=== PATIENT | female | born 1955 | race Caucasian/White ===

== ENCOUNTER 2019-03-30 10:28 | Outpatient (REF) | payer MEDICARE, BC, SELFPAY ==
[2019-03-30 22:44] LABS: ALT 33 U/L (14-59); AST 15 U/L (15-37); Albumin 3.8 g/dL (3.4-5.0); Alkaline Phosphatase 83 U/L (46-116); Bilirubin, Total 0.3 mg/dL (0.2-1.0); TSH 1.79 uIU/mL (0.36-3.74); Total Protein 6.9 g/dL (6.4-8.2)
== END 2019-03-30 10:48 ==
LOC: NCHCN 10:28
PROVIDERS: PCP Internal Medicine; Visit Provider Internal Medicine
DX: R53.83 Other fatigue (principal); F32.9 Major depressive disorder, single episode, unspecified; F10.20 Alcohol dependence, uncomplicated
CPT/HCPCS: 80076; 84443

== ENCOUNTER 2020-06-04 17:29 | Outpatient (REF) | payer MEDICARE, BC, SELFPAY ==
[2020-06-04 20:49] LABS: Abs Immature Grans 0.01 10^3/uL (0.0-0.06); Absolute Basophil Count 0.07 10^3/uL (0.0-0.2); Absolute Eosinophil Count 0.21 10^3/uL (0.0-0.7); Absolute Lymphocyte Count 2.57 10^3/uL (1.2-3.4); Absolute Monocyte Count 0.53 10^3/uL (0.1-0.8); Absolute Neutrophil Count 3.51 10^3/uL (1.2-6.7); HCT 43.7 % (36.0-46.0); HGB 14.3 g/dL (11.2-15.7); Immature Grans % 0.1; Lymphocytes % 37.2; MCH 31.2 pg (27.0-33.0); MCHC 32.7 % (32.0-36.0); MCV 95.4 fL (80-95); MPV 10.7 fL (8.0-11.0); Monocytes % 7.7; Nucleated RBC 0 %; Platelet Count 330 10^3/uL (130-400); RBC 4.58 10^6/uL (3.93-5.22); RDW 12.9 % (11.7-14.6); RDW-SD 45.1 fL
[2020-06-04 20:59] LABS: ALT 28 U/L (14-59); AST 16 U/L (15-37); Albumin 4.1 g/dL (3.4-5.0); Alkaline Phosphatase 93 U/L (46-116); Anion Gap 9.1 mmol/L (3-11); BUN 8 mg/dL (7-18); Bilirubin, Total 0.3 mg/dL (0.2-1.0); C-Reactive Protein 0.18 mg/dL (0.0-0.3); CO2 26.9 mmol/L (21.0-32.0); CREATININE 0.66 mg/dL (0.55-1.02); Calcium 9.3 mg/dL (8.5-10.1); Chloride 104 mmol/L (98-107); Glucose 83 mg/dL (74-106); Potassium 4.4 mmol/L (3.5-5.1); Sodium 140 mmol/L (136-145); Total Protein 7.3 g/dL (6.4-8.2)
[2020-06-04 21:26] LABS: ESR 15 mm/hr (0-30)
== END 2020-06-04 17:49 ==
LOC: NCHCN 17:29
PROVIDERS: PCP Internal Medicine; Visit Provider Internal Medicine
DX: G44.89 Other headache syndrome (principal)
CPT/HCPCS: 80053; 85652; 85025; 86140

== ENCOUNTER 2020-12-13 09:37 | Outpatient (REF) | payer MEDICARE, BC, SELFPAY ==
[2020-12-13 14:14] LABS: BUN 9 mg/dL (7-18); CREATININE 0.8 mg/dL (0.55-1.02); Calculated LDL 145 mg/dL (<100); Chloride 107 mmol/L (98-107); Cholesterol 211 mg/dL (<200); Glucose 92 mg/dL (74-106); HDL Cholesterol 52 mg/dL (40-60); Potassium 4.6 mmol/L (3.5-5.1); Sodium 144 mmol/L (136-145); Triglyceride 74 mg/dL (<150)
== END 2020-12-13 09:38 | disposition home or self-care (01) ==
LOC: NCHCN 09:37
PROVIDERS: PCP Internal Medicine; Visit Provider Internal Medicine
DX: Z00.00 Encounter for general adult medical examination without abnormal findings (principal); Z13.220 Encounter for screening for lipoid disorders; R53.83 Other fatigue
CPT/HCPCS: 80048; 80061

== ENCOUNTER 2023-01-12 09:08 | Outpatient (REF) | payer MEDICARE, SELFPAY ==
[2023-01-12 15:39] LABS: ALT 33 U/L (14-59); AST 27 U/L (15-37); Albumin 3.8 g/dL (3.4-5.0); Alkaline Phosphatase 79 U/L (46-116); Anion Gap 7.4 mmol/L (3-11); BUN 6 mg/dL (7-18); Bilirubin, Total 0.5 mg/dL (0.2-1.0); CO2 28.6 mmol/L (21.0-32.0); CREATININE 0.8 mg/dL (0.55-1.02); Calcium 9.4 mg/dL (8.5-10.1); Calculated LDL 133 mg/dL (<100); Chloride 107 mmol/L (98-107); Cholesterol 206 mg/dL (<200); Estimated GFR 79.71 (mL/min/1.73m2); Glucose 108 mg/dL (74-106); HDL Cholesterol 51 mg/dL (40-60); Potassium 4.3 mmol/L (3.5-5.1); Sodium 143 mmol/L (136-145); Total Protein 7.2 g/dL (6.4-8.2); Triglyceride 110 mg/dL (<150)
== END 2023-01-12 09:09 | disposition home or self-care (01) ==
LOC: NCHCN 09:08
PROVIDERS: PCP Internal Medicine; Visit Provider Internal Medicine
DX: E78.5 Hyperlipidemia, unspecified (principal)
CPT/HCPCS: 80053; 80061

== ENCOUNTER 2023-08-07 19:06 | Outpatient (REF) | payer MEDICARE, SELFPAY ==
[2023-08-07 14:35] LABS: Abs Immature Grans 0.01 10^3/uL (0.0-0.06); Absolute Basophil Count 0.07 10^3/uL (0.0-0.2); Absolute Eosinophil Count 0.18 10^3/uL (0.0-0.7); Absolute Lymphocyte Count 2.05 10^3/uL (1.2-3.4); Absolute Monocyte Count 0.56 10^3/uL (0.1-0.8); Absolute Neutrophil Count 3.41 10^3/uL (1.2-6.7); Basophils % 1.1; Eosinophils % 2.9; HGB 14.8 g/dL (11.2-15.7); Immature Grans % 0.2; Lymphocytes % 32.6; MCH 30.6 pg (27.0-33.0); MCHC 32.9 % (32.0-36.0); MCV 93 fL (80-95); MPV 10.6 fL (8.0-11.0); Monocytes % 8.9; Neutrophils % 54.3; Platelet Count 325 10^3/uL (130-400); RBC 4.83 10^6/uL (3.93-5.22); RDW 12.7 % (11.7-14.6); RDW-SD 43.8 fL; WBC 6.28 10^3/uL (4.4-10.8)
[2023-08-07 15:02] LABS: Hemoglobin A1C 5.7 % (<5.7)
[2023-08-07 15:21] LABS: Calculated LDL 158 mg/dL (<100); Cholesterol 228 mg/dL (<200); HDL Cholesterol 54 mg/dL (40-60); TSH 1.84 uIU/Ml (0.36-3.74); Triglyceride 84 mg/dL (<150); Vitamin B12 286 pg/mL (193-986)
== END 2023-08-07 19:07 | disposition home or self-care (01) ==
LOC: NCHCN 19:06
PROVIDERS: PCP Internal Medicine; Referring Provider Internal Medicine; Visit Provider Internal Medicine
DX: R73.03 Prediabetes (principal); E78.5 Hyperlipidemia, unspecified; R53.83 Other fatigue; E66.3 Overweight
CPT/HCPCS: 80061; 82607; 83036; 84443; 85025

== ENCOUNTER 2024-03-07 08:52 | Outpatient (REF) | payer MEDICARE, SELFPAY ==
--- OUTSIDE RECORDS SUMMARY | 2024-03-07 08:53 | XMS_ITS | Encounter Summary ---
Author Organization [facility] Address [address] [place] [address] Care Team Providers Care Model Making Supervisor Name Role Phone Hortencia Gotti MD Primary Care Provider Unavailabl e Reason for Visit * Reason Comments Neuropathy Encounter Details Date Type Department Care Team (Late st Contact Info) Description 08/21/2023 9:00 EDT Nurse Only [facility] Neu[facility] [address] [place], [place] [address] Nurse, [facility] Peripheral polyneuropathy [G62.9] (Primary Dx) Social History Tobacco Use Types Packs/Day Years Used Date Smoking Tobacco: Never Assessed Interpersonal Safety Answer Date Record ed Physically Hurt Never 01/08/2020 Verbally Threaten Not on file 01/08/2020 Sex and Gender Information Value Date Recorded Sex Assigned at Not on file Gender Identity Female 02/05/2022 12:59 EDT Sexual Orientation Not on file documented as of this encounter Functional Status Functional Status Response Date of Assess ment Because of a physical, menta l, or emotional condition, does this person have difficulty doing errands alone such as visiting a doctor's office or shopping? No 04/09/2023 Cognitive Status Response Date of Assessm ent Because of a physical, menta l, or emotional condition, does this person have serious difficulty concentrating, remembering, or making decisions? No 04/09/2023 documented as of this encounter Progress Notes * Ludy Shultz, RN - 08/21/2023 0900 EDT Nikky came into the office to receive her first IM injection of B12. Nikky was accompanied by her , Brendon who will be learning the administration in order to provide the next 3 weekly injections ordered. Nikky brought the B12 for IM injection in with her from her local pharmacy. Nikky also wanted to learn how to administer her injections. Nikky is to receive 1000 mg cyanocobalamin IM weeklyfor 4 weeks due to a symptomatic low serum level. Brendon received hands on instruction for drawing up medication into the syringe and administering an IM injection. He then administered the B12 1000mg via IM injection into Nikky's right deltoid successfully under RN supervision. Brendon expressed confidence with independence administering the IM injections in the next 3 weeks. 1000 mg administered IM to patient's right deltoid. Tolerated well. Patient remained under RN supervision for 20 minutes following the injection. I was supervised by Edward Diaz MD who was present and immediately available in the office suite. Lot # : Exp date: NDC: documented in this encounter Plan of Treatment Not on file documented as of this encounter Visit Diagnoses Diagnosis Peripheral polyneuropathy [G62.9]- Primary Unspecified hereditary and idiopathic peripheral neuropathy documented in this encounter Administered Medications Inactive Administered Medications - up to 3 most recent administrations Medication Order MAR Action Action Date Dose Rate Site cyanocobalamin (VITAMIN B12) injection 1,000 mcg 1,000 mcg, intramuscular, WEEKLY, 1 dose, First dose (after last reorder) on Thu08/21/23 at 0930, Routine Given 08/21/2023 9:00 EDT 1,000 mcg Right De ltoid documented in this encounter Care Teams Model Making Supervisor Relationship Specialty Start Date End Date Hortencia Gotti MD PCP - General 11/01/21 documented as of this encounter
--- OUTSIDE RECORDS SUMMARY | 2024-03-07 08:53 | XMS_ITS | Encounter Summary ---
Author Organization [facility] Address [address] [place] [address] Care Team Providers Care Meal Temperer Name Role Phone Hortencia Gotti MD Primary Care Provider Unavailabl e Reason for Referral * Radiology Services (Routine/Next Available) - Authorization Not Required Specialty Diagnoses / Procedures Referred By Thomas t Referred To Contact Diagnoses Encounter for screening mammogram for malignant neoplasm of breast Procedures MA BREAST SCREENING ENRIQUE BILATERAL Nayana Kaur [address] [place] [address] [facility] Referral ID Status Reason Start Date Expiration Date Visits Requested Visits Authorized [id number] Authorization Not Required 12/24/2023 1 1 Reason for Visit * Radiology Services (Routine/Next Available) - Authorization Not Required Specialty Diagnoses / Procedures Referred By Thomas hernandes Referred To Contact Diagnoses Encounter for screening mammogram for malignant neoplasm of breast Procedures MA BREAST SCREENING ENRIQUE BILATERAL Nayana Kaur [address] [place] [address] [facility] Referral ID Status Reason Start Date Expiration Date Visits Requested Visits Authorized [id number] Authorization Not Required 12/24/2023 1 1 Encounter Details Date Type Department Care Team (Latest Contact Info) Description 01/22/2024 11:33 EDT - 01/22/2024 23:59 EDT Hospital Encounter [facility] Mammography [address] [place], [place] [address] Encounter for screening mammogram for malignant neoplasm of breast Discharge Disposition: Home or Self Care Social History Tobacco Use Types Packs/Day Years Used Date Smoking Tobacco: Former Cigarettes Smokeless Tobacco: Never Interpersonal Safety Answer Date Record ed Physically [...] serious difficulty concentrating, remembering, or making decisions? Yes 12/16/2023 documented as of this encounter Medications at Time of Discharge Medication Sig Dispensed Refills Start Date End Date amitriptyline (ELAVIL) 50 mg tablet take 1 tablet by mouth every night 06/20/2022 cyanocobalamin (VITAMIN B-12) 1,000 mcg tablet Take 1 Tablet by mouth daily. Start after intramuscular injections are finished 90 Tablet 4 08/13/2023 cyclobenzaprine (FLEXERIL) 10 mg tablet TAKE 1 TABLET BY MOUTH AT BEDTIME NEEDED FOR NECK PAIN 06/20/2022 estradioL (ESTRACE) 0.01 % (0.1 mg/gram) vaginal cream 02/18/2023 FLUoxetine (PROZAC) 20 mg capsule Take 1 Capsule by mouth daily. 03/19/2023 triamcinolone (KENALOG) 0.1 % cream APPLY SMALL AMOUNT TOPICALLY TO THE AFFECTED AREA TWICE DAILY 03/16/2023 documented as of this encounter Discharge Disposition Disposition Code Departure Means Destination Home or Self Care documented in this encounter Plan of Treatment Not on file documented as of this encounter Procedures Procedure Name Priority Date/Time Associated Diagnosis Comments MA BREAST SCREENING ENRIQUE BILATERAL Routine 01/22/2024 11:45 EDT Encounter for screening mammogram for malignant neoplasm of breast documented in this encounter Results * MA BREAST SCREENING ENRIQUE BILATERAL (01/22/2024 11:45 EDT) Anatomical Region Laterality Modality Breast Bilateral Mammography 01/22/2024 12:3 8 EDT Impressions 01/22/2024 12:38 EDT Negative, no evidence of malignancy. RECOMMENDATION: Routine screening mammography is recommended. OVERALL ASSESSMENT: BI-RADS 1: Negative These results will be communicated to your patient via a lay letter from Radiology. If any additional imaging is needed we will contact your patient directly. [address] [phone] [id number] Narrative 01/22/2024 12:38 EDT MA BREAST SCREENING ENRIQUE BILATERAL ??01/22/2024 11:38 AM History: bilateral screening Comparison: ??Comparison has been made to previous images . ? Technique: Routine 3D tomosynthesis with synthesized 2D views with CAD Breast Composition: There are scattered areas of fibroglandular density. Bilateral Breast Findings: ??No significant masses, calcifications or other abnormalities are seen. Resulting Agency Comment [id number] Procedure Note Jitendra Diallo MD - 01/22/2024 MA BREAST SCREENING ENRIQUE BILATERAL 01/22/2024 11:38 AM History: bilateral screening Comparison: Comparison has been made to previous images . Technique: Routine 3D tomosynthesis with synthesized 2D views with CAD Breast Composition: There are scattered areas of fibroglandular density. Bilateral Breast Findings: No significant masses, calcifications or otherabnormalities are seen. IMPRESSION Negative, no evidence of malignancy. RECOMMENDATION: Routine screening mammography is recommended. OVERALL ASSESSMENT: BI-RADS 1: Negative These results will be communicated to your patient via a lay letter fromRadiology. If any additional imaging is needed we will contact yourpatient directly. [address] [phone] [id number] Nayana Kaur IMG MAMMOGRAPHY [place] documented in this encounter Visit Diagnoses Diagnosis Encounter for screening mammogram for malignant neoplasm of breast Other screening mammogram documented in this encounter Care Teams Meal Temperer Relationship Specialty Start Date End Date Hortencia Gotti MD PCP - General 11/01/21 documented as of this encounter
--- OUTSIDE RECORDS SUMMARY | 2024-03-07 08:53 | XMS_ITS | Clinical Summary ---
Author Organization [facility] Address [address] [place] [address] Care Team Providers Care Architectural Draftsman Name Role Phone Hortencia Gotti MD Primary Care Provider Unavailabl e Allergies No known active allergies Medications Medication Sig Dispensed Refills Start Date End Date Status triamcinolone (KENALOG) 0.1 % cream APPLY SMALL AMOUNT TOPICALLY TO THE AFFECTED AREA TWICE DAILY 03/16/2023 Active estradioL (ESTRACE) 0.01 % (0.1 mg/gram) vaginal cream 02/18/2023 Active FLUoxetine (PROZAC) 20 mg capsule Take 1 Capsule by mouth daily. 03/19/2023 Active cyclobenzaprine (FLEXERIL) 10 mg tablet TAKE 1 TABLET BY MOUTH AT BEDTIME NEEDED FOR NECK PAIN 06/20/2022 Active amitriptyline (ELAVIL) 50 mg tablet take 1 tablet by mouth every night 06/20/2022 Active cyanocobalamin (VITAMIN B-12) 1,000 mcg tablet Take 1 Tablet by mouth daily. Start after intramuscular injections are finished 90 Tablet 4 08/13/2023 Active Encounters Date Type Department Care Team Description 01/22/2024 11:33 EDT - 01/22/2024 23:59 EDT Hospital Encounter [facility] Mammography [address] [place] [address] Encounter for screening mammogram for malignant neoplasm of breast Discharge Disposition: Home or Self Care 12/16/2023 8:30 EDT Office Visit [facility] Neurology Clinic [address] [place] [address] Malaika Rod MD Sensory polyneuropathy (Primary Dx) from Last 3 Months Family History Medical History Relation Comments No Known Brother No Known Child No Known Cousin No Known Daughter No Known Father No Known Grandchild No Known Maternal Aunt No Known Maternal Grandfather No Known Maternal Grandmother No Known Maternal Uncle No Known Mother No Known Other No Known Paternal Aunt No Known Paternal Grandfather No Known Paternal Grandmother No Known Paternal Uncle No Known Sister No Known Son BRCA1 Negative Neg Hx BRCA1 Positive Neg Hx BRCA2 Negative Neg Hx BRCA2 Positive Neg Hx Breast Cancer Neg Hx Breast Cancer (second onset) Neg Hx Genetic Disease Carrier Neg Hx Ovarian Cancer Neg Hx Relation Status Comments Brother Child Cousin Daughter Father Grandchild Maternal Aunt Maternal Grandfather Maternal Grandmother Maternal Uncle Mother Other Paternal Aunt Paternal Grandfather Paternal Grandmother Paternal Uncle Sister Son Social History Tobacco Use Types Packs/Day Years Used Date Smoking Tobacco: Former Cigarettes Smokeless Tobacco: Never Tobacco Cessation:Counseling Given: Not Answered Interpersonal Safety Answer Date Record ed Physically Hurt Never 01/08/2020 Verbally Threaten Not on file 01/08/2020 Sex and Gender Information Value Date Recorded Sex Assigned at Not on file Gender Identity Female 02/05/2022 12:59 EDT Sexual Orientation Not on file Obstetrics History Para Term AB IAB SAB Ectopic Multiple Livin g Live Births 3 3 Date Outcome GA Total Labor Labor/2nd/3rd Weight Sex Type Anes PTL Marilee A1 A5 Name Clin Para Para Para Last Filed Vital Signs Vital Sign Reading Time Taken Comments Blood Pressure 120/70 04/09/2023 0938 EDT Pulse 72 04/09/2023 0938 EDT Temperature - - Respiratory Rate - - Oxygen Saturation 96% 04/09/2023 0938 EDT Inhaled Oxygen Concentration - - Weight - - Height 172.7 cm (5' 8) 11/04/2022 0822 EDT Body Mass Index - - Plan of Treatment Health Maintenance Due Date Last Done Comments RSV Immunization ( o r 60+ Years) (1 - 1-dose 60+ series) 2013 COVID-19 Vaccine (2022-24 season) 2023 Fall Risk Screening 12/15/2024 12/16/2023 Hepatitis C Screen Completed 04/09/2023 Procedures Procedure Name Priority Date/Time Associated Diagnosis Comments MA BREAST SCREENING ENRIQUE BILATERAL Routine 01/22/2024 11:45 EDT Encounter for screening mammogram for malignant neoplasm of breast HEPATITIS C AB W REFLEX TO HCV RNA BY PCR Routine 04/09/2023 10:42 EDT Peripheral polyneuropathy from Last 3 Months or Most Recently Relevant to Health Maintenance Results * MA BREAST SCREENING ENRIQUE BILATERAL [...] needed we will contact your patient directly. [address] [place] [address] [id number] Narrative 01/22/2024 12:38 EDT MA BREAST SCREENING ENRIQUE BILATERAL ??01/22/2024 11:38 AM History: bilateral screening Comparison: ??Comparison has been made to previous images . ? Technique: Routine 3D tomosynthesis with synthesized 2D views with CAD Breast Composition: There are scattered areas of fibroglandular density. Bilateral Breast Findings: ??No significant masses, calcifications or other abnormalities are seen. Resulting Agency Comment [id number] Procedure Note Jitendra Diallo MD - 01/22/2024 [...] is needed we will contact yourpatient directly. [address] [place] [address] [id number] Nayana Kaur IMG MAMMOGRAPHY [place] PALMA * HEPATITIS C AB W REFLEX TO HCV RNA BY PCR (04/09/2023 10:42 EDT) Hep C Antibody Negative Negative 04/09/2023 13:17 EDT [facility] Blood VENOUS BLOOD / Unknown Venipuncture / Unknown 04/09/2023 10:42 EDT 04/09/2023 11:48 EDT Malaika Rod MD CHEMISTRY & BLOOD GA S ORDERABLES [facility] [address] [place] [id number] from Last 3 Months or Most Recently Relevant to Health Maintenance Nikky Jarrett P Personal/Family Self 1955 [address] [place] [address] Nikky Jarrett Personal/Family Self 1955 [address] [place] [address] Nikky Jarrett Personal/Family Self 1955 [address] [place] [address] Care Teams Architectural Draftsman Relationship Specialty Start Date End Date Hortencia Gotti MD PCP - General 11/01/21
--- OUTSIDE RECORDS SUMMARY | 2024-03-07 08:53 | XMS_ITS | Encounter Summary ---
Author Organization [facility] Address [address] [place] [address] Care Team Providers Care Woven Wood Shade Assembler Name Role Phone oHrtencia Gotti MD Primary Care Provider Unavailabl e Reason for Referral * Radiology Services (Routine/Next Available) - Authorization Not Required Specialty Diagnoses / Procedures Referred By Contac t Referred To Contact Diagnoses Encounter for screening mammogram for malignant neoplasm of breast Procedures MA BREAST SCREENING ENRIQUE BILATERAL Nayana [address] [place] [address] [facility] Referral ID Status Reason Start Date Expiration Date Visits Requested Visits Authorized [id number] Authorization Not Required 09/11/2022 1 1 Reason for Visit * Radiology Services (Routine/Next Available) - Authorization Not Required Specialty Diagnoses / Procedures [facility] Referred To Contact Diagnoses Encounter for screening mammogram for malignant neoplasm of breast Procedures MA BREAST SCREENING [place] [address] [facility] Referral ID Status Reason Start Date Expiration Date Visits Requested Visits Authorized [id number] Authorization Not Required 09/11/2022 1 1 Encounter Details Date Type Department Care Team (Latest Contact Info) Description 11/04/2022 7:46 EDT - 11/04/2022 23:59 EDT Hospital Encounter [facility] Mammography [address] [place], [place] [address] Encounter for screening mammogram for malignant neoplasm [...] on file documented as of this encounter Last Filed Vital Signs Vital Sign Reading Time Taken Comments Blood Pressure - - Pulse - - Temperature - - Respiratory Rate - - Oxygen Saturation - - Inhaled Oxygen Concentration - - Weight - - Height 172.7 cm (5' 8) 11/04/2022 0822 EDT Body Mass Index - - documented in this encounter Medications at Time of Discharge Medication Sig Dispensed Refills Start Date End Date amitriptyline (ELAVIL) 50 mg tablet take 1 tablet by mouth every night 06/20/2022 cyclobenzaprine (FLEXERIL) 10 mg tablet TAKE 1 TABLET BY MOUTH AT BEDTIME NEEDED FOR NECK PAIN 06/20/2022 PREVIDENT 5000 ENAMEL PROTECT 1.1-5 % paste 10/29/20222023 documented as of this encounter Discharge Disposition Disposition Code Departure Means Destination Home or Self Care documented in this encounter Plan of Treatment Not on file documented as of this encounter Procedures Procedure Name Priority Date/Time Associated Diagnosis Comments MA BREAST SCREENING ENRIQUE BILATERAL Routine 11/04/2022 8:23 EDT Encounter for screening mammogram for malignant neoplasm of breast documented in this encounter Results * MA BREAST SCREENING ENRIQUE BILATERAL (11/04/2022 8:23 EDT) Anatomical Region Laterality Modality Breast Bilateral Mammography 11/05/2022 12:5 9 EDT Impressions 11/05/2022 12:59 EDT Negative, no evidence of malignancy. RECOMMENDATION: Routine screening mammography is recommended. OVERALL ASSESSMENT: BI-RADS 1: Negative These results will be communicated to your patient via a lay letter from Radiology. If any additional imaging is needed we will contact your patient directly. Narrative 11/05/2022 12:59 EDT MA BREAST SCREENING ENRIQUE BILATERAL ??11/04/2022 8:10 AM History: routine screening Comparison: ??Comparison has been made to previous images. Technique: Routine 3D tomosynthesis with synthesized 2D views with CAD Bilateral Breast Composition: There are scattered areas of fibroglandular density. Bilateral Breast Findings: ??No significant masses, calcifications or other abnormalities are seen. Procedure Note Hector Demarco MD - 11/05/2022 MA BREAST SCREENING ENRIQUE BILATERAL 11/04/2022 8:10 AM History: routine screening Comparison: Comparison has been made to previous images. Technique: Routine 3D tomosynthesis with synthesized 2D views with CAD Bilateral Breast Composition: There are scattered areas of fibroglandulardensity. Bilateral Breast Findings: No significant masses, calcifications or otherabnormalities are seen. IMPRESSION Negative, no evidence of malignancy. RECOMMENDATION: Routine screening mammography is recommended. OVERALL ASSESSMENT: BI-RADS 1: Negative These results will be communicated to your patient via a lay letter fromRadiology. If any additional imaging is needed we will contact yourpatient directly. Nayana Kaur [facility] MAMMOGRAPHY [place]HA [place] documented in this encounter Visit Diagnoses Diagnosis Encounter for screening mammogram for malignant neoplasm of breast Other screening mammogram documented in this encounter Care Teams Woven Wood Shade Assembler Relationship Specialty Start Date End Date Hortencia Gotti MD PCP - General 11/01/21 documented as of this encounter
--- OUTSIDE RECORDS SUMMARY | 2024-03-07 08:53 | XMS_ITS | Encounter Summary ---
Author Organization [facility] Address [address] [place] [address] Care Team Providers Care Community Services Officer Name Role Phone Hortencia Gotti MD Primary Care Provider Unavailabl e Encounter Details Date Type Department Care Team (Late st Contact Info) Description 04/09/2023 11:00 EDT Phlebotomy Only [facility] - Outpatient Phlebotomy Drawing [address] [place] [address] Lab, [facility] Op Phlebotomy Peripheral polyneuropathy; Abnormal reflex; Other abnormal glucose Social History Tobacco Use Types Packs/Day Years [...] No 04/09/2023 documented as of this encounter Plan of Treatment Not on file documented as of this encounter Procedures Procedure Name Priority Date/Time Associated Diagnosis Comments SPEP, INCLUDES QUANTITATION OF MONOCLONAL SPIKE PERFORMABLE Routine 04/09/2023 10:42 EDT Peripheral polyneuropathy SSA/SSB PANEL Routine 04/09/2023 10:42 EDT Peripheral polyneuropathy HEPATITIS C AB W REFLEX TO HCV RNA BY PCR Routine 04/09/2023 10:42 EDT Peripheral polyneuropathy METHYLMALONIC ACID Routine 04/09/2023 10 :42 EDT Peripheral polyneuropathy COMPLETE BLOOD COUNT Routine 04/09/2023 10:42 EDT Peripheral polyneuropathy ANTI NUCLEAR AB (GRETEL), IFA Routine 04/09/2023 10:42 EDT Peripheral polyneuropathy TSH Routine 04/09/2023 10:42 EDT Peripheral polyneuropathy Abnormal reflex SPEP, INCLUDES QUANTITATION OF MONOCLONAL SPIKE Routine 04/09/2023 10:42 EDT Peripheral polyneuropathy PROTEIN, TOTAL Routine 04/09/2023 10:42 EDT Peripheral polyneuropathy HEMOGLOBIN A1C Routine 04/09/2023 10:42 EDT Peripheral polyneuropathy Other abnormal glucose VITAMIN B12 Routine 04/09/2023 10:42 EDT Peripheral polyneuropathy COMPREHENSIVE METABOLIC PANEL (CMP) Routine 04/09/2023 10:42 EDT Peripheral polyneuropathy documented in this encounter Results * (ABNORMAL) SPEP, INCLUDES QUANTITATION OF MONOCLONAL SPIKE PERFORMABLE (04/09/2023 10:42 EDT) Albumin % 62.5 55.8 - 66.1 % 04/10/2023 14:01 [facility] Albumin g/dL 4.4 3.6 - 5.2 g/dL 04/10/2023 14:01 [facility] Alpha-1 % 3.7 2.9 - 4.9 % 04/10/2023 14:01 [facility] Alpha-1 g/dL 0.30 0.15 - 0.40 g/dL 04/10/2023 14:01 [facility] Alpha-2 % 8.7 7.1 - 11.8 % 04/10/2023 14:01 [facility] Alpha-2 g/dL 0.60 0.50 - 1.00 g/dL 04/10/2023 14:01 [facility] Beta % 13.4(H) 8.4 - 13.1 % 04/10/2023 14:01 [facility] Beta g/dL 1.00 0.60 - 1.20 g/dL 04/10/2023 14:01 [facility] Gamma % 11.7 11.1 - 18.8 % 04/10/2023 14:01 [facility] Gamma g/dL 0.80 0.60 - 1.60 g/dL 04/10/2023 14:01 [facility] SPEP Comment No apparent monoclonal protein seen on serum electrophoresis 04/10/2023 14:01 [facility] Comment:See scanned/suppleme ntary report. Total Protein 7.1 6.3 - 8.2 g/dL 04/10/2023 14:01 [facility] Blood VENOUS BLOOD / Unknown Venipuncture / Unknown 04/09/2023 10:42 EDT 04/09/2023 11:50 EDT Malaika Rod MD CHEMISTRY & BLOOD GA S ORDERABLES [facility] [address] [place] [address] * PROTEIN, TOTAL (04/09/2023 10:42 EDT) Blood VENOUS BLOOD / Unknown Venipuncture / Unknown 04/09/2023 10:42 EDT 04/09/2023 11:51 EDT Malaika Rod MD CHEMISTRY & BLOOD GA S ORDERABLES [facility] [address] [place] [address] * HEPATITIS C AB W REFLEX TO HCV RNA BY PCR (04/09/2023 10:42 EDT) Pathologist [facility] Hep C Antibody Negative Negative 04/09/2023 13:[address] [facility] Blood VENOUS BLOOD / Unknown Venipuncture / Unknown 04/09/2023 10:42 EDT 04/09/2023 11:48 EDT Malaika Rod MD CHEMISTRY & BLOOD GA S ORDERABLES Performing Organization Address City/[facility]/ZIP Co de Phone Number [facility] [address] [place] [address] * (ABNORMAL) HEMOGLOBIN A1C (04/09/2023 10:42 EDT) [facility] Hemoglobin A1c 5.9(H) <5.7 % 04/09/2023 21:[address] [facility] Comment: Glycemic Status References: Normal: ??<5.7% Pre-Diabetes: ??5.7% - 6.4% Diagnostic of Diabetes: ??> or = 6.5% (if confirmed) Est Avg Glucose 123 mg/dL 21:[address] [facility] Comment:The eAG represents t he A1c result expressed as average glucose in mg/dL. Blood VENOUS BLOOD / Unknown Venipuncture / Unknown 04/09/2023 10:42 EDT 04/09/2023 11:47 EDT Malaika Rod MD CHEMISTRY & BLOOD GA S ORDERABLES Performing Organization Address City/[facility]/ZIP Co de Phone Number [facility] [address] [place] [address] * METHYLMALONIC ACID (04/09/2023 10:42 EDT) Pathologist [facility] Methylmalonic Acid, QN, S 0.40 <=0.40 nmol/mL 04/14/2023 15:12 EST [facility] Comment: ADDITIONAL INFORMATION This test was developed and its performance characteristics determined by [facility] in a manner consistent with CLIA requirements. This test has not been cleared or approved by the U.S. Food and Drug Administration. Test Performed by: [address] [address] Home Hospice Aide: Albert Gee M.D. Ph.D.; CLIA# [id number] Blood VENOUS BLOOD / Unknown Venipuncture / Unknown 04/09/2023 10:42 EDT 04/09/2023 11:50 EDT Malaika Rod MD CHEMISTRY & BLOOD GA S ORDERABLES Performing Organization Address [facility] Co de Phone Number [address] [address] * ANTI NUCLEAR AB (GRETEL), IFA (04/09/2023 10:42 EDT) Pathologist [facility] GRETEL Interpretation Negative Negative 2022 12:36 EDT [facility] Comment:No titer performed, GRETEL Screen is negative. Blood VENOUS BLOOD / Unknown Venipuncture / Unknown 04/09/2023 10:42 EDT 04/09/2023 11:50 EDT Narrative [facility] - 04/10/2023 12:36 EDT Results were obtained with the INOVA NOVA Lite HEp-2 GRETEL Kit by indirect immunofluorescence. Malaika Rod MD IMMUNOLOGY AND SEROL OGY ORDERABLES Performing Organization Address City/[facility]/ZIP Co de Phone Number [facility] [address] [place] [address] * SSA/SSB PANEL (04/09/2023 10:42 EDT) SSA Antibody 1.7 <20.0 Units 04/10/2023 14:11 EDT [facility] Comment: ? Negative: <20.0 Units ? Weak Positive: 20.0 - 39.9 Units ? Moderate Positive: 40.0 - 80.0 Units ? Strong Positive: >80.0 Units Results were obtained with the INOVA QUANTA Lite SS-A MARIANNA. ??SS-A values obtained with different manufacturers' assay methods may not be used interchangeably. ??The magnitude of the reported IgG levels cannot be correlated to an endpoint titer. SSB Antibody 2.1 <20.0 Units 04/10/2023 14:11 EDT [facility] Comment: ? Negative: <20.0 Units ? Weak Positive: 20.0 - 39.9 Units ? Moderate Positive: 40.0 - 80.0 Units ? Strong Positive: >80.0 Units Results were obtained with the INOVA QUANTA Lite SS-B MARIANNA. ??SS-B values obtained with different manufacturers' assay methods may not be used interchangeably. ??The magnitude of the reported IgG levels cannot be correlated to an endpoint titer. Blood VENOUS BLOOD / Unknown Venipuncture / Unknown 04/09/2023 10:42 EDT 04/09/2023 11:48 EDT Malaika Rod MD IMMUNOLOGY AND GARY NAJERA ORDERABLES Performing Organization Address City/State/[facility] Co de Phone Number [facility] [address] [place] [address] * (ABNORMAL) COMPREHENSIVE METABOLIC PANEL (CMP) (04/09/2023 10:42 EDT) Sodium 142 136 - 145 mmol/L 04/09/2023 12:[address] [facility] Potassium 4.4 3.5 - 5.0 mmol/L 04/09/2023 12:[address] [facility] Chloride 109 96 - 110 mmol/L 04/09/2023 12:[address] [facility] CO2 Total 28 22 - 32 mmol/L 04/09/2023 12:[address] [facility] Glucose 78 70 - 99 mg/dl 04/09/2023 12:31 [facility] BUN 6(L) 10 - 26 mg/dL 04/09/2023 12:31 [facility] Creatinine 0.56 0.52 - 1.04 mg/dL 04/09/2023 12:31 [facility] eGFR 98 >60 mL/min/1.7 3m2 04/09/2023 12:31 [facility] Total Protein 7.2 6.3 - 8.2 g/dL 04/09/2023 12:31 [facility] Albumin 4.4 3.4 - 4.9 g/dL 04/09/2023 12:31 [facility] Alkaline Phosphatase 76 38 - 126 U/L 04/09/2023 12:31 [facility] AST 29 15 - 46 U/L 04/09/2023 12:31 [facility] ALT 30 <35 U/L 04/09/2023 12:31 [facility] Bilirubin, Total 0.6 <1.4 mg/dL 04/09/20 12:31 [facility] Calcium 10.0 8.5 - 10.5 mg/dL 04/09/2023 12:31 [facility] Albumin/Globulin Ratio 1.6 1.0 - 2.5 g/dL 04/09/2023 12:31 [facility] Anion Gap 5 5 - 14 mmol/L 04/09/2023 12:31 [facility] Blood VENOUS BLOOD / Unknown Venipuncture / Unknown 04/09/2023 10:42 EDT 04/09/2023 11:51 EDT Malaika Rod MD CHEMISTRY & BLOOD GA S ORDERABLES [facility] [address] [place] [address] * COMPLETE BLOOD COUNT (04/09/2023 10:42 EDT) WBC 7.10 4.00 - 12.40 K/cmm 04/09/2023 11:50 [facility] RBC 4.67 3.86 - 5.04 M/cmm 04/09/2023 11:50 [facility] Hemoglobin 14.5 11.6 - 15.2 g/dL 04/09/2023 11:50 [facility] HCT 42.9 34.9 - 44.4 % 04/09/2023 11:50 [facility] MCV 92 81 - 98 fL 04/09/2023 11:50 [facility] MCH 31.0 26.7 - 33.3 pg 04/09/2023 11:50 [facility] MCHC 33.8 32.1 - 35.9 g/dL 04/09/2023 11:50 [facility] RDW-CV 12.8 <14.7 % 04/09/2023 11:50 [facility] RDW-SD 43.1 <50.4 fl 04/09/2023 11:50 [facility] PLT 342 141 - 377 K/cmm 04/09/2023 11:50 [facility] MPV 10.7 9.5 - 12.7 fL 04/09/2023 11:50 [facility] Blood VENOUS BLOOD / Unknown Venipuncture / Unknown 04/09/2023 10:42 EDT 04/09/2023 11:47 EDT Malaika Rod MD HEMATOLOGY & PF4 ORD ERABLES [facility] [address] [place] [address] * TSH (04/09/2023 10:42 EDT) TSH 1.98 0.47 - 4.68 mIU/L 04/09/2023 13:[address] [facility] Blood VENOUS BLOOD / Unknown Venipuncture / Unknown 04/09/2023 10:42 EDT 04/09/2023 11:[address] [facility] - 04/09/2023 13:02 EDT The results of this assay can be falsely lowered due to the consumption of Biotin. Malaika Rod MD CHEMISTRY & BLOOD GA S ORDERABLES Performing Organization Address [facility] Co de Phone Number [facility] [address] [place] [address] * VITAMIN B12 (04/09/2023 10:42 EDT) Vitamin B12 281 211 - 911 pg/mL 04/09/2023 13:[address] [facility] Blood VENOUS BLOOD / Unknown Venipuncture / Unknown 04/09/2023 10:42 EDT 04/09/2023 11:[address] [facility] - 04/09/2023 13:21 EDT The results of this assay can be falsely elevated due to the consumption of Biotin. Malaika Rdo MD CHEMISTRY & BLOOD GA S ORDERABLES Performing Organization Address City/[facility] Co de Phone Number [facility] [address] [place] [address] documented in this encounter Visit Diagnoses Diagnosis Peripheral polyneuropathy Unspecified hereditary and idiopathic peripheral neuropathy Abnormal reflex Other abnormal glucose documented in this encounter Care Teams Community Services Officer Relationship Specialty Start Date End Date Hortencia Gotti MD PCP - General 11/01/21 documented as of this encounter
--- OUTSIDE RECORDS SUMMARY | 2024-03-07 08:53 | XMS_ITS | Encounter Summary ---
Author Organization [facility] Address [address] [place] [address] Care Team Providers Care Inspector Outside Production Name Role Phone Hortencia Gotti MD Primary Care Provider Unavailabl e Reason for Visit * Reason Comments Follow-up Encounter Details Date Type Department Care Team (Late st Contact Info) Description 08/13/2023 9:00 EST Office Visit [facility] [address] [place] [address] Malaika Rod MD [address] [facility] [place] [address] Peripheral polyneuropathy (Primary Dx) Social History Tobacco Use Types [...] No 04/09/2023 documented as of this encounter Ordered Prescriptions Prescription Sig Dispensed Refills Start Date End Da te cyanocobalamin (VITAMIN B-12) 1,000 mcg tablet Take 1 Tablet by mouth daily. Start after intramuscular injections are finished 90 Tablet 4 08/13/2023 documented in this encounter Progress Notes * Malaika Rod MD - 08/13/2023 0900 EST [facility] History Ms. Jarrett is a 68 year old female who was referred for evaluation of peripheral neuropathy. She has a past medical history of depression (on fluoxetine and Elavil) and eczema (on triamcinolone). She estimates that her symptoms started 1 to 2 years ago. Specifically, she feels like her feet are cold all the time. In addition, she describes a perception as if there is a layer between the soles of her feet and the floor. She also has intermittent [id number] that are isolated to the feet. She can perceive alteration of temperature under her bare feet while ambulating. However, she feelslike this perception is not as good as it used to be. If she stepped on something irregular or jagged she would have some difficulty being able to perceive it. Often, her family comments that they are surprised that she does not feel pain while barefoot walking on the gravel/rocks. She is fairly cheryl mare while ambulating but perhaps feels slightly unsteady with her eyes closed in the shower. She thinks that she is slightly weaker in her feet bilaterally and is occasionally tripping. However, she can get up from a seated position without difficulty. She also is able to ascend and descend stairs without a problem. Fine dexterity in her hands along with combing her hair or brushing her teeth are unaffected. She denies any prominent autonomic symptoms including dizziness when standing up quickly, constipation, early satiety or changes in sweating. She denies any bulbar symptoms including dysphagia, dysarthria or diplopia. Her sister perhaps has neuropathy. However, she does not feel like her mom and dad were affected. She denies consumption of alcohol. She does not smoke cigarettes or use any illicit drugs. 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 On further discussion, she describes a discomfort in her scalp as if she was wearing a rubber band in her hair and removed it. Overall, it feels sore. In addition, she describes intermittent burning in her left pinky finger and the posterior aspect of her forearms which come and go. Interval history: She is currently taking care of her 2-year-old granddaughter while her daughter is at work. She tells me about [facility] program for 2 to 3 years old. Nikky has been stable overall. She has not noticed any progression of her symptoms. She still has difficulty perceiving any form of sensory perception under her feet. In addition, she mentions that her feet will intermittently get cold without warning. Neuromuscular exam: General: AOx3 Speech: Normal CN II: Visual barrera are full to confrontation. CN III, IV, : Extraocular movements intact. CN V: Facial sensation is intact to light touch bilaterally CN VII: Face is symmetric with normal eye closure and smile. CN VII: Hearing is intact to voice. CN IX, X: Palate elevates symmetrically. CN XI: Head turning and shoulder shrug are intact CN XII: Tongue is midline with normal movements and no atrophy. Tone: Normal in the UE and LE Motor: Neck Flexion:5 Neck Extension:5 R L Deltoid (axillary C5,6) :5 :5 Biceps (MC C5,6) :5 :5 Triceps (radial C6,7,8) :5 :5 Wrist Extension/ECR (radial C6-8) :5 :5 Wrist Flexion/FCR (median/ulnar) :5 :5 Finger Extension (radial C7-8) :5 :5 Finger Flexion (ulnar/median) :5 :5 Thumb ABD/APB (median C8-T1) :5 :5 Interosseous (ulnar C8-T1) :5 :5 Hip Flexion (obt, femoral L2,3,4) :5 :5 Knee Extension (femoral L2,3,4) :5 :5 Knee Flexion (sciatic L4-S1) :5 :5 Dorsiflexion/ Tib Ant (D peroneal L4,5) :5 :5 Plantar flexion (Tibial, S. peroneal L5- S2) :5 :5 The patient is able to get up from a seated position without using his arms DTR: R L Biceps C5/6 :2+ :2+ Triceps C6/7 :2+ :2+ Brachioradialis C5/6 :2+ :2+ Knee L3,4 :2+ :2+ Ankle S1,2 :1+ :1+ Babinski's :negative :negative Sensation: - Mildly decreased vibratory perception at the toes - Reduced proprioception at the toes bilaterally - Decreased sensory perception to pinprick at the toes bilaterally. - Reduced temperature perception to the midfoot Gait: Normal Gait Coordination: No evidence of dysmetria with eyes open or closed. Sway slightly with Romberg but does not fall. Pulses palpable in her feet bilaterally. Prior Workup: Labs: A1c: 5.9% TSH: 1.98 Vitamin B12: 281 Methylmalonic acid: 0.4 SPEP with immunofixation: No M spike. Lyme antibodies: Negative Hepatitis C: Negative GRETEL: Negative SSA/SSB: Negative Imaging: Assessment: Ms. Jarrett is a pleasant 68-year-old female who presents for evaluation of peripheral neuropathy. Briefly, her symptoms have been ongoing for the past 2 years. She describes a constant perception of cold in her feet bilaterally along with a sense as if there is a layer between the soles of her feet and the floor. She also has positive symptomatology including [id number] isolated to the feet. She has decreased perception of temperature on her feet and decreased pain perception to sharp/jagged objects historically. On initial clinical examination, she had reduced vibratory and proprioceptive perception at the toes. In addition, she had reduced pinprick at the toes and decreased temperature perception to the midfoot. However, reflexes were still intact including the ankles. She swayed with Romberg but did not fall. She had no objective weakness. 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 Peripheral neuropathy labs were sent out. Pertinent findings include a vitamin B12 level of 281 and a methylmalonic acid of 0.4. In addition, she was found shannon prediabetic with an A1c of 5.9%. Given her vitamin B12 deficiency in the context of her neurologic symptoms, will prescribe 1000 mcgof IM B12 to be taken once weekly for 4 weeks. Subsequently, will transition to oral therapy (1000 mcg daily). Will check a CBC along with a vitamin B12 and methylmalonic acid level at her next clinic visit. We will see her back in 4 months. She knows to contact us in the interim if she has any concerns Plan: #Sensory predominant polyneuropathy - Likely related to B12 deficiency and less so prediabetes - Prescribed IM B12 injections once weekly for 4 weeks. Subsequently, will transition to oral B12 1000 mcg daily - Will check a CBC, vitamin B12 and methylmalonic acid level at her next clinic visit. Malaika Rod MD I spent a total of 40 minutes on the date of this encounter meeting with the patient and reviewing documentation/coordinating care as described in the above note. No procedures were performed at the time of the visit. documented in this encounter Plan of Treatment Not on file documented as of this encounter Visit Diagnoses Diagnosis Peripheral polyneuropathy- Primary Unspecified hereditary and idiopathic peripheral neuropathy documented in this encounter Orders Medications Ordered That Rodrigo ht Not Have Been Administered Count Last Ordered Date First Ordered Date cyanocobalamin (VITAMIN B12) injection 1,000 mcg 1 08/13/2023 documented in this encounter Care Teams Inspector Outside Production Relationship Specialty Start Date End Date Hortencia Gotti MD PCP - General 11/01/21 documented as of this encounter
--- OUTSIDE RECORDS SUMMARY | 2024-03-07 08:53 | XMS_ITS | Referral Summary ---
Author Organization [facility] Address [address] [place] [address] Care Team Providers Care Conditioning Machine Operator Name Role Phone Hortencia Gotti MD Primary Care Provider Unavailabl e Encounters Date Type Department Care Team Description 01/22/2024 11:33 EDT - 01/22/2024 23:59 EDT Hospital Encounter [facility] [address] [place] [address] Encounter for screening mammogram for malignant neoplasm of breast Discharge Disposition: Home or Self Care 12/16/2023 8:30 EDT Office Visit [facility] [address] [place] [address] Malaika Rod MD Sensory polyneuropathy (Primary Dx) from Last 3 Months Allergies No known active allergies Medications Medication [...] are finished 90 Tablet 4 08/13/2023 Active Social History Tobacco Use Types Packs/Day Years Used Date Smoking Tobacco: Former Cigarettes Smokeless Tobacco: Never Tobacco Cessation:Counseling Given: Not Answered Interpersonal Safety Answer Date Record ed Physically Hurt Never 01/08/2020 Verbally Threaten Not on file 01/08/2020 Sex and Gender Information Value Date Recorded Sex Assigned at Not on file Gender Identity Female 02/05/2022 12:59 EDT Sexual Orientation Not on file Last Filed Vital Signs Vital Sign Reading Time Taken Comments Blood Pressure 120/70 04/09/2023 0938 EDT Pulse 72 04/09/2023 0938 EDT Temperature - - Respiratory Rate - - Oxygen Saturation 96% 04/09/2023 0938 EDT Inhaled Oxygen Concentration - - Weight - - Height 172.7 cm (5' 8) 11/04/2022 0822 EDT Body Mass Index - - Functional Status Functional Status Response Date of [...] concentrating, remembering, or making decisions? Yes 12/16/2023 Plan of Treatment Not on file Procedures Procedure Name Priority Date/Time Associated Diagnosis [...] we will contact your patient directly. [address] [phone] [id number] Narrative 01/22/2024 12:38 EDT MA BREAST SCREENING ENRIQUE BILATERAL ??01/22/2024 11:38 AM History: bilateral screening Comparison: ??Comparison has been made to previous images . ? Technique: Routine 3D tomosynthesis with synthesized 2D views with CAD Breast Composition: There are scattered areas of fibroglandular density. Bilateral Breast Findings: ??No significant masses, calcifications or other abnormalities are seen. Resulting Agency Comment [id number] Procedure Note Jitendra Diallo MD - 01/22/2024 [...] is needed we will contact yourpatient directly. [address] [place] [phone] [id number] [facility] IM MAMMOGRAPHY [facility] * HEPATITIS C AB W REFLEX TO HCV RNA BY PCR (04/09/2023 10:42 EDT) Hep C Antibody Negative Negative 04/09/2023 13:17 EDT [facility] Blood VENOUS BLOOD / Unknown Venipuncture / Unknown 04/09/2023 10:42 EDT 04/09/2023 11:48 EDT Malaika Rod MD CHEMISTRY & BLOOD GA S ORDERABLES [facility] [address] [place] [address] from Last 3 Months or Most Recently Relevant to Health Maintenance Care Teams Conditioning Machine Operator Relationship Specialty Start Date End Date Hortencia Gotti MD PCP - General 11/01/21
--- OUTSIDE RECORDS SUMMARY | 2024-03-07 08:53 | XMS_ITS | Encounter Summary ---
Author Organization [facility] Address [address] [place] [id number] Care Team Providers Care Lining Sewer Name Role Phone Hortencia Gotti MD Primary Care Provider Unavailabl e Reason for Visit * Reason Comments New Patient Visit * Consult, Test and Treat (Routine) - Authorization Not Required Specialty Diagnoses / Procedures Referred By Thomas hernandes Referred To Contact Neurology Diagnoses Polyneuropathy, unspecified Jayme, Karol [address] [place] [address] [facility] [address] [place] [id number] Referral ID Status Reason Start Date Expiration Date Visits Requested Visits Authorized [id number] Authorization Not Required 1 1 Encounter Details Date Type Department Care Team (Late st Contact Info) Description 04/09/2023 10:00 EDT Office Visit [facility] [address] [place], [place] [id number] Malaika Rod MD [address] [place] [address], [facility] [address] [place] [address] Peripheral polyneuropathy (Primary Dx); Abnormal reflex; Other abnormal glucose Social History [...] Concentration - - Weight - - Height - - Body Mass Index - - documented in this encounter Functional Status Functional Status Response [...] as of this encounter Progress Notes * Malaika Rod MD - 04/09/2023 1000 EDT [facility] History Ms. Jarrett is a [...] and the floor. She also has intermittent qzjc-zzg-egznqem that are isolated to the feet. She [...] of her forearms which come and go. Neuromuscular exam: General: AOx3 Speech: Normal CN [...] in her feet bilaterally. Prior Workup: Labs: Imaging: Assessment: Ms. Jarrett is a pleasant 68-year-old female who presents for evaluation of peripheral neuropathy. Briefly, her symptoms have been ongoing for the past 2 years. She describes a constant perception of cold in her feet bilaterally along with a sense as if there is a layer between the soles of her feet and the floor. She also has positive symptomatology including yvxc-iww-jdbtvus isolated to the feet. She has decreased perception of temperature on her feet and decreased pain perception to sharp/jagged objects historically. On clinical examination, she has reduced vibratory and proprioceptive perception at the toes. In addition, she has reduced pinprick at the toes and decreased temperature perception to the midfoot. However, reflexes are still intact including the ankles. She sways with Romberg but does not fall. Shehas no objective weakness. 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 In the context of this, we will send off a laboratory investigation including: CBC, CMP, GRETEL, A1c, hepatitis C, Lyme antibody screen, methylmalonic acid, SPEP with immunofixation, SSA/SSB, TSH and vitamin B12. Given the history and clinical examination, do not feel like an electrodiagnostic study is warranted at this point in time. Uncertain what to make of the sensory perception she is having in her head and arms. Perhaps this may be small fiber related. If there are any abnormalities on the tested labs, will call her and let her know. No need for neuropathic pain medications at this point as her symptoms do not cause pain but rather are just annoying. We will see her back in 4 months. She knows to contact us in the interim if she has any concerns Plan: #Sensory predominant polyneuropathy - We will send out labs including: CBC, CMP, GRETEL, A1c, hepatitis C, Lyme antibody screen, vitamin B12 level, methylmalonic acid, SPEP with immunofixation, SSA/SSB and TSH Malaika Rod MD I spent a total of 60 minutes on the date of this encounter meeting with the patient and reviewing documentation/coordinating care as described in the above note. No procedures were performed at the time of the visit. documented in this encounter Plan of Treatment Not on file documented as of this encounter Procedures Procedure Name Priority Date/Time Associated Diagnosis Comments LYME AB SCREEN, IGG AND IGM Routine 04/09/2023 10:42 EDT Peripheral polyneuropathy documented in this encounter Results * HEPATITIS C AB W REFLEX TO HCV RNA BY PCR (04/09/2023 10:42 EDT) Hep C Antibody Negative Negative 04/09/2023 13:17 EDT [facility] Blood VENOUS BLOOD / Unknown Venipuncture / Unknown 04/09/2023 10:42 EDT 04/09/2023 11:48 EDT Malaika Rod MD CHEMISTRY & BLOOD GA S ORDERABLES Performing Organization Address City/State/[facility] Co de Phone Number [facility] [address] [place] [address] * LYME AB SCREEN, IGG AND IGM (04/09/2023 10:42 EDT) Lyme Antibody, IgG Negative Negative 04/09/2023 14:23 EDT [facility] Lyme Antibody, IgM Negative Negative 04/09/2023 14:23 EDT [facility] Blood VENOUS BLOOD / Unknown Venipuncture / Unknown 04/09/2023 10:42 EDT 04/09/2023 11:51 EDT Malaika Rod MD IMMUNOLOGY AND SEROL OGY ORDERABLES Performing Organization Address City/[facility] Co de Phone Number [facility] [address] [place] [address] * (ABNORMAL) HEMOGLOBIN A1C (04/09/2023 10:42 EDT) Hemoglobin A1c 5.9(H) <5.7 % 04/09/2023 21:29 EDT [facility] Comment: Glycemic Status References: Normal: ??<5.7% Pre-Diabetes: ??5.7% - 6.4% Diagnostic of Diabetes: ??> or = 6.5% (if confirmed) Est Avg Glucose 123 mg/dL 21:29 EDT [facility] Comment:The eAG represents t he A1c result expressed as average glucose in mg/dL. Blood VENOUS BLOOD / Unknown Venipuncture / Unknown 04/09/2023 10:42 EDT 04/09/2023 11:47 EDT Malaika Rod MD CHEMISTRY & BLOOD GA S ORDERABLES Performing Organization Address [facility] Co de Phone Number [facility] [address] [place] [address] * METHYLMALONIC ACID (04/09/2023 10:42 EDT) Methylmalonic Acid, QN, S 0.40 <=0.40 nmol/mL 04/14/2023 15:12 EST [facility] Comment: ADDITIONAL INFORMATION This test was developed and its performance characteristics determined by [facility] in a manner consistent with CLIA requirements. This test has not been cleared or approved by the U.S. Food and Drug Administration. Test Performed by: [facility] - [address] [address] [employer] Laborer: Albert Gee M.D. Ph.D.; CLIA# [id number] Blood VENOUS BLOOD / Unknown Venipuncture / Unknown 04/09/2023 10:42 EDT 04/09/2023 11:50 EDT Malaika Rod MD CHEMISTRY & BLOOD GA S ORDERABLES [facility] [address] [place] [address] * ANTI NUCLEAR AB (GRETEL), IFA (04/09/2023 10:42 EDT) GRETEL Interpretation Negative Negative 2022 12:36 EDT [facility] Comment:No titer performed, GRETEL Screen is negative. Blood VENOUS BLOOD / Unknown Venipuncture / Unknown 04/09/2023 10:42 EDT 04/09/2023 11:50 EDT Narrative [facility] - 04/10/2023 12:36 EDT Results were obtained with the [employer] NOVA Lite HEp-2 GRETEL Kit by indirect immunofluorescence. Malaika Rod MD IMMUNOLOGY AND SEROL OGY ORDERABLES [facility] [address] [place] [address] * SSA/SSB PANEL (04/09/2023 10:42 EDT) SSA Antibody 1.7 <20.0 Units 04/10/2023 14:11 EDT [facility] Comment: ? Negative: <20.0 Units ? Weak Positive: 20.0 - 39.9 Units ? Moderate Positive: 40.0 - 80.0 Units ? Strong Positive: >80.0 Units Results were obtained with the [employer] QUANTA Lite SS-A MARIANNA. ??SS-A values obtained with different manufacturers' assay methods may not be used interchangeably. ??The magnitude of the reported IgG levels cannot be correlated to an endpoint titer. SSB Antibody 2.1 <20.0 Units 04/10/2023 14:11 EDT [facility] Comment: ? Negative: <20.0 Units ? Weak Positive: 20.0 - 39.9 Units ? Moderate Positive: 40.0 - 80.0 Units ? Strong Positive: >80.0 Units Results were obtained with the [employer] QUANTA Lite SS-B MARIANNA. ??SS-B values obtained with different manufacturers' assay methods may not be used interchangeably. ??The magnitude of the reported IgG levels cannot be correlated to an endpoint titer. Blood VENOUS BLOOD / Unknown Venipuncture / Unknown 04/09/2023 10:42 EDT 04/09/2023 11:48 EDT Malaika Rod MD IMMUNOLOGY AND GARY NAJERA ORDERABLES [facility] [address] [place] [address] * (ABNORMAL) COMPREHENSIVE METABOLIC PANEL (CMP) (04/09/2023 10:42 EDT) Sodium 142 136 - 145 mmol/L 04/09/2023 12:31 [facility] Potassium 4.4 3.5 - 5.0 mmol/L 04/09/2023 12:31 [facility] Chloride 109 96 - 110 mmol/L 04/09/2023 12:31 [facility] CO2 Total 28 22 - 32 mmol/L 04/09/2023 12:31 [facility] Glucose 78 70 - 99 mg/dl 04/09/2023 12:31 [facility] BUN 6(L) 10 - 26 mg/dL 04/09/2023 12:31 [facility] Creatinine 0.56 0.52 - 1.04 mg/dL 04/09/2023 12:31 [facility] eGFR 98 >60 mL/min/1.7 3m2 04/09/2023 12:31 [facility] Total Protein 7.2 6.3 - 8.2 g/dL 04/09/2023 12:31 [facility] Albumin 4.4 3.4 - 4.9 g/dL 04/09/2023 12:31 [facility] Alkaline Phosphatase 76 38 - 126 U/L 04/09/2023 12:31 [facility] AST 29 15 - 46 U/L 04/09/2023 12:31 [facility] ALT 30 <35 U/L 04/09/2023 12:31 [facility] Bilirubin, Total 0.6 <1.4 mg/dL 04/09/20 12:31 [facility] Calcium 10.0 8.5 - 10.5 mg/dL 04/09/2023 12:31 [facility] Albumin/Globulin Ratio 1.6 1.0 - 2.5 g/dL 04/09/2023 12:31 [facility] Anion Gap 5 5 - 14 mmol/L 04/09/2023 12:31 [facility] Blood VENOUS BLOOD / Unknown Venipuncture / Unknown 04/09/2023 10:42 EDT 04/09/2023 11:51 EDT Malaika Rod MD CHEMISTRY & BLOOD GA S ORDERABLES Performing Organization Address City/State/[facility] Co de Phone Number [facility] [address] [place] [address] * COMPLETE BLOOD COUNT (04/09/2023 10:42 EDT) WBC 7.10 4.00 - 12.40 K/cmm 04/09/2023 11:50 [facility] RBC 4.67 3.86 - 5.04 M/cmm 04/09/2023 11:50 [facility] Hemoglobin 14.5 11.6 - 15.2 g/dL 04/09/2023 11:50 [facility] HCT 42.9 34.9 - 44.4 % 04/09/2023 11:50 [facility] MCV 92 81 - 98 fL 04/09/2023 11:50 EDT [facility] MCH 31.0 26.7 - 33.3 pg 04/09/2023 11:50 EDT [facility] MCHC 33.8 32.1 - 35.9 g/dL 04/09/2023 11:50 EDT [facility] RDW-CV 12.8 <14.7 % 04/09/2023 11:50 EDT [facility] RDW-SD 43.1 <50.4 fl 04/09/2023 11:50 EDT [facility] PLT 342 141 - 377 K/cmm 04/09/2023 11:50 EDT [facility] MPV 10.7 9.5 - 12.7 fL 04/09/2023 11:50 EDT [facility] Blood VENOUS BLOOD / Unknown Venipuncture / Unknown 04/09/2023 10:42 EDT 04/09/2023 11:47 EDT Malaika Rod MD HEMATOLOGY & PF4 ORD ERABLES [facility] [address] [place] [address] * TSH (04/09/2023 10:42 EDT) [facility] TSH 1.98 0.47 - 4.68 mIU/L 04/09/2023 13:02 EDT [facility] Blood VENOUS BLOOD / Unknown Venipuncture / Unknown 04/09/2023 10:42 EDT 04/09/2023 11:51 EDT Narrative [facility] - 04/09/2023 13:02 EDT The results of this assay can be falsely lowered due to the consumption of Biotin. Malaika Rod MD CHEMISTRY & BLOOD GA S ORDERABLES Performing Organization Address City/[facility]/ZIP Co de Phone Number [facility] [address] [place] [address] * VITAMIN B12 (04/09/2023 10:42 EDT) Vitamin B12 281 211 - 911 pg/mL 04/09/2023 13:21 EDT [facility] Blood VENOUS BLOOD / Unknown Venipuncture / Unknown 04/09/2023 10:42 EDT 04/09/2023 11:51 EDT Narrative [facility] - 04/09/2023 13:21 EDT The results of this assay can be falsely elevated due to the consumption of Biotin. Malaika Rod MD CHEMISTRY & BLOOD GA S ORDERABLES [facility] [address] [place] [address] documented in this encounter Visit Diagnoses Diagnosis Peripheral polyneuropathy- Primary Unspecified hereditary and idiopathic peripheral neuropathy Abnormal reflex Other abnormal glucose documented in this encounter Historical Medications * This list may reflect changes made after this encounter. Medication Sig Dispensed Refills Start Date End Date amitriptyline (ELAVIL) 50 mg tablet take 1 tablet by mouth every night 06/20/2022 cyclobenzaprine (FLEXERIL) 10 mg tablet TAKE 1 TABLET BY MOUTH AT BEDTIME NEEDED FOR NECK PAIN 06/20/2022 FLUoxetine (PROZAC) 20 mg capsule Take 1 Capsule by mouth daily. 03/19/2023 estradioL (ESTRACE) 0.01 % (0.1 mg/gram) vaginal cream 02/18/2023 triamcinolone (KENALOG) 0.1 % cream APPLY SMALL AMOUNT TOPICALLY TO THE AFFECTED AREA TWICE DAILY 03/16/2023 PREVIDENT 5000 ENAMEL PROTECT 1.1-5 % paste 10/29/20222023 penicillin v potassium (VEETID) 500 mg tablet 03/27/202312/15 added in this encounter Care Teams Lining Sewer Relationship Specialty Start Date End Date Hortencia Gotti MD PCP - General 11/01/21 documented as of this encounter
--- OUTSIDE RECORDS SUMMARY | 2024-03-07 08:53 | XMS_ITS | Encounter Summary ---
Author Organization [facility] Address [address] [place] [address] Care Team Providers Care Box Machine Operator Name Role Phone Hortencia Gotti MD Primary Care Provider Unavailabl e Reason for Visit * Reason Comments Neuropathy Follow-up Encounter Details Date Type Department Care Team (Late st Contact Info) Description 12/16/2023 8:30 EDT Office Visit [facility] [address] [place] [address] Malaika Rod MD [address] [place] [address], [facility] [address] [place] [address] Sensory polyneuropathy (Primary Dx) Social History Tobacco Use [...] Yes 12/16/2023 documented as of this encounter Progress Notes * Malaika Rod MD - 12/16/2023 0830 EDT [facility] History Ms. Jarrett is [...] and the floor. She also has intermittent vkih-ktg-iynnulf that are isolated to the feet. She [...] forearms which come and go. Interval history: Nikky was last seen in August 2023. At that time, she felt like her symptoms were stable overall. Given her B12 deficiency, we prescribed 4 weeks of intramuscular B12 with the intention of transitioning to oral B12 therapy subsequently. Overall, Nikky feels stable from a neuropathy perspective, she has not noticed any extension of hersymptoms up her legs. She also has not noticed any major changes in her overall stability. Neuromuscular exam: General: AOx3 Speech: Normal CN [...] perception to pinprick at the toes bilaterally. Gait: Normal Gait Coordination: No evidence of dysmetria with eyes open or closed. Sway slightly with Romberg but does not fall. Prior Workup: Labs: A1c: 5.9% TSH: 1.98 [...] floor. She also has positive symptomatology including jnhl-wmm-obzjrnb isolated to the feet. She has decreased [...] was felt to be consistent with a mild sensory predominant polyneuropathy affecting both the large and small fibers. Peripheral neuropathy labs were sent out. Pertinent findings include a vitamin B12 level of 281 and a methylmalonic acid of 0.4. In addition, she was found to be prediabetic with an A1c of 5.9%. Given her vitamin B12 deficiency in the context of her neurologic symptoms, we prescribed 1000 mcg of IM B12 to be taken once weekly for 4 weeks followed by a transition to oral therapy (1000 mcg daily). On encounter today, Nikky feels like she has been stable from a neuropathy perspective. Her clinical examination today is also stable when compared to her last encounter. Will check a CBC, vitamin B12 and methylmalonic acid level today. At this point, she will follow-up with me on a yearly basis toensure stability. She knows to contact me in the interim if she has any concerns. Plan: #Sensory predominant polyneuropathy - Likely related to B12 deficiency and less so prediabetes - Continue B12 1000 mcg daily - Will check a CBC, vitamin B12 and methylmalonic acid level today Malaika Rod MD I spent a total of 33 minutes on the date of this encounter meeting with the patient and reviewing documentation/coordinating care as described in the above note. No procedures were performed at the time of the visit. 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 08/19/2023 12/16/2023 penicillin v potassium (VEETID) 500 mg tablet 03/27/2023 4 PREVIDENT 5000 ENAMEL PROTECT 1.1-5 % paste 10/29/2022 12/16/2023 documented as of this encounter Care Teams Box Machine Operator Relationship Specialty Start Date End Date Hortencia Gotti MD PCP - General 11/01/21 documented as of this encounter
--- OUTSIDE RECORDS SUMMARY | 2024-03-07 08:53 | XMS_ITS | Encounter Summary ---
Author Organization [facility] Address [address] [place] [address] Care Team Providers Care Vat Packer Name Role Phone Hortencia Gotti MD Primary Care Provider Unavailjaylyn e Encounter Details Date Type Department Care Team (Late st Contact Info) Description 08/19/2023 Orders Only [facility] [address] [place] [address] Ludy Shultz, RN Social History Tobacco Use Types Packs/Day Years [...] mL into the muscle once a week. 4 mL 08/19/2023 12/16/2023 documented in this encounter Progress Notes * Ludy Shultz, RN - 08/19/2023 1347 EDT Sent B12 prescription to the pharmacy for patient to bring to her visit on Thursday. Patient is awareand will p/u from pharmacy for Thursday's visit. documented in this encounter Plan of Treatment Not on file documented as of this encounter Visit Diagnoses Not on filedocumented in this encounter Orders Medications Ordered That Rodrigo ht Not Have Been Administered Count Last Ordered Date First Ordered Date cyanocobalamin (VITAMIN B12) injection 1,000 mcg 1 08/19/2023 documented in this encounter Care Teams Vat Packer Relationship Specialty Start Date End Date Hortencia Gotti MD PCP - General 11/01/21 documented as of this encounter
--- OUTSIDE RECORDS SUMMARY | 2024-03-07 08:54 | XMS_ITS | Encounter Summary ---
[place] [address] Care Team Providers Care Virtualization Engineer Name Role Phone Nayana Kaur MD Primary Care Provider [phone] Reason for Referral * Diagnostic Test (Routine) - Closed Specialty Diagnoses / Procedures Referred By Contac t Referred To Contact Radiology Diagnoses Dysmetria Headache, chronic daily Procedures MRI Brain wwo Contrast (Generic) Miriam Burt APRN [facility] [place] [address] [place] [address] Referral ID Status Reason Start Date Expiration Date V isits Requested Visits Authorized [id number] Closed Specialty Service Requested 09/10/2020 03/08/2021 1 1 Reason for Visit * Diagnostic Test (Routine) - Closed Specialty Diagnoses / Procedures Referred By Contac t Referred To Contact Radiology Diagnoses Neck pain Headache syndrome Procedures MRI Cervical Spine wo Contrast (Generic) Nayana Kaur MD [address] [address] [place] [address] Referral ID Status Reason Start Date Expiration Date V isits Requested Visits Authorized [id number] Closed Specialty Service Requested 08/06/2020 2021 1 1 Encounter Details Date Type Department Care Team (Latest Contact Info) Description 09/11/2020 3:47 PM EDT - 09/11/2020 11:59 PM EDT Hospital Encounter MRI at [facility] ([facility] [place] [id number] Nayana Kaur MD [address] [place] [phone] Dysmetria; Headache, chronic daily Discharge Disposition: Home Social History Tobacco Use Types Packs/Day Years Used Date Smoking Tobacco: Former Cigarettes Q uit: 07/12/1979 Smokeless Tobacco: Never Alcohol Use Standard Drinks/Week Comments No 0 (1 standard drink = 0.6 oz pur e alcohol) Sex and Gender Information Value Date Recorded Sex Assigned at Not on file Gender Identity Not on file Sexual Orientation Not on file documented as of this encounter Medications at Time of Discharge Medication Sig Dispensed Refills Start Date End Date triamcinolone (KENALOG) 0.1 % Cream 2 times daily. 0 08/08/2016 amoxicillin (AMOXIL) 500 mg Capsule as needed. Prior to dental procedures 0 07/05/2016 FLUoxetine (PROZAC) 20 mg Capsule Take 20 mg by mouth daily. 0 04/02/2015 indomethacin (INDOCIN) 50 mg Capsule TAKE 1 CAPSULE BY MOUTH THREE TIMES DAILY WITH FOOD 06/04/2020 09/12/2020 cyclobenzaprine (Flexeril) 10 mg Tablet TAKE 1 TABLET BY MOUTH DAILY 07/02/2020 09/12/2020 amitriptyline (Elavil) 25 mg Tablet Take 2 tablets by mouth nightly. 60 tablet 1 08/16/2020 11/02/2020 naltrexone (DEPADE) 50 mg Tablet Take 50 mg by mouth daily. 0 06/11/2015 09/12/2020 documented as of this encounter Plan of Treatment Upcoming Encounters Date Type Department Care Team (Late st Contact Info) Description 03/23/2024 9:15 AM EDT Appointment XRay at [address] [place] [address] 03/23/2024 10:00 AM EDT [place] [address] Kathie Polk MD [facility] DR [place] [address] documented as of this encounter Procedures Procedure Name Priority Date/Time Associated Diagnosis Comments MRI CERVICAL SPINE WO CONTRAST Routine 09/11/2020 6:28 PM EDT Neck pain Headache syndrome MRI BRAIN WWO CONTRAST (GENERIC) Routine 09/11/2020 6:00 PM EDT Dysmetria Headache, chronic daily documented in this encounter Results * MRI Brain wwo Contrast (Generic) (09/11/2020 6:00 PM EDT) Anatomical Region Laterality Modality Head Magnetic Resonan ce Impressions 09/11/2020 7:53 PM EDT No acute intracranial findings. Minimal changes of chronic white matter microvascular disease. At the level of C5-C6 there is moderate to severe spinal canal stenosis. Advanced neural foraminal narrowing at multiple levels as described above. Question myelomalacia at C5-C6. I have personally reviewed the image(s) and the resident's interpretation and agree with the findings, Oral Wagner at 09/11/2020 7:53 PM Thank you for letting us participate in the care of this patient. ??If you are a health care provider and have any questions regarding this report, please contact the number below. ??For patients who have questions please contact the health medicare insurance specialist that requested your imaging first. ? Narrative 09/11/2020 7:53 PM EDT EXAMINATION: MRI BRAIN WWO CONTRAST (GENERIC), MRI CERVICAL SPINE WO CONTRAST (GENERIC) CLINICAL HISTORY: Headache, neuro deficit Headache Clinic: New headache with dysmetria, r/o neoplasm (accession [id number]), WORSENING NECK PAIN DESPITE CONSERVATIVE TREATMENT; ORDER IN SCANNED DOCS (accession [id number]) TECHNIQUE: MRI of the brain was performed before and after the intravenous administration of 19cc Dotarem. COMPARISON: CT cervical spine performed on July 30, 2020 FINDINGS: MRI brain: No diffusion-weighted abnormality, abnormal meningeal or intraparenchymal enhancement, or extra-axial collection. Single focus of signal dropout within the posterior right temporal lobe likely represents a chronic microhemorrhage. The ventricular system, cisterns, and sulci are of normal size, shape, and contour. Minimal T2 hyperintense signal abnormalities demonstrated within the centrum semiovale and villasenor radiata are non-specific but can be seen in setting of chronic microangiopathy. No evidence of midline shift or downward transtentorial herniation. The orbital structures are normal in this nondedicated study. The paranasal sinuses, middle ear cavities, and mastoid air cells are free of significant mucosal disease. The proximal anterior and posterior intracranial circulation flow voids are normal. MRA C-spine: The craniocervical and cervicothoracic junctions are within normal limits. The infratentorial intracranial structures appear normal. Normal alignment with straightening of the normal cervical lordosis. Preservation of vertebral body heights. No evidence of suspicious bone marrow replacing process. Multilevel degenerative disc disease. Pannus formation and odontoid erosive changes. Segmentation analysis is as follows: C2-C3: No significant disc abnormality, spinal canal stenosis, or neural foraminal narrowing C3-C4: Small posterior disc osteophyte complex minimally narrows the spinal canal. Uncovertebral and facet arthropathy severely narrow the bilateral neural foramen. C4-C5: Posterior disc osteophyte complex eccentric to the left in combination with uncovertebral hypertrophy and bilateral facet arthropathy results in moderate right and moderate to severe neural foraminal narrowing. There is mild spinal canal stenosis. C5-C6: Posterior disc osteophyte complex in combination with bilateral facet arthropathy uncovertebral hypertrophy and ligamentum flavum thickening results in moderate to severe spinal canal stenosis. Neural foraminal narrowing is severe on the right and left. Question mildly elevated cord signal at this level. C6-C7: Posterior disc osteophyte complex in combination with uncovertebral hypertrophy and bilateral facet arthropathy results in mild spinal canal stenosis and bilateral moderate neural foraminal narrowing. C7-T1: No significant disc abnormality, spinal canal stenosis, or neural foraminal narrowing. Procedure Note Oral Wagner MD - 09/11/2020 EXAMINATION: MRI BRAIN WWO CONTRAST (GENERIC), MRI CERVICAL SPINE WOCONTRAST (GENERIC) CLINICAL HISTORY: Headache, neuro deficit Headache Clinic: New headache with dysmetria, r/o neoplasm ([id number]), WORSENING NECK PAIN DESPITE CONSERVATIVE TREATMENT; ORDER IN [facility] (accession [id number]) TECHNIQUE: MRI of the brain was performed before and after the intravenousadministration of 19cc Dotarem. COMPARISON: CT cervical spine performed on July 30, 2020 FINDINGS: MRI brain: No diffusion-weighted abnormality, abnormal meningeal or intraparenchymal enhancement, or extra-axial collection. Single focus ofsignal dropout within the posterior right temporal lobe likely represents achronic microhemorrhage. The ventricular system, cisterns, and sulci are of normalsize, shape, and contour. Minimal T2 hyperintense signal abnormalitiesdemonstrated within the centrum semiovale and villasenor radiata are non-specific but canbe seen in setting of chronic microangiopathy. No evidence of midline shift ordownward transtentorial herniation. The orbital structures are normal in this nondedicated study. The paranasal sinuses, middle ear cavities, and mastoid air cells are freeof significant mucosal disease. The proximal anterior and posterior intracranial circulation flow voidsare normal. MRA C-spine: The craniocervical and cervicothoracic junctions are withinnormal limits. The infratentorial intracranial structures appear normal. Normal alignment with straightening of the normal cervical lordosis. Preservation of vertebral body heights. No evidence of suspicious bonemarrow replacing process. Multilevel degenerative disc disease. Pannus formationand odontoid erosive changes. Segmentation analysis is as follows: C2-C3: No significant disc abnormality, spinal canal stenosis, or neural foraminal narrowing C3-C4: Small posterior disc osteophyte complex minimally narrows thespinal canal. Uncovertebral and facet arthropathy severely narrow the bilateralneural foramen. C4-C5: Posterior disc osteophyte complex eccentric to the left incombination with uncovertebral hypertrophy and bilateral facet arthropathy resultsin moderate right and moderate to severe neural foraminal narrowing. There ismild spinal canal stenosis. C5-C6: Posterior disc osteophyte complex in combination with bilateralfacet arthropathy uncovertebral hypertrophy and ligamentum flavum thickeningresults in moderate to severe spinal canal stenosis. Neural foraminal narrowingis severe on the right and left. Question mildly elevated cord signal atthis level. C6-C7: Posterior disc osteophyte complex in combination withuncovertebral hypertrophy and bilateral facet arthropathy results in mild spinal canal stenosis and bilateral moderate neural foraminal narrowing. C7-T1: No significant disc abnormality, spinal canal stenosis, or neural foraminal narrowing. IMPRESSION No acute intracranial findings. Minimal changes of chronic white matter microvascular disease. At the level of C5-C6 there is moderate to severe spinal canal stenosis. Advanced neural foraminal narrowing at multiple levels as describedabove. Question myelomalacia at C5-C6. I have personally reviewed the image(s) and the resident's interpretationand agree with the findings, Oral Wagner at 09/11/2020 7:53 PM Thank you for letting us participate in the care of this patient. If youare a health care provider and have any questions regarding this report,please contact the number below. For patients who have questions please contactthe health medicare insurance specialist that requested your imaging first. Miriam Burt APRN [facility] MRI ORDERABLES documented in this encounter Visit Diagnoses Diagnosis Dysmetria Lack of coordination Headache, chronic daily Headache documented in this encounter Administered Medications Inactive Administered Medications - up to 3 most recent administrations Medication Order MAR Action Action Date Dose Rate Site gadoterate meglumine (Dotarem) (0.5 mMol/mL) injection solution 0-100 mL 0-100 mL, Intravenous, ONCE PRN, 1 dose, Starting on Thu09/11/20 at 1810, Until Thu09/11/20 at 1740, Per Protocol, Radiology Contrast, Routine Given 09/11/2020 5:40 PM EDT 19 mLs documented in this encounter Care Teams Virtualization Engineer Relationship Specialty Start Date End Date Nayana Kaur MD [address] [place] [address] PCP - General General Internal Medicine 07/30/20 documented as of this encounter
--- OUTSIDE RECORDS SUMMARY | 2024-03-07 08:54 | XMS_ITS | Encounter Summary ---
Author Organization [facility] Address [address] [place] [address] Care Team Providers Care Wire Winding Machine Operator Name Role Phone Unknown, Provider Primary Care Provider [phone] Encounter Details Date Type Department Care Team (Late st Contact Info) Description 04/06/2015 Historical Results Only [facility] Radiology Results [address] [place] [address] Shira Espino, NESTOR [address] [place] [address] [place] [id number] Social History Tobacco Use Types Packs/Day Years Used Date Smoking Tobacco: Never Assessed Sex and Gender Information Value Date Recorded Sex Assigned at Not on file Gender Identity Female 02/05/2022 12:59 EDT Sexual Orientation Not on file documented as of this encounter Plan of Treatment Not on file documented as of this encounter Procedures Procedure Name Priority Date/Time Associated Diagnosis Comments NM BONE WHOLE BODY SINGLE ZONE WITH SPECT/CT 04/06/2015 13:35 EDT MR LUMBAR SPINE WO CONTRAST 04/06/2015 9:43 EDT documented in this encounter Results * NM BONE WHOLE BODY WITH SPECT (04/06/2015 13:35 EDT) Anatomical Region Laterality Modality Body Other 04/06/2015 13:3 5 EDT Narrative 04/06/2015 13:49 EDT ? EXAM: NUCLEAR MEDICINE/BONE SPECT WITH WH EX. D/ (1233) ? CLINICAL INFORMATION: ? M54.5 LOW BACK PAIN ? M79.609 RIGHT LEG PAIN ? M25.559 RIGHT HIP PAIN ? INDICATION: Low back pain. Right hip pain. Bilateral leg pain. ? COMPARISON: Lumbar spine MRI and x-ray 04/06/2015. ? TECHNIQUE: Radionuclide bone SPECT of the lumbar spine with ? whole-body bone scan was performed with 27.3 mCi of technetium 99m ? MDP. Low-dose CT scan was utilized for localization purposes. ? FINDINGS: Degenerative disc disease is present at L4-L5 with ? increased radiotracer uptake within the anterolateral right side of ? the endplates. There is very minimal increased radiotracer uptake ? within the endplates at the lateral side of the L5-S1 disc. ? Radiotracer uptake throughout the remainder of the lumbar spine is ? normal. ? There is increased radiotracer uptake within the right and left hip ? joints consistent with degenerative arthrosis. ? Total body bone scan demonstrates increased radiotracer uptake within ? the posterior aspect of the mid cervical spine on the right, likely ? secondary to degenerative disease. There is faint focal increased ? uptake of radiopharmaceutical within the posterolateral aspect of the ? left 6th rib and posterior aspect of the left 10th rib. These ? findings are nonspecific but likely secondary to trauma. Correlate ? clinically. These locations of the ribs are not visualized on ? localizing CT scans. Mild increased uptake within the left ? acromioclavicular joint is consistent with degenerative arthrosis. ? IMPRESSION: ? 1. Lumbar spondylosis with increased radiotracer uptake in the ? anterolateral right side of the L4-L5 endplates. ? 2. Areas of increased uptake within the hip joints and left ? acromioclavicular joint likely degenerative. ? 3. Mild increased uptake within the posterior aspect of the left 6th ? and 10th ribs, likely posttraumatic. Correlate clinically. ? REPORT SIGNED IN OTHER VENDOR SYSTEM 04/06/2015 ?Reported By: Jitendra Diallo MD ? CC: ? Transcribed Date/Time: 04/06/2015 (1349) ? Gas Main Fitter: JAMES ? Printed Date/Time: 11/16/2018 (1048) ? PAGE 1 ? Signed Report ? Procedure Note Jitendra Diallo MD - 04/12/2019 EXAM: NUCLEAR MEDICINE/BONE SPECT WITH WH EX. D/ (1233) CLINICAL INFORMATION: M54.5 LOW BACK PAIN M79.609 RIGHT LEG PAIN M25.559 RIGHT HIP PAIN INDICATION: Low back pain. Right hip pain. Bilateral leg pain. COMPARISON: Lumbar spine MRI and x-ray 04/06/2015. TECHNIQUE: Radionuclide bone SPECT of the lumbar spine with whole-body bone scan was performed with 27.3 mCi of technetium 99m MDP. Low-dose CT scan was utilized for localization purposes. FINDINGS: Degenerative disc disease is present at L4-L5 with increased radiotracer uptake within the anterolateral right side of the endplates. There is very minimal increased radiotracer uptake within the endplates at the lateral side of the L5-S1 disc. Radiotracer uptake throughout the remainder of the lumbar spine is normal. There is increased radiotracer uptake within the right and left hip joints consistent with degenerative arthrosis. Total body bone scan demonstrates increased radiotracer uptakewithin the posterior aspect of the mid cervical spine on the right, likely secondary to degenerative disease. There is faint focal increased uptake of radiopharmaceutical within the posterolateral aspect ofthe left 6th rib and posterior aspect of the left 10th rib. These findings are nonspecific but likely secondary to trauma. Correlate clinically. These locations of the ribs are not visualized on localizing CT scans. Mild increased uptake within the left acromioclavicular joint is consistent with degenerative arthrosis. IMPRESSION: 1. Lumbar spondylosis with increased radiotracer uptake in the anterolateral right side of the L4-L5 endplates. 2. Areas of increased uptake within the hip joints and left acromioclavicular joint likely degenerative. 3. Mild increased uptake within the posterior aspect of the [id number] and 10th ribs, likely posttraumatic. Correlate clinically. REPORT SIGNED IN OTHER VENDOR SYSTEM 04/06/2015 Reported By: Jitendra Diallo MD CC: Transcribed Date/Time: 04/06/2015 (5575) Gas Main Fitter: JAMES Printed Date/Time: 11/16/2018 (0245) PAGE 1 Signed Report Shira Espino NP IMG NM ORDERABLES * MR LUMBAR SPINE WO CONTRAST (04/06/2015 9:43 EDT) Anatomical Region Laterality Modality Other 04/06/2015 9:43 EDT Narrative 04/06/2015 9:50 EDT ? EXAM: MAGNETIC RESONANCE IMAGING/LUMBAR S EX. D/ (0800) ? CLINICAL INFORMATION: ? M54.5 LOW BACK PAIN ? M79.604 ??RIGHT LEG PAIN ? LBP AND RIGHT LEG PAIN LIKELY RT HIP OA AND ? POSSIBLE L1-2 STENOSIS ? INDICATION: Back and buttock pain. ? TECHNIQUE: ??Multiplanar multisequence MR imaging of the lumbar spine ? was obtained without contrast. ? COMPARISON: None. ? FINDINGS: The lumbar spine is well aligned. The lumbar vertebral ? bodies maintain normal height. The paraspinal soft tissues are normal ? in appearance. The tip of the conus medullaris terminates at the L1 ? vertebral body level. Modic type I endplate changes seen at L5/S1 and ? Modic type II endplate changes seen on the right at L4/5. ? At the L5/S1 level, there is a disc bulge and degenerative set ? disease with mild/moderate bilateral neural foraminal narrowing and ? mild/moderate spinal canal narrowing. There appears to be a small ? superimposed left paracentral disc protrusion (series 6 image 5). ? At the L4/5 level, there is a disc bulge and degenerative set disease ? with moderate spinal canal narrowing and moderate/severe right neural ? foraminal narrowing the disc material appears to abut both the right ? L4 nerve root within the neural foramen and also the L5 nerve root as ? enters the right lateral recess there is mild left neural foraminal ? narrowing. ? At the L3/4 level, there is a disc bulge and degenerative set disease ? with mild/moderate spinal canal and mild bilateral neural foraminal ? narrowing ? At the L2/3 level, is a minimal disc bulge. The spinal canal and ? neural foramen are patent. ? At the L1/2 level, spinal canal and neural foramen are patent. ? IMPRESSION: ? 1. Multilevel lumbar spine degenerative disc and facet disease. This ? includes L4/5 disc bulge abutting the right L4 nerve root within the ? moderate/severely narrowed right neural foramen and the right L5 ? nerve root as enters the right lateral recess within the moderately ? narrowed spinal canal. ? PAGE 1 ? Signed Report ? (CONTINUED) ? Additional findings as discussed above. ? REPORT SIGNED IN OTHER VENDOR SYSTEM 04/06/2015 ?Reported By: Hector Demarco MD ? CC: ? Transcribed Date/Time: 04/06/2015 (0950) ? Gas Main Fitter: SCCarloz ? Printed Date/Time: 11/16/2018 (1048) ? PAGE 2 ? Signed Report ? Procedure Note Hector Demarco MD - 04/12/2019 EXAM: MAGNETIC RESONANCE IMAGING/LUMBAR S EX. D/ (0800) CLINICAL INFORMATION: M54.5 LOW BACK PAIN M79.604 RIGHT LEG PAIN LBP AND RIGHT LEG PAIN LIKELY RT HIP OA AND POSSIBLE L1-2 STENOSIS INDICATION: Back and buttock pain. TECHNIQUE: Multiplanar multisequence MR imaging of the lumbarspine was obtained without contrast. COMPARISON: None. FINDINGS: The lumbar spine is well aligned. The lumbar vertebral bodies maintain normal height. The paraspinal soft tissues arenormal in appearance. The tip of the conus medullaris terminates at the L1 vertebral body level. Modic type I endplate changes seen at L5/S1and Modic type II endplate changes seen on the right at L4/5. At the L5/S1 level, there is a disc bulge and degenerative set disease with mild/moderate bilateral neural foraminal narrowing and mild/moderate spinal canal narrowing. There appears to be a small superimposed left paracentral disc protrusion (series 6 image 5). At the L4/5 level, there is a disc bulge and degenerative setdisease with moderate spinal canal narrowing and moderate/severe rightneural foraminal narrowing the disc material appears to abut both theright L4 nerve root within the neural foramen and also the L5 nerve rootas enters the right lateral recess there is mild left neural foraminal narrowing. At the L3/4 level, there is a disc bulge and degenerative setdisease with mild/moderate spinal canal and mild bilateral neural foraminal narrowing At the L2/3 level, is a minimal disc bulge. The spinal canal and neural foramen are patent. At the L1/2 level, spinal canal and neural foramen are patent. IMPRESSION: 1. Multilevel lumbar spine degenerative disc and facet disease.This includes L4/5 disc bulge abutting the right L4 nerve root withinthe moderate/severely narrowed right neural foramen and the right L5 nerve root as enters the right lateral recess within the moderately narrowed spinal canal. PAGE 1 Signed Report (CONTINUED) Additional findings as discussed above. REPORT SIGNED IN OTHER VENDOR SYSTEM 04/06/2015 Reported By: Hector Demarco MD CC: Transcribed Date/Time: 04/06/2015 (0950) Gas Main Fitter: Printed Date/Time: 11/16/2018 (1048) PAGE 2 Signed Report Shira Espino CLAIM TECHNICIAN IMG MRI ORDERABLES documented in this encounter Visit Diagnoses Not on filedocumented in this encounter Care Teams Wire Winding Machine Operator Relationship Specialty Start Date End Date Unknown, Provider, PCP - General 09/04/13 10/21/20 documented as of this encounter
--- OUTSIDE RECORDS SUMMARY | 2024-03-07 08:54 | XMS_ITS | Encounter Summary ---
Author Organization [facility] Address [address] [place] [address] Care Team Providers Care Machine Set Up Operator Name Role Phone Unknown, Provider Primary Care Provider Encounter Details Date Type Department Care Team (Late st Contact Info) Description 01/14/2017 Results Only [facility] [phone] Blair Sharpe MD Social History Tobacco Use Types Packs/Day Years Used Date Smoking Tobacco: Never Assessed Sex and Gender Information Value Date Recorded Sex Assigned at Not on file Gender Identity Female 02/05/2022 12:59 EDT Sexual Orientation Not on file documented as of this encounter Plan of Treatment Not on file documented as of this encounter Procedures Procedure Name Priority Date/Time Associated Diagnosis Comments PAP TEST- RESULT ONLY Routine 01/14/2017 0:00 EDT documented in this encounter Results * PAP TEST- RESULT ONLY (01/14/2017 0:00 EDT) Pathology Report: CYTOPATHOLOGY REPORT Reports generated via electronic interface contain original data; however they are lacking the format of the original report. Caution should be taken when reading/interpreti ng unformatted reports. Name: ? Tammy VAZQUEZ ? Accession #: ? [id number] ? : ? 1955 (Age: 61) ??F ?Collect Date: ? 01/14/2017 ? Location: ? [facility] ? Receive Date: ? 01/19/2017 ? Provider: BLAIR SHARPE MD Copy to: ? Final Report SPECIMEN ADEQUACY ? Satisfactory for Evaluation - assessment of transformation zone component not applicable ( e.g. atrophy, vaginal sample, hysterectomy) GENERAL CATEGORIZATION ? Negative for Intraepithelial Lesion or Malignancy ?? Specimen/Source: ??Pap Test, Cervix, ThinPrep Imaging System with manual evaluation Document reviewed and electronically signed by: ? Mel Farrell [facility](ASCP) ? Report ??Date: 01/26/2017 13:58 HPV with Pap Test ? Date Ordered: ? 01/26/2017 ? Status: ?? Signed Out ?Date Complete: ? 01/27/2017 ? By: ??System Interface ? Date Reported: ? 01/27/2017 ? Interpretation RESULT: Negative for HPV. No E6 or E7 mRNA is detected from HPV types 16,18,31,33,35, 39,45,51,52,56,58, 59,66, and 68 by electrician wiring mediated amplification. Comments Document reviewed and electronically signed by: ? System Interface ? Report date: 01/27/2017 By the signature above, the attending physician certifies that he/she has personally conducted a gross and/or microscopic examination of the described specimens and rendered or confirmed the above diagnosis. End of Report [facility] 01/14/2017 01/19/2017 Blair Sharpe MD PATHOLOGY ORDERABLE S [facility] [address] [place] [address] documented in this encounter Visit Diagnoses Not on filedocumented in this encounter Care Teams Machine Set Up Operator Relationship Specialty Start Date End Date Unknown, Provider, PCP - General 09/04/13 10/21/20 documented as of this encounter
--- OUTSIDE RECORDS SUMMARY | 2024-03-07 08:54 | XMS_ITS | Encounter Summary ---
Author Organization [facility] Address [address] [facility] [place] [address] Care Team Providers Care Supervisor Chemical Name Role Phone Austin Rodriguez MD Primary Care Provider [phone] Encounter Details Date Type Department Care Team (Latest Contact Info) Description 08/25/2017 11:59 AM EDT - 08/25/2017 11:59 PM EDT Hospital Encounter XRay at [address] [place] [address] Panchito Michael MD Arthropathy of left hip Discharge Disposition: Home Social History Tobacco Use [...] 20 mg by mouth daily. 0 04/02/2015 naltrexone (DEPADE) 50 mg Tablet Take 50 mg by mouth daily. 0 06/11/2015 09/12/2020 documented as of this encounter Plan of Treatment Upcoming Encounters Date Type Department Care Team (Late st Contact Info) Description 03/23/2024 9:15 AM EDT Appointment XRay at [address] [place] [address] 03/23/2024 10:00 AM EDT Office Visit Orthopaedics at [facility] [place] [address] Kathie Polk MD [facility] [place] [address] documented as of this encounter Procedures Procedure Name Priority Date/Time Associated Diagnosis Comments XR PELVIS AND HIP 2 VIEWS LEFT Routine 08/25/2017 12:16 PM EDT Arthropathy of left hip documented in this encounter Results * XR Pelvis w AP & Lat Hip Left (08/25/2017 12:16 PM EDT) Anatomical Region Laterality Modality Pelvis, Hip Left Digital Radiogra phy Impressions 08/25/2017 2:50 PM EDT Bilateral total hip arthroplasty. No complications. Narrative 08/25/2017 2:50 PM EDT EXAMINATION: XR PELVIS W AP AND LAT HIP LEFT CLINICAL HISTORY: left mateus TECHNIQUE: AP pelvis with AP and lateral views of the left hip COMPARISON: 03/12/2017 12/25/1716 and 08/21/2016 FINDINGS: Total hip arthroplasty is present bilaterally. No acute change or complication is seen at either hip. Procedure Note Franklin Dietz MD - 08/25/2017 EXAMINATION: XR PELVIS W AP AND LAT HIP LEFT CLINICAL HISTORY: left mateus TECHNIQUE: AP pelvis with AP and lateral views of the left hip COMPARISON: 03/12/2017 12/25/1716 and 08/21/2016 FINDINGS: Total hip arthroplasty is present bilaterally. No acute change orcomplication is seen at either hip. IMPRESSION Bilateral total hip arthroplasty. No complications. Panchito Michael MD IMG DX ORDERABLES documented in this encounter Visit Diagnoses Diagnosis Arthropathy of left hip documented in this encounter Care Teams Supervisor Chemical Relationship Specialty Start Date End Date Austin Rodriguez MD [address] [place] [address] PCP - General Family Medicine 06/12/15 05/18/18 documented as of this encounter
--- OUTSIDE RECORDS SUMMARY | 2024-03-07 08:54 | XMS_ITS | Encounter Summary ---
Author Organization [facility] Address [address] [place] [address] Care Team Providers Care Test Lab Technician Name Role Phone Unknown, Provider Primary Care Provider Encounter Details Date Type Department Care Team (Late st Contact Info) Description 08/19/2013 Historical Results Only [facility] [place] Lab - Main [address] [address] Vineet Chandra MD [address] [place] [phone] Social History Tobacco Use Types Packs/Day Years Used Date Smoking Tobacco: Never Assessed Sex and Gender Information Value Date Recorded Sex Assigned at Not on file Gender Identity Female 02/05/2022 12:59 EDT Sexual Orientation Not on file documented as of this encounter Plan of Treatment Not on file documented as of this encounter Procedures Procedure Name Priority Date/Time Associated Diagnosis Comments PAP TEST Routine 08/19/2013 10:30 EDT documented in this encounter Results * PAP TEST (08/19/2013 10:30 EDT) 08/19/2013 10:3 0 EDT 08/20/2013 10:29 EDT Narrative [facility] - 08/25/2013 12:38 EDT ----- ------- Name: STEVE VAZQUEZ ? : [birth year] ?Age/Sex: 64/F ?Unit#: [id number] ? Loc: LAB.OPX ? Status: REG REF ?? Reg Date: 08/19/13 ? Pt.Phone Number: ? ----- ------- Specimen: [id number] ?STATUS: SOUT ?Spec Date:08/19/13 ? Physician Copies: ?Vineet Chandra J Tissues: ? Cervical/Endo Pap ? CPT: 77317 ?? Units: ??1 ----- ------- ? CYTOLOGY DIAGNOSIS SPECIMEN ADEQUACY: ?Satisfactory for evaluation. Transformation zone component present. GENERAL CATEGORIZATION: ?Negative for Intraepithelial Lesion or Malignancy DESCRIPTIVE DIAGNOSIS: ? Negative for Intraepithelial Lesion or Malignancy. ----- ------- ORDER QUERIES: LMP: ? - POSTMENO ? Post ?PREVIOUS ATYPICAL: ?? BCP/HRT? ?? Rad Rx? ?? IUD?PAP PLUS HPV?REFLEX TO HR-HPV IF ASCUS ?? REFLEX TO HPV 16/18 IF HPV POS/PAP NEG ?? HPV REGARDLESS?RFLX HPV IF LSIL ?? Signed Harshal Parrish CT(ASCP) 08/25/13 By the signature above, the attending physician certifies that he/she has personally conducted a gross and/or microscopic examination of the described specimens and rendered or confirmed the above diagnosis. Test Performed by [facility], [address] [place] [address] Hide Dyer: Aura Holliday MD PHD ----- ------- Vineet Chandra MD PATHOLOGY ORDERABL ES [facility] documented in this encounter Visit Diagnoses Not on filedocumented in this encounter Care Teams Test Lab Technician Relationship Specialty Start Date End Date Unknown, Provider, PCP - General 09/04/13 10/21/20 documented as of this encounter
--- OUTSIDE RECORDS SUMMARY | 2024-03-07 08:54 | XMS_ITS | Encounter Summary ---
Author Organization [facility] Address [address] [place] [address] Care Team Providers Care Yard Assistant Name Role Phone Hortencia Gotti MD Primary Care Provider Unavailabl e Reason for Referral * Radiology Services (Routine/Next Available) - New Request Specialty Diagnoses / Procedures Referred By Nitaac t Referred To Contact Diagnoses Asymptomatic menopausal state Procedures XR DEXA BONE DENSITY Jerrica Vale FNP [address] [place] [address] [facility] Referral ID Status Reason Start Date Expiration Date V isits Requested Visits Authorized [id number] New Request 01/16/2022 1 1 Reason for Visit * Radiology Services (Routine/Next Available) - New Request Specialty Diagnoses / Procedures Referred By Thomas hernandes Referred To Contact Diagnoses Asymptomatic menopausal state Procedures XR DEXA BONE DENSITY Jerrica Vale FNP [address] [place] [address] [facility] Referral ID Status Reason Start Date Expiration Date V isits Requested Visits Authorized [id number] New Request 01/16/2022 1 1 Encounter Details Date Type Department Care Team (Latest Contact Info) Description 04/03/2022 13:27 EDT - 04/03/2022 23:59 EDT Hospital Encounter [facility] Xray [address] [place], [place] [id number] Asymptomatic menopausal state Discharge Disposition: Home or Self Care Social [...] on file documented as of this encounter Discharge Disposition Disposition Code Departure Means Destination Home or Self Care documented in this encounter Plan of Treatment Not on file documented as of this encounter Procedures Procedure Name Priority Date/Time Associated Diagnosis Comments DXA BONE DENSITY Routine 04/03/2022 14:1 1 EDT Asymptomatic menopausal state documented in this encounter Results * XR DEXA BONE DENSITY (04/03/2022 14:11 EDT) Anatomical Region Laterality Modality DEXA Narrative 04/04/2022 12:49 EDT Indication: postmenopausal; screening for osteoporosis; prior fracture; Accession number: [id number] Clinical Information Provided by Patient: Have had a previous hip or vertebral fracture ?? Has had a low trauma fracture ?? Patient maximum height was 68 Menopause Age 50 No regular weight bearing exercise ?? Drinks caffeinated beverages ?? Onset of menses at age 11 Number of children 3 Bone Density: Exam date 04/03/2022 Region BMD (g/cm2) T-score Z-score Classification AP Spine(L1-L4) 1.051 ??0.0 ??2.1 Normal Total Forearm(Left) 0.544 -0.7 ??1.3 ?? 1/3 Forearm(Left) 0.663 -0.5 ??1.5 Normal UD Forearm(Left) 0.408 -0.6 ??0.8 Normal World Health Organization criteria for BMD impression classify patients as Normal (T-score at or above ? 1.0), Osteopenia (T-score between ? 1.0 and ? 2.5), or Osteoporosis (T-score at or below ? 2.5). ?? Previous Exams: ?? Region Exam Date Age BMD (g/cm2) T-score BMD Change vs. Baseline BMD Change vs. Previous AP Spine (L1-L4) 04/03/2022 67 1.051 ??0.0 0.063 (6.4%)* 0.042 (4.2%)* 09/03/2011 56 1.009 -0.3 0.021 (2.1%) 0.021 (2.1%) 03/17/2008 53 0.988 -0.5 ?? *Denotes significance at 95% confidence level, LSC for AP Spine = 0.022 g/cm2 ? Impression: ??Normal. The patient has normal bone mass. The patient has risk factors, including: previous fracture. No significant bone loss was observed. Discussion: INCREASED RISK OF FRACTURE DUE TO HISTORY OF FRACTURE. The patient's previous fracture puts the patient at high risk of a future fracture. In untreated patients, the risk of osteoporotic fracture increases approximately two-fold for each 1.0 SD decrease in T-score. ??Low bone density is not the only risk factor for fracture; also consider factors such as patient's age, frailty or poor health, risk of falling, risk of injury, previous osteoporotic fracture, family history of osteoporosis, cigarette smoking, low body weight, etc. ?? Not everyone with a low trauma fracture has osteoporosis; osteomalacia and other metabolic bone disorders should also be considered. Patients who have osteoporosis should be evaluated for specific diseases and conditions (secondary causes) that may cause or contribute to bone loss and fracture risk. National Osteoporosis Foundation (NOF) recommends pharmacologic intervention for patients with a prior hip or vertebral fracture regardless of BMD T-score. The patient should follow a healthful lifestyle (good nutrition with adequate calcium and vitamin D, and appropriate weight-bearing exercise). Follow-Up: Consider a repeat BMD and Vertebral Fracture Assessment (VFA) exam in 2 years or sooner if medically necessary, to reassess this patient's status. Reported by: ??Eric Bates MD, on 04/03/2022 2:18:[address] ROLLER ENGINEER IMG DEXA ORDERABLES documented in this encounter Visit Diagnoses Diagnosis Asymptomatic menopausal state Asymptomatic postmenopausal status (age-related) (natural) documented in this encounter Care Teams Yard Assistant Relationship Specialty Start Date End Date Hortencia Gotti MD PCP - General 11/01/21 documented as of this encounter
--- OUTSIDE RECORDS SUMMARY | 2024-03-07 08:54 | XMS_ITS | Encounter Summary ---
[place] [address] Care Team Providers Care Pre Fabricator Name Role Phone Nayana Kaur MD Primary Care Provider Reason for Referral * Diagnostic Test (Routine) - Closed Specialty Diagnoses / Procedures Referred By Contac t Referred To Contact Radiology Diagnoses Neck pain Headache syndrome Procedures MRI Cervical Spine wo Contrast (Generic) Nayana Kaur MD [address] [place] [address] [place] [address] Referral ID Status Reason Start Date Expiration Date V isits Requested Visits Authorized [id number] Closed Specialty Service Requested 08/06/2020 2021 1 1 Reason for Visit * Diagnostic Test (Routine) - Closed Specialty Diagnoses / Procedures Referred By Contac t Referred To Contact Radiology Diagnoses Neck pain Headache syndrome Procedures MRI Cervical Spine wo Contrast (Generic) Nayana Kaur MD [address] [place] [address] [place] [address] Referral ID Status Reason Start Date Expiration Date V isits Requested Visits Authorized [id number] Closed Specialty Service Requested 08/06/2020 2021 1 1 Encounter Details Date Type Department Care Team (Latest Contact Info) Description 09/11/2020 3:44 PM EDT - 09/11/2020 3:46 PM EDT [place] [address] Nayana Kaur MD [address] [place] [address] Neck pain; Headache syndrome Discharge Disposition: Home Social History Tobacco Use [...] 06/11/2015 09/12/2020 documented as of this encounter Progress Notes * Kristal Gibson RN - 09/11/2020 3:46 PM EDT MRI PRE-SEDATION ASSESSMENT NOTE NAME: Nikky Jarrett AGE: 65 y.o. : 1955 [address] [facility] [address] Female [phone] (home) Telephone Information: Nayana Kaur MD No primary care provider on file. No Known Allergies Date/Time of call: September 05, 2020/4:42 PM/ PREVIOUS MRI SCAN? Yes SCHEDULED SCAN: MRI CERVICAL SPINE WO CONTRAST [[id number]], MRI Brain,120 minutes, scanner 6 SUBJECTIVE: Claustrophobia CAN YOU LAY FLAT? Yes, with knee wedge AIRWAY/BREATHING ISSUES? No DO YOU HAVE ANY INVOLUNTARY MOVEMENTS? No DO YOU HAVE ANY PAIN? Yes DO YOU TAKE PAIN MED ON A DAILY BASIS? Yes; will bring with her ASSESSMENT: Appropriate for po sedation PLAN: Has own valium 5 mg po; will order 1 more ( AA ) You must have a laundry route driver present when you check in. This patient has been informed that they require a laundry route driver to drive them home after this procedure. In the absence of a laundry route driver, IR will not be able to sedate for your scan. Pt verbalized understanding of these instructions during the pre-procedure education via phone. Yes Name of laundry route driver: Damian Phone number: PRIOR SCAN DATE/S SEDATION TYPE SUCCESSFUL 07/03/15 MRI left hip,L-spine?? Valium 5mg PO x2 No, due to hip pain 07/06/15 MRI Left Hip Ativan 1 mg po x2 Yes; took her own pain medicine 09/11/20 MRI Cervical Spine wo Valium 5 mg PO x 2 Pt brought own 5 mg valium x 1 Yes Revised 11/03/17 documented in this encounter Plan of Treatment Upcoming Encounters Date Type Department Care Team (Late st Contact Info) Description 03/23/2024 9:15 AM EDT Appointment XRay at [address] [place] [address] 03/23/2024 10:00 AM EDT Office Visit Orthopaedics at [facility] [place] [address] Kathie Polk MD [facility] [place] [address] documented as of this encounter Procedures Procedure Name Priority Date/Time Associated Diagnosis Comments MRI CERVICAL SPINE WO CONTRAST Routine 09/11/2020 6:28 PM EDT Neck pain Headache syndrome documented in this encounter Results * MRI Cervical Spine wo Contrast (Generic) (09/11/2020 6:28 PM EDT) Anatomical Region Laterality Modality C-spine Magnetic Resonan ce Impressions 09/11/2020 7:53 PM [...] who have questions please contact the health customer care voice consultant that requested your imaging first. ? Narrative 09/11/2020 7:53 PM EDT EXAMINATION: MRI BRAIN WWO CONTRAST (GENERIC), MRI CERVICAL SPINE WO CONTRAST (GENERIC) CLINICAL HISTORY: Headache, neuro deficit Headache Clinic: New headache with dysmetria, r/o neoplasm (accession [id number]), WORSENING NECK PAIN DESPITE CONSERVATIVE TREATMENT; ORDER IN SCANNED DOCS (accession [id number]) TECHNIQUE: MRI of the brain was performed [...] Clinic: New headache with dysmetria, r/o neoplasm ([id number]), WORSENING NECK PAIN DESPITE CONSERVATIVE TREATMENT; ORDER IN [facility] (accession [id number]) TECHNIQUE: MRI of the brain was performed [...] patients who have questions please contactthe health customer care voice consultant that requested your imaging first. Nayana Kaur MD IMG MRI ORDERABLES documented in this encounter Visit Diagnoses Diagnosis Neck pain Cervicalgia Headache syndrome Dysmetria Lack of coordination Headache, chronic daily Headache documented in this encounter Administered Medications Inactive Administered Medications - up to 3 most recent administrations Medication Order MAR Action Action Date Dose Rate Site diazePAM (Valium) tablet 5 mg 5 mg, Oral, ONCE PRN, 1 dose, Starting on Thu09/11/20 at 0707, Until Thu09/11/20 at 1633, Anxiety, Angio/IR (Day of Procedure), Routine Given 09/11/2020 4:33 PM EDT 5 mg documented in this encounter Care Teams Pre Fabricator Relationship Specialty Start Date End Date Nayana Kaur MD [address] [place] [address] PCP - General General Internal Medicine 07/30/20 documented as of this encounter
--- OUTSIDE RECORDS SUMMARY | 2024-03-07 08:54 | XMS_ITS | Encounter Summary ---
Author Organization [facility] Address [address] [place] [address] Care Team Providers Care Director Nurses' Registry Name Role Phone Hortencia Gotti MD Primary Care Provider Unavailabl e Reason for Visit * Reason Comments Hearing Loss * Consult (Routine) - Authorization Not Required Specialty Diagnoses / Procedures [facility] Referred To Contact Otolaryngology Diagnoses Unspecified hearing loss, unspecified ear Jerrica Vale FNP [address] [place] [address] Zane Isidro, PHD MS/CCC-A Referral ID Status Reason Start Date Expiration Date Visits Requested Visits Authorized [id number] Authorization Not Required 1 1 Encounter Details Date Type Department Care Team (Late st Contact Info) Description 02/05/2022 13:40 EDT Audiology [facility] [address] [place] [id number] Zane Isidro, PHD MS/CCC-A Sensorineural hearing loss (SNHL) of both ears (Primary Dx) Social History Tobacco Use Types Packs/Day Years Used Date Smoking Tobacco: Never Assessed Interpersonal Safety Answer Date Record ed Physically Hurt Never 01/08/2020 Verbally Threaten Not on file 01/08/2020 Sex and Gender Information Value Date Recorded Sex Assigned at Not on file Gender Identity Female 02/05/2022 12:59 EDT Sexual Orientation Not on file COVID-19 Exposure Response Date Recorded In the last 10 days, have yo u been in contact with someone who was confirmed or suspected to have Coronavirus/COVID-19? No / Unsure 02/05/2022 12:58 EDT documented as of this encounter Progress Notes * Zane Isidro, AuD - 02/05/2022 1340 EDT Subjective: Nikky Jarrett ( 1955 -- 67 y.o. old) was seen on 02/05/2022 for hearing evaluation at the request of WAQAR Melara. Ms. Jarrett reported about 6 months of difficulty hearing and mishearing parts of conversation. Thisis worse in background noise or if she's not focused on the person when they start to talk. TV volume is loud, but amplifying headphones (purchased by her ) make it louder but not more clear. Right ear hears better than the left; left ear sometimes feels plugged. Ms. 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 Objective: Signals were presented via DD45 audiometric headphones or bone oscillator placed on the right mastoid. All thresholds in table in dB HL. AC= Air Conduction, BC= Bone Conduction Frequency 250 963 408 8919 1500 2000 3000 4000 6000 8000 UnmaskedBC 20 30 45 30 Right AC 20 25 30 40 35 40 70 Right BC Left AC 20 20 35 45 45 65 80 Left BC 45 Speech cashier receptionist threshold (SRT) was 25 dB HL in the right ear, 25 dB HL in the left ear. This is consistent with her thresholds for tones, noted in the table above. Word recognition ability was 92% in the right ear and 78% in the left ear when tested at a loud level (80 dB HL with 50 dB HL masking noise presented to the opposite ear) using the NU-6 (ordered by difficulty). Assessment: has bilateral sensorineural hearing loss slightly worse on the left with worse word recognition. Plan: was advised that she could likely benefit from using 2 hearing aids. A copy of the audiogram, good communications tips sheet and list of hearing aid fitting audiologists was provided. Return for repeat evaluation if symptoms change or in 6 months for monitoring asymmetry. She was advised to call if she notices changes in her hearing or increase in other symptoms. verbally indicated understanding of the information provided at today???s visit. Jared Isidro ([place]), PhD, MS/[facility]-A Valet Manager documented in this encounter Plan of Treatment Not on file documented as of this encounter Visit Diagnoses Diagnosis Sensorineural hearing loss (SNHL) of both ears- Primary documented in this encounter Care Teams Director Nurses' Registry Relationship Specialty Start Date End Date Hortencia Gotti MD PCP - General 11/01/21 documented as of this encounter
--- OUTSIDE RECORDS SUMMARY | 2024-03-07 08:54 | XMS_ITS | Encounter Summary ---
Author Organization [facility] Address [facility] [place] [address] Care Team Providers Care Thread Separator Name Role Phone Austin Rodriguez MD Primary Care Provider [phone] Reason for Visit * Reason Comments Follow Up Surgery L ANT SHANTI Encounter Details Date Type Department Care Team (Late st Contact Info) Description 08/25/2017 1:30 PM EDT Office Visit Orthopaedics at [facility] [place] [address] Meg Khan, PA [facility] [place] [address] Status post total replacement of left hip; s/p R SHANTI Dr. Michael 02/13/17 Social History Tobacco Use Types Packs/Day Years [...] Sign Reading Time Taken Comments Blood Pressure 132/71 08/25/2017 12:34 PM EDT Pulse 62 08/25/2017 12:34 PM EDT Temperature - - Respiratory Rate - - Oxygen Saturation - - Inhaled Oxygen Concentration - - Weight 81.6 kg (180 lb) 08/25/2017 12:34 PM EDT verbal Height 174 cm (5' 8.5) 08/25/2017 12:34 PM EDT verbal Body Mass Index 26.97 08/25/2017 12:34 PM EDT documented in this encounter Progress Notes * Meg Khan PA - 08/25/2017 1:30 PM EDT Arthroplasty/Orthopaedic History: 1. Left SHANTI - 08/17/15 - Dr. Michael 2. Right SHANTI - 02/13/17 - Dr. Michael HPI: Nikky Jarrett is a very pleasant 62 y.o. year-old female and is now 2 years s/p left SHANTI. Sheis doing very well. She has no pain in the hips and has no limitations from either of the hips. Sheis very happy with the results of both hip replacements. She does not take any medication for pain and does not ambulate with any assistive devices. She has been swimming this winter for exercise which is going very well. ROS: Denies: fever, chills, night sweats, nausea, or vomiting BP 132/71 (BP Location (NBP): Right arm, Patient Position: Sitting, BP Cuff Sizes: Adult (25-34 cm)) Pulse 62 Ht 174 cm (5' 8.5) Comment: verbal Wt 81.6 kg (180 lb) Comment: verbal BMI 26.97kg/m2 Physical Exam: Well-appearing female in no acute distress. Alert and Oriented x 3 and answers all questions appropriately. The incision is well healed, with no signs of infection. I have made the following determinations: Post Op Right Hip Exam: Leg length: Longer leg: equal Limb Length discrepancy: 0cm Motion: Flexion contracture: 0 Total degrees of Flexion:95 Total degrees of Abduction:40 Total degrees of Ext Rotation: 25 Total degrees of Internal Rotation: 5 Gait Abnormality: Normal Pulses Palpable: Right PT: Yes Right DP:Yes Motor/Sensory: Right Distal Motor: Normal Distal Sensory: Normal Hip Abductors 5 Trendelenburg test: negative Post Op Left Hip Exam: Leg Length: Longer leg: equal Limb Length discrepancy: 0cm Motion: Flexion contracture: 0 Total degrees of Flexion: 95 Total degrees of Abduction: 30 Total degrees of Ext Rotation: 25 Total degrees of Internal Rotation: 5 Gait Abnormality: Normal Pulses Palpable: Left PT: Yes Left DP: Yes Motor/Sensory: Left Distal Motor: Normal Distal Sensory: Normal Hip Abductors: 5 Trendelenburg test: negative X-RAYS: Multiple radiographic views were obtained at my request and reviewed with the patient. X-rays show a well-placed prosthesis with no evidence of fracture, subsidence, loosening, or periprosthetic complication. Questionnaire Responses: [facility] Surgical Postop Visit 08/25/2017 PROMIS-10 General Health Very Good PROMIS-10 Quality of Life Very Good PROMIS-10 Physical Health Good PROMIS-10 Mental Health Very Good PROMIS-10 Social Activity Very Good PROMIS-10 Everyday Activities Completely PROMIS-10 Pain 1 PROMIS-10 Fatigue Moderate PROMIS-10 Social Roles Very Good PROMIS-10 Anxious or Depressed Sometimes PROMIS PHYSICAL HEALTH SCORE 47.7 PROMIS MENTAL HEALTH SCORE 50.8 HOOS JR Scores 80.56 Problems with surgical incision/wound after surgery No Gone to ER since knee surgery No Admitted to hospital since recent ortho surgery No Additional surgery on same body part No SHANTI Grade 8 Pain in other HIP Mild Back pain at this moment Very mild Satisfaction with Treatment Satisfied Choose Same Treatment Again Definitely yes Orthopeadics [facility] Response 08/25/2017 HOOS JR Scores 80.56 [facility]WESTRY DISABILITY INDEX [facility] 08/25/2017 Oswestry (ADENIKE) Score - HOOS JR Scores 80.56 ASSESSMENT/PLAN: Ms. Jarrett is a 62 y.o. year old female status post bilateral total hip replacements. She is doing very well. She should continue with swimming for exercise, and can continue to participate in activities as tolerated. At this point I would like to see her back in February of 2019,as I examined both hips today, and she is doing quite well. In the future we will combine visits for both of her hip replacements. She will follow up in 18 months with bilateral hip X-rays. We discussed the appropriate precautions surrounding dental prophylaxis; according to the AAOS Appropriate Use Criteria we do not recommend antibiotic use prior to dental procedures for Nikky. We also discussed maintaining good foot care and giving prompt attention to any source of infectionthroughout the body including foot ulcers and urinary tract infections. documented in this encounter Plan of Treatment Upcoming Encounters Date Type Department Care Team (Late st Contact Info) Description 03/23/2024 9:15 AM EDT Appointment XRay at [address] [place] [address] 03/23/2024 10:00 AM EDT Office Visit Orthopaedics at [facility] [place] [address] Kathie Polk MD [facility] [place] [address] documented as of this encounter Visit Diagnoses Diagnosis Status post total replacement of left hip s/p R SHANTI Dr. Michael 02/13/17 documented in this encounter Care Teams Thread Separator Relationship Specialty Start Date End Date Austin Rodriguez MD [address] [address] PCP - General Family Medicine 06/12/15 05/18/18 documented as of this encounter
--- OUTSIDE RECORDS SUMMARY | 2024-03-07 08:54 | XMS_ITS | Encounter Summary ---
Author Organization [facility] Address [address] [place] [address] Care Team Providers Care Qa Auditor Name Role Phone Austin Rodriguez MD Primary Care Provider Unav Hortencia Riddle MD Primary Care Provider Unavailabl e Encounter Details Date Type Department Care Team (Late st Contact Info) Description 10/23/2020 Results Only Imaging [facility] Radiology Results [address] [place], [place] [id number] Nayana Kaur [address] [place], [place] [id number] Social History Tobacco Use Types Packs/Day Years [...] Diagnosis Comments MA BREAST SCREENING ENRIQUE BILATERAL 10/23/2020 10:10 EDT documented in this encounter Results * MA BREAST SCREENING ENRIQUE BILATERAL (10/23/2020 10:10 EDT) Anatomical Region Laterality Modality Breast Bilateral Mammography 10/23/2020 10:1 0 EDT Narrative 10/23/2020 10:10 EDT ? EXAM: MAMMOGRAM/MAMMO BILATERAL SCREEN W ??EX. D/ (1106) ? CLINICAL INFORMATION: ? Z12.31 SCREENING ? INDICATION: Z12.31 SCREENING SCREENING ??October 08 ? COMPARISON: ??Comparison has been made to previous images. ? TECHNIQUE: ??Full field digital whole breast 2D (C-view) and 3D CC and ? MLO views of both breasts were obtained. CAD technology was utilized. ? FINDINGS: ??The fibroglandular patterns of the breasts are normal. ? There has been no change when compared to previous mammograms and ? there is no mammographic evidence of cancer. ??The breast tissue is ? almost entirely fatty. ? FINAL ASSESSMENT: ??BILATERAL BREAST - Category 1 - Negative. Routine ? mammographic follow-up is recommended. ? These results will be communicated to your patient via a lay letter ? from Radiology. ??If any additional imaging is needed we will contact ? your patient directly. ? REPORT SIGNED IN OTHER VENDOR SYSTEM 10/23/2020 ?Reported By: Zhen Andrade MD ? CC: ? Transcribed Date/Time: 10/23/2020 (1010) ? Vending Machine Filler: ? Printed Date/Time: 10/23/2020 (1616) ? PAGE 1 ? Signed Report ? Procedure Note Zhen Andrade MD - 10/23/2020 EXAM: MAMMOGRAM/MAMMO BILATERAL SCREEN W EX. D/ (1106) CLINICAL INFORMATION: Z12.31 SCREENING INDICATION: Z12.31 SCREENING SCREENING October 08 COMPARISON: Comparison has been made to previous images. TECHNIQUE: Full field digital whole breast 2D (C-view) and 3D CCand MLO views of both breasts were obtained. CAD technology wasutilized. FINDINGS: The fibroglandular patterns of the breasts are normal. There has been no change when compared to previous mammograms and there is no mammographic evidence of cancer. The breast tissue is almost entirely fatty. FINAL ASSESSMENT: BILATERAL BREAST - Category 1 - Negative.Routine mammographic follow-up is recommended. These results will be communicated to your patient via a lay letter from Radiology. If any additional imaging is needed we willcontact your patient directly. REPORT SIGNED IN OTHER VENDOR SYSTEM 10/23/2020 Reported By: Zhen Andrade MD CC: Transcribed Date/Time: 10/23/2020 (1010) Vending Machine Filler: Printed Date/Time: 10/23/2020 (6037) PAGE 1 Signed Report Nayana Kaur [facility] MAMMOGRAPHY [facility] documented in this encounter Visit Diagnoses Not on filedocumented in this encounter Care Teams Qa Auditor Relationship Specialty Start Date End Date Austin Rodriguez MD PCP - General 10/22/20 10/31/21 Hortencia Gotti MD PCP - General 11/01/21 documented as of this encounter
--- OUTSIDE RECORDS SUMMARY | 2024-03-07 08:54 | XMS_ITS | Encounter Summary ---
Author Organization [facility] [place] [address] Care Team Providers Care Head Of Conservation Name Role Phone Nayana Kaur MD Primary Care Provider Encounter Details Date Type Department Care Team (Late st Contact Info) Description 10/15/2020 10:30 AM EDT Office Visit Neurology at [address] [phone] Miriam Burt APRN [facility] [place] [address] Cervicogenic headache Social History Tobacco Use Types Packs/Day Years [...] Sign Reading Time Taken Comments Blood Pressure 131/74 10/15/2020 9:52 AM EDT Pulse 80 10/15/2020 9:52 AM EDT Temperature 36.6 ??C (97.9 ??F) 10/15/2020 9:52 AM ED T Respiratory Rate - - Oxygen Saturation - - Inhaled Oxygen Concentration - - Weight 95.3 kg (210 lb) 10/15/2020 9:52 AM EDT Height 175.3 cm (5' 9) 10/15/2020 9:52 AM EDT r eported Body Mass Index 31.01 10/15/2020 9:52 AM EDT documented in this encounter Progress Notes * Miriam Burt, TRANSPORTATION PROGRAM DIRECTOR - 10/15/2020 10:30 AM EDT Neurology Headache Clinic Follow up Patient name: Nikky Jarrett Date of : 1955 PCP: Nayana Kaur MD CC: Headache Patient ID: Nikky Jarrett is a 65 y.o. right handed female with a no history of headaches until the age of 63.She has a PMH of Depression and Anxiety, past ETOH abuse (sober for 3 years), arthritis, spinal stenosis. Interval History: Went to the pain center and had bilateral nerve blocks. Does not have pins and needles sensation any more but neck pain persists. Doing HEP from PT. Amitriptyline has helped her to sleep through the night. In the am still has pain in the neck. Taking 50mg of Amitirptyline at night. MIDAS Responses 10/15/2020 Days missed school/work 0 Days productivity at work/school reduced 0 Days did not do household work 10 Days productivity related to housework reduced 10 Days missed family, social or leisure activities 1 Days had headache 25 Pain scale 4 MIDAS Score 21 (MIDAS grade IV, severe disability) MIDAS Adjusted Score - Medications tried: Reduction/Prevention: Monoclonal Antibodies: None GEPANTS: None Toxins: None TCA: Amitriptyline (Elavil) Anti-seizure: None SSRI: None SNRI: None MAOI: None Beta Blockers: None Atypical Antidepressants: None Calcium Channel Blockers: None Angiotensin II Receptor Blockers: None ROXANN Inhibitors: None Alpha-1 Blockers: None Diuretics: None Other Medications: None Procedures: ONB by pain management Supplements/Neutraceuticals: None Neuromodulation: None Non-pharmacologic Tx: None Acute Treatments: Triptans: None NSAIDS: Indomethacin Gepants: None Ditans: None Ergotamines: None Anti-emetics/neuroleptics: None Combination/Other Analgesics: None Anti-Histamines: None Muscle relaxers: None Steroids: None Opioids/Narcotics/Controlled Substances: None Benzodiazepines: None Medications: Current Outpatient Medications Medication Sig Dispense Refill ??? amitriptyline (Elavil) 25 mg Tablet Take 2 tablets by mouth nightly. 60 tablet 1 ??? triamcinolone (KENALOG) 0.1 % Cream 2 times daily. 0 ??? amoxicillin (AMOXIL) 500 mg Capsule as needed. Prior to dental procedures 0 ??? FLUoxetine (PROZAC) 20 mg Capsule Take 20 mg by mouth daily. 0 ??? baclofen (Lioresal) 10 mg Tablet 1/2 tablet 3 times per day as needed for neck muscle spasm. 45tablet 2 No current facility-administered medications for this visit. Allergy: No Known Allergies Physical Exam: Patient Vitals for the past 24 hrs: Temp Pulse 10/15/20 0952 36.6 ??C (97.9 ??F) 80 95.3 kg (210 lb) General exam: The patient looked well and was in no acute distress. Dressed appropriately. The patient is alert, interactive, and has appropriate mood and congruent affect. The patient is able to recall the details of their medical history without difficulty. HEENT: Normocephalic, atraumatic. No rashes or other skin lesions noted on the head or face. Good active range of motion of the neck. Neurologic Examination: Mental status, Speech and Language: Normal in ordinary conversation. Cranial nerves: Pupils are equal and round. Extraocular movements are intact. No facial asymmetry or weakness. Tongue midline and moves normal. Motor Examination: No focal weakness. Coordination: No evidence of any ataxia. Gait: Normal straightaway gait. Diagnostic Tests and Imagin07/30/20 EXAMINATION: XR CERVICAL SPINE 2 OR 3 VIEWS ?? CLINICAL HISTORY: RECURRING TENSION TYPE H.A. WITH NECK TENSION AFTER 13 SESSIONS OF PT. NECK TENDERNESS AND PAIN WITH CERVICAL ROM ? TECHNIQUE: 2 views of the cervical spine ?? COMPARISON: None ?? FINDINGS: C1 through C7 vertebral bodies visible on lateral radiograph. ?? Vertebral bodies: Vertebral bodies are intact with preserved height. ?? Alignment: Straightening of the cervical spine , no spondylolisthesis. ?? Disk spaces: Marginal osteophytes, endplate sclerosis and bilateral uncovertebral and facet hypertrophy most prominent at C2-C6, Disc space height loss at C4-C5, C5-C6 and C6-C7. ?? Survey: Survey of the imaged portion of the maxillofacial structures, skull base, thoracic inlet and prevertebral soft tissues demonstrate no acute abnormality. ?? IMPRESSION Multilevel cervical spondylosis as described above with moderate disc space narrowing most prominent at C4-C5, C5-C6. ?? I have personally reviewed the image(s) and the resident's interpretation and agree with the findings, Nia Leon MD at 07/30/2020 12:06 PM ?? Thank you for letting us participate in the care of this patient. For questions regarding this report, please contact the number below. Electronically signed by: Nia Leon MD, [facility] ([phone]), at 07/30/2020 12:06 PM MRI of Brain wwo Contrast: 09/11/20 Minimal changes of chronic white matter microvascular disease. MRI of Cervical Spine: 09/11/20: Moderate to severe spinal canal stenosis at level of C5-6. MRV of Brain MRA of Brain CT of Brain LABS: TSH Free T4 B12 Vit D ESR 08/03/20 15 Assessment and plan: Nikky Jarrett is a 65 y.o. right handed female with a no history of headaches until the age of 63.She has a PMH of Depression and Anxiety, past ETOH abuse (sober for 3 years), arthritis, spinal stenosis. Cervicogenic Headache: She has had partial benefit from the occipital nerve block given by the pain center. She continues to have significant neck muscle spasm and I have recommended that she try baclofen 5 mg up to 3 times per day as needed for neck muscle spasm. We discussed the sedating side effects of this medication. I have also advised her to contact the pain and spine center as according to their notes if the occipital nerve block did not work that there would be other injections that may be useful for her. I will see the patient in 8 weeks time in clinic. They can contact me through - with any problems or concerns. I have spent 22 minutes in face to face time with this patient, documentation and coordination of care. KALI Jernigan APRN [facility] Neurology, Headache Clinic documented in this encounter Plan of Treatment Upcoming Encounters Date Type Department Care Team (Late st Contact Info) Description 03/23/2024 9:15 AM EDT Appointment XRay at [address] [place] [address] 03/23/2024 10:00 AM EDT Office [place] [address] Kathie Polk MD [facility] [place] [address] documented as of this encounter Visit Diagnoses Diagnosis Cervicogenic headache Headache documented in this encounter Care Teams Head Of Conservation Relationship Specialty Start Date End Date Nayana Kaur MD [address] [place] [address] PCP - General General Internal Medicine 07/30/20 documented as of this encounter
--- OUTSIDE RECORDS SUMMARY | 2024-03-07 08:54 | XMS_ITS | Encounter Summary ---
Author Organization [facility] Address [address] [place] [address] Care Team Providers Care Military Pay Clerk Name Role Phone Unknown, Provider Primary Care Provider [phone] Encounter Details Date Type Department Care Team (Latest Contact Info) Description 08/28/2014 14:27 EDT - 08/28/2014 23:59 EDT Hospital Encounter [facility] [address] [place] [address] Unknown, ProviderMD Discharge Disposition: Home or Self Care Social History Tobacco Use Types Packs/Day Years Used Date Smoking Tobacco: Never Assessed Sex and Gender Information Value Date Recorded Sex Assigned at Not on file Gender Identity Female 02/05/2022 12:59 EDT Sexual Orientation Not on file documented as of this encounter Discharge Disposition Disposition Code Departure Means Destination Home or Self [place] documented in this encounter Plan of Treatment Not on file documented as of this encounter Visit Diagnoses Not on filedocumented in this encounter Care Teams Military Pay Clerk Relationship Specialty Start Date End Date Unknown, Provider, PCP - General 09/04/13 10/21/20 documented as of this encounter
--- OUTSIDE RECORDS SUMMARY | 2024-03-07 08:54 | XMS_ITS | Encounter Summary ---
[place] [address] Care Team Providers Care Special Services Director Name Role Phone Nayana Kaur MD Primary Care Provider Encounter Details Date Type Department Care Team (Late st Contact Info) Description 11/19/2020 Telephone [facility] [place] [phone] Charlene Delacruz RN Social History Tobacco Use Types Packs/Day [...] on file documented as of this encounter Miscellaneous Notes * Telephone Encounter - Charlene Delacruz RN - 11/19/2020 11:51 AM EDT This RN attempted to contact patient in order to complete a Risk Stratification to get her scheduled for a Cervical Medial Branch Block. This RN called mobile # [phone] and left a M for patient to call the nurse triage line back at [phone]. Attempted to call home phone - [phone] - phone line disconnected. JEFFERSON Dill documented in this encounter Plan of Treatment Upcoming Encounters Date Type Department Care Team (Late st Contact Info) Description 03/23/2024 9:15 AM EDT Appointment XRay at [address] [place] [address] 03/23/2024 10:00 AM EDT Office Visit Orthopaedics at [facility] [place] [address] Kathie Polk MD [facility] [place] [address] documented as of this encounter Visit Diagnoses Not on filedocumented in this encounter Care Teams Special Services Director Relationship Specialty Start Date End Date Nayana Kaur MD [address] [place] [address] PCP - General General Internal Medicine 07/30/20 documented as of this encounter
--- OUTSIDE RECORDS SUMMARY | 2024-03-07 08:54 | XMS_ITS | Encounter Summary ---
Author Organization [facility] Address [address] [place] [address] Care Team Providers Care Activities Specialist Name Role Phone Unknown, Provider Primary Care Provider [phone] Encounter Details Date Type Department Care Team (Latest Contact Info) Description 10/08/2018 10:45 EDT - 10/08/2018 23:59 EDT Hospital Encounter [facility] [address] [place] [address] Unknown, Provider, Discharge Disposition: Auto Discharge Social History Tobacco Use Types Packs/Day Years Used Date Smoking Tobacco: Never Assessed Sex and Gender Information Value Date Recorded Sex Assigned at Not on file Gender Identity Female 02/05/2022 12:59 EDT Sexual Orientation Not on file documented as of this encounter Discharge Disposition Disposition Code Departure Means Destination Auto Discharge Home documented in this encounter Plan of Treatment Not on file documented as of this encounter Visit Diagnoses Not on filedocumented in this encounter Care Teams Activities Specialist Relationship Specialty Start Date End Date Unknown, Provider, PCP - General 09/04/13 10/21/20 documented as of this encounter
--- OUTSIDE RECORDS SUMMARY | 2024-03-07 08:54 | XMS_ITS | Encounter Summary ---
Author Organization [facility] Address [address] [place] [address] Care Team Providers Care Contract Graphic Designer Name Role Phone Unavailable Primary Care Provider Unavailabl e Encounter Details Date Type Department Care Team (Latest Contact Info) Description 08/27/2013 12:34 EDT - 08/27/2013 23:59 EDT Hospital Encounter [facility] [address] [place] [address] Unknown, Provider, Discharge Disposition: Home or Self Care Social History Tobacco Use Types Packs/Day Years Used Date Smoking Tobacco: Never Assessed Sex and Gender Information Value Date Recorded Sex Assigned at Not on file Gender Identity Female 02/05/2022 12:59 EDT Sexual Orientation Not on file documented as of this encounter Discharge Disposition Disposition Code Departure Means Destination Home or Self [facility] documented in this encounter Plan of Treatment Not on file documented as of this encounter Visit Diagnoses Not on filedocumented in this encounter
--- OUTSIDE RECORDS SUMMARY | 2024-03-07 08:54 | XMS_ITS | Encounter Summary ---
Author Organization [facility] Address [address] [place] [address] Care Team Providers Care Production Grader Name Role Phone Unknown, Provider Primary Care Provider Encounter Details Date Type Department Care Team (Late st Contact Info) Description 04/07/2015 Historical Results Only [facility] Radiology Results [address] [place] [address] Shira Espino, NESTOR [address] [place] [address] [place] [id number] Social History Tobacco Use Types Packs/Day Years Used Date Smoking Tobacco: Never Assessed Sex and Gender Information Value Date Recorded Sex Assigned at Not on file Gender Identity Female 02/05/2022 12:59 EDT Sexual Orientation Not on file documented as of this encounter Plan of Treatment Not on file documented as of this encounter Procedures Procedure Name Priority Date/Time Associated Diagnosis Comments XR LUMBAR SPINE COMPLETE WITH FLEX/EXT AND OBLIQUES MIN 6 VIEWS 04/07/2015 6:02 EDT XR HIPS BILATERAL 3-4 VIEWS, OPTIONAL PELVIS 04/07/2015 6:00 EDT documented in this encounter Results * XR LUMBAR SPINE COMPLETE WITH FLEX/EXT AND OBLIQUES MIN 6 VIEWS (04/07/2015 6:02 EDT) Anatomical Region Laterality Modality Other 04/07/2015 6:02 EDT Narrative 04/07/2015 11:14 EDT ? EXAM: RADIOLOGY/LUMBAR SPINE WITH FLEX/EX EX. D/ (0838) ? CLINICAL INFORMATION: ? M54.5 LOW BACK PAIN ? M79.609 RIGHT LEG PAIN ? INDICATION: Low back pain. ? COMPARISON: None. ? TECHNIQUE: Upright AP, lateral neutral and lateral flexion and ? extension views. ? FINDINGS: Degenerative disc disease and facet arthritis is present ? throughout the lumbar spine. There is a mild S-shaped scoliosis of ? the thoracolumbar spine. There are degenerative changes within the ? sacroiliac joints. No fracture or subluxation is identified. Bone ? density is normal. ? IMPRESSION: ? Lumbar spondylosis. ? REPORT SIGNED IN OTHER VENDOR SYSTEM 04/08/2015 ?Reported By: Jitendra Diallo MD ? CC: ? Transcribed Date/Time: 04/07/2015 (1114) ? Social Science Teacher: JAMES ? Printed Date/Time: 11/16/2018 (1048) ? PAGE 1 ? Signed Report ? Procedure Note Jitendra Diallo MD - 04/12/2019 EXAM: RADIOLOGY/LUMBAR SPINE WITH FLEX/EX EX. D/ (0838) CLINICAL INFORMATION: M54.5 LOW BACK PAIN M79.609 RIGHT LEG PAIN INDICATION: Low back pain. COMPARISON: None. TECHNIQUE: Upright AP, lateral neutral and lateral flexion and extension views. FINDINGS: Degenerative disc disease and facet arthritis is present throughout the lumbar spine. There is a mild S-shaped scoliosis of the thoracolumbar spine. There are degenerative changes within the sacroiliac joints. No fracture or subluxation is identified. Bone density is normal. IMPRESSION: Lumbar spondylosis. REPORT SIGNED IN OTHER VENDOR SYSTEM 04/08/2015 Reported By: Jitendra Diallo MD CC: Transcribed Date/Time: 04/07/2015 (3798) Social Science Teacher: JAMES Printed Date/Time: 11/16/2018 (4127) PAGE 1 Signed Report Shira White Espino INFECTION CONTROL PRACTITIONER IMG DIAGNOSTIC IMAGI NG ORDERABLES * XR HIPS BILATERAL 3-4 VIEWS, OPTIONAL PELVIS (04/07/2015 6:00 EDT) Anatomical Region Laterality Modality Bilateral Other 04/07/2015 6:00 EDT Narrative 04/07/2015 11:19 EDT ? EXAM: RADIOLOGY/PELVIS AND BILATERAL HIPS EX. D/ (0838) ? CLINICAL INFORMATION: ? M54.5 LOW BACK PAIN ? INDICATION: Low back pain. Right hip pain. Bilateral leg pain. ? COMPARISON: None. ? TECHNIQUE: AP view of the pelvis and AP and lateral views of the ? right hip and AP and lateral views of the left hip were obtained. ? FINDINGS: Moderate degenerative arthritis is present within the right ? and left hip joints. There are mild degenerative arthritic changes ? within the sacroiliac joints. Degenerative changes are present within ? the lower lumbar spine and pubic symphysis. Bone density is normal. ? No fracture is seen. ? IMPRESSION: ? 1. Bilateral hip osteoarthritis. ? 2. Degenerative changes throughout the pelvis and lower lumbar spine. ? REPORT SIGNED IN OTHER VENDOR SYSTEM 04/08/2015 ?Reported By: Jitendra Diallo MD ? CC: Shira Espino ? Transcribed Date/Time: 04/07/2015 (1119) ? Social Science Teacher: JAMES ? Printed Date/Time: 11/16/2018 (7742) ? PAGE 1 ? Signed Report ? Procedure Note Jitendra Diallo MD - 04/12/2019 EXAM: RADIOLOGY/PELVIS AND BILATERAL HIPS EX. D/ (0838) CLINICAL INFORMATION: M54.5 LOW BACK PAIN INDICATION: Low back pain. Right hip pain. Bilateral leg pain. COMPARISON: None. TECHNIQUE: AP view of the pelvis and AP and lateral views of the right hip and AP and lateral views of the left hip were obtained. FINDINGS: Moderate degenerative arthritis is present within theright and left hip joints. There are mild degenerative arthritic changes within the sacroiliac joints. Degenerative changes are presentwithin the lower lumbar spine and pubic symphysis. Bone density is normal. No fracture is seen. IMPRESSION: 1. Bilateral hip osteoarthritis. 2. Degenerative changes throughout the pelvis and lower lumbarspine. REPORT SIGNED IN OTHER VENDOR SYSTEM 04/08/2015 Reported By: Jitendra Diallo MD CC: Shira Espino Transcribed Date/Time: 04/07/2015 (1119) Social Science Teacher: JAMES Printed Date/Time: 11/16/2018 (6490) PAGE 1 Signed Report Austin Rodriguez MD IMG DIAGNOSTIC IMAG ING ORDERABLES documented in this encounter Visit Diagnoses Not on filedocumented in this encounter Care Teams Production Grader Relationship Specialty Start Date End Date Unknown, Provider, PCP - General 09/04/13 10/21/20 documented as of this encounter
--- OUTSIDE RECORDS SUMMARY | 2024-03-07 08:54 | XMS_ITS | Encounter Summary ---
Author Organization [facility] Address [address] [place] [address] Care Team Providers Care Potline Monitor Name Role Phone Unknown, Provider Primary Care Provider [phone] Encounter Details Date Type Department Care Team (Latest Contact Info) Description 10/07/2017 14:37 EDT - 10/07/2017 23:59 EDT Hospital Encounter [facility] [address] [place] [address] Unknown, ProviderMD Discharge Disposition: Home or Self Care Social History Tobacco Use Types Packs/Day Years Used Date Smoking Tobacco: Never Assessed Sex and Gender Information Value Date Recorded Sex Assigned at Not on file Gender Identity Female 02/05/2022 12:59 EDT Sexual Orientation Not on file documented as of this encounter Discharge Disposition Disposition Code Departure Means Destination Home or Self Skilled Nursing documented in this encounter Plan of Treatment Not on file documented as of this encounter Visit Diagnoses Not on filedocumented in this encounter Care Teams Potline Monitor Relationship Specialty Start Date End Date Unknown, Provider, PCP - General 09/04/13 10/21/20 documented as of this encounter
--- OUTSIDE RECORDS SUMMARY | 2024-03-07 08:54 | XMS_ITS | Encounter Summary ---
Author Organization [facility] Address [facility] [address] Care Team Providers Care Bread Supervisor Name Role Phone Austin Rodriguez MD Primary Care Provider Encounter Details Date Type Department Care Team (Latest Contact Info) Description 03/01/2019 8:26 AM EDT - 03/01/2019 11:59 PM EDT Hospital Encounter XRay at [address] [place] [phone] Panchito Michael MD History of total replacement of both hip joints Discharge Disposition: Home Social History Tobacco Use [...] 03/23/2024 9:15 AM EDT Appointment XRay at [address] [place] [address] 03/23/2024 10:00 AM EDT Office Visit Orthopaedics at [facility] [place] [phone] Kathie Polk MD [facility] [place] [address] documented as of this encounter Procedures Procedure Name Priority Date/Time Associated Diagnosis Comments XR PELVIS AND HIP 2 VIEWS BILATERAL Routine 03/01/2019 8:39 AM EDT History of total replacement of both hip joints documented in this encounter Results * XR Pelvis and Hip 2 Views Bilateral (03/01/2019 8:39 AM EDT) Anatomical Region Laterality Modality Pelvis, Hip Bilateral Digital Radiogra phy Impressions 03/01/2019 11:32 AM EDT Bilateral total hip arthroplasty. No hardware complications. I have personally reviewed the image(s) and the residents interpretation and agree with the findings, Sayra Araiza at 03/01/2019 11:32 AM Thank you for letting us participate in the care of this patient. For questions regarding this report, please contact the number below. ? Narrative 03/01/2019 11:32 AM EDT EXAMINATION: XR PELVIS AND HIP 2 VIEWS BILATERAL CLINICAL HISTORY: bilateral total hip artroplasty TECHNIQUE: AP pelvis, AP right hip, lateral right hip, AP left hip, lateral left hip radiographs COMPARISON: Hip and pelvic radiographs dated 08/25/2017 through 04/06/2015. FINDINGS: Status post bilateral total hip arthroplasties. The femoral heads are located centrally within the acetabular cups bilaterally. No new periprosthetic lucencies or fractures. Three round calcifications superior to the right femoral component could represent injection site granulomas or heterotopic ossification around the right hip. Procedure Note Sayra Araiza MD - 03/01/2019 EXAMINATION: XR PELVIS AND HIP 2 VIEWS BILATERAL CLINICAL HISTORY: bilateral total hip artroplasty TECHNIQUE: AP pelvis, AP right hip, lateral right hip, AP left hip, lateral lefthip radiographs COMPARISON: Hip and pelvic radiographs dated 08/25/2017 through 04/06/2015. FINDINGS: Status post bilateral total hip arthroplasties. The femoral heads arelocated centrally within the acetabular cups bilaterally. No new periprosthetic lucencies or fractures. Three round calcifications superior to the right femoral component could represent injection site granulomas or heterotopic ossification around theright hip. IMPRESSION Bilateral total hip arthroplasty. No hardware complications. I have personally reviewed the image(s) and the residents interpretationand agree with the findings, Sayra Araiza at 03/01/2019 11:32 AM Thank you for letting us participate in the care of this patient. Forquestions regarding this report, please contact the number below. Electronically signed by: Sayra Araiza [facility]([phone]), at 03/01/2019 11:32 AM Panchito Michael MD IMG DX ORDERABLES documented in this encounter Visit Diagnoses Diagnosis History of total replacement of both hip joints documented in this encounter Care Teams Bread Supervisor Relationship Specialty Start Date End Date Austin Rodriguez MD [address] [place] [address] PCP - General Family Medicine 03/01/19 07/29/20 documented as of this encounter
--- OUTSIDE RECORDS SUMMARY | 2024-03-07 08:54 | XMS_ITS | Encounter Summary ---
Author Organization [facility] Address [address] [place] [address] Care Team Providers Care Agile Scrum Coach Name Role Phone Unknown, Provider Primary Care Provider [phone] Encounter Details Date Type Department Care Team (Late st Contact Info) Description 08/17/2012 Historical Results Only [facility] Lab - Main [address] [address] Vineet Chandra MD [address] [place] [phone] Social History Tobacco Use Types Packs/Day Years [...] Date/Time Associated Diagnosis Comments PAP TEST Routine 08/17/2012 documented in this encounter Results * PAP TEST (08/17/2012) 08/17/2012 08/17/2012 19: 51 EDT Narrative [facility] - 08/20/2012 9:08 EDT ----- ------- Name: STEVE VAZQUEZ ? : [birth year] ?Age/Sex: 64/F ?Unit#: [id number] ? Loc: LAB.OPX ? Status: REG REF ?? Reg Date: 08/17/12 ? Pt.Phone Number: ? ----- ------- Specimen: [id number] ?STATUS: SOUT ?Spec Date:08/17/12 ? Physician Copies: ?Vineet Chandra J Tissues: ? Cervical/Endo Pap ? CPT: 58254 ?? Units: ??1 ----- ------- ? CYTOLOGY DIAGNOSIS SPECIMEN ADEQUACY: ??Satisfactory for evaluation. Assessment of transformation zone not applicable (e.g. ??atrophy, vaginal sample, hysterectomy). GENERAL CATEGORIZATION: ?Negative for Intraepithelial Lesion or Malignancy DESCRIPTIVE DIAGNOSIS: ? Negative for Intraepithelial Lesion or Malignancy. RECOMMENDATIONS/COMMENTS: ?None. ----- ------- ORDER QUERIES: LMP: ? - PST LUDIN ? Post ?PREVIOUS ATYPICAL: N BCP/HRT? ?? Rad Rx? ?? IUD?PAP PLUS HPV? N ??REFLEX TO HR-HPV IF ASCUS ?? REFLEX TO HPV 16/18 IF HPV POS/PAP NEG ?? HPV REGARDLESS?RFLX HPV IF LSIL ?? IF ASCUS DO HPV? N Signed Courtney Klein CT(ASCP) 08/20/12 By the signature above, the attending physician certifies that he/she has personally conducted a gross and/or microscopic examination of the described specimens and rendered or confirmed the above diagnosis. Test Performed by [facility], [address] [facility] [address] Seconds Grader: Aura Holliday MD PHD ----- ------- Vineet Chandra MD PATHOLOGY ORDERABL ES [facility] documented in this encounter Visit Diagnoses Not on filedocumented in this encounter Care Teams Agile Scrum Coach Relationship Specialty Start Date End Date Unknown, Provider, PCP - General 09/04/13 10/21/20 documented as of this encounter
--- OUTSIDE RECORDS SUMMARY | 2024-03-07 08:54 | XMS_ITS | Encounter Summary ---
Author Organization [facility] Address [address] [place] [address] Care Team Providers Care Firearms Assembly Supervisor Name Role Phone Unknown, Provider Primary Care Provider [phone] Encounter Details Date Type Department Care Team (Late st Contact Info) Description 10/06/2016 Historical Results Only [facility] Radiology Results [address] [place] [address] Austin Rodriguez MD Social History Tobacco Use Types Packs/Day [...] on filedocumented in this encounter Care Teams Firearms Assembly Supervisor Relationship Specialty Start Date End Date Unknown, Provider, PCP - General 09/04/13 10/21/20 documented as of this encounter
--- OUTSIDE RECORDS SUMMARY | 2024-03-07 08:54 | XMS_ITS | Encounter Summary ---
Author Organization [facility] Address [address] [place] [address] Care Team Providers Care Flag Signaler Name Role Phone Unknown, Provider Primary Care Provider [phone] Encounter Details Date Type Department Care Team (Late st Contact Info) Description 07/24/2010 Historical Results Only [facility] Lab - Main [address] [address] Vineet Chandra MD [address] [place] [phone] Social History Tobacco Use Types Packs/Day Years [...] Date/Time Associated Diagnosis Comments PAP TEST Routine 07/24/2010 documented in this encounter Results * PAP TEST (07/24/2010) 07/24/2010 07/24/2010 16: 24 EST Narrative [facility] - 07/30/2010 8:46 EST ----- ------- Name: STEVE VAZQUEZ ? : [birth year] ?Age/Sex: 64/F ?Unit#: [id number] ? Loc: AGO ? Status: REG POV ?? Reg Date: 07/24/10 ? Pt.Phone Number: ? ----- ------- Specimen: [id number] ?STATUS: SOUT ?Spec Date:07/24/10 ? Physician Copies: ?Vineet Chandra J Tissues: ? Cervical/Endo Pap ?Austin Rodriguez ?? CPT: 25498 ?? Units: ??1 ----- ------- ? CYTOLOGY DIAGNOSIS SPECIMEN ADEQUACY: ?Satisfactory for evaluation. Transformation zone component present. GENERAL CATEGORIZATION: ?Negative for Intraepithelial Lesion or Malignancy DESCRIPTIVE DIAGNOSIS: ? Negative for Intraepithelial Lesion or Malignancy. RECOMMENDATIONS/COMMENTS: ?None. ----- ------- ORDER QUERIES: LMP: POST MEN- ? N Post ? N ??PREVIOUS ATYPICAL: N BCP/HRT? N Rad Rx? N IUD? N ??PAP PLUS HPV? N ??REFLEX TO HR-HPV IF ASCUS ?? REFLEX TO HPV 16/18 IF HPV POS/PAP NEG ?? HPV REGARDLESS?RFLX HPV IF LSIL ?? IF ASCUS DO HPV? N Signed Harshal Parrish CT(ASCP) 07/30/10 By the signature above, the attending physician certifies that he/she has personally conducted a gross and/or microscopic examination of the described specimens and rendered or confirmed the above diagnosis. Test Performed by [facility], [address] [place], [place] [id number] Project Consultant: Aura Holliday MD PHD ----- ------- Vineet Chandra MD PATHOLOGY ORDERABL ES [facility] documented in this encounter Visit Diagnoses Not on filedocumented in this encounter Care Teams Flag Signaler Relationship Specialty Start Date End Date Unknown, Provider, PCP - General 09/04/13 10/21/20 documented as of this encounter
--- OUTSIDE RECORDS SUMMARY | 2024-03-07 08:54 | XMS_ITS | Encounter Summary ---
Author Organization [facility] Address [address] [place] [address] Care Team Providers Care Desilverizer Name Role Phone Hortencia Gotti MD Primary Care Provider Unavailabl e Reason for Referral * Radiology Services (Routine/Next Available) - Authorization Not Required Specialty Diagnoses / Procedures Referred By Contac t Referred To Contact Diagnoses Encounter for other screening for malignant neoplasm of breast Procedures MA BREAST SCREENING ENRIQUE BILATERAL Nayana Kaur [address] [place] [address] [facility] Referral ID Status Reason Start Date Expiration Date Visits Requested Visits Authorized [id number] Authorization Not Required 09/16/2021 1 1 Reason for Visit * Radiology Services (Routine/Next Available) - Authorization Not Required Specialty Diagnoses / Procedures [facility] Referred To Contact Diagnoses Encounter for other screening for malignant neoplasm of breast Procedures MA BREAST SCREENING ENRIQUE [place] [address] [facility] Referral ID Status Reason Start Date Expiration Date Visits Requested Visits Authorized [id number] Authorization Not Required 09/16/2021 1 1 Encounter Details Date Type Department Care Team (Latest Contact Info) Description 11/01/2021 13:03 EDT - 11/01/2021 23:59 EDT Hospital Encounter [facility] Mamm[facility] [address] [place], [place] [address] Encounter for other screening for malignant neoplasm of breast Discharge Disposition: [...] Code Departure Means Destination Home or Self Jail documented in this encounter Plan of Treatment Not on file documented as of this encounter Procedures Procedure Name Priority Date/Time Associated Diagnosis Comments MA BREAST SCREENING ENRIQUE BILATERAL Routine 11/01/2021 13:40 EDT Encounter for other screening for malignant neoplasm of breast documented in this encounter Results * MA BREAST SCREENING ENRIQUE BILATERAL (11/01/2021 13:40 EDT) Anatomical Region Laterality Modality Breast Bilateral Mammography 11/05/2021 13:1 7 EDT Impressions 11/05/2021 13:17 EDT Negative, no evidence of malignancy. RECOMMENDATION: Routine screening mammography is recommended. OVERALL ASSESSMENT: BI-RADS 1: Negative These results will be communicated to your patient via a lay letter from Radiology. If any additional imaging is needed we will contact your patient directly. Narrative 11/05/2021 13:17 EDT MA BREAST SCREENING ENRIQUE BILATERAL ??11/01/2021 1:50 PM History: SCREENING Comparison: ??Comparison has been made to previous images. Technique: Routine 3D tomosynthesis with synthesized 2D views with CAD Bilateral Breast Composition: The breast tissue is almost entirely fatty. Bilateral Breast Findings: ??No significant masses, calcifications or other abnormalities are seen. Procedure Note Eric Bates MD - 11/05/2021 MA BREAST SCREENING ENRIQUE BILATERAL 11/01/2021 1:50 PM History: SCREENING Comparison: Comparison has been made to previous images. Technique: Routine 3D tomosynthesis with synthesized 2D views with CAD Bilateral Breast Composition: The breast tissue is almost entirely fatty. Bilateral Breast Findings: No significant masses, calcifications or otherabnormalities are seen. IMPRESSION Negative, no evidence of malignancy. RECOMMENDATION: Routine screening mammography is recommended. OVERALL ASSESSMENT: BI-RADS 1: Negative These results will be communicated to your patient via a lay letter fromRadiology. If any additional imaging is needed we will contact yourpatient directly. Nayana Kaur [facility] MAMMOGRAPHY LEATHA [place]MA documented in this encounter Visit Diagnoses Diagnosis Encounter for other screening for malignant neoplasm of breast documented in this encounter Care Teams Desilverizer Relationship Specialty Start Date End Date Hortencia Gotti MD PCP - General 11/01/21 documented as of this encounter
--- OUTSIDE RECORDS SUMMARY | 2024-03-07 08:54 | XMS_ITS | Encounter Summary ---
Author Organization [facility] Address [address] [place] [address] Care Team Providers Care Optical Brightener Maker Helper Name Role Phone Unknown, Provider Primary Care Provider Encounter Details Date Type Department Care Team (Late st Contact Info) Description 10/08/2018 Historical Results Only [facility] Radiology Results [address] [place] [address] Austin Rodriguez MD Social History Tobacco Use [...] Diagnosis Comments MA BREAST SCREENING ENRIQUE BILATERAL 10/08/2018 12:50 EDT documented in this encounter Results * MA BREAST SCREENING ENRIQUE BILATERAL (10/08/2018 12:50 EDT) Anatomical Region Laterality Modality Breast Bilateral Other 10/08/2018 12:5 0 EDT Narrative 10/08/2018 12:51 EDT ? EXAM: MAMMOGRAM/MAMMO BILATERAL SCREEN W ??EX. D/ (1027) ? CLINICAL INFORMATION: ? Z12.31 SCREENING ? INDICATION: Z12.31 SCREENING SCREENING, 10/07/17 ? TECHNIQUE: ??Full field digital whole breast 2D (C-view) and 3D CC and ? MLO views of both breasts were obtained. CAD technology was utilized. ? FINDINGS: ??The fibroglandular patterns of the breasts are normal. ? There has been no change when compared to previous mammograms and ? there is no mammographic evidence of cancer. The breast tissue is ? almost entirely fatty. ? FINAL ASSESSMENT BILATERAL BREAST: ??BI-RADS Category 1 - Negative. ? Routine mammographic follow-up is recommended. ? These results will be communicated to your patient via a lay letter ? from Radiology. ??If any additional imaging is needed we will contact ? your patient directly. ? REPORT SIGNED IN OTHER VENDOR SYSTEM 10/08/2018 ?Reported By: Eric Bates MD ? CC: ? Transcribed Date/Time: 10/08/2018 (1251) ? Patient Experience Coordinator: ? Printed Date/Time: 02/23/2019 (1622) ? PAGE 1 ? Signed Report ? Procedure Note Eric Bates MD, - 04/12/2019 EXAM: MAMMOGRAM/MAMMO BILATERAL SCREEN W EX. D/ (1027) CLINICAL INFORMATION: Z12.31 SCREENING INDICATION: Z12.31 SCREENING SCREENING, 10/07/17 TECHNIQUE: Full field digital whole breast 2D (C-view) and 3D CCand MLO views of both breasts were obtained. CAD technology wasutilized. FINDINGS: The fibroglandular patterns of the breasts are normal. There has been no change when compared to previous mammograms and there is no mammographic evidence of cancer. The breast tissue is almost entirely fatty. FINAL ASSESSMENT BILATERAL BREAST: BI-RADS Category 1 - Negative. Routine mammographic follow-up is recommended. These results will be communicated to your patient via a lay letter from Radiology. If any additional imaging is needed we willcontact your patient directly. REPORT SIGNED IN OTHER VENDOR SYSTEM 10/08/2018 Reported By: Eric Bates MD CC: Transcribed Date/Time: 10/08/2018 (7176) Patient Experience Coordinator: Printed Date/Time: 02/23/2019 (3713) PAGE 1 Signed Report Austin Rodriguez MD IMG MAMMOGRAPHY ORD ERABLES documented in this encounter Visit Diagnoses Not on filedocumented in this encounter Care Teams Optical Brightener Maker Helper Relationship Specialty Start Date End Date Unknown, Provider, PCP - General 09/04/13 10/21/20 documented as of this encounter
--- OUTSIDE RECORDS SUMMARY | 2024-03-07 08:54 | XMS_ITS | Encounter Summary ---
Author Organization [facility] Address [facility] [place] [address] Care Team Providers Care Rattling Machine Tender Name Role Phone Nayana Kaur MD Primary Care Provider [phone] Reason for Visit * Reason Comments Headache f/u with neurology h eadache clinic Neck Pain Encounter Details Date Type Department Care Team (Late st Contact Info) Description 11/02/2020 11:00 AM EDT Office Visit [facility] [place] [id number] Hung Boogie MD [facility] [place] [address] Cervicogenic headache; Cervical spondylosis Social History Tobacco Use Types Packs/Day Years [...] Sign Reading Time Taken Comments Blood Pressure 112/67 11/02/2020 10:48 AM EDT Pulse 73 11/02/2020 10:48 AM EDT Temperature 36.7 ??C (98.1 ??F) 11/02/2020 10:48 AM E DT Respiratory Rate - - Oxygen Saturation 97% 11/02/2020 10:48 AM EDT Inhaled Oxygen Concentration - - Weight 86.2 kg (190 lb) 11/02/2020 10:48 AM EDT Height - - Body Mass Index 28.06 10/15/2020 9:52 AM EDT documented in this encounter Patient Instructions * Patient Instructions* Hung Boogie MD - 11/02/2020 11:00 AM EDT 1. Increase amitriptyline 75mg at bedtime, take this medication for 2 weeks. Remember to take this medication 2 hours before intended bedtime 2. If additional pain relief is needed, you can add baclofen, take 1 tablet (5mg) on as needed basis. You may increase to 1 tablet up to three times daily. Remember this medication can be sedating. 3. You will be scheduled for left sided cervical medial branch nerve block today documented in this encounter Progress Notes * Hung Boogie MD - 11/02/2020 11:00 AM EDT [facility] Initial Consultation Note DOS: 11/02/20 : 1955 Nikky Jarrett is a 65 y.o. year old female with a PMH including depression/anxiety, prior history of EtOH dependence (sober x 3 years), arthritis returns to pain clinic to discuss treatment options.Patient is accompanied by her today. Interval history: Patient reports approximately 24-hour relief of the posterior component of her neck pain after the bilateral occipital nerve that was done in the office last time. She continues to have moderate to severe neck pain, left more than the right side, with extension to the base of her skull, also radiating to the trapezius. The amount of pain has resulted in impairment in her functional ability to carry out house chores, enjoy her hobbies. She denies any significant radiating pain down either upper extremities. HPI: Nikky Jarrett reports insidious onset of head and neck pain that started about 3 to 4 months ago. She describes her head pain as a distinctive soreness, that starts on the top of her scalp, feels jana all of her hair of been pulled back tightly and wrapped around a rubber band, this type of pain can radiate bilaterally to both temples and sometimes to involve the occipital region. She also reports to a lesser extent some involvement of the frontal region, she denies associated nasal congestion, rhinorrhea, retro-orbital pain, teary eyes. She does report associated light and sound sensitivity during this type of head pain. She does not use alert headache, it feels more of a soreness around my scalp more than actual headache. She has been experiencing continuous head pain for the past 4months, without any pain-free days. She denies turning her neck or looking up triggers any of her headache. She was evaluated by her primary care physician with x-rays and then referred to see Burt in the headache clinic. She was started on 3 medications since the onset of her head pain. She was first started on a course of Flexeril 10 mg nightly. She denies any significant relief with this medication. She was then started on indomethacin 50 mg 3 times daily which she feels has taken away the tingling sensation along the top of her scalp. She was also started on amitriptyline 25 mg nightly. She feels this allows her to sleep better at night although she wakes up groggy. She also feels amitriptyline has resulted in improvement in her head pain. Pain Description: Duration - constant Location - axial neck Quality - sore on top of her head, neck pain is tight and painful to move Weakness - right hand feels weaker to open a container of creamer, harder to unscrew the cap Numbness/Tingling - left arm can be numb once in a while Pain score: 6/10 today, 8/10 at worst, 3/10 at best, 4-5/10 on average (all in past week) Alleviating factors: rest Aggravating factors: sitting with her head leaning forward Prior Treatments/Medications (Per prior notes and patient): Medications : Topicals - icy/hot NSAIDs - aleve causes GI upsets Acetaminophen - minimal pain relief Antidepressants - Antieptileptics - gabapentin Muscle Relaxants - flexeril Opioids - Steroids - PT: 12 sessions of PT in [facility] in [place] Modalities: stretches, HEP Surgery: none Injections: none Chiropractic: none Acupuncture: none Mental Health: none ROS: Constitutional: No unintentional weight loss or gain, fevers, chills, or night sweats. HENT: No recent hearing changes. No difficulty swallowing. Eyes: No recent vision changes. Respiratory: No cough or shortness of breath. Cardiovascular: No chest pain or syncope. GI: No diarrhea, nausea, vomiting, or constipation. : No dysuria, hesitancy, or urgency. No incontinence. Musculoskeletal: No muscle weakness. Skin: No rashes or lesions. Neurologic: No numbness/tingling. No difficulty with balance. Psychiatric: Mood there are days that I am fine and other days feels blue that she cannot do much. No SI/HI. Sleep is so-so, she wakes up 2 times during the night to use the bathroom. She does not feel rested when she wakes up. She feels groggy. Heme/Lymph/Imm: No easy bleeding or brusing. PMH/PSH: Patient Active Problem List Diagnosis Code ??? Spinal stenosis M48.00 ??? Dysuria R30.0 ??? Alcoholism F10.20 ??? Depression F32.9 ??? History of tobacco abuse Z87.891 ??? S/P left SHANTI 08/17/15 Fernanda Z96.649 ??? Osteoarthritis of hip, Right M16.9 ??? s/p R SHANTI Dr. Michael 02/13/17 Z96.641 ??? Neck pain, chronic M54.2, G89.29 Past Medical History: Diagnosis Date ??? Neck pain, chronic 09/12/2020 With occipital cervical headaches ??? s/p R SHANTI Dr. Michael 02/13/17 02/13/2017 ??? Spinal stenosis 06/21/2015 L4-5 Past Surgical History: Procedure Laterality Date ??? PRG RADEX HIP UNILATERAL WITH PELVIS MINIMUM 4 VIEWS Left 08/17/2015 HIP INTRAOP RADIOLOGIC EXAMINATION, UNILATERAL, W PELVIS; 4+ VIEWS performed by Panchito Michael MD at [facility] MAIN OR ??? PRG RADEX HIP UNILATERAL WITH PELVIS MINIMUM 4 VIEWS Right 02/13/2017 HIP INTRAOP RADIOLOGIC EXAMINATION, UNILATERAL, W PELVIS; 4+ VIEWS (WRVU 0.27) performed by Panchito Michael MD at [facility] MAIN OR ??? PRO TOTAL HIP ARTHROPLASTY Left 08/17/2015 @TOTAL HIP ARTHROPLASTY, ANTERIOR APPROACH performed by Panchito Michael MD at [facility] MAIN OR ??? PRO TOTAL HIP ARTHROPLASTY Right 02/13/2017 @TOTAL HIP ARTHROPLASTY, ANTERIOR APPROACH (WRVU 20.72) performed by Panchito Michael MD at [facility] MAIN OR FAMILY HISTORY: Family History Problem Relation Age of Onset ??? Cancer Neg Hx ??? 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 MEDICATIONS: Current Outpatient Medications: ??? amitriptyline (Elavil) 25 mg Tablet, Take 2 tablets by mouth nightly., Disp: 60 tablet, Rfl: 1 ??? triamcinolone (KENALOG) 0.1 % Cream, 2 times daily., Disp: , Rfl: 0 ??? FLUoxetine (PROZAC) 20 mg Capsule, Take 20 mg by mouth daily., Disp: , Rfl: 0 ??? amoxicillin (AMOXIL) 500 mg Capsule, as needed. Prior to dental procedures, Disp: , Rfl: 0 PDMP report checked and no inconsistencies are noted. ALLERGIES: No Known Allergies PHYSICAL EXAM: General: Patient is seated comfortably in NAD, well-groomed. HEENT: Head atraumatic, EOMI. Respiratory: Breathing comfortably on RA. Cardiovascular: 2+ peripheral pulses, no swelling Abdominal: non-distended, non-tender to palpation Skin: No appreciable rashes or skin breakdown Psych: Appropriate affect, A&Ox3 , answers questions appropriately Musculoskeletal: Inspection - No gross appendicular or axial deformities Palpation -tenderness to palpation to bilateral occipital notch ROM -full cervical extension flexion and lateral rotation Special tests - Spurling's maneuver-negative Facet joint loading with cervical extension -reproduce pain left more than right Neurologic: electric truck operator - grossly intact Reflexes - 2+ and symmetric in bilateral biceps, triceps, brachioradiali, patellae, and Achilles. No ankle clonus. Babinkski downgoing bilaterally. Motor - 5/5 in all planes of motion in all four extremities. Sensation - Intact to light touch throughout all four extremities Gait/Station: Normal gait. No loss of balance noted. Transitions from exam room chair to table without difficulty. TESTS/IMAGING: MRI C spine 09/11/2020: C2-C3: No significant disc abnormality, spinal canal stenosis, or neural foraminal narrowing ?? C3-C4: Small posterior disc osteophyte complex minimally narrows the spinal canal. Uncovertebral and facet arthropathy severely narrow the bilateral neural foramen. ?? C4-C5: Posterior disc osteophyte complex eccentric to the left in combination with uncovertebral hypertrophy and bilateral facet arthropathy results in moderate right and moderate to severe neural foraminal narrowing. There is mild spinal canal stenosis. ?? C5-C6: Posterior disc osteophyte complex in combination with bilateral facet arthropathy uncovertebral hypertrophy and ligamentum flavum thickening results in moderate to severe spinal canal stenosis. Neural foraminal narrowing is severe on the right and left. Question mildly elevated cord signal at this level. ?? C6-C7: Posterior disc osteophyte complex in combination with uncovertebral hypertrophy and bilateral facet arthropathy results in mild spinal canal stenosis and bilateral moderate neural foraminal narrowing. ?? C7-T1: No significant disc abnormality, spinal canal stenosis, or neural foraminal narrowing. MRI Brain 09/11/2020: reviewed ASSESSMENT: 1. Cervical spondylosis 2. Bilateral occipital neuralgia Patient is a 65-year-old female with 5-month history of insidious onset of head pain as well as neck pain. Most of her pain symptoms are axial neck with occipital temporal headache. She does have evidence of cervical spondylosis shown on MRI of the C-spine. On physical examination cervical extension did reproduce her usual symptoms. Patient unfortunately only received 24 hours of pain relief frombilateral occipital nerve block. Persistent axial neck pain with radiation to bilateral trapezius is consistent with facet mediated given positive Kemps test as well as MRI findings. Patient does have more symptoms on the left compared to the right. I discussed with patient and her the nextstep would be a diagnostic cervical medial branch nerve block on the left, if she does well with this the eventual goal is to proceed with cervical radiofrequency ablation therapy. Brochure on medialbranch nerve block as well as radiofrequency ablation were given to patient and her to review. Patient is tolerating 50 mg of amitriptyline at nighttime without morning grogginess, excessive sedation, dry mouth, she does not report any significant side effects. She met with Miriam Burt from headache clinic recently and was instructed on adding baclofen to her regimen however this medication was not prescribed by the headache clinic. I would increase her amitriptyline to 75 mg nightly. I also will place a Rx for baclofen for added pain relief if needed. PLAN: Medication: -Increase amitriptyline to 75 nightly -Baclofen 5 mg 3 times daily as needed, discussed with patient the sedating effect of this medication, patient is aware that she should start with 5 mg as needed and may slowly increase not [id number] mg/day Diagnostic images: - none Interventional procedures: -Schedule left C3, C4, C5, C6 MBB (attending only) Referral: -Patient has not started Jerri therapy, she would like to wait until after the [facility] to initiate Follow up: -As needed Thank you for allowing us the opportunity to participate in Ms Jarrett's care Hung Boogie MD Dry Mop Maker [facility] [place] [address] CC: Albert Peter MD [facility] [place] [address] CC: Albert Peter MD [facility] [place] [address] documented in this encounter Plan of Treatment Upcoming Encounters Date Type Department Care Team (Late st Contact Info) Description 03/23/2024 9:15 AM EDT Appointment XRay at [address] [place] [address] 03/23/2024 10:00 AM EDT Office [place] [address] Kathie Polk MD [facility] [place] [address] documented as of this encounter Visit Diagnoses Diagnosis Cervicogenic headache Headache Cervical spondylosis Cervical spondylosis without myelopathy documented in this encounter Care Teams Rattling Machine Tender Relationship Specialty Start Date End Date Nayana Kaur MD [address] [place] [address] PCP - General General Internal Medicine 07/30/20 documented as of this encounter
--- OUTSIDE RECORDS SUMMARY | 2024-03-07 08:54 | XMS_ITS | Encounter Summary ---
Author Organization [facility] Address [address] [place] [address] Care Team Providers Care Whipper Name Role Phone Unknown, Provider Primary Care Provider [phone] Encounter Details Date Type Department Care Team (Latest Contact Info) Description 10/06/2016 15:05 EDT - 10/06/2016 23:59 EDT Hospital Encounter [facility] [address] [place] [address] Unknown, ProviderMD Discharge Disposition: Home or Self Care Social History Tobacco Use Types Packs/Day Years Used Date Smoking Tobacco: Never Assessed Sex and Gender Information Value Date Recorded Sex Assigned at Not on file Gender Identity Female 02/05/2022 12:59 EDT Sexual Orientation Not on file documented as of this encounter Discharge Disposition Disposition Code Departure Means Destination Home or Self [facility] documented in this encounter Plan of Treatment Not on file documented as of this encounter Visit Diagnoses Not on filedocumented in this encounter Care Teams Whipper Relationship Specialty Start Date End Date Unknown, Provider, PCP - General 09/04/13 10/21/20 documented as of this encounter
--- OUTSIDE RECORDS SUMMARY | 2024-03-07 08:54 | XMS_ITS | Encounter Summary ---
Author Organization [facility] Address [address] [place] [address] Care Team Providers Care Bread Oven Operator Name Role Phone Unknown, Provider Primary Care Provider [phone] Encounter Details Date Type Department Care Team (Late st Contact Info) Description 10/07/2017 Historical Results Only [facility] Radiology Results [address] [place] [address] Austin Rodriguez MD Social History Tobacco Use [...] on filedocumented in this encounter Care Teams Bread Oven Operator Relationship Specialty Start Date End Date Unknown, Provider, PCP - General 09/04/13 10/21/20 documented as of this encounter
--- OUTSIDE RECORDS SUMMARY | 2024-03-07 08:54 | XMS_ITS | Encounter Summary ---
Author Organization [facility] Address [address] [place] [address] Care Team Providers Care Cooperage Shop Supervisor Name Role Phone Unknown, Provider Primary Care Provider [phone] Encounter Details Date Type Department Care Team (Late st Contact Info) Description 06/07/2015 Historical Results Only [facility] Radiology Results [address] [place] [address] Sarbjit Ramos MD [address] [place] [address], [address] [place] [address] Social History Tobacco Use Types Packs/Day Years Used Date Smoking Tobacco: Never Assessed Sex and Gender Information Value Date Recorded Sex Assigned at Not on file Gender Identity Female 02/05/2022 12:59 EDT Sexual Orientation Not on file documented as of this encounter Plan of Treatment Not on file documented as of this encounter Procedures Procedure Name Priority Date/Time Associated Diagnosis Comments FL C-ARM BLOCK/INJECTION 06/07/2015 16:42 EST documented in this encounter Results * FL C-ARM BLOCK/INJECTION (06/07/2015 16:42 EST) Anatomical Region Laterality Modality Left Other 06/07/2015 16:4 2 EST Narrative 06/07/2015 16:45 EST ? AN ADDENDUM IS INCLUDED ON THIS REPORT ? ADDENDUM ? C-arm fluoroscopy was utilized by Dr. Ramos not Dr. Moyer. ? ADDENDUM SIGNED IN OTHER VENDOR SYSTEM 06/07/2015 ?Reported By: Jitendra Diallo MD ?Transcribed: 06/07/2015 (7511) ?REPORT ? EXAM: RADIOLOGY/C-ARM LSSPINE ? EX. D/ (2796) ? CLINICAL INFORMATION: ? PAIN ? C-arm fluoroscopy was utilized by Dr. Moyer. ? 6 seconds of fluoroscopy time was utilized. ? No charge. ? REPORT SIGNED IN OTHER VENDOR SYSTEM 06/07/2015 ?Reported By: Jitendra Diallo MD ? CC: ? Transcribed Date/Time: 06/07/2015 (0279) ? Information Technology Specialist: ? Printed Date/Time: 11/17/2018 (3645) ? PAGE 1 ? Signed Report ? Procedure Note Jitendra Diallo MD - 04/13/2019 AN ADDENDUM IS INCLUDED ON THIS REPORT ADDENDUM C-arm fluoroscopy was utilized by Dr. Ramos not Dr. Moyer. ADDENDUM SIGNED IN OTHER VENDOR SYSTEM 06/07/2015 Reported By: Jitendra Diallo MD Transcribed: 06/07/2015 (8071) REPORT EXAM: RADIOLOGY/C-ARM LSSPINE EX. D/ (1519) CLINICAL INFORMATION: PAIN C-arm fluoroscopy was utilized by Dr. Moyer. 6 seconds of fluoroscopy time was utilized. No charge. REPORT SIGNED IN OTHER VENDOR SYSTEM 06/07/2015 Reported By: Jitendra Diallo MD CC: Transcribed Date/Time: 06/07/2015 (0013) Information Technology Specialist: Printed Date/Time: 11/17/2018 (2747) PAGE 1 Signed Report Sarbjit Ramos MD IMG FLUOROSCOPY LEATHA PALMA documented in this encounter Visit Diagnoses Not on filedocumented in this encounter Care Teams Cooperage Shop Supervisor Relationship Specialty Start Date End Date Unknown, Provider, PCP - General 09/04/13 10/21/20 documented as of this encounter
--- OUTSIDE RECORDS SUMMARY | 2024-03-07 08:54 | XMS_ITS | Encounter Summary ---
Author Organization [facility] Address [address] [place] [address] Care Team Providers Care Sink Cutter Name Role Phone Unknown, Provider Primary Care Provider Encounter Details Date Type Department Care Team (Late st Contact Info) Description 08/28/2014 Historical Results Only [facility] Radiology Results [address] [place] [address] Austin Rodriguez MD Social History Tobacco Use [...] Diagnosis Comments MA BREAST SCREENING ENRIQUE BILATERAL 08/28/2014 11:10 EDT documented in this encounter Results * MA BREAST SCREENING ENRIQUE BILATERAL (08/28/2014 11:10 EDT) Anatomical Region Laterality Modality Breast Bilateral Other 08/28/2014 11:1 0 EDT Narrative 08/28/2014 14:36 EDT ? EXAM: MAMMOGRAM/MAMMO BILATERAL SCREEN W ??EX. D/ (1110) ? CLINICAL INFORMATION: ? SCREENING ? TECHNIQUE: ??Full field digital whole breast 2D and 3D CC and MLO views ? of both breasts were obtained. CAD technology was utilized. ? INDICATION: ??Screening ? FINDINGS: ??The fibroglandular patterns of the breasts are normal. ? There has been no change when compared to previous mammograms and ? there is no mammographic evidence of cancer. The breasts are of ? scattered density. ? FINAL ASSESSMENT: ??BILATERAL BREAST - Category 1 - Negative. Routine ?mammographic follow-up is recommended. ? These results will be communicated to your patient via a lay letter ? from Radiology. ??If any additional imaging is needed we will contact ? your patient directly. ? JSP:kad ?Reported By: Hector Demarco MD ? CC: ? Transcribed Date/Time: 08/28/2014 (1436) ? Operations Research Group Manager: JESSICA ? Printed Date/Time: 11/09/2018 (1014) ? PAGE 1 ? Signed Report ? Procedure Note Hector Demarco MD - 04/12/2019 EXAM: MAMMOGRAM/MAMMO BILATERAL SCREEN W EX. D/ (1110) CLINICAL INFORMATION: SCREENING TECHNIQUE: Full field digital whole breast 2D and 3D CC and MLOviews of both breasts were obtained. CAD technology was utilized. INDICATION: Screening FINDINGS: The fibroglandular patterns of the breasts are normal. There has been no change when compared to previous mammograms and there is no mammographic evidence of cancer. The breasts are of scattered density. FINAL ASSESSMENT: BILATERAL BREAST - Category 1 - Negative.Routine mammographic follow-up is recommended. These results will be communicated to your patient via a lay letter from Radiology. If any additional imaging is needed we willcontact your patient directly. JSP:kad Reported By: Hector Demarco MD CC: Transcribed Date/Time: 08/28/2014 (1436) Operations Research Group Manager: JESSICA Printed Date/Time: 11/09/2018 (5803) PAGE 1 Signed Report Austin Rodriguez MD IMG MAMMOGRAPHY ORD ERABLES documented in this encounter Visit Diagnoses Not on filedocumented in this encounter Care Teams Sink Cutter Relationship Specialty Start Date End Date Unknown, Provider, PCP - General 09/04/13 10/21/20 documented as of this encounter
--- OUTSIDE RECORDS SUMMARY | 2024-03-07 08:54 | XMS_ITS | Encounter Summary ---
[place] [address] Care Team Providers Care Finish Saw Operator Name Role Phone Austin Rodriguez MD Primary Care Provider [phone] Reason for Visit * Reason Onset Date Comments Questions 03/02/2017 Encounter Details Date Type Department Care Team (Late st Contact Info) Description 03/02/2017 [place] [id number] Panchito Michael MD Questions Social History Tobacco Use Types Packs/Day Years [...] encounter Miscellaneous Notes * Telephone Encounter - Florencio Sissy L - 03/02/2017 4:19 PM EDT Patient called regarding recent SHANTI performed by Dr. Michael on 02/13/17. She reported that her hip remains swollen, red, and warm. She does not have a fever and is currently taking all medications she was given except for the oxycodone. She has maintained icing in the evenings but has lessened the amount she was icing during the day. She asked her physical therapist today and she suggested drawing acircle around the red area and keep her eye on it. I agreed with the recommendation and instructed Nikky to just keep taking care of it as she is. If it worsens significantly then she should call us but, for now this sounds like the normal healing process. She agrees with the plan and has no further questions or concerns. documented in this encounter Plan of Treatment Upcoming Encounters Date Type Department Care Team (Late st Contact Info) Description 03/23/2024 9:15 AM EDT Appointment XRay at [address] [place] [address] 03/23/2024 10:00 AM EDT Office [place] [address] Kathie Polk MD [facility] [place] [address] documented as of this encounter Visit Diagnoses Not on filedocumented in this encounter Care Teams Finish Saw Operator Relationship Specialty Start Date End Date Austin Rodriguez MD [address] [place] [address] PCP - General Family Medicine 06/12/15 05/18/18 documented as of this encounter
--- OUTSIDE RECORDS SUMMARY | 2024-03-07 08:54 | XMS_ITS | Encounter Summary ---
Author Organization [facility] Address [address] [place] [address] Care Team Providers Care Dual Rate Supervisor Name Role Phone Unknown, Provider Primary Care Provider [phone] Encounter Details Date Type Department Care Team (Late st Contact Info) Description 10/07/2016 Historical Results Only [facility] system Radiology Results [address] [place] [address] Austin Rodriguez MD Social History Tobacco Use [...] Diagnosis Comments MA BREAST SCREENING ENRIQUE BILATERAL 10/07/2016 9:12 EDT documented in this encounter Results * MA BREAST SCREENING ENRIQUE BILATERAL (10/07/2016 9:12 EDT) Anatomical Region Laterality Modality Breast Bilateral Other 10/07/2016 9:12 EDT Narrative 10/07/2016 9:12 EDT ? EXAM: MAMMOGRAM/MAMMO BILATERAL SCREEN W ??EX. D/ (1512) ? CLINICAL INFORMATION: ? Z12.31 SCREENING MAMMO ? TECHNIQUE: ??Full field digital whole breast 2D (C-view) and 3D CC and ? MLO views of both breasts were obtained. CAD technology was utilized. ? FINDINGS: ??The fibroglandular patterns of the breasts are normal. ? There has been no change when compared to previous mammograms and ? there is no mammographic evidence of cancer. The breast tissue is of ? scattered density. ? FINAL ASSESSMENT: ??BILATERAL BREAST - Category 1 - Negative. Routine ? mammographic follow-up is recommended. ? These results will be communicated to your patient via a lay letter ? from Radiology. ??If any additional imaging is needed we will contact ? your patient directly. ? REPORT SIGNED IN OTHER VENDOR SYSTEM 10/07/2016 ?Reported By: Hector Demarco MD ? CC: ? Transcribed Date/Time: 10/07/2016 (0912) ? Supervisor Graphite: ? Printed Date/Time: 11/22/2018 (1108) ? PAGE 1 ? Signed Report ? Procedure Note Hector Demarco MD - 04/13/2019 EXAM: MAMMOGRAM/MAMMO BILATERAL SCREEN W EX. D/ (1512) CLINICAL INFORMATION: Z12.31 SCREENING MAMMO TECHNIQUE: Full field digital whole breast 2D (C-view) and 3D CCand MLO views of both breasts were obtained. CAD technology wasutilized. FINDINGS: The fibroglandular patterns of the breasts are normal. There has been no change when compared to previous mammograms and there is no mammographic evidence of cancer. The breast tissue isof scattered density. FINAL ASSESSMENT: BILATERAL BREAST - Category 1 - Negative.Routine mammographic follow-up is recommended. These results will be communicated to your patient via a lay letter from Radiology. If any additional imaging is needed we willcontact your patient directly. REPORT SIGNED IN OTHER VENDOR SYSTEM 10/07/2016 Reported By: Hector Demarco MD CC: Transcribed Date/Time: 10/07/2016 (0912) Supervisor Graphite: Printed Date/Time: 11/22/2018 (9625) PAGE 1 Signed Report Austin Rodriguez MD IMG MAMMOGRAPHY ORD ERABLES documented in this encounter Visit Diagnoses Not on filedocumented in this encounter Care Teams Dual Rate Supervisor Relationship Specialty Start Date End Date Unknown, Provider, PCP - General 09/04/13 10/21/20 documented as of this encounter
--- OUTSIDE RECORDS SUMMARY | 2024-03-07 08:54 | XMS_ITS | Clinical Summary ---
Author Organization [facility] Address [facility] [address] Care Team Providers Care Machine Iii Coremaker Name Role Phone Nayana Kaur MD Primary Care Provider Allergies No known active allergies Medications Medication Sig Dispensed Refills Start Date End Date Status FLUoxetine (PROZAC) 20 mg Capsule Take 20 mg by mouth daily. 0 04/02/2015 Active triamcinolone (KENALOG) 0.1 % Cream 2 times daily. 0 08/08/2016 Active amoxicillin (AMOXIL) 500 mg Capsule as needed. Prior to dental procedures 0 07/05/2016 Active baclofen (LIORESAL) 5 mg TabletIndications:C ervicogenic headache Take 2 tablets by mouth 3 times daily as needed. 45 tablet 11/02/2020 Active amitriptyline (ELAVIL) 75 mg TabletIndications:C ervicogenic headache Take 1 tablet by mouth nightly. 30 tablet 11/02/2020 Active Active Problems Problem Noted Date Diagnosed Date Neck pain, chronic 09/12/2020 Overview (09/12/2020): With occipital cervical headaches s/p R SHANTI Dr. Michael 02/13/17 02/13/2017 Osteoarthritis of hip, Right 01/01/2017 S/P left SHANTI 08/17/15 Fernanda 08/17/2015 Dysuria 08/08/2015 Alcoholism 08/08/2015 Overview (02/11/2017): On naltrexone. Depression 08/08/2015 History of tobacco abuse 08/08/2015 Spinal stenosis 06/21/2015 Overview (06/21/2015): L4-5 Resolved Problems Problem Noted Date Diagnosed Date Resolved Date s/p left anterior SHANTI 08/17/2015 Dr. Michael 08/17/2015 08/21/2016 Immunizations Name Administration Dates Next Due Influenza PF, Split 01/29/2017(Deferred: Patient Refused),08/09/2015(Deferred: Patient Refused) Family History Medical History Relation Comments Cancer Neg Hx Diabetes Neg Hx Relation Status Comments Father Mother Social History Tobacco Use Types Packs/Day Years Used Date Smoking Tobacco: Former Cigarettes Q uit: 07/12/1979 Smokeless Tobacco: Never Alcohol Use Standard Drinks/Week Comments No 0 (1 standard drink = 0.6 oz pur e alcohol) Sex and Gender Information Value Date Recorded Sex Assigned at Not on file Gender Identity Not on file Sexual Orientation Not on file Last Filed Vital Signs Vital Sign Reading Time Taken Comments Blood Pressure 112/67 11/02/2020 10:48 AM EDT Pulse 73 11/02/2020 10:48 AM EDT Temperature 36.7 ??C (98.1 ??F) 11/02/2020 10:48 AM E DT Respiratory Rate 16 02/14/2017 11:57 AM EDT Oxygen Saturation 97% 11/02/2020 10:48 AM EDT Inhaled Oxygen Concentration - - Weight 86.2 kg (190 lb) 11/02/2020 10:48 AM EDT Height 175.3 cm (5' 9) 10/15/2020 9:52 AM EDT r eported Body Mass Index 28.06 10/15/2020 9:52 AM EDT Plan of Treatment Upcoming Encounters Date Type Department Care Team (Late st Contact Info) Description 03/23/2024 9:15 AM EDT Appointment XRay at [address] [place] [address] 03/23/2024 10:00 AM EDT Office [place] [phone] Kathie Polk MD [facility] [place] [address] Health Maintenance Due Date Last Done Comments CT Colonography 1953 Colonoscopy 1953 Colorectal Cancer Screening 1953 FIT DNA 1953 FIT 1953 Sigmoidoscopy (10 year) with FIT yearly 1953 Sigmoidoscopy 1953 Pneumoccocal Vaccine: 65+ (1 of 2 - PCV) 1959 Hepatitis C Screening 1971 Tetanus/Diphtheria/Pertussis Vaccines (1 - Tdap) 02/02/1972 Breast Cancer Share Decision Needed 1993 Breast Cancer screening 1993 Zoster vaccine (1 of 2) 2003 Advance Directive 02/02/2008 Bone Density Scan 2018 Covid-19 Vaccine (1 - 2022-2 4 season) 2024 Influenza (Flu) vaccine (1 o f 1 - Influenza standard series) 02/07/2024 Diabetes Screening (HgbA1C o r Glucose) Discontinued 02/14/2017, 01/29/2017, 08/18/2015, Additional history exists Medical Devices Implanted Type Area General Lot Attendant Device Identifier Shelf Expiration Date Model / Serial / Lot Cup,Hip,Acetb, Grptn,Sctr,52m m ([id number]) (Autoreq) - [id number] Implanted:Qty: 1 on 08/17/2015 by Panchito Michael MD at [facility] IMPLANTS Left: Hip DO NOT USE Depuy Community Outreach Specialist - 3527 06/07/2025 2 / / [id number] Inser,Altrx,Nt ,+[id number] ([id number]) (Autoreq) - [id number] Implanted:Qty: 1 on 08/17/2015 by Panchito Michael MD at [facility] IMPLANTS Left: Hip DO NOT USE [employer]uy Community Outreach Specialist - 3527 06/07/2020 2 / / [id number] Stem,Crl2.Lat, Coxa,Sz11 ([id number]) (Autoreq) - [id number] Implanted:Qty: 1 on 08/17/2015 by Panchito Michael MD at [facility] IMPLANTS Left: Hip DO NOT USE [employer]uy Community Outreach Specialist - 3527 04/07/2020 [id number] / / [id number] Head,Dlta,Crmc ,+1.5,12/14,36 mm ([id number]) (Autoreq) - [id number] Implanted:Qty: 1 on 08/17/2015 by Panchito Michael MD at [facility] IMPLANTS Left: Hip DO NOT USE Depuy Community Outreach Specialist - 3527 04/07/2020 0 / / [id number] Head,Dlta,Crmc ,+1.5,12/14,36 mm ([id number]) (Autoreq) - [id number] Implanted:Qty: 1 on 02/13/2017 by Panchito Michael MD at [facility] IMPLANTS Right: Hip DO NOT USE Depuy Community Outreach Specialist - 3527 11/05/2021 0 / / [id number] Inser,Altrx,Nt ,+4,[id number] ([id number]) (Autoreq) - [id number] Implanted:Qty: 1 on 02/13/2017 by Panchito Michael MD at [facility] IMPLANTS Right: Hip DO NOT USE Depuy Community Outreach Specialist - 3527 08/05/2021 2 / / [id number] Cup,Hip,Acetb, Grptn,Sctr,52m m ([id number]) (Autoreq) - [id number] Implanted:Qty: 1 on 02/13/2017 by Panchito Michael MD at [facility] IMPLANTS Right: Hip DO NOT USE Depuy Community Outreach Specialist - 3527 11/05/2026 2 / / [id number] Screw,Cacls,Pn ncl,6.5x25mm ([id number]) (Autoreq) - [id number] Implanted:Qty: 1 on 02/13/2017 by Panchito Michael MD at [facility] IMPLANTS Right: Hip DO NOT USE Depuy Community Outreach Specialist - 3527 03/07/2017 0 / / [id number] Screw,Cacls,Pn ncl,6.5x20mm ([id number]) (Autoreq) - [id number] Implanted:Qty: 1 on 02/13/2017 by Panchito Michael MD at [facility] IMPLANTS Right: Hip DO NOT USE Depuy Community Outreach Specialist - 3527 09/05/2026 0 / / [id number] Stem,Crl2.Nemo Nogueira,Torito12 ([id number]) (Autoreq) - [id number] Implanted:Qty: 1 on 02/13/2017 by Panchito Michael MD at [facility] IMPLANTS Right: Hip DO NOT USE Depuy Community Outreach Specialist - 3527 09/05/2021 [id number] / / [id number] Procedures Procedure Name Priority Date/Time Associated Diagnosis Comments BASIC METABOLIC PANEL Routine 02/14/2017 3:55 AM EDT from Last 3 Months or Most Recently Relevant to Health Maintenance Results * (ABNORMAL) Basic Metabolic Panel (non-fasting) (02/14/2017 3:55 AM EDT) Glucose 135 65 - 199 mg/dL [facility] Comment:Diabetes: >=200 mg/d L plus symptoms Blood Urea Nitrogen 11 8 - 18 mg/dL [facility] Creatinine 0.49(L) 0.70 - 1.20 mg/dL [facility] Comment: Please note that the pediatric reference intervals supplied above were not validated [place] [facility] [place] Results from pediatric patients should be interpreted in conjunction to the patient's age, height and muscle mass. Sodium 141 135 - 145 mmol/L [facility] Potassium 4.4 3.5 - 5.0 mmol/L [facility] Comment: Please note: ??Patients with WBC >100,000 may have falsely elevated Potassium levels. ??For accurate Potassium quantification in these patients send serum separator tube (gold top) for subsequent determinations. ??Contact the Clinical Chemistry Laboratory if there are any questions. Chloride 106 98 - 107 mmol/L [facility] Carbon Dioxide 21(L) 22 - 31 mmol/L [facility] Anion Gap 14 5 - 15 mmol/L [facility] Calcium 8.8 8.5 - 10.5 mg/dL [facility] Est Glomerular Filtration Rate >60 >=60 [facility] Comment: This estimated GFR (eGFR) value was calculated using the MDRD equation which has been validated on patients between the ages of 18 and 70. The MDRD should not be used to assess kidney function in patients < 18 years of age or in patients with extremes of body mass, or in patients with acute kidney failure. This value should be multiplied by 1.2 for patients. For further information please copy and paste the following links into your internet browser. http://[email or web address] [email or web address] Blood specimen (specimen) 02/14/2017 3:55 AM EDT 02/14/2017 4:31 AM EDT Narrative Resulting Agency Comment Spec In Lab Panchito Michael MD CHEMISTRY ORDERABLES [facility] [place] [address] from Last 3 Months or Most Recently Relevant to Health Maintenance Advance Directives * Full Code (Latest Code Status on File) Date Activated Date Inactivated Comments 02/13/2017 11:18 AM 02/14/2017 4:43 PM Question Answer Comments Does patient have capacity to make decision: Yes * Full Code Date Activated Date Inactivated Comments 02/13/2017 5:48 AM 02/13/2017 11:18 AM Question Answer Comments Does patient have capacity to make decision: Yes * Full Code Date Activated Date Inactivated Comments 08/17/2015 7:52 AM 08/18/2015 2:52 PM Question Answer Comments Does patient have capacity to make decision: Yes * Full Code Date Activated Date Inactivated Comments 08/16/2015 2:45 PM 08/17/2015 7:52 AM Question Answer Comments Does patient have capacity to make decision: Yes Care Teams Machine Iii Coremaker Relationship Specialty Start Date End Date Nayana Kaur MD [address] [place] [address] PCP - General General Internal Medicine 07/30/20
--- OUTSIDE RECORDS SUMMARY | 2024-03-07 08:54 | XMS_ITS | Encounter Summary ---
Author Organization [facility] Address [address] [place] [address] Care Team Providers Care Fisher Troll Line Name Role Phone Unknown, Provider Primary Care Provider Encounter Details Date Type Department Care Team (Late st Contact Info) Description 10/08/2017 Historical Results Only [facility] Radiology Results [address] [place] [address] Austin Rodriguez MD Social History Tobacco Use [...] Diagnosis Comments MA BREAST SCREENING ENRIQUE BILATERAL 10/08/2017 10:27 EDT documented in this encounter Results * MA BREAST SCREENING ENRIQUE BILATERAL (10/08/2017 10:27 EDT) Anatomical Region Laterality Modality Breast Bilateral Other 10/08/2017 10:2 7 EDT Narrative 10/08/2017 10:28 EDT ? EXAM: MAMMOGRAM/MAMMO BILATERAL SCREEN W ??EX. D/ (1059) ? CLINICAL INFORMATION: ? Z12.31 SCREENING ? TECHNIQUE: ??Full field digital whole [...] is of ? scattered density. ? FINAL ASSESSMENT BILATERAL BREAST: ??Category 1 - Negative. Routine ? mammographic follow-up is recommended. ? These results will be communicated to your patient via a lay letter ? from Radiology. ??If any additional imaging is needed we will contact ? your patient directly. ? REPORT SIGNED IN OTHER VENDOR SYSTEM 10/08/2017 ?Reported By: Hector Demarco MD ? CC: ? Transcribed Date/Time: 10/08/2017 (1028) ? Reliner: ? Printed Date/Time: 11/26/2018 (1132) ? PAGE 1 ? Signed Report ? Procedure Note Hectro Demarco MD - 04/14/2019 EXAM: MAMMOGRAM/MAMMO BILATERAL SCREEN W EX. D/ (1059) CLINICAL INFORMATION: Z12.31 SCREENING TECHNIQUE: Full field digital whole breast 2D (C-view) and 3D CCand MLO views of both breasts were obtained. CAD technology wasutilized. FINDINGS: The fibroglandular patterns of the breasts are normal. There has been no change when compared to previous mammograms and there is no mammographic evidence of cancer. The breast tissue isof scattered density. FINAL ASSESSMENT BILATERAL BREAST: Category 1 - Negative. Routine mammographic follow-up is recommended. These results will be communicated to your patient via a lay letter from Radiology. If any additional imaging is needed we willcontact your patient directly. REPORT SIGNED IN OTHER VENDOR SYSTEM 10/08/2017 Reported By: Hector Demarco MD CC: Transcribed Date/Time: 10/08/2017 (1028) Reliner: Printed Date/Time: 11/26/2018 (1045) PAGE 1 Signed Report Austin Rodriguez MD IMG MAMMOGRAPHY ORD ERABLES documented in this encounter Visit Diagnoses Not on filedocumented in this encounter Care Teams Fisher Troll Line Relationship Specialty Start Date End Date Unknown, Provider, PCP - General 09/04/13 10/21/20 documented as of this encounter
--- OUTSIDE RECORDS SUMMARY | 2024-03-07 08:54 | XMS_ITS | Encounter Summary ---
[place] [address] Care Team Providers Care New Home Sales Consultant Name Role Phone Austin Rodriguez MD Primary Care Provider [phone] Reason for Referral * Physical Therapy (Routine) - Specialty Diagnoses / Procedures Referred By Thomas hernandes Referred To Contact Physical Therapy Diagnoses Status post total replacement of both hips Panchito Michael MD [facility] [place] [address] Referral ID Status Reason Start Date Expiration Date V isits Requested Visits Authorized [id number] Evaluate and Treat 03/01/2019 08/28/2019 12 12 Reason for Visit * Reason Comments Follow-up L SHANTI DOSL 08/17/15 R SHANTI DOS: 02/13/17 Encounter Details Date Type Department Care Team (Late st Contact Info) Description 03/01/2019 9:30 AM EDT [place] [address] Panchito Michael MD Status post total replacement of both hips Social History Tobacco Use Types Packs/Day Years [...] Sign Reading Time Taken Comments Blood Pressure 120/76 03/01/2019 8:53 AM EDT Pulse 66 03/01/2019 8:53 AM EDT Temperature - - Respiratory Rate - - Oxygen Saturation - - Inhaled Oxygen Concentration - - Weight 86.2 kg (190 lb) 03/01/2019 8:53 AM EDT Height 175.3 cm (5' 9) 03/01/2019 8:53 AM EDT Body Mass Index 28.06 03/01/2019 8:53 AM EDT documented in this encounter Progress Notes * Panchito Michael MD - 03/01/2019 9:30 AM EDT Arthroplasty/Orthopaedic History: 1. Left SHANTI - 08/17/15 - Dr. Michael 2. Right SHANTI - 02/13/17 - Dr. Michael HPI: Nikky Jarrett is a very pleasant 64 y.o. year-old female and is now 2 years post bilateral total hip replacement The patient has been doing well. Mild right lateral hip pain otherwise well. No fevers, chills, nausea, vomiting, or symptoms of infection. Nikky has been ambulating with no assistive device and working with PT for lateral hip pain. She is not taking narcotic pain medicine. ROS: Denies: fever, chills, night sweats, nausea, or vomiting BP 120/76 (BP Location (NBP): Right arm, Patient Position: Sitting, BP Cuff Sizes: Adult (25-34 cm)) Pulse 66 Ht 175.3 cm (5' 9) Wt 86.2 kg (190 lb) BMI 28.06 kg/m?? Physical Exam: Well-appearing female in no acute distress. Alert and Oriented x 3 and answers all questions appropriately. The incision is well healed, with no signs of infection. Hip Exam: Left Leg Length: Longer leg: equal Limb Length discrepancy: 0cm Motion: Flexion contracture: 0 Total degrees of Flexion: 105 Total degrees of Abduction: not tested Total degrees of Ext Rotation: 20 Total degrees of Internal Rotation: 15 Gait Abnormality: Normal Pulses Palpable: Left PT: not tested Left DP: not tested Motor/Sensory: Left Distal Motor: Normal Distal Sensory: Normal Hip Abductors: 5 Trendelenburg test: not tested and Hip Exam: Right Leg length: Longer leg: equal Limb Length discrepancy: 0cm Motion: Flexion contracture: 0 Total degrees of Flexion:105 Total degrees of Abduction:not tested Total degrees of Ext Rotation: 20 Total degrees of Internal Rotation: 15 Gait Abnormality: Normal Pulses Palpable: Right PT: not tested Right DP:not tested Motor/Sensory: Right Distal Motor: Normal Distal Sensory: Normal Hip Abductors 5 Trendelenburg test: not tested X-RAYS: Multiple radiographic views were obtained at my request and reviewed with the patient. X-rays show a well-placed prosthesis with no evidence of fracture, subsidence, loosening, or periprosthetic complication. Questionnaire Responses: [facility] Surgical Postop Visit 03/01/2019 PROMIS-10 General Health Very Good PROMIS-10 Quality of Life Good PROMIS-10 Physical Health Good PROMIS-10 Mental Health Good PROMIS-10 Social Activity Good PROMIS-10 Everyday Activities Completely PROMIS-10 Pain 3 PROMIS-10 Fatigue Moderate PROMIS-10 Social Roles Very Good PROMIS-10 Anxious or Depressed Sometimes PROMIS PHYSICAL HEALTH SCORE 47.7 PROMIS MENTAL HEALTH SCORE 43.5 HOOS JR Scores 85.26 Problems with surgical incision/wound after surgery No Gone to ER since knee surgery No Admitted to hospital since recent ortho surgery No Additional surgery on same body part No SHANTI Grade 8 Pain in other HIP Mild Back pain at this moment Very mild Satisfaction with Treatment Satisfied Choose Same Treatment Again Definitely yes Orthopeadics [facility] Response 03/01/2019 HOOS JR Scores 85.26 OSWESTRY DISABILITY INDEX - Spine [facility] Response 03/01/2019 Oswestry (ADENIKE) Score - HOOS JR Scores 85.26 ASSESSMENT/PLAN: Ms. Jarrett is a 64 y.o. year old female status post bilateral total hip replacement. Doing well postoperatively. Continue weightbearing as tolerated and working on range of motion. We will see her back in 5 years for repeat examination. X-rays will be needed at that time. Patient may return to normal activities as her pain and function allow. We discussed the appropriate precautions surrounding dental prophylaxis; according to the AAOS Appropriate Use Criteria we do not recommend antibiotic use prior to dental procedures for Nikky. But dentist requires. If Nikky has any changes in health status we recommend she contact our office prior to dental procedures for updated recommendations We also discussed maintaining good foot care and giving prompt attention to any source of infectionthroughout the body including foot ulcers and urinary tract infections. All questions were answered. Signed: Panchito Michael MD 03/01/2019 documented in this encounter Plan of Treatment Upcoming Encounters Date Type Department Care Team (Late st Contact Info) Description 03/23/2024 9:15 AM EDT Appointment XRay at [address] [place] [address] 03/23/2024 10:00 AM EDT Office [place] [address] [facility] [place] [address] Scheduled Referrals Name Type Priority Associated Diagnoses Orde r Schedule Referral to Physical Therapy Outpatient Referral Routine Status post total replacement of both hips Ordered: 03/01/2019 documented as of this encounter Visit Diagnoses Diagnosis Status post total replacement of both hips documented in this encounter Care Teams New Home Sales Consultant Relationship Specialty Start Date End Date Austin Rodriguez MD [address] [place] [address] PCP - General Family Medicine 03/01/19 07/29/20 documented as of this encounter
--- OUTSIDE RECORDS SUMMARY | 2024-03-07 08:54 | XMS_ITS | Encounter Summary ---
Author Organization [facility] Address [address] [place] [address] Care Team Providers Care Fire Lieutenant Marine Name Role Phone Hortencia Gotti MD Primary Care Provider [facility] Encounter Details Date Type Department Care Team (Latest Contact Info) Description 02/05/2022 Travel Social History Tobacco Use Types Packs/Day Years [...] 12:58 EDT documented as of this encounter Plan of Treatment Not on file documented as of this encounter Visit Diagnoses Not on filedocumented in this encounter Care Teams Fire Lieutenant Marine Relationship Specialty Start Date End Date Hortencia Gotti MD PCP - General 11/01/21 documented as of this encounter
--- OUTSIDE RECORDS SUMMARY | 2024-03-07 08:54 | XMS_ITS | Encounter Summary ---
Author Organization [facility] Address [address] [place] [address] Care Team Providers Care Senior Landscape Architect Name Role Phone Unknown, Provider Primary Care Provider Encounter Details Date Type Department Care Team (Late st Contact Info) Description 05/01/2015 Historical Results Only [facility] Radiology Results [address] [place] [address] Shira Espino, NESTOR [address] [place] [address] [place] [id number] Social History Tobacco Use Types Packs/Day Years Used Date Smoking Tobacco: Never Assessed Sex and Gender Information Value Date Recorded Sex Assigned at Not on file Gender Identity Female 02/05/2022 12:59 EDT Sexual Orientation Not on file documented as of this encounter Plan of Treatment Not on file documented as of this encounter Procedures Procedure Name Priority Date/Time Associated Diagnosis Comments FL GUIDED INJECT/ASPIR LEFT HIP 05/01/2015 10:33 EST documented in this encounter Results * FL GUIDED INJECT/ASPIR LEFT HIP (05/01/2015 10:33 EST) Anatomical Region Laterality Modality Other 05/01/2015 10:3 3 EST Narrative 05/01/2015 10:40 EST ? EXAM: RADIOLOGY/FLUORO GUIDED INJEC/ASP L EX. D/ (0953) ? CLINICAL INFORMATION: ? M25.552 LEFT HIP PAIN. M54.5 LUMBAGO ? FLUORO GUIDED INJEC/ASP LT HIP ??04/27/2015 2:31 PM ? Signs and Symptoms: ??Left hip pain. Lumbago. ? Comparison: Radiographs 04/06/2015 ? Procedure: ? Following a discussion of the risks and benefits associated with this ? procedure (including, but not limited to; infection, bleeding, pain, ? damage to joint), informed verbal and written consent was obtained. ? The injection site was marked. ? Timeout was performed including side, site, patient name, and date of ? . ? The skin over the left hip was cleaned and draped in the usual ? sterile fashion. 5 cc of 1% lidocaine was placed for local ? anesthesia. A 3-1/2 inch 22-gauge spinal needle was then directed ? into the left hip joint utilizing an oblique anterior approach under ? fluoroscopic guidance. ? Position within the joint was confirmed approximately 1 cc of ? Omnipaque 300. Following this, a total of 5 cc of a combination of 40 ? mg of Kenalog with 0.25% bupivacaine was administered. ? The needle was withdrawn and a sterile dressing applied. The patient ? tolerated the procedure well and without immediate complication. ? Fluoroscopy time was 16 seconds. ? Impression: ? 1. Successful, uncomplicated left hip fluoroscopic guided pain ? injection. ? REPORT SIGNED IN OTHER VENDOR SYSTEM 05/01/2015 ?Reported By: Juan David Salvador MD ? CC: ? Transcribed Date/Time: 05/01/2015 (1040) ? Goggles Assembler: ? Printed Date/Time: 11/17/2018 (1485) ? PAGE 1 ? Signed Report ? Procedure Note Juan David Salvador MD - 04/13/2019 EXAM: RADIOLOGY/FLUORO GUIDED INJEC/ASP L EX. D/ (0953) CLINICAL INFORMATION: M25.552 LEFT HIP PAIN. M54.5 LUMBAGO FLUORO GUIDED INJEC/ASP LT HIP 04/27/2015 2:31 PM Signs and Symptoms: Left hip pain. Lumbago. Comparison: Radiographs 04/06/2015 Procedure: Following a discussion of the risks and benefits associated withthis procedure (including, but not limited to; infection, bleeding,pain, damage to joint), informed verbal and written consent was obtained. The injection site was marked. Timeout was performed including side, site, patient name, and dateof . The skin over the left hip was cleaned and draped in the usual sterile fashion. 5 cc of 1% lidocaine was placed for local anesthesia. A 3-1/2 inch 22-gauge spinal needle was then directed into the left hip joint utilizing an oblique anterior approachunder fluoroscopic guidance. Position within the joint was confirmed approximately 1 cc of Omnipaque 300. Following this, a total of 5 cc of a combination of40 mg of Kenalog with 0.25% bupivacaine was administered. The needle was withdrawn and a sterile dressing applied. Thepatient tolerated the procedure well and without immediate complication. Fluoroscopy time was 16 seconds. Impression: 1. Successful, uncomplicated left hip fluoroscopic guided pain injection. REPORT SIGNED IN OTHER VENDOR SYSTEM 05/01/2015 Reported By: Juan David Salvador MD CC: Transcribed Date/Time: 05/01/2015 (1040) Goggles Assembler: Printed Date/Time: 11/17/2018 (8823) PAGE 1 Signed Report Shira Espino CLINICAL ORTHOPTIST IMG FLUOROSCOPY LEATHA PALMA documented in this encounter Visit Diagnoses Not on filedocumented in this encounter Care Teams Senior Landscape Architect Relationship Specialty Start Date End Date Unknown, Provider, PCP - General 09/04/13 10/21/20 documented as of this encounter
--- OUTSIDE RECORDS SUMMARY | 2024-03-07 08:54 | XMS_ITS | Encounter Summary ---
[place] [address] Care Team Providers Care Geotechnical Intern Name Role Phone Nayana Kaur MD Primary Care Provider [phone] Reason for Visit * Reason Comments Neck Pain * Consultation (Routine) - Closed Specialty Diagnoses / Procedures Referred By Thomas t Referred To Contact [facility] Sp[facility] Diagnoses Neck pain, chronic Albert Peter MD [facility] [place] [address] [facility] [place] [address] Referral ID Status Reason Start Date Expiration Date Visits Requested Visits Authorized [id number] Closed Pain Interventional Procedure 09/12/2020 09/12/2021 3 3 Encounter Details Date Type Department Care Team (Late st Contact Info) Description 09/19/2020 3:00 PM EDT Office Visit [place] [address] [facility] [place] [address] Cervical spondylosis; Bilateral occipital neuralgia Social History Tobacco Use Types Packs/Day Years [...] Sign Reading Time Taken Comments Blood Pressure 119/47 09/19/2020 2:51 PM EDT Pulse 132 09/19/2020 2:51 PM EDT Temperature 36.8 ??C (98.2 ??F) 09/19/2020 2:51 PM ED T Respiratory Rate - - Oxygen Saturation 97% 09/19/2020 2:51 PM EDT Inhaled Oxygen Concentration - - Weight 88.5 kg (195 lb) 09/19/2020 2:51 PM EDT Height 175.3 cm (5' 9) 09/19/2020 2:51 PM EDT Body Mass Index 28.8 09/19/2020 2:51 PM EDT documented in this encounter Progress Notes * Hung Boogie MD - 09/19/2020 3:00 PM EDT [facility] Initial Consultation Note DOS: 09/17/20 : 1955 Nikky Jarrett is a 65 y.o. year old female with a PMH including depression/anxiety, prior history of EtOH dependence (sober x 3 years), arthritis who presents to the pain clinic today at the referral of Albert Peter MD [facility] [place] [address] for consultation regarding neck and headache management. CC: I am a headache free person until about 3-4 months ago HPI: Nikky Jarrett reports insidious onset of [...] with x-rays and then referred to see Ms. Burt in the headache clinic. She was [...] resulted in improvement in her head pain. In addition to her hip pain she does report a dull achy sensation along the side of her neck from the base of her skull to a clavicle area. She denies any radiation to trapezius, no radiation betweenher shoulder blades. She does have occasional radiating pain down the left upper extremity down herfingertips although this is not a frequent occurrence. She has noted some difficulty with fine motor dexterity with her right hand, namely she has find it difficult to unscrew the cap off a creamer bottle. She denies any gait instabilities, no balance issues, no bowel bladder incontinence. Pain Description: Duration - constant Location - [...] PT: 12 sessions of PT in [facility] in [place] Modalities: stretches, HEP Surgery: none Injections: none [...] VIEWS performed by Panchito Michael MD at [facility] MAIN OR ??? PRG RADEX HIP UNILATERAL WITH PELVIS MINIMUM 4 VIEWS Right 02/13/2017 HIP INTRAOP RADIOLOGIC EXAMINATION, UNILATERAL, W PELVIS; 4+ VIEWS (WRVU 0.27) performed by Panchito Michael MD at [facility] MAIN OR ??? PRO TOTAL HIP ARTHROPLASTY Left 08/17/2015 @TOTAL HIP ARTHROPLASTY, ANTERIOR APPROACH performed by Panchito Michael MD at [facility] MAIN OR ??? PRO TOTAL HIP ARTHROPLASTY Right 02/13/2017 @TOTAL HIP ARTHROPLASTY, ANTERIOR APPROACH (WRVU 20.72) performed by Panchito Michael MD at [facility] MAIN OR FAMILY HISTORY: Family History Problem Relation Age of Onset ??? Cancer Neg Hx ??? 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 MEDICATIONS: Current Outpatient Medications: ??? amitriptyline (Elavil) 25 mg Tablet, Take 2 tablets by mouth nightly. (Patient not taking: Reported on 09/12/2020), Disp: 60 tablet, Rfl: 1 ??? triamcinolone (KENALOG) 0.1 % Cream, 2 times daily., Disp: , Rfl: 0 ??? amoxicillin (AMOXIL) 500 mg Capsule, as needed. Prior to dental procedures, Disp: , Rfl: 0 ??? FLUoxetine (PROZAC) 20 mg Capsule, Take 20 mg by mouth daily., Disp: , Rfl: 0 PDMP report checked [...] -reproduce pain left more than right Neurologic: lathe hand - grossly intact Reflexes - 2+ and [...] neuralgia Patient is a 65-year-old female with 4-month history of insidious onset of head pain as well as neck pain. Most of her pain symptoms are axial neck with occipital temporal headache. She does have evidence of cervical spondylosis shown on MRI of the C-spine. On physical examination cervical extension did reproduce her usual symptoms. Direct palpation over the occipital notch also reproduced her pain along the occipital temporal region as well as radiating down to the anterior scalene muscles. 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 Cervical spondylosis was explainedto patient and her in detail using a nonanatomical model, as well as the medial branch nerve distribution diagram as shown below. PLAN: Medication: - defer to neurology/headache for oral medication management Diagnostic images: - none Interventional procedures: - proceed with bilateral occipital nerve block in office today - if this fails to provide adequate pain relief, would target TON, C3, C4 MBB Referral: -[facility] based PT - How to Treat Your Neck given to patient - patient already completed 12 sessions of PT Follow up: - after her appointment with Ms Burt in neurology Thank you for allowing us the opportunity to participate in Ms Jarrett's care Hung Boogie MD Ground Crew Lines Person [facility] [place] [address] CC: Albert Peter MD [facility] [place] [address] OCCIPITAL NERVE BLOCK PROCEDURE NOTE The patient complains of bilateral occipital head pain. Dx: Occipital Neuralgia Ms. Jarrett was greeted by the nurse who verified patients name and . Ms. Jarrett was interviewed and the medical record reviewed. There were no medical, pharmacologic, radiographic, or other structural contraindications to attempting Bilateral greater and lesser occipital nerve blocks. Risks and potential side effects were discussed. The potential benefits of the procedure were reviewed with Ms. Jarrett and her voiced concerns were addressed. After obtaining informed consent, the patient consent form was signed. Standard time- out procedure was performed. Ms. Jarrett was placed in the prone position on the examination table. The occipital protuberance was palpated. The skin just to left each side of the occipital protuberance and out 2 inches lateral to the protuberance was thoroughly prepared with an alcohol preparation. Next, I entered the skin to e ach side of the protuberance with a 1.5 25G spinal needle. Aspiration revealed no blood or other fluid. Next, I injected 50:50 mix of preservative-free 1% Lidocaine and 0.5% Bupivocaine and 5mg/ml of dexamethasone, total of 4cc solution was injected and I removed the needle. I then placed the needle 2 inches lateral right to each side to the occipital protuberance and entered the skin and advanced the needle to the skull. Next, I injected 4cc of solution containing 50:50 mix of preservative free 1% lidocaine and 0.5% Bupivocaine and 5mg/ml of dexamethasone was injected, before removing the needle. Follow up plans and appointments were discussed with Ms. Jarrett. Post procedure instruction was given. Having met discharge criteria he was discharged from the [facility]. I personally performed this entire procedure. Hung Boogie MD ABPN-subspecialty board certification in Pain Medicine Attending Physician - Pain Management CC: Albert Peter MD [facility] [place] [address] documented in this encounter Plan of Treatment Upcoming Encounters Date Type Department Care Team (Late st Contact Info) Description 03/23/2024 9:15 AM EDT Appointment XRay at [address] [place] [address] 03/23/2024 10:00 AM EDT Office Visit Orthopaedics at [facility] [place] [address] [facility] [place] [address] documented as of this encounter Visit Diagnoses Diagnosis Cervical spondylosis Cervical spondylosis without myelopathy Bilateral occipital neuralgia Other syndromes affecting cervical region documented in this encounter Care Teams Geotechnical Intern Relationship Specialty Start Date End Date Nayana Kaur MD [address] [address] PCP - General General Internal Medicine 07/30/20 documented as of this encounter
--- OUTSIDE RECORDS SUMMARY | 2024-03-07 08:54 | XMS_ITS | Encounter Summary ---
Author Organization [facility] Address [address] [facility] [place] [address] Care Team Providers Care Dairy Nutrition Consultant Name Role Phone Nayana Kaur MD Primary Care Provider [phone] Encounter Details Date Type Department Care Team (Latest Contact Info) Description 07/30/2020 10:26 AM EST - 07/30/2020 11:59 PM [facility] Hospital Encounter XRay at [address] [place] [address] Nayana Kaur MD [address] [place] [address] [phone] Neck pain Discharge Disposition: Home Social History Tobacco Use [...] 07/02/2020 09/12/2020 amitriptyline (Elavil) 25 mg Tablet TAKE 1 TABLET BY MOUTH AT BEDTIME 07/09/2020 08/16/2020 naltrexone (DEPADE) 50 mg Tablet Take 50 mg by mouth daily. 0 06/11/2015 09/12/2020 documented as of this encounter Plan of Treatment Upcoming Encounters Date Type Department Care Team (Late st Contact Info) Description 03/23/2024 9:15 AM EDT Appointment XRay at [address] [place] [address] 03/23/2024 10:00 AM EDT Office Visit Orthopaedics at [facility] [place] [address] Kathie Polk MD [facility] [place] [address] documented as of this encounter Procedures Procedure Name Priority Date/Time Associated Diagnosis Comments XR CERVICAL SPINE 2 OR 3 VIEWS Routine 07/30/2020 10:49 AM EST Neck pain documented in this encounter Results * XR Cervical Spine 2 or 3 Views (07/30/2020 10:49 AM EST) Anatomical Region Laterality Modality C-spine N/A Digital Radiogra phy Impressions 07/30/2020 12:06 PM EST Multilevel cervical spondylosis as described above with moderate disc space narrowing most prominent at C4-C5, C5-C6. I have personally reviewed the image(s) and the resident's interpretation and agree with the findings, Nai Leon MD at 07/30/2020 12:06 PM Thank you for letting us participate in the care of this patient. For questions regarding this report, please contact the number below. ? Electronically signed by: Nia Leno MD, [facility] ([phone]), at 07/30/2020 12:06 PM Narrative 07/30/2020 12:06 PM EST EXAMINATION: XR CERVICAL SPINE 2 OR 3 VIEWS CLINICAL HISTORY: RECURRING TENSION TYPE H.A. WITH NECK TENSION AFTER 13 SESSIONS OF PT. NECK TENDERNESS AND PAIN WITH CERVICAL ROM TECHNIQUE: 2 views of the cervical spine COMPARISON: None FINDINGS: C1 through C7 vertebral bodies visible on lateral radiograph. Vertebral bodies: Vertebral bodies are intact with preserved height. Alignment: Straightening of the cervical spine , no spondylolisthesis. Disk spaces: Marginal osteophytes, endplate sclerosis and bilateral uncovertebral and facet hypertrophy most prominent at ??C2-C6, Disc space height loss at C4-C5, C5-C6 and C6-C7. Survey: Survey of the imaged portion of the maxillofacial structures, skull base, thoracic inlet and prevertebral soft tissues demonstrate no acute abnormality. Procedure Note Nia Leon MD - 07/30/2020 EXAMINATION: XR CERVICAL SPINE 2 OR 3 VIEWS CLINICAL HISTORY: RECURRING TENSION TYPE H.A. WITH NECK TENSION AFTER 13 SESSIONS OF PT. NECK TENDERNESS AND PAIN WITH CERVICAL ROM TECHNIQUE: 2 views of the cervical spine COMPARISON: None FINDINGS: C1 through C7 vertebral bodies visible on lateral radiograph. Vertebral bodies: Vertebral bodies are intact with preserved height. Alignment: Straightening of the cervical spine , no spondylolisthesis. Disk spaces: Marginal osteophytes, endplate sclerosis and bilateral uncovertebral and facet hypertrophy most prominent at C2-C6, Disc spaceheight loss at C4-C5, C5-C6 and C6-C7. Survey: Survey of the imaged portion of the maxillofacial structures,skull base, thoracic inlet and prevertebral soft tissues demonstrate no acute abnormality. IMPRESSION Multilevel cervical spondylosis as described above with moderate discspace narrowing most prominent at C4-C5, C5-C6. I have personally reviewed the image(s) and the resident's interpretationand agree with the findings, Nia Leon MD at 07/30/2020 12:06 PM Thank you for letting us participate in the care of this patient. Forquestions regarding this report, please contact the number below. Nayana Kaur MD IMG DX ORDERABLES documented in this encounter Visit Diagnoses Diagnosis Neck pain Cervicalgia documented in this encounter Care Teams Dairy Nutrition Consultant Relationship Specialty Start Date End Date Nayana Kaur MD [address] [place] [address] PCP - General General Internal Medicine 07/30/20 documented as of this encounter
--- OUTSIDE RECORDS SUMMARY | 2024-03-07 08:54 | XMS_ITS | Encounter Summary ---
Author Organization [facility] Address [address] [place] [address] Care Team Providers Care Devulcanizer Tender Name Role Phone Unknown, Provider Primary Care Provider [phone] Encounter Details Date Type Department Care Team (Late st Contact Info) Description 06/15/2009 Historical Results Only [facility] Lab - Main [address] [address] Vineet Chandra MD [address] [place] [phone] Social History Tobacco Use Types Packs/Day Years [...] Date/Time Associated Diagnosis Comments PAP TEST Routine 06/15/2009 documented in this encounter Results * PAP TEST (06/15/2009) 06/15/2009 06/18/2009 10: 09 EST [facility] - 06/20/2009 10:34 EST ----- ------- Name: STEVE VAZQUEZ ? : [birth year] ?Age/Sex: 64/F ?Unit#: [id number] ? Loc: AGO ? Status: REG POV ?? Reg Date: 06/15/09 ? Pt.Phone Number: ? ----- ------- Specimen: [id number] ? STATUS: SOUT ?Spec Date:06/15/09 ? Physician Copies: ?Vineet Chandra J Tissues: ? Cervical/Endo Pap ?Austin Rodriguez ?? CPT: 61127 ?? Units: ??1 ----- ------- ? CYTOLOGY [...] DO HPV? N Signed Harshal Parrish CT(ASCP) 06/20/09 By the signature above, the attending physician certifies that he/she has personally conducted a gross and/or microscopic examination of the described specimens and rendered or confirmed the above diagnosis. Test Performed by [facility], [address] [place], [place] [id number] Aircraft Powertrain Repairer: Aura Holliday MD PHD ----- ------- Vineet Chandra MD PATHOLOGY ORDERABL [facility] documented in this encounter Visit Diagnoses Not on filedocumented in this encounter Care Teams Devulcanizer Tender Relationship Specialty Start Date End Date Unknown, Provider, PCP - General 09/04/13 10/21/20 documented as of this encounter
--- OUTSIDE RECORDS SUMMARY | 2024-03-07 08:54 | XMS_ITS | Encounter Summary ---
[place] [address] Care Team Providers Care Clothing Consultant Name Role Phone Austin Rodriguez MD Primary Care Provider Reason for Visit * Reason Comments Follow Up Surgery right SHANTI 02/13/17 Encounter Details Date Type Department Care Team (Late st Contact Info) Description 03/12/2017 1:10 PM EDT Office [place] [address] Panchito Michael MD Status post bilateral hip replacements Social History Tobacco Use Types Packs/Day Years [...] Sign Reading Time Taken Comments Blood Pressure 119/64 03/12/2017 12:58 PM EDT Pulse 65 03/12/2017 12:58 PM EDT Temperature - - Respiratory Rate - - Oxygen Saturation - - Inhaled Oxygen Concentration - - Weight 83.9 kg (185 lb) 03/12/2017 12:58 PM EDT verbal Height 175.3 cm (5' 9) 03/12/2017 12:58 PM EDT verbal Body Mass Index 27.32 03/12/2017 12:58 PM EDT documented in this encounter Progress Notes * Ed Bone PA - 03/12/2017 1:10 PM EDT Arthroplasty/Orthopaedic History: 1. Right SHANTI 02/2017 2. Left SHANTI 08/2016 HPI: 62 y.o. year-old female returns 4 weeks post right total hip replacement. She has done well. There is no pain. Some swelling that she does not recall from the other side. No complaints. Anticoagulation status ASA 81mg BID for 30 days discussed stop date ROS: Denies: fever, chills, night sweats, nausea, or vomiting BP 119/64 Pulse 65 Ht 175.3 cm (5' 9) Comment: verbal Wt 83.9 kg (185 lb) Comment: verbal BMI 27.32 kg/m2 Physical Exam: Well-appearing female in no acute distress. Alert and Oriented x 3 and answers all questions appropriately. The incision is well healed, with no signs of infection. Hip Exam: Right Leg length: Longer leg: equal Limb Length discrepancy: 0cm Motion: Flexion contracture: 0 Total degrees of Flexion:100 Total degrees of Abduction:20 Total degrees of Ext Rotation: 20 Total degrees of Internal Rotation: 20 Gait Abnormality: Normal Pulses Palpable: Right PT: Yes Right DP:Yes Motor/Sensory: Right Distal Motor: Normal Distal Sensory: Normal Hip Abductors not tested Trendelenburg test: negative X-RAYS: bilateral noncemented implants; no evidence of subsidence. No sign of complication Questionnaire Responses:[facility] Surgical Postop Visit 01/29/2017 PROMIS-10 General Health Fair PROMIS-10 Quality of Life Good PROMIS-10 Physical Health Fair PROMIS-10 Mental Health Good PROMIS-10 Social Activity Fair PROMIS-10 Everyday Activities Moderately PROMIS-10 Pain 4 PROMIS-10 Fatigue Moderate PROMIS-10 Social Roles Good PROMIS-10 Anxious or Depressed Sometimes PROMIS PHYSICAL HEALTH SCORE 37.4 PROMIS MENTAL HEALTH SCORE 41.1 HOOS JR Scores 61.82 Problems with surgical incision/wound after surgery - Gone to ER since knee surgery - Admitted to hospital since recent ortho surgery - Additional surgery on same body part - SHANTI Grade 5 Pain in other HIP Moderate Back pain at this moment Moderate Satisfaction with Treatment - Choose Same Treatment Again - Some recent data might be hidden [facility] Response 01/29/2017 HOOS JR Scores 61.82 OSWESTRY DISABILITY INDEX - Some recent data might be hidden [facility] 01/29/2017 Oswestry (ADENIKE) Score - HOOS JR Scores 61.82 Some recent data might be hidden ASSESSMENT/PLAN: Ms. Jarrett is a 62 y.o. year old female status post bilateral total hip replacement Doing well postoperatively. Continue weightbearing as tolerated and working on range of motion. Star see her back in 9 months for repeat examination. Patient may return to normal activities as her pain and function allow. We discussed the appropriate precautions surrounding dental prophylaxis; according to the AAOS Appropriate Use Criteria we do not recommend antibiotic use prior to dental procedures for Nikky. Recommended antibiotic: N/A If Nikky has any changes in health status we recommend she contact our office prior to dental procedures for updated recommendations We also discussed maintaining good foot care and giving prompt attention to any source of infectionthroughout the body including foot ulcers and urinary tract infections. All questions were answered. Signed: CURTIS AKBAR 03/12/2017 documented in this encounter Plan of Treatment Upcoming Encounters Date Type Department Care Team (Late st Contact Info) Description 03/23/2024 9:15 AM EDT Appointment XRay at [address] [place] [phone] 03/23/2024 10:00 AM EDT Office Visit Orthopaedics at [place] [address] Kathie Polk MD [facility] [place] [address] documented as of this encounter Visit Diagnoses Diagnosis Status post bilateral hip replacements Hip joint replacement by other means documented in this encounter Care Teams Clothing Consultant Relationship Specialty Start Date End Date Austin Rodriguez MD [address] [place] [address] PCP - General Family Medicine 06/12/15 05/18/18 documented as of this encounter
--- OUTSIDE RECORDS SUMMARY | 2024-03-07 08:54 | XMS_ITS | Encounter Summary ---
Author Organization [facility] Address [address] [place] [address] Care Team Providers Care Wood Preserving Plant Laborer Name Role Phone Unknown, Provider Primary Care Provider [phone] Encounter Details Date Type Department Care Team (Late st Contact Info) Description 08/04/2011 Historical Results Only [facility] [place] [facility] - Main [address] [address] Vineet Chandra MD [address] [place] [phone] Social History Tobacco Use Types Packs/Day Years [...] Date/Time Associated Diagnosis Comments PAP TEST Routine 08/04/2011 documented in this encounter Results * PAP TEST (08/04/2011) 08/04/2011 08/05/2011 9:4 7 EST Narrative [facility] - 08/06/2011 11:22 EST ----- ------- Name: STEVE VAZQUEZ ? : [birth year] ?Age/Sex: 64/F ?Unit#: [id number] ? Loc: LAB.OPX ? Status: REG REF ?? Reg Date: 08/04/11 ? Pt.Phone Number: ? ----- ------- Specimen: [id number] ?STATUS: SOUT ?Spec Date:08/04/11 ? Physician Copies: ?Vineet Chandra J Tissues: ? Cervical/Endo Pap ?Austin Rodriguez ?? CPT: 64533 ?? Units: ??1 ----- ------- ? CYTOLOGY DIAGNOSIS SPECIMEN ADEQUACY: ??Satisfactory for evaluation. Assessment of transformation zone not applicable (e.g. ??atrophy, vaginal sample, hysterectomy). GENERAL CATEGORIZATION: ?Negative for Intraepithelial Lesion or Malignancy DESCRIPTIVE DIAGNOSIS: ? Negative for Intraepithelial Lesion or Malignancy. RECOMMENDATIONS/COMMENTS: ?None. ----- ------- ORDER QUERIES: LMP: ? - POST LUDIN ? Post ?PREVIOUS ATYPICAL: N BCP/HRT? ?? Rad Rx? ?? IUD?PAP PLUS HPV? N ??REFLEX TO HR-HPV IF ASCUS ?? REFLEX TO HPV 16/18 IF HPV POS/PAP NEG ?? HPV REGARDLESS?RFLX HPV IF LSIL ?? IF ASCUS DO HPV? N Signed Skylar Castaneda CT(ASCP) 08/06/11 ? By the signature above, the attending physician certifies that he/she has personally conducted a gross and/or microscopic examination of the described specimens and rendered or confirmed the above diagnosis. Test Performed by [facility], [address] [place] [address] Chip Crusher Operator: Aura Holliday MD PHD ----- ------- Vineet Chandra MD PATHOLOGY ORDERABL ES [facility] documented in this encounter Visit Diagnoses Not on filedocumented in this encounter Care Teams Wood Preserving Plant Laborer Relationship Specialty Start Date End Date Unknown, Provider, PCP - General 09/04/13 10/21/20 documented as of this encounter
--- OUTSIDE RECORDS SUMMARY | 2024-03-07 08:54 | XMS_ITS | Encounter Summary ---
[place] [address] Care Team Providers Care Expeller Worker Name Role Phone Nayana Kaur MD Primary Care Provider Reason for Visit * Reason Onset Date Comments Letter Request From Patient 07/29/2021 Encounter Details Date Type Department Care Team (Late st Contact Info) Description 07/29/2021 Telephone [place] [phone] Leslie Conde Letter Request From Patient Social History Tobacco Use Types Packs/Day Years [...] encounter Miscellaneous Notes * Telephone Encounter - Cruz Bone - 07/29/2021 1:38 PM EST Letter drafted and sent to patient and [facility]. * Telephone Encounter - Leslie Conde - 07/29/2021 1:32 PM EST REQUEST FOR DENTAL PROPHYLAXIS LETTER: Who was your surgeon? JUSTIN When was your procedure? 08/17/15, 02/13/17 What procedure did you have done? BILATERAL SHANTI'S To whose attention (Dentist Name and/or Dental Office)? [facility] To what address/fax #? [phone] Would you like a copy sent to your [facility]? YES (Please forward message to the appropriate teams pool.) documented in this encounter Plan of Treatment Upcoming Encounters Date Type Department Care Team (Late st Contact Info) Description 03/23/2024 9:15 AM EDT Appointment XRay at [address] [place] [phone] 03/23/2024 10:00 AM EDT Office [place] [address] Kathie Polk MD [facility] [place] [address] documented as of this encounter Visit Diagnoses Not on filedocumented in this encounter Care Teams Expeller Worker Relationship Specialty Start Date End Date Nayana Kaur MD [address] [place] [address] PCP - General General Internal Medicine 07/30/20 documented as of this encounter
--- OUTSIDE RECORDS SUMMARY | 2024-03-07 08:54 | XMS_ITS | Encounter Summary ---
[place] [address] Care Team Providers Care Hand Clerical Verifier Name Role Phone Nayana Kaur MD Primary Care Provider Reason for Referral * Diagnostic Test (Routine) - Closed Specialty Diagnoses / Procedures Referred By Contac t Referred To Contact Radiology Diagnoses Dysmetria Headache, chronic daily Procedures MRI Brain wwo Contrast (Generic) Miriam Burt APRN [facility] [place] [address] [facility] [place] [address] Referral ID Status Reason Start Date Expiration Date V isits Requested Visits Authorized [id number] Closed Specialty Service Requested 09/10/2020 03/08/2021 1 1 * Consultation (Routine) - Duplicate Referral Specialty Diagnoses / Procedures Referred By Contac t Referred To Contact [facility] Sp[facility] Diagnoses Spinal stenosis, unspecified spinal region Miriam Burt APRN [facility] [place] [address] [facility] [place] [address] Referral ID Status Reason Start Date Expiration Date Visits Requested Visits Authorized [id number] Duplicate Referral Consult, Test & Treat 08/16/2020 08/16/2021 3 3 Reason for Visit * Consultation (Urgent) - Closed Specialty Diagnoses / Procedures Referred By Thomas hernandes Referred To Contact Neurology Diagnoses Other headache syndrome Nayana Kaur MD [address] [place] [phone] [facility] Neurology [address] [place] [phone] Referral ID Status Reason Start Date Expiration Date V isits Requested Visits Authorized [id number] Closed Consult, Test & Treat [facility] PCP Updated and/or Approved 07/02/2020 07/02/2021 6 6 Encounter Details Date Type Department Care Team (Late st Contact Info) Description 08/16/2020 9:30 AM EST Office Visit Neurology at [address] [phone] Miriam Burt APRN [facility] [place] [address] Headache, chronic daily; Dysmetria; Spinal stenosis, unspecified spinal region Social History Tobacco Use Types Packs/Day Years [...] Sign Reading Time Taken Comments Blood Pressure 114/94 08/16/2020 9:24 AM EST Pulse 82 08/16/2020 9:24 AM EST Temperature 35.9 ??C (96.7 ??F) 08/16/2020 9:24 AM ES T Respiratory Rate - - Oxygen Saturation - - Inhaled Oxygen Concentration - - Weight 95.7 kg (211 lb) 08/16/2020 9:24 AM EST w giancarlo shoes Height 175.3 cm (5' 9) 08/16/2020 9:24 AM EST r eported Body Mass Index 31.16 08/16/2020 9:24 AM EST documented in this encounter Progress Notes * Miriam Burt, [employer] - 08/16/2020 9:30 AM EST Neurology Headache Clinic Initial Consultation Patient name: Nikky Jarrett Date of : 1955 PCP: Nayana Kaur MD CC: Headache I have been asked to see Nikky Jarrett in consultation by Nayana Kaur for her c/o Headaches in my capacity as Headache Medicine Specialist. HPI: Nikky Jarrett is a 65 y.o. right handed female with a no history of headaches until the age of 63.She has a PMH of Depression and Anxiety, past ETOH abuse (sober for 3 years), arthritis, spinal stenosis. The patient denies any history of headaches prior to the age of [age] years old. She denies any familyhistory of headaches. She started with an achy feeling in the back of her head that radiated to thesides. She took acetaminophen and went to physical therapy. That episode of headache lasted 1 month. She had infrequent headache relieved with Tylenol until approximately 2 months ago when she awoke w ith a soreness in her head. She felt as though her scalp was sore to touch. This encompassed her neck and ears and her neck felt stiff. She went to physical therapy for 12 sessions. She has not had any headache free days over the last 2 months. Headaches have only been accompanied by nausea and vomiting, light and sound sensitivity 2 times over the last 2 months. In addition she feels as though her speech is slower. She has constant neck pain and she is not having any headache free.'s of time. If she awakens in the middle of the night to use the bathroom, the headache is present. Headache is not brought on by coughing sneezing or bending over. Over the course of the last year secondary to the pandemic she has been reading much more. She previously exercised by swimming but is unable to do so now. She quit alcohol 3 years ago. She goes to bed around 9 PM but has difficulty staying asleep and may get up to go to the bathroom in the middle of the night. She does snore but has never been checked for sleep apnea. She denies any current stres sors besides the pandemic. She does have a history of a click in her jaw. She denies any bruxism. She does admit to falling down the stairs last year as well as another episode of falling on the ice but did not hit her head. She denies any other pain syndromes nor history of motion sickness. She only has minimal caffeine intake with green tea. She previously tried indomethacin which was ineffective and cyclobenzaprine which was also ineffective. She has been on amitriptyline for 1 month's time at 25 mg at bedtime and has not had any severeheadaches since. MIDAS Responses 08/16/2020 Days missed school/work 0 Days productivity at work/school reduced 35 Days did not do household work 35 Days productivity related to housework reduced 35 Days missed family, social or leisure activities 10 Days had headache 67 Pain scale 8 MIDAS Score 115 (MIDAS grade IV, severe disability) MIDAS Adjusted Score - Medications tried: Reduction/Prevention: Monoclonal Antibodies: None GEPANTS: None Toxins: None TCA: Amitriptyline (Elavil) Anti-seizure: None SSRI: None SNRI: None MAOI: None Beta Blockers: None Atypical Antidepressants: None Calcium Channel Blockers: None Angiotensin II Receptor Blockers: None ROXANN Inhibitors: None Alpha-1 Blockers: None Diuretics: None Other Medications: None Procedures: None Supplements/Neutraceuticals: None Neuromodulation: None Non-pharmacologic Tx: None Acute Treatments: Triptans: None NSAIDS: Indomethacin Gepants: None Ditans: None Ergotamines: None Anti-emetics/neuroleptics: None Combination/Other Analgesics: None Anti-Histamines: None Muscle relaxers: None Steroids: None Opioids/Narcotics/Controlled Substances: None Benzodiazepines: None Medications: Current Outpatient Medications Medication Sig Dispense Refill ??? amitriptyline (Elavil) 25 mg Tablet TAKE 1 TABLET BY MOUTH AT BEDTIME ??? triamcinolone (KENALOG) 0.1 % Cream 2 times daily. 0 ??? amoxicillin (AMOXIL) 500 mg Capsule as needed. Prior to dental procedures 0 ??? FLUoxetine (PROZAC) 20 mg Capsule Take 20 mg by mouth daily. 0 ??? naltrexone (DEPADE) 50 mg Tablet Take 50 mg by mouth daily. 0 No current facility-administered medications for this visit. Allergy: No Known Allergies Physical Exam: Patient Vitals for the past 24 hrs: Temp Pulse BP 08/16/20 0924 35.9 ??C (96.7 ??F) 82 (!) 114/94 95.7 kg (211 lb) Constitutional: Well developed, Well groomed, NAD HEENT: oral mucosa moist, no thrush, no carotid bruits, no thyromegaly, no lymphadenopathy Neck: Heart: RRR S1S2 no murmur Lungs: CTAB symmetric expansion Abd: soft, nontender, nondistended Ext: no edema, adequate pulses Neuro exam: MSE: alert, oriented to person, place, time, situation, follows simple and complex commands, speechfluent with no dysarthria, able to repeat a sentence, names objects. CN: PERRL, no nystagmus, EOMI, visual barrera intact to confrontation, facial sensation intact, no facial droop or asymmetry, tongue protrudes midline, uvula and palate elevate symmetrically, trap symmetric strength bilaterally Fundoscopic examination: crisp optic cups, no AV nicking, venous pulsations b/l Motor: RUE 5/5 throughout LUE 5/5 throughout RLE 5/5 throughout LLE 5/5 throughout Normal bulk and tone No pronator drift Reflexes 2+ bilat biceps, brachioradialis, triceps 2+ bilat patella, achilles downgoing toes bilaterally Sensation: intact light touch, vibration, proprioception, and temperature diffusely Coordination: intact finger nose finger and PIPPA, no dysmetria, no tremor Gait: normal stride and arm swing, able to perform heel, toe walk and tandem gait. Negative romberg. Diagnostic Tests and Imagin07/30/20 EXAMINATION: XR CERVICAL [...] this report, please contact the number below. of Brain wwo Contrast MRV of Brain MRA of Brain CT of Brain LABS: TSH Free T4 B12 Vit D ESR 08/03/20 15 Assessment and plan: Nikky Jarrett is a 65 y.o. right handed female with a no history of headaches until the age of 63.She has a PMH of Depression and Anxiety, past ETOH abuse (sober for 3 years), arthritis, spinal stenosis. The patient describes a 2-month history of headache that has not been relieved with physical therapy. She does have a history of spinal stenosis and there may be a cervicogenic component to her headache. I will refer her to the pain and spine center for evaluation for possible injections. She has no known history of headache prior to the age of 63. She has never had neuroimaging studies and has dysmetria on [id number] testing. I will order an MRI of the brain to rule out neoplasm. She denies any jaw claudication or other signs of temporal arteritis. As the amitriptyline has been partially helpful for her I will have her increase to 50 mg at bedtime. I will see the patient in 2-3 months time in clinic. They can contact me through - with any problems or concerns. I have spent 60 minutes for this visit in face to face time with this patient, documentation and coordination of care. Miriam Burt, NIB ASSEMBLER-BC, [employer] [facility] documented in this encounter Plan of Treatment Upcoming Encounters Date Type Department Care Team (Late st Contact Info) Description 03/23/2024 9:15 AM EDT Appointment XRay at [address] [place] [phone] 03/23/2024 10:00 AM EDT Office Visit Orthopaedics at [facility] [place] [phone] Kathie Polk MD [facility] [place]THOPAEDIC [place] [address] Scheduled Referrals Name Type Priority Associated Diagnoses Orde r Schedule Referral to Pain and Spine Center (Internal only) Outpatient Referral Routine Spinal stenosis, unspecified spinal region Ordered: 08/16/2020 documented as of this encounter Results * MRI Brain wwo [...] questions please contact the health customer care consultant that requested your imaging first. ? Electronically signed by: BARBARA Dudley [facility] ([phone]), at 09/11/2020 7:53 PM Narrative 09/11/2020 7:53 PM EDT EXAMINATION: MRI BRAIN WWO CONTRAST (GENERIC), MRI CERVICAL SPINE WO CONTRAST (GENERIC) CLINICAL HISTORY: Headache, neuro deficit Headache Clinic: New headache with dysmetria, r/o neoplasm (accession [id number]), WORSENING NECK PAIN DESPITE CONSERVATIVE TREATMENT; ORDER IN SCANNED [employer]S (accession [id number]) TECHNIQUE: MRI of the brain was performed [...] Clinic: New headache with dysmetria, r/o neoplasm ([id number]), WORSENING NECK PAIN DESPITE CONSERVATIVE TREATMENT; [facility] [id number][facility] TECHNIQUE: MRI of the brain was performed [...] have questions please contactthe health customer care consultant that requested your imaging first. Miriam Burt APRN IMG MRI ORDERABLES documented in this encounter Visit Diagnoses Diagnosis Headache, chronic daily Headache Dysmetria Lack of coordination Spinal stenosis, unspecified spinal region Dysmetria Lack of coordination Headache, chronic daily Headache documented in this encounter Care Teams Hand Clerical Verifier Relationship Specialty Start Date End Date Nayana Kaur MD [address] [place] [address] PCP - General General Internal Medicine 07/30/20 documented as of this encounter
--- OUTSIDE RECORDS SUMMARY | 2024-03-07 08:54 | XMS_ITS | Encounter Summary ---
[facility] Organization [facility] Address [facility] [place] [address] Care Team Providers Care Nicker And Breaker Name Role Phone Austin Rodriguez MD Primary Care Provider [phone] Encounter Details Date Type Department Care Team (Latest Contact Info) Description 03/12/2017 11:58 AM EDT - 03/12/2017 11:59 PM EDT Hospital Encounter XRay at [address] [place] [address] Panchito Michael MD Primary osteoarthritis of right hip Discharge Disposition: Home Social History Tobacco [...] 20 mg by mouth daily. 0 04/02/2015 acetaminophen (TYLENOL) 500 mg Tablet Take 2 tablets by mouth every 8 hours. Continue the Tylenol around the clock for 10 days after surgery, (02/23/2017). Then may take if needed per package insert. Do not take more than 3,000 mg of Tylenol in 24 hours. 02/14/2017 08/25/2017 aspirin 81 mg Tablet, Delayed Release (E.C.) Take 1 tablet by mouth 2 times daily. Take with food for 30 days after surgery. Last day = 03/15/2017. 59 tablet 02/14/2017 08/25/2017 gabapentin (NEURONTIN) 300 mg Capsule Take 1 capsule by mouth nightly. Take nightly before bed for sleep for 4 weeks after surgery. 30 capsule 02/15/2017 08/25/2017 naltrexone (DEPADE) 50 mg Tablet Take 50 mg by mouth daily. 0 06/11/2015 09/12/2020 documented as of this encounter Plan of Treatment Upcoming Encounters Date Type Department Care Team (Late st Contact Info) Description 03/23/2024 9:15 AM EDT Appointment XRay at [address] [place] [address] 03/23/2024 10:00 AM EDT Office [place] [address] Kathie Polk MD [facility] [place] [address] documented as of this encounter Procedures Procedure Name Priority Date/Time Associated Diagnosis Comments XR PELVIS AND HIP 2 VIEWS RIGHT Routine 03/12/2017 12:38 PM EDT Primary osteoarthritis of right hip documented in this encounter Results * XR Pelvis w AP & Lat Hip Right (03/12/2017 12:38 PM EDT) Anatomical Region Laterality Modality Pelvis, Hip Right Digital Radiogra phy Narrative 03/12/2017 2:30 PM EDT EXAMINATION: XR PELVIS W AP AND LAT HIP RIGHT CLINICAL HISTORY: History of hip replacement TECHNIQUE: ? COMPARISON: Multiple radiographs since September 2015. FINDINGS: Bilateral total hip arthroplasties. The RIGHT total hip arthroplasty is new when compared to the December 2016 examination. Alignment: No dislocation. The LEFT total hip arthroplasty is unchanged in alignment. Complication: There is no loosening or fracture. Soft tissues: Unchanged. Impression 1. ??Uncomplicated recently placed RIGHT total hip arthroplasty 2. ??Unchanged and uncomplicated LEFT total hip arthroplasty. Procedure Note Nia Leon MD - 03/12/2017 EXAMINATION: XR PELVIS W AP AND LAT HIP RIGHT CLINICAL HISTORY: History of hip replacement TECHNIQUE: COMPARISON: Multiple radiographs since September 2015. FINDINGS: Bilateral total hip arthroplasties. The RIGHT total hip arthroplasty isnew when compared to the December 2016 examination. Alignment: No dislocation. The LEFT total hip arthroplasty is unchangedin alignment. Complication: There is no loosening or fracture. Soft tissues: Unchanged. Impression 1. Uncomplicated recently placed RIGHT total hip arthroplasty 2. Unchanged and uncomplicated LEFT total hip arthroplasty. Panchito Michael MD IMG DX ORDERABLES documented in this encounter Visit Diagnoses Diagnosis Primary osteoarthritis of right hip Primary localized osteoarthrosis, pelvic region and thigh documented in this encounter Care Teams Nicker And Breaker Relationship Specialty Start Date End Date Austin Rodriguez MD [address] [place] [id number] PCP - General Family Medicine 06/12/15 05/18/18 documented as of this encounter
--- OUTSIDE RECORDS SUMMARY | 2024-03-07 08:54 | XMS_ITS | Encounter Summary ---
[place] [address] Care Team Providers Care Editor News Name Role Phone Nayana Kaur MD Primary Care Provider [phone] Encounter Details Date Type Department Care Team (Late st Contact Info) Description 11/15/2020 Telephone [place] [phone] Charlene Delacruz RN Social History Tobacco Use [...] Telephone Encounter - Charlene Delacruz RN - 11/15/2020 11:55 AM EDT This RN reached out to patient as she had left a message on the nurse triage line a few days ago. Patient reported that she had seen Dr. Boogie a couple of weeks ago at which time she had increased oneof her medications and started her on another one. She was calling to see what the next steps were supposed to be. This RN reviewed patient's chart and noted that at patient's visit with Dr. Boogie on 11/02/20, Dr. Boogie: PLAN: Medication: -Increase amitriptyline to 75 nightly -Baclofen 5 mg 3 times daily as needed, discussed with patient the sedating effect of this medication, patient is aware that she should start with 5 mg as needed and may slowly increase not rbolonpyc14 mg/day Diagnostic images: - none ?? Interventional procedures: -Schedule left C3, C4, C5, C6 MBB (attending only) ?? Referral: -Patient has not started Jerri therapy, she would like to wait until after the CMBB to initiate Follow up: -As needed Thank you for allowing us the opportunity to participate in Ms Jarrett's care ?? Hung Boogie MD Marine Pain[employer] Per patient, the change in medication has helped a little bit. No order for the CMBB noted by this RN in patient chart. This RN offered to set patient up with a TH appointment so patient could speak with Dr. Boogie regarding next steps (MBB). Patient preferred to have this RN send a message to Dr. Boogie with this informationand ask what the next steps are. Then have someone get back to patient. This RN informed patient a message would be routed to Dr. Boogie, who is out of the office today, and that someone would reach out to patient as soon as we heard back from Dr. Boogie. Nathanael Dill documented in this encounter Plan of Treatment Upcoming Encounters Date Type Department Care Team (Late st Contact Info) Description 03/23/2024 9:15 AM EDT Appointment XRay at [address] [place] [address] 03/23/2024 10:00 AM EDT Office [place] [address] Kathie Polk MD [facility] [place]OP[facility] [place] [address] documented as of this encounter Visit Diagnoses Not on filedocumented in this encounter Care Teams Editor News Relationship Specialty Start Date End Date Nayana Kaur MD [address] [address] PCP - General General Internal Medicine 07/30/20 documented as of this encounter
--- OUTSIDE RECORDS SUMMARY | 2024-03-07 08:54 | XMS_ITS | Encounter Summary ---
Author Organization [facility] Address [address] [place] [address] Care Team Providers Care Lining Machine Operator Name Role Phone Unknown, Provider Primary Care Provider [phone] Encounter Details Date Type Department Care Team (Latest Contact Info) Description 04/06/2015 13:45 EDT - 04/06/2015 23:59 EDT Hospital Encounter [facility] [address] [place] [address] Unknown, ProviderMD Discharge Disposition: Home or Self Care Social History Tobacco Use Types Packs/Day Years Used Date Smoking Tobacco: Never Assessed Sex and Gender Information Value Date Recorded Sex Assigned at Not on file Gender Identity Female 02/05/2022 12:59 EDT Sexual Orientation Not on file documented as of this encounter Discharge Disposition Disposition Code Departure Means Destination Home or Self Retirement documented in this encounter Plan of Treatment Not on file documented as of this encounter Visit Diagnoses Not on filedocumented in this encounter Care Teams Lining Machine Operator Relationship Specialty Start Date End Date Unknown, Provider, PCP - General 09/04/13 10/21/20 documented as of this encounter
--- OUTSIDE RECORDS SUMMARY | 2024-03-07 08:54 | XMS_ITS | Encounter Summary ---
[place] [address] Care Team Providers Care Device Engineer Name Role Phone Nayana Kaur MD Primary Care Provider Reason for Referral * Consultation (Routine) - Closed Specialty Diagnoses / Procedures Referred By Contac t Referred To Contact Pain and Spine Center Diagnoses Neck pain, chronic Albert Peter MD [facility] [place] [address] [facility] [place] [address] Referral ID Status Reason Start Date Expiration Date Visits Requested Visits Authorized [id number] Closed Pain Interventional Procedure 09/12/2020 09/12/2021 3 3 Reason for Visit * Reason Comments Neck Pain * Consultation (Routine) - Specialty Diagnoses / Procedures Referred By Contac t Referred To Contact [facility] Center Diagnoses Other headache syndrome Neck pain Spine- neck pain/? imaging Nayana Kaur MD [address] [address] [facility] [place] [address] Referral ID Status Reason Start Date Expiration Date V isits Requested Visits Authorized [id number] Consult, Test & Treat Connection Center PCP Updated and/or Approved 08/02/2020 01/30/2021 6 6 Encounter Details Date Type Department Care Team (Late st Contact Info) Description 09/12/2020 11:20 AM EDT Office Visit [facility] [place] [address] Albert Peter MD [facility] [place] [address] Neck pain, chronic Social History Tobacco Use Types Packs/Day Years [...] Sign Reading Time Taken Comments Blood Pressure 119/54 09/12/2020 11:00 AM EDT Pulse 67 09/12/2020 11:00 AM EDT Temperature - - Respiratory Rate - - Oxygen Saturation - - Inhaled Oxygen Concentration - - Weight 88.5 kg (195 lb) 09/12/2020 11:00 AM EDT Height 175.3 cm (5' 9) 09/12/2020 11:00 AM EDT Body Mass Index 28.8 09/12/2020 11:00 AM EDT documented in this encounter Progress Notes * Albert Peter MD - 09/12/2020 11:20 AM EDT Images from the original note were not included. Albert Peter MD MS FAOA Department of Orthopaedics [facility] September 12, 2020 Ms. Jarrett is a 65-year-old [id number] woman seen today in the spine center consultation from Miriam Burt APRN, from the headache clinic in neurology. She is sent to be evaluated for chronic headaches, neck pain and stiffness. Symptoms began about 6 months ago with a spontaneous onset without injury or known accident. Her extremities are completely asymptomatic. Specifically she has no arm or leg pain, numbness, tingling, or weakness. This is purely occipital cervical pain with headaches and neck stiffness. She has no problems with gait, balance, fine motor control. She has no change in bowel bladder function. Review of systems is negative for GI, , constitutional symptoms. She has had physical therapy forabout 2 months. Body mass index is 31.36. 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 She is accompanied by her . This is a very pleasant woman who moves easily and comfortably about the office. Her gait is normal. She could toe walk bilaterally. She is unable to heel walk bilaterally which I think are structural not neurological. Her tandem gait is normal. On inspection from the back she has straight spine with level shoulders and level pelvis. She does have pain at the occipital cervical region with mildlypositive Tinel's on the left side. Her cervical range of motion includes 45 degrees of bilateral rotation and 50% of flexion and extension. All this is limited by stiffness and pain. Her Spurling's maneuver is completely negative. Her upper extremity motor exam is completely normal. His sensory function is intact to light touch. Reflexes are 0-1 in the upper extremities. Stephania reflexes are negative. She is not spastic or myelopathic. Cervical MRI is reviewed from this institution dated 09/11/2020. This is notable for cervical spondylosis C5-C6 with significant narrowing and cord effacement. Radiology interpretation suggests that the craniocervical and cervicothoracic junction are within normal limits. Impression: This patient presents for evaluation of headaches, upper neck pain and neck stiffness. She has no radicular symptoms and she is not myelopathic. MRI is very reassuring for the absence of abnormalities at the cervicothoracic junction. No indication for operative intervention. Recommendation: All this was reviewed with the patient and her including the imaging studies of. She is to follow-up with neurology for review of her brain MRI. After discussion of options she is referred to the pain clinic to see is a candidate for occipital cervical injections to see if this will help or any other treatment felt indicated. Otherwise, no further spine center follow-up ind icated. Voice recognition was used for this dictation and I apologize for any mis-wording. Spine Center Response Trends Patient-reported scores: myD-H Spine Questionnaire responses 01/29/2017 01/29/2017 08/25/2017 03/01/2019 09/12/2020 Oswestry Disability Index (Range: 0-100) - - - - 34 (Moderate disability) Neck Disability Index (Range: 0-100) - - - - 52 (Severe disability) PROMIS-10 Physical Health Score 37.4 37.4 47.7 47.7 37.4 PROMIS-10 Mental Health Score 43.5 41.1 50.8 43.5 38.8 Neck is stiff and painful to turn left or right .Hard holding head up straight.uncomfortable in bed. Albert Peter MD MS AGNESA Professor of Orthopaedic Surgery [facility] ([facility]) Department of Orthopaedic Surgery [place] [phone] [email or web address] documented in this encounter Plan of Treatment Upcoming Encounters Date Type Department Care Team (Late st Contact Info) Description 03/23/2024 9:15 AM EDT Appointment XRay at [address] [place] [address] 03/23/2024 10:00 AM EDT Office Visit Orthopaedics at [place] [phone] Kathie Polk MD [facility] [place] [address] Scheduled Referrals Name Type Priority Associated Diagnoses Orde r Schedule Referral to Pain and Spine Center (Internal only) Outpatient Referral Routine Neck pain, chronic Ordered: 09/12/2020 documented as of this encounter Visit Diagnoses Diagnosis Neck pain, chronic Cervicalgia documented in this encounter Care Teams Device Engineer Relationship Specialty Start Date End Date Nayana Kaur MD [address] [place] [address] PCP - General General Internal Medicine 07/30/20 documented as of this encounter
--- OUTSIDE RECORDS SUMMARY | 2024-03-07 08:55 | XMS_ITS | Encounter Summary ---
[place] [address] Care Team Providers Care Cabbage Salter Name Role Phone Austin Rodriguez MD Primary Care Provider [phone] Reason for Visit * Reason Comments [facility] SHANTI DOS 08/17/15 Encounter Details Date Type Department Care Team (Latest Contact Info) Description 11/08/2015 10:30 AM EDT Office [place] [phone] Panchito Michael MD Osteoarthritis of left hip, unspecified osteoarthritis type Social History Tobacco Use Types Packs/Day Years [...] Sign Reading Time Taken Comments Blood Pressure 121/72 11/08/2015 10:30 AM EDT Pulse 74 11/08/2015 10:30 AM EDT Temperature - - Respiratory Rate - - Oxygen Saturation - - Inhaled Oxygen Concentration - - Weight 89.1 kg (196 lb 6.4 oz) 11/08/2015 10:30 AM EDT Height 175.3 cm (5' 9) 11/08/2015 10:30 AM EDT Body Mass Index 29 11/08/2015 10:30 AM EDT documented in this encounter Progress Notes * Panchito Michael MD - 11/08/2015 10:37 AM EDT Patient Name: Nikky Jarrett : 1955 MR#: [id number] Case Date: 08/17/15 Surgeon: Fernanda Procedure: left total hip replacement HPI: Nikky Jarrett is a very pleasant 60 y.o. year-old female who presents for a 3 months follow-up of the above procedure. The patient has been doing very well and her pain is markedly improved over preoperative status. No fevers, chills, nausea, vomiting, or symptoms of infection. Nikky has beenambulating with no assistive device and working with PT. Physical Exam: Well-appearing female in no acute distress. Alert and Oriented x 3 and answers all questions appropriately. The incision is well healed, with no signs of infection. Hip range of motionis well past the 100??. Internal/external rotation smooth. Distal neurovascular grossly intact. Leglengths near equal. X-RAYS: None today ASSESSMENT/PLAN: 3 months post-op and doing well. Continue weightbearing as tolerated and working on range of motion, and we will see her back in 9 months for repeat examination. X-rays will be needed at that time. Patient may return to normal activities as her pain and function allow. We discussed the appropriate precautions surrounding dental prophylaxis. I stressed that she shouldavoid elective dental procedures for the first 6 months after surgery and then call the office for a prescription prior to any further dental work for the lifetime of the joint replacement. Signed: Panchito Michael MD 11/08/2015 documented in this encounter Plan of Treatment Upcoming Encounters Date Type Department Care Team (Late st Contact Info) Description 03/23/2024 9:15 AM EDT Appointment XRay at [address] [place] [address] 03/23/2024 10:00 AM EDT Office [place] [address] Kathie Polk MD [facility] [place] [address] documented as of this encounter Results * XR Pelvis AP & Hip Left 2 Views (08/21/2016 9:24 AM EDT) Anatomical Region Laterality Modality Pelvis, Hip Left Digital Radiogra phy Impressions 08/21/2016 10:18 AM EDT 1. ??Left hip prosthesis without complication. 2. ??No change in the appearance of the osteoarthritis of the right hip. Narrative 08/21/2016 10:18 AM EDT EXAMINATION: XR PELVIS W AP AND LAT HIP LEFT CLINICAL HISTORY: f/u SHANTI on Left TECHNIQUE: AP pelvis, AP left hip, lateral left hip COMPARISON: September 13, 2015 FINDINGS: A left-sided noncemented total hip prosthesis is present. This prosthesis is well-positioned. No periprosthetic lucency or fracture is seen. There is no change in appearance since the prior examination. The right hip joint is narrowed, articular surfaces sclerotic and marginal osteophytes are present. The right hip is unchanged in appearance since the prior study. Procedure Note Mike Parks MD - 08/21/2016 EXAMINATION: XR PELVIS W AP AND LAT HIP LEFT CLINICAL HISTORY: f/u SHANTI on Left TECHNIQUE: AP pelvis, AP left hip, lateral left hip COMPARISON: September 13, 2015 FINDINGS: A left-sided noncemented total hip prosthesis is present. This prosthesisis well-positioned. No periprosthetic lucency or fracture is seen. There isno change in appearance since the prior examination. The right hip joint is narrowed, articular surfaces sclerotic andmarginal osteophytes are present. The right hip is unchanged in appearance sincethe prior study. IMPRESSION 1. Left hip prosthesis without complication. 2. No change in the appearance of the osteoarthritis of the right hip. Panchito Michael MD IMG DX ORDERABLES documented in this encounter Visit Diagnoses Diagnosis Osteoarthritis of left hip, unspecified osteoarthritis type Osteoarthritis of left hip, unspecified osteoarthritis type documented in this encounter Care Teams Cabbage Salter Relationship Specialty Start Date End Date Austin Rodriguez MD [address] [address] PCP - General Family Medicine 06/12/15 05/18/18 documented as of this encounter
--- OUTSIDE RECORDS SUMMARY | 2024-03-07 08:55 | XMS_ITS | Encounter Summary ---
[place] [address] Care Team Providers Care Wildlife Officer Name Role Phone Austin Rodriguez MD Primary Care Provider Reason for Visit * Reason Onset Date Comments Medication Refill 02/18/2017 Encounter Details Date Type Department Care Team (Late st Contact Info) Description 02/18/2017 [place] [address] Yesenia Levine RN Post-op pain Social History Tobacco Use Types Packs/Day Years [...] encounter Miscellaneous Notes * Telephone Encounter - Yesenia Levine RN - 02/18/2017 9:03 AM EDT REFILL ENCOUNTER OPIOID OPIOID QUERY DATE: ND 01/29/17 OPIOID RISK: High OPIOID CONSENT DATE: 01/29/17 LAST LEARNING NEEDS ASSESSMENT: 02/14/17 SURGERY: s/p Right SHANTI Dr. Michael 02/13/17. CONCOMITANT THERAPY: Tylenol 1000 mg every 8 hours. LAST REFILL: 02/14/17 Oxycodone 5 mg #80 1-3 tabs every 4 hours prn pain. PAIN LEVEL: 6/10 now, 4/10 after pain medication. She is taking 2 tabs Oxycodone every 4 hours, attempted to decrease to 1 tab without success. FEVERS, CHILLS, NAUSEA,CONSTIPATION or WOUND PROBLEMS: No. PATIENT SEEN WITHIN 30 DAYS: Yes. DISCUSSED WITH: Tim ACEVEDO. MEDICATION DISPENSED: Oxycodone 5 mg #80 1-2 every 4 hours prn pain. [facility] [place], [place] by CURTIS Mayberry. NEXT VISIT: 03/12/17. PATIENT TEACHING: Advised to take the pain med 1 hour before PT and ice/elevate afterwards. Advisedto try Tylenol 1000 mg with a dose of 1 narcotic pain med to enhance the effect of both while weaning down. The patient knows how to contact orthopaedics if any further questions or concerns occur. documented in this encounter Plan of Treatment Upcoming Encounters Date Type Department Care Team (Late st Contact Info) Description 03/23/2024 9:15 AM EDT Appointment XRay at [address] [place] [address] 03/23/2024 10:00 AM EDT Office [place] [address] Kathie Polk MD [facility] [place] [address] documented as of this encounter Visit Diagnoses Diagnosis Post-op pain Other acute postoperative pain documented in this encounter Care Teams Wildlife Officer Relationship Specialty Start Date End Date Austin Rodriguez MD [address] [place] [address] PCP - General Family Medicine 06/12/15 05/18/18 documented as of this encounter
--- OUTSIDE RECORDS SUMMARY | 2024-03-07 08:55 | XMS_ITS | Encounter Summary ---
Author Organization [facility] [place] [address] Care Team Providers Care Rail Filler Name Role Phone Austin Rodriguez MD Primary Care Provider Encounter Details Date Type Department Care Team (Late st Contact Info) Description 08/23/2015 Orders [place] [phone] Aida Regalado PA [facility] [place] [address] Social History Tobacco Use Types Packs/Day Years [...] 03/23/2024 9:15 AM EDT Appointment XRay at [address] [place] [phone] 03/23/2024 10:00 AM EDT Office [place] [phone] Kathie Polk MD [facility] [place] [address] documented as of this encounter Visit Diagnoses Not on filedocumented in this encounter Care Teams Rail Filler Relationship Specialty Start Date End Date Austin Rodrgiuez MD [address] [place] [address] PCP - General Family Medicine 06/12/15 05/18/18 documented as of this encounter
--- OUTSIDE RECORDS SUMMARY | 2024-03-07 08:55 | XMS_ITS | Encounter Summary ---
[place] [address] Care Team Providers Care Medical Coding Auditor Name Role Phone Austin Rodriguez MD Primary Care Provider [phone] Reason for Referral * Physical Therapy (Routine) - Closed Specialty Diagnoses / Procedures Referred By Thomas hernandes Referred To Contact Diagnoses Primary osteoarthritis of right hip Panchito Michael MD [facility] [place] [address] Unknown None Referral ID Status Reason Start Date Expiration Date V isits Requested Visits Authorized [id number] Closed Evaluate and Treat 01/29/2017 07/28/2017 20 20 Encounter Details Date Type Department Care Team (Late st Contact Info) Description 01/29/2017 [place] [address] Panchito Michael MD Primary osteoarthritis of right hip Social History Tobacco Use Types Packs/Day Years [...] 03/23/2024 9:15 AM EDT Appointment XRay at [address] [place] [phone] 03/23/2024 10:00 AM EDT [place] [address] Kathie Polk MD [facility] [place] [address] Scheduled Referrals Name Type Priority Associated Diagnoses Orde r Schedule Referral to Physical Therapy Outpatient Referral Routine Primary osteoarthritis of right hip Ordered: 01/29/2017 documented as of this encounter Visit Diagnoses Diagnosis Primary osteoarthritis of right hip Primary localized osteoarthrosis, pelvic region and thigh documented in this encounter Care Teams Medical Coding Auditor Relationship Specialty Start Date End Date Austin Rodriguez MD [address] [place] [address] PCP - General Family Medicine 06/12/15 05/18/18 documented as of this encounter
--- OUTSIDE RECORDS SUMMARY | 2024-03-07 08:55 | XMS_ITS | Encounter Summary ---
Author Organization [facility] Address [facility] [place] [address] Care Team Providers Care Rubber Belt Splicer Name Role Phone Austin Rodriguez MD Primary Care Provider Reason for Visit * Reason Comments Aftercare Of Tjr Left ANT SHANTI DOS: 04/23 Encounter Details Date Type Department Care Team (Late st Contact Info) Description 08/21/2016 10:30 AM EDT Office Visit Orthopaedics at [facility] [place] [address] Meg Khan PA [facility] [place] [address] Status post total replacement of left hip Social History Tobacco Use Types Packs/Day [...] Sign Reading Time Taken Comments Blood Pressure 135/71 08/21/2016 10:23 AM EDT Pulse 58 08/21/2016 10:23 AM EDT Temperature - - Respiratory Rate - - Oxygen Saturation - - Inhaled Oxygen Concentration - - Weight 88.5 kg (195 lb) 08/21/2016 10:23 AM EDT fully clothed Height 174 cm (5' 8.5) 08/21/2016 10:23 AM EDT verbal Body Mass Index 29.22 08/21/2016 10:23 AM EDT documented in this encounter Progress Notes * Meg Khan PA - 08/21/2016 10:30 AM EDT Arthroplasty/Orthopaedic History: 1. Left anterior SHANTI - 08/17/15 - Dr. Michael HPI: Nikky Jarrett is a very pleasant 61 y.o. year-old female and is now 1 year post left total hip replacement. She has been doing very well. She has no pain in the hip and no limitations in regards to the hip. She does not take any pain medication for the hip. She does not ambulate with any assistive devices. She continues to do PT exercises and swimming in the pool which has helped. She does have increasing right groin pain secondary to known hip OA on that side. ROS: Denies: fever, chills, night sweats, nausea, or vomiting BP 135/71 (BP Location (NBP): Left arm, Patient Position: Sitting, BP Cuff Sizes: Adult (25-34 cm)) Pulse 58 Ht 174 cm (5' 8.5) Comment: verbal Wt 88.5 kg (195 lb) Comment: fully clothed BMI29.22 kg/m2 Physical Exam: Well-appearing female in no acute distress. Alert and Oriented x 3 and answers all questions appropriately. The incision is well healed, with no signs of infection. Hip Exam: Left Leg Length: Longer leg: equal Limb Length discrepancy: 0cm Motion: Flexion contracture: 0 Total degrees of Flexion: 110 Total degrees of Abduction: 45 Total degrees of Ext Rotation: 30 Total degrees of Internal Rotation: 10 Gait Abnormality: Normal Pulses Palpable: Left PT: Yes Left DP: Yes Motor/Sensory: Left Distal Motor: Normal Distal Sensory: Normal Hip Abductors: 5 Trendelenburg test: negative X-RAYS: Multiple radiographic views were obtained at my request and reviewed with the patient. X-rays show a well-placed prosthesis with no evidence of fracture, subsidence, loosening, or periprosthetic complication. Questionnaire Responses: [facility] Surgical Postop Visit 08/21/2016 PROMIS-10 General Health Very Good PROMIS-10 Quality of Life Very Good PROMIS-10 Physical Health Good PROMIS-10 Mental Health Very Good PROMIS-10 Social Activity Very Good PROMIS-10 Everyday Activities Completely PROMIS-10 Pain 2 PROMIS-10 Fatigue Moderate PROMIS-10 Social Roles Very Good PROMIS-10 Anxious or Depressed Sometimes PROMIS PHYSICAL HEALTH SCORE 47.7 PROMIS MENTAL HEALTH SCORE 50.8 HOOS JR Scores 80.56 Problems with surgical incision/wound after surgery No Gone to ER since knee surgery No Admitted to hospital since recent ortho surgery No Additional surgery on same body part No SHANTI Grade 9 Pain in other HIP Mild Back pain at this moment None Satisfaction with Treatment Satisfied Choose Same Treatment Again Definitely yes [facility] Response 08/21/2016 HOOS JR Scores 80.56 OSWESTRY DISABILITY INDEX - Spine [facility] Response 08/21/2016 Oswestry (ADENIKE) Score - HOOS JR Scores 80.56 ASSESSMENT/PLAN: Ms. Jarrett is a 61 y.o. year old female status post left total hip replacement. She is doing very well and is happy with her hip. She can continue with her aquatic exercises and may perform all activities as tolerated. She is considering a right SHANTI in the future, possibly next fall or winter. She will call to come see Dr. Michael if she would like to have her right hip replaced. Otherwise, I will see her back in 1 year for repeat examination. X- rays will be needed at that time. Patient may return to normal activities as her pain and function allow. We reviewed dental prophylaxis and discussed maintaining good foot care and giving prompt attentionto any source of infection throughout the body including foot ulcers and urinary tract infections. All questions were answered. documented in this encounter Plan of Treatment Upcoming Encounters Date Type Department Care Team (Late st Contact Info) Description 03/23/2024 9:15 AM EDT Appointment XRay at [address] [place] [phone] 03/23/2024 10:00 AM EDT Office Visit Orthopaedics at [facility] [place] [phone] Kathie Polk MD [facility] [place] [place] [address] documented as of this encounter Visit Diagnoses Diagnosis Status post total replacement of left hip documented in this encounter Care Teams Rubber Belt Splicer Relationship Specialty Start Date End Date Austin Rodriguez MD [facility] [address] [place] [address] PCP - General Family Medicine 06/12/15 05/18/18 documented as of this encounter
--- OUTSIDE RECORDS SUMMARY | 2024-03-07 08:55 | XMS_ITS | Encounter Summary ---
Author Organization [facility] [place] [address] Care Team Providers Care Tap Builder Name Role Phone Austin Rodriguez MD Primary Care Provider [phone] Encounter Details Date Type Department Care Team (Latest Contact Info) Description 01/29/2017 9:00 AM EDT [place] [phone] Primary osteoarthritis of right hip Social History [...] 03/23/2024 9:15 AM EDT Appointment XRay at [address] [place] [phone] 03/23/2024 10:00 AM EDT [place] [address] Kathie Polk MD [facility] [place] [address] documented as of this encounter Procedures Procedure Name Priority Date/Time Associated Diagnosis Comments ABORH RECHECK STATUS Routine 01/29/2017 9:45 AM EDT HEMOGRAM Routine 01/29/2017 9:45 AM EDT Primary osteoarthritis of right hip DIFFERENTIAL, AUTOMATED Routine 01/29/2017 9:45 AM EDT Primary osteoarthritis of right hip TYPE AND SCREEN, SDP (FUTURE SURGERY, [facility] SAME DAY PROGRAM ONLY) Routine 01/29/2017 9:45 AM EDT Primary osteoarthritis of right hip ABO/RH TYPING Routine 01/29/2017 9:45 AM EDT Primary osteoarthritis of right hip APTT Routine 01/29/2017 9:45 AM EDT Primary osteoarthritis of right hip PROTHROMBIN TIME Routine 01/29/2017 9:45 AM EDT Primary osteoarthritis of right hip CBC (WITH DIFF) Routine 01/29/2017 9:45 AM EDT Primary osteoarthritis of right hip ANTIBODY SCREEN Routine 01/29/2017 9:45 AM EDT Primary osteoarthritis of right hip BASIC METABOLIC PANEL Routine 01/29/2017 9:45 AM EDT Primary osteoarthritis of right hip documented in this encounter Results * ABORH Recheck Status (01/29/2017 9:45 AM EDT) ABORH Type Recheck Completed [facility] Blood specimen (specimen) 01/29/2017 9:45 AM EDT 01/29/2017 9:58 AM EDT Narrative Resulting Agency Comment Spec In Lab Panchito Michael MD BLOOD BANK LAB ORDER DAVID [facility] [place] [address] * Differential, Automated (01/29/2017 9:45 AM EDT) Neutrophil % 47.6 % [facility] Neutrophil Absolute 2.83 1.70 - 6.10 x10(3)/[facility] Lymph % 40.8 % [facility] Lymphocytes Abs 2.4 0.9 - 3.2 x10(3)/[facility] Monocyte % 7.4 % [facility] Monocyte Abs 0.4 0.3 - 0.9 x10(3)/[facility] Eos % 2.2 % [facility] Eosinophils Abs 0.1 0.0 - 0.4 x10(3)/[facility] Basophil % 1.8 % [facility] Baso Absolute 0.1 0.0 - 0.1 x10(3)/[facility] Immature Gran % 0.20 % [facility] Comment: Immature granulocytes(IG's)percentage and absolute count will include metamyelocytes, myelocytes, and promyelocytes. Blood smears from CBCs yielding IG's will be scanned manually for concordance. If this scan disagrees with the automated IG or if promyelocytes are noted, a manual differential will be performed. Immature Gran Absolute 0.01 0.00 - 0.04 x10(3)/[facility] Blood specimen (specimen) 01/29/2017 9:45 AM EDT 01/29/2017 9:46 AM EDT Narrative Resulting Agency Comment Spec In Lab Panchito Michael MD HEMATOLOGY ORDERABLE S [facility] [place] [address] * Hemogram (01/29/2017 9:45 AM EDT) White Blood Cell 6.0 4.0 - 9.5 x10(3)/[facility] Red Blood Cell 4.72 4.00 - 5.21 x10(6)/[facility] Hemoglobin 14.6 11.7 - 15.5 gm/dL [facility] Hematocrit 43.6 35.7 - 45.8 % [facility] Mean Cell Volume 92.4 82.6 - 94.4 fL [facility] Mean Cell Hemoglobin 30.9 27.1 - 32.0 pg [facility] Mean Cell Hemoglobin Concentration 33.5 31.7 - 35.0 gm/dL [facility] Platelet 303 145 - 357 x10(3)/[facility] RDW Standard Deviation 42.0 37.0 - 46.0 [facility] RDW coefficient of variation 12.2 11.5 - 14.1 % [facility] Mean Platelet Volume 10.3 7.6 - 12.9 [facility] NRBC% auto 0.0 % [facility] NRBC Absolute 0.000 0.000 - 0.000 x10(3)/[facility] Blood specimen (specimen) 01/29/2017 9:45 AM EDT 01/29/2017 9:46 AM EDT Narrative Resulting Agency Comment Spec In Lab Panchito Michael MD HEMATOLOGY ORDERABLE S [facility] [place] [address] * Antibody screen (01/29/2017 9:45 AM EDT) Ab Screen Interp Negative [facility] Expires at [id number] on: 02/16/2017 [facility] Blood specimen (specimen) 01/29/2017 9:45 AM EDT 01/29/2017 9:58 AM EDT Narrative Resulting Agency Comment Spec In Lab Panchito Michael MD BLOOD BANK LAB ORDER DAVID [facility] [place] [address] * ABO/Rh Typing (01/29/2017 9:45 AM EDT) ABORH Type B Pos [facility] Blood specimen (specimen) 01/29/2017 9:45 AM EDT 01/29/2017 9:58 AM EDT Narrative Resulting Agency Comment Spec In Lab Panchito Michael MD BLOOD BANK LAB ORDER DAVID Performing Organization Address City/[facility]/ZIP Co de Phone Number [facility] [place] [address] * APTT (01/29/2017 9:45 AM EDT) Partial Thromboplastin Time 26 25 - 35 sec [facility] Comment: The recommended therapeutic range for full dose, unfractionated heparin at [facility] is 80 ? 114 seconds. The use of the anti-Xa (heparin) level rather than the PTT is recommended for monitoring anticoagulation intensity in critically ill patients receiving unfractionated heparin by continuous IV infusion. Blood specimen (specimen) 01/29/2017 9:45 AM EDT 01/29/2017 9:46 AM EDT Narrative Resulting Agency Comment Spec In Lab Panchito Michael MD HEMATOLOGY ORDERABLE S Performing Organization Address [facility] Co de Phone Number [facility] [place] [address] * Prothrombin Time (01/29/2017 9:45 AM EDT) Prothrombin Time 12.4 12.0 - 15.0 sec [facility] Comment: An INR <2.0 indicates adequate procoagulant activity for hemostasis in most patients without underlying bleeding disorders, though the INR may not adequately reflect hemostatic capacity in patients with liver disease and synthetic impairment. The recommended target INR range for therapeutic anticoagulation is 2.0 ? 3.0 for most applications, though lower and higher ranges may be appropriate depending on clinical circumstances. International Normalization Ratio 0.9 0.9 - 1.1 [facility] Blood specimen (specimen) 01/29/2017 9:45 AM EDT 01/29/2017 9:46 AM EDT Narrative Resulting Agency Comment Spec In Lab Panchito Michael MD HEMATOLOGY ORDERABLE S [facility] [place] [address] * (ABNORMAL) Basic Metabolic Panel (non-fasting) (01/29/2017 9:45 AM EDT) Glucose 85 65 - 199 mg/dL [facility] Comment:Diabetes: >=200 mg/d L plus symptoms Blood Urea Nitrogen 11 8 - 18 mg/dL [facility] Creatinine 0.61(L) 0.70 - 1.20 mg/dL [facility] Comment: Please note that the pediatric reference intervals supplied above were not validated at [facility]. Results from pediatric patients should be interpreted in conjunction to the patient's age, height and muscle mass. Sodium 143 135 - 145 mmol/L [facility] Potassium 4.2 3.5 - 5.0 mmol/L [facility] Comment: Please note: ??Patients with WBC >100,000 may have falsely elevated Potassium levels. ??For accurate Potassium quantification in these patients send serum separator tube (gold top) for subsequent determinations. ??Contact the Clinical Chemistry Laboratory if there are any questions. Chloride 106 98 - 107 mmol/L [facility] Carbon Dioxide 26 22 - 31 mmol/L [facility] Anion Gap 11 5 - 15 mmol/L [facility] Calcium 9.6 8.5 - 10.5 mg/dL [facility] Est Glomerular Filtration Rate >60 >=60 [facility] Comment: This estimated GFR (eGFR) [...] the following links into your internet browser. [email or web address] Blood specimen (specimen) 01/29/2017 9:45 AM EDT 01/29/2017 9:46 AM EDT Narrative Resulting Agency Comment Spec In Lab Panchito Michael MD CHEMISTRY ORDERABLES Performing Organization Address City/State/[facility] Co de Phone Number [facility] [place] [address] documented in this encounter Visit Diagnoses Diagnosis Primary osteoarthritis of right hip Primary localized osteoarthrosis, pelvic region and thigh documented in this encounter Care Teams Tap Builder Relationship Specialty Start Date End Date Austin Rodriguez MD [address] [place] [address] PCP - General Family Medicine 06/12/15 05/18/18 documented as of this encounter
--- OUTSIDE RECORDS SUMMARY | 2024-03-07 08:55 | XMS_ITS | Encounter Summary ---
[place] [address] Care Team Providers Care Roller Embosser Name Role Phone Austin Rodriguez MD Primary Care Provider [phone] Reason for Visit * Reason Comments Right Hip Pain pre-op visit for RIG HT ANT SHANTI Encounter Details Date Type Department Care Team (Late st Contact Info) Description 01/29/2017 1:20 PM EDT Office Visit [place] [phone] Panchito Michael MD Hx of arthroplasty Social History Tobacco Use Types Packs/Day Years [...] Sign Reading Time Taken Comments Blood Pressure 118/60 01/29/2017 1:08 PM EDT Pulse 62 01/29/2017 1:08 PM EDT Temperature - - Respiratory Rate - - Oxygen Saturation 97% 01/29/2017 1:0 8 PM EDT Inhaled Oxygen Concentration - - Weight 84.8 kg (187 lb) 01/29/2017 1:08 PM EDT verbal from other appt Height 173 cm (5' 8.11) 01/29/2017 1:0 8 PM EDT verbal from other appt Body Mass Index 28.34 01/29/2017 1:08 PM EDT documented in this encounter Progress Notes * Panchito Michael MD - 01/29/2017 1:20 PM EDT Arthroplasty History/Previous Hip Surgery: 1. Left SHANTI - 08/17/15 (Dr. Michael) This note is recorded by DAINA DEYR, RN acting as a scribe for Dr. Antony Michael. PREOPERATIVE VISIT Interval History: Nikky Jarrett is a pleasant 61 y.o. year old female with at being seen today to discuss a RIGHT total hip arthroplasty. Her history and physical exam were reviewed in detail. Her history in regards to her hip was once again discussed and is outlined in a previous note. She states the hip pain and disability is unchanged since their previous visit. They have reviewed theiroptions and at this point are expressing a desire to proceed with surgery. She does not endorse a history of DVT/PE or clotting Physical Exam: Exam is previously documented in my note and is essentially unchanged. Clinical Leg Length Discrepancy - 0cm Inspection of her skin on the operative side demonstrates No skin breakdown. Significant Medical Comorbidities Patient Active Problem List Diagnosis Code ??? Spinal stenosis M48.00 ??? Dysuria R30.0 ??? Alcoholism F10.20 ??? Depression F32.9 ??? History of tobacco abuse Z87.891 ??? S/P left SHANTI 08/17/15 Fernanda Z96.649 ??? Osteoarthritis of hip, Right M16.9 VITALS: BP Readings from Last 1 Encounters: 01/29/17 118/60 Pulse Readings from Last 1 Encounters: 01/29/17 62 Height: 173 cm (5' 8.11) (verbal from other appt) Weight - Scale: 84.8 kg (187 lb) (verbal from other appt) Body mass index is 28.34 kg/(m^2). Relevant Lab Studies Lab Results Component Value Date WBC 6.0 01/29/2017 HGB 14.6 01/29/2017 HCT 43.6 01/29/2017 PLATELET 303 01/29/2017 CREATININE 0.61 (L) 01/29/2017 BUN 11 01/29/2017 NA 143 01/29/2017 K 4.2 01/29/2017 INR 0.9 01/29/2017 No results for input(s): HA1C in the last 7068 hours. No results for input(s): ALBUMIN in the last 168 hours. Estimated Creatinine Clearance: 107.9 mL/min (based on Cr of 0.61). Blood Type: B Pos Questionnaire Response [facility] Surgical Preop Visit 01/29/2017 PROMIS-10 General Health Fair PROMIS-10 Quality of Life Good PROMIS-10 Physical Health Fair PROMIS-10 Mental Health Good PROMIS-10 Social Activity Fair PROMIS-10 Everyday Activities Moderately PROMIS-10 Pain 4 PROMIS-10 Fatigue Moderate PROMIS-10 Social Roles Good PROMIS-10 Anxious or Depressed Sometimes PROMIS PHYSICAL SCORE (range 16-68) 37.4 PROMIS MENTAL SCORE (range 21-68) 41.1 Treatments Tried Regular exercise, Heat and ice therapy, Walking aids (e.g.cane, walker), Physical therapy, Acetaminophen (e.g. Tylenol) HOOS JR Scores 61.82 Consent to review records - Consent to send data to [facility] Grade 5 Pain in other HIP Moderate Back pain at this moment Moderate Health Literacy Quite a bit Some recent data might be hidden Orthopeadics [facility] Response 01/29/2017 HOOS JR Scores 61.82 OSWESTRY DISABILITY INDEX - Some recent data might be hidden Spine [facility] Response 01/29/2017 Oswestry (ADENIKE) Score - HOOS JR Scores 61.82 Some recent data might be hidden Radiographic Analysis Together, we reviewed the preop radiographs obtained previously. The xrays demonstrate: Moderate osteophytes, significant narrowing, mild deformity Assessment and Plan: This is a pleasant 61 y.o. year-old female who presents for a preoperative appointment today for RIGHT hip arthroplasy. I had a long discussion with her regarding the risks and benefits of total hip arthroplasty revision surgery. I indicated that in my opinion, this is the treatment option most likely to restore a more normal, pain-free level of function and that we have exhausted reasonable non-operative alternatives. I discussed how I perform the procedure and the surgical plan. All of their questions were answered. Ms. Jarrett expressed a desire to pursue this option. We then discussed in great detail the risks associated with the proposed surgery. These included but were not limited to: bleeding (which may or may not require transfusion), infection, damage to nerves or blood vessels, deep venous thrombosis, pulmonary embolus, prosthetic failure, loosening, prosthetic fracture, femur or pelvic fracture, dislocation, leg-length inequality, persistent pain, needfor future surgery, medical complications (including cardiac, respiratory and neurologic complications), anaesthetic complications, and . The patient seemed to understand the nature of this procedure's risks. We also discussed the likely benefit of improved stride length, improved range of motion, decreased pain, decreased need for pain medications and decrease functional limitations. The patient is aware that it would take on average 2 days in the hospital, followed by approximately 12-18months to full rehabilitation. I did review the history and physical today which says the patient is cleared for surgery and has no specific recommendations for further testing. I reviewed the labs and did not identify anything that would warrant surgical delay. We discussed DNR status and she is a Full Code We reviewed options for postoperative DVT prophylaxis, based on AAOS guidelines. We discussed the pros and cons of different anticoagulants in terms of effectiveness and clot / embolus preventions vs. risks of bleeding and wound complications. We also reviewed their preferences regarding use of blood products and confirmed that while we would endeavor to minimize the risks of needing any transfusions, if circumstances were such that one ormore were indeed required, she would NOT refuse a blood transfusion. Opioid PDMP 01/29/2017 [place] PDMP Query Date 01/29/2017 Some recent data might be hidden Nikky Jarrett will be prescribed a prescription opioid for the treatment of acute post-operative pain related to Orthopedic surgery. Nikky Jarrett will be advised to take the smallest dose possibleto control their pain and as their pain improves to take smaller doses and increase the time between doses. In addition to this medication, non-opioid medications will be prescribed for adjunct treatment of their pain. Non-pharmacological treatment such as ice, elevation and activity modification will be recommended as appropriate. The Acute Opioid Therapy Informed Consent form has been completed and sent to medical records for scanning to chart. We discussed with them the possible discharge scenarios including going home versus needing to go to a rehab facility depending on how well their mobility progresses post-operatively. TJA Clotting and Bleeding Assessment Genetic predisposition or history of DVT or PE: No Hypercoaguable state?: No History of bleeding disorder?: No GI bleed or history of hemorrhagic stroke within the past 2 years: No Patient on lifelong anticoagulant for other reasons: No Discharge anticoagulation plan: ASA 81mg BID for 30 days Infection Prevention Patient demonstrated appropriate skin integrity/infection knowledge level after instructions provided: Yes Patient demonstrated appropriate dental prophylaxis knowledge level after instructions provided: Yes Patient demonstrated appropriate understanding of pre-op chlorhexideine wash and mupirocin ointmentuse after instructions provided: Yes General Assessment Total joint preparedness for surgery: Received binder Patient understands when to call the office pre-op and post-op: Verbalizes understanding Assistive device(s) used pre-op: None Patient currently on narcotics: No Patient has narcotic agreement signed: No Any remaining questions were solicited from the patient and answered. Ms. Jarrett wishes to proceed accordingly and informed consent was subsequently obtained for a RIGHT total hip arthroplasty. We discussed using Celebrex while in house. We discussed using Naprosyn for 6 weeks after surgery for post-operative pain management. I ensured that the patient has the needed samples of hibiclens wash to use both the night before and the morning of the anticipated surgery. I have personally evaluated the patient and agree with the above note as recorded by DAINA DYER RN. Antony Michael MD 01/29/2017 documented in this encounter Plan of Treatment Upcoming Encounters Date Type Department Care Team (Late st Contact Info) Description 03/23/2024 9:15 AM EDT Appointment XRay at [address] [place] [address] 03/23/2024 10:00 AM EDT Office Visit [place] [phone] Kathie Polk MD [facility] [place]A[facility] [address] documented as of this encounter Visit Diagnoses Diagnosis Hx of arthroplasty Personal history of surgery to other organs documented in this encounter Administered Medications Inactive Administered Medications - up to 3 most recent administrations Medication Order MAR Action Action Date Dose Rate Site mupirocin (BACTROBAN) 2 % ointment Topical (Top), 2 TIMES DAILY, First dose on [place] 01/29/17 at 0900, 10 doses, Last dose on Thu02/02/17 at 2100 Given 01/29/2017 8:31 AM EDT documented in this encounter Care Teams Roller Embosser Relationship Specialty Start Date End Date Austin Rodriguez MD [address] [place] [address] PCP - General Family Medicine 06/12/15 05/18/18 documented as of this encounter
--- OUTSIDE RECORDS SUMMARY | 2024-03-07 08:55 | XMS_ITS | Encounter Summary ---
[place] [address] Care Team Providers Care Staff Nurse Midwife Name Role Phone Austin Rodriguez MD Primary Care Provider [phone]- [phone] Encounter Details Date Type Department Care Team (Latest Contact Info) Description 01/29/2017 9:00 AM EDT Clinical [place] [phone] Primary osteoarthritis of right hip Social History [...] Taken Comments Blood Pressure - - Pulse 85 01/29/2017 9:01 AM EDT Temperature - - Respiratory Rate - - Oxygen Saturation 97% 01/29/2017 9:01 AM EDT Inhaled Oxygen Concentration - - Weight 86.7 kg (191 lb 3.2 oz) 01/29/2017 9:01 A M EDT Height 175.3 cm (5' 9) 01/29/2017 9:01 AM EDT Body Mass Index 28.24 01/29/2017 9:01 AM EDT documented in this encounter Progress Notes * Luba Priest RN - 01/29/2017 9:00 AM EDT PAT questionnaire reviewed with patient while in Pre Admission testing. Pre- operative instruction booklet reviewed. Patient verbalizes a good understanding of all information reviewed. PLAN: Testing: EKG,T&S,lab. Special medication instructions: Procedure date: 02-13. Call summer # [phone]. documented in this encounter Plan of Treatment Upcoming Encounters Date Type Department Care Team (Late st Contact Info) Description 03/23/2024 9:15 AM EDT Appointment XRay at [address] [place] [phone] 03/23/2024 10:00 AM EDT Office Visit Orthopaedics at [facility] [place] [phone] Kathie Polk MD [facility] ORTHOPAEDIC SURGERY [place], [place] [phone] documented as of this encounter Procedures Procedure Name Priority Date/Time Associated Diagnosis Comments EKG 12-LEAD Routine 01/29/2017 9:34 AM EDT Primary osteoarthritis of right hip documented in this encounter Results * EKG 12 Lead (01/29/2017 9:34 AM EDT) Ventricular rate 66 BPM MUSE SYSTEM Atrial Rate 66 BPM MUSE SYSTEM P-R Interval 176 ms MUSE SYSTEM QRS Duration 98 ms MUSE SYSTEM Q-T Interval 430 ms MUSE SYSTEM QTC Calculated (Bezet) 450 ms MUSE SYSTEM Calculated P [place] 43 degrees MUSE SYSTEM Calculated R [place] -6 degrees MUSE SYSTEM Calculated T [place] 23 degrees MUSE SYSTEM INTERPRETATION Normal sinus rhythm Incomplete right bundle branch block Nonspecific ST and T wave abnormality Abnormal ECG When compared with ECG of 09-AUG-2015 11:16, No significant change was found I personally reviewed the tracing and edited the fellows interpretation Confirmed by fellow MD Ramirez Danette ([id number]) on 01/29/2017 10:04:52 AM Confirmed by MD Saldivar Jon ([id number]) on 01/29/2017 1:24:18 PM MUSE SYSTEM 01/29/2017 9:34 AM EDT 01/29/2017 1:24 PM EDT Panchito Michael MD ECG ORDERABLES [employer] SYSTEM documented in this encounter Visit Diagnoses Diagnosis Primary osteoarthritis of right hip Primary localized osteoarthrosis, pelvic region and thigh documented in this encounter Care Teams Staff Nurse Midwife Relationship Specialty Start Date End Date Austin Rodriguez MD [address] [address] PCP - General Family Medicine 06/12/15 05/18/18 documented as of this encounter
--- OUTSIDE RECORDS SUMMARY | 2024-03-07 08:55 | XMS_ITS | Encounter Summary ---
[place] [address] Care Team Providers Care Hook Up Driver Name Role Phone Austin Rodriguez MD Primary Care Provider [phone] Reason for Referral * Physical Therapy (Routine) - Closed Specialty Diagnoses / Procedures Referred By Thomas hernandes Referred To Contact Diagnoses Primary osteoarthritis of right hip Vivien Kramer APRN [facility] [place] [address] Unknown None Referral ID Status Reason Start Date Expiration Date V isits Requested Visits Authorized [id number] Closed Evaluate and Treat 02/14/2017 08/13/2017 12 12 Reason for Visit * Auth/Cert Specialty Diagnoses / Procedures Referred By Thomas hernandes Referred To Contact Diagnoses Unilateral primary osteoarthritis, right hip right hip oa Procedures PRO TOTAL HIP ARTHROPLASTY PRG RADEX HIP UNILATERAL WITH PELVIS MINIMUM 4 VIEWS @TOTAL HIP ARTHROPLASTY, ANTERIOR APPROACH (WRVU 20.72) Referral ID Status Reason Start Date Expiration Date Visits Re quested Visits Authorized [id number] 1 1 Encounter Details Date Type Department Care Team (Latest Contact Info) Description 02/13/2017 7:05 AM EDT - 02/14/2017 2:38 PM EDT Hospital Encounter 3 [place] [address] Panchito Michael MD Primary osteoarthritis of right [...] Sign Reading Time Taken Comments Blood Pressure 106/49 02/14/2017 11:57 AM EDT Pulse 58 02/13/2017 12:30 PM EDT Temperature 36.7 ??C (98.1 ??F) 02/14/2017 1 1:57 AM EDT Respiratory Rate 16 02/14/2017 11:5 7 AM EDT Oxygen Saturation 95% 02/14/2017 12: 00 PM EDT Inhaled Oxygen Concentration - - Weight 84.8 kg (186 lb 15.2 oz) 02/13/2017 7:41 AM EDT Height 173 cm (5' 8.11) 02/13/2017 7:41 AM EDT Body Mass Index 28.33 02/13/2017 7:41 AM EDT documented in this encounter Discharge Summaries * Vivien Kramer, WAREHOUSE ANALYST - 02/13/2017 4:29 PM EDT Discharge Summary Patient Name: Nikky Jarrett Patient Age: 62 y.o. Language: Yoruba Race: White Ethnicity: Not nor Admit date: 02/13/2017 Discharge date and time: 02/14/2017 Attending Physician: Panchito Michael MD Discharge Physician: Panchito Michael MD Follow-up Recommendations for Providers: See discharge instructions for additional details. Future Appointments Date Time Provider Department Center 03/12/2017 1:10 PM Panchito Michael MD [address] Inpatient Provider Contact Information: Panchito Michael MD Orthopedics: [phone] After hours and weekends, call [facility] [employer], , and have the Orthopedic resident paged. Discharge Diagnoses (Hospital Problems) and Secondary Diagnoses (Chronic Problems): Active Hospital Problems Diagnosis ??? s/p R SHANTI Dr. Michael 02/13/17 Resolved Hospital Problems Diagnosis Date Resolved No resolved problems to display. Active Non-Hospital Problems Diagnosis ??? Osteoarthritis of hip, Right ??? S/P left SHANTI 08/17/15 Fernanda ??? Dysuria ??? Alcoholism ??? Depression ??? History of tobacco abuse ??? Spinal stenosis Operations/Major Procedures: 02/13/2017 Surgeon(s) and Role: * Panchito Michael MD - Primary * Jefe Perry MD - Resident-Surgeon Leo Procedure(s): RIGHT TOTAL HIP ARTHROPLASTY, ANTERIOR APPROACH HIP INTRAOP RADIOLOGIC EXAMINATION, UNILATERAL, W PELVIS; 4+ VIEWS MODIFIER CORAIL FEMORAL STEM DEPUY MODIFIER PINNACLE ACETABULUM DEPUY History of Presentation: Nikky Jarrett is a 62 y.o. female with right hip avn. After exhausting conservative measures, the patient elected to proceed with total hip arthroplasty. The risks and benefits of this procedure were reviewed in depth and patient received medical clearance prior to procedure. Hospital Course: The patient was admitted for the above operation. DVT prophylaxis is: Aspirin 81 mg twice daily x 30 days. Patient began rehab on POD#1 with weight bearing as tolerated of right leg and reinforcementof the standard SHANTI Precautions. The patient was voiding spontaneously without difficulty. The right hip silver Mepilex dressing to remain in place 7 days, was inspected on POD#1 and was dry and intact. The patient did not have a bowel movement prior to discharge but was passing flatus and was taking a diet without difficulty. Pain was well controlled on oral medications. By POD#1 the patient wasmedically stable and was cleared for safe discharge to home per PT. Of Note: The patient is on Naltrexone at baseline. She states she did not stop the Naltrexone with her last surgery and was not tole to stop it with this one. She will resume her Naltrexone and take oxycodoneas prescribed for pain. Vital Signs at Discharge: Weight: Wt Readings from Last 1 Encounters: 02/13/17 84.8 kg (186 lb 15.2 oz) Height: Ht Readings from Last 1 Encounters: 02/13/17 173 cm (5' 8.11) HC: HC Readings from Last 1 Encounters: No data found for HC BMI: Body mass index is 28.33 kg/(m^2). Last value Range last 24 hrs Temperature Temp: 36.7 ??C (98.1 ??F) Temp: [36.3 ??C (97.3 ??F)-37.7 ??C (99.9 ??F)] Heart Rate Heart Rate: 58 Heart Rate: [58] Blood Pressure BP: 106/49 BP: (106-112)/(49-64) Respiratory Rate Resp: 16 Resp: [15-20] SpO2 SpO2: (!) 84 % SpO2: [84 %-100 %] Art BP BP (Arterial Line): -- Functional and Cognitive Status: Patient mobilizing with a walker, cognitively intact. Important Lab Data: Last 3 wbc, hgb, hct plt Recent Labs 02/14/17 0355 01/29/17 0945 WBC 11.3* 6.0 HGB 11.9 14.6 HCT 36.4 43.6 PLATELET 248 303 Last 3 Lytes Recent Labs 02/14/17 0355 01/29/17 0945 NA 141 143 K 4.4 4.2 CL 106 106 CO2 21* 26 BUN 11 11 CREATININE 0.49* 0.61* Studies: None new this admission. Transfusions: No Discharge Conditions/Prognosis: Stable, awake, and alert. Mobilizing as noted above, pain controlled on oral medications. Discharge to: Home with out-patient Physical Therapy. Updated Allergies/ADRs: No Known Allergies Immunizations Given this Hospitalization: There is no immunization history for the selected administration types on file for this patient. Discharge Medications: Your Medications New Medications Dose Details acetaminophen 500 mg Tab Commonly known as: TYLENOL Take 2 tablets by mouth every 8 hours. Continue the Tylenol around the clock for 10 days after surgery, (02/23/2017). Then may take if needed per package insert. Do not take more than 3,000 mg of Tylenol in 24 hours. 1000 mg Refills: 0 aspirin 81 mg Tbec Take 1 tablet by mouth 2 times daily. Take with food for 30 days after surgery. Last day = 03/15/2017. 81 mg Quantity: 59 tablet Refills: 0 gabapentin 300 mg Cap Commonly known as: NEURONTIN Take 1 capsule by mouth nightly. Take nightly before bed for sleep for 4 weeks after surgery. Start taking on: 02/15/2017 300 mg Quantity: 30 capsule Refills: 0 oxyCODONE 5 mg Tab Commonly known as: ROXICODONE Take 1-3 tablets by mouth every 4 hours as needed for Pain. Take the smallest dose possible to control your pain. As your pain improves, take smaller doses and increase the time between doses. You may break the tablet to achieve a smaller dose. 5-15 mg Quantity: 80 tablet Refills: 0 polyethylene glycol 17 gram Pwpk Commonly known as: MIRALAX Take 17 g by mouth 2 times daily. 17 g Refills: 0 senna-docusate 8.6-50 mg Tab Commonly known as: PERICOLACE Take 2 tablets by mouth 2 times daily. 2 tablet Quantity: 60 tablet Refills: 0 Continued medications, unchanged Dose Details amoxicillin 500 mg Cap Commonly known as: AMOXIL as needed. Prior to dental procedures Refills: 0 FLUoxetine 20 mg Cap Commonly known as: PROzac Take 20 mg by mouth daily. 20 mg Refills: 0 naltrexone 50 mg Tab Commonly known as: DEPADE Take 50 mg by mouth daily. 50 mg Refills: 0 triamcinolone 0.1 % Crea Commonly known as: KENALOG 2 times daily. Refills: 0 Smoking Status at Discharge: History Smoking Status ??? Former Smoker ??? Quit date: 07/12/1979 Smokeless Tobacco ??? Never Used Instructions Given to Patient at Discharge: There are no outpatient Patient Instructions on file for this admission. General Instructions Activity: 1. Your weight-bearing status is - weight bearing as tolerated of right leg. 2. Remember to use a walker or crutches at all times for balance and protection. Your physical therapist may progress you to using a cane when appropriate. 3. Remember your hip precautions: Standard: You should transition from sit to stand and stand to sit utilizing a broad based stance with feet and knees wider than hips. Anticoagulation: Aspirin - You are being discharged on enteric-coated Aspirin 81 mg by mouth twice a day for 30 days. After your dose on 03/15/2017 stop the Aspirin, unless you are told otherwise by your Orthopedic surgeon. Take this medication with food or large amounts (240 mL) of water or milk tominimize GI irritation. Diet: Resume your usual home diet but increase your intake of fluids and fiber while you are on narcotic pain meds to prevent constipation. Driving: None until you are cleared to do so by your Orthopedic surgeon. You should not drive whileyou are on narcotic pain meds as they can affect your judgment and reaction time. Call your surgeonwith any questions/concerns. Medications: 1. The pain medication you are on can cause constipation so increase your intake of fluids and fiber while you are on them. The stool softener, Pericolace, that has been prescribed can also be taken to facilitate a bowel movement. You can also take an xvlr-xsl-nazpgvw medication, Miralax if needed to combat constipation. 2. If you need a renewal on your narcotic pain medication, you need to give the Orthopedic clinic enough time to process your request. This can take up to three days, so plan accordingly. 3. Continue acetaminophen (Tylenol) 1,000mg every 8 hours around the clock until 02/23/2017 (for tendays after your surgery). This can be effective in controlling pain along with your other medications. After that you can take Tylenol as needed per package insert. Do not take more than 3,000mg of acetaminophen in a 24 hour period. 4. You have been discharged on a short acting narcotic, oxycodone. You will be on this medication for a limited period of time only. Take only enough pain medication to control your pain. As your pain lessens, taper down and off this medication as tolerated. 5. You are being discharged on gabapentin (Neurontin), a non-narcotic medication that will help with your pain at night and allow you to sleep better. Take this at night for the next 4 weeks. Shower (internal sutures): 1. You can shower but remember your activity limitations and always have a chair available for balance and protection. DO NOT submerge the dressing/incision. 2. (Mepilex) Do not let water run over the operative dressing. If it becomes wet lightly pat the dressing dry. DO NOT submerge the incision. When this operative dressing is removed you can let water gently run over the incision. Wound (Mepilex): 1. You do NOT have any external yamila or sutures in place. Your sutures are internal and will be absorbed over time. 2. You have a Mepilex dressing in place. Do not lift the edge of the Mepilex dressing to inspect the incision, it will not re-adhere. Remove your operative dressing 7 days after your surgery (02/20/2017). When it is removed you can leave the incision open to air or cover it with a light dressing. 3. If you have lots of drainage when you get home (and it is before 02/20/2017), remove the operative dressing and replace it with dry sterile gauze. Continue with daily dressing changes (and as needed) until the drainage stops, then remove the dressing and leave the incision open to air or lightly covered. Misc: Remember that ICE and elevation are very important after surgery to help decrease swelling and control pain. Use ICE for 20-30 minutes at a time and keep your leg elevated as much as possible. Call your doctor ([phone]) if you develop: 1. Fever greater than 100.5 2. Severe nausea or vomiting 3. Increasing pain that is not controlled by pain medications 4. Increasing redness, swelling, or drainage from incisions 5. Change in sensation FOLLOW-UP APPOINTMENTS: 1. You will have follow-up appointments at [facility] as indicated below in Future Appointment and Orders. 2. You will need to have x-rays prior to your follow-up appointment on 03/12/17. Please come to Radiology, desk 3T, 1 hour BEFORE that appointment for these x-rays. Future Appointments Date Time Provider Department Center 03/12/2017 1:10 PM Panchito Michael MD [address] CLIN If you have questions or concerns: Thursday through Thursday, 8 AM - 5 PM, please call Panchito Fraser MD's office at . If it is after 5 PM, the weekend, or holidays, please call and ask to speak with [facility] resident on-call. Future Appointments and Orders Future Appointments Provider Department Dept Phone 03/12/2017 1:10 PM Panchito Michael MD Orthopaedics at [place] [phone] Future Orders Complete By Expires Referral to Physical Therapy [REF87 Custom] As directed Process Instructions: Note: Please indicate in the comments any additional Instructions, Precautions or Contra-indications. Scheduling Instructions: Comments: Standard Hip Precautions: Full WBAT No dislocation precautions May actively abduct Use a broad based stance when transitioning from sitting to standing and standing to sitting, with feet and knees wider than hips Questions: Reason for PT: s/p right total hip arthroplasty 02/13/2017 Specialty Program Eval: Modalities could include: Treatment Focus: Primary Care Provider: Austin Rodriguez MD [phone] Discharge References/Attachments None documented in this encounter Discharge Instructions * Discharge Instructions* Vivien Kramer, WAREHOUSE ANALYST - 02/14/2017 12:09 PM EDT Activity: 1. Your weight-bearing status is - weight bearing as tolerated of right leg. 2. Remember to use a walker or crutches at all times for balance and protection. Your physical therapist may progress you to using a cane when appropriate. 3. Remember your hip precautions: Standard: You should transition from sit to stand and stand to sit utilizing a broad based stance with feet and knees wider than hips. Anticoagulation: Aspirin - You are being discharged on enteric-coated Aspirin 81 mg by mouth twice a day for 30 days. After your dose on 03/15/2017 stop the Aspirin, unless you are told otherwise by your Orthopedic surgeon. Take this medication with food or large amounts (240 mL) of water or milk tominimize GI irritation. Diet: Resume your usual home diet but increase your intake of fluids and fiber while you are on narcotic pain meds to prevent constipation. Driving: None until you are cleared to do so by your Orthopedic surgeon. You should not drive whileyou are on narcotic pain meds as they can affect your judgment and reaction time. Call your surgeonwith any questions/concerns. Medications: 1. The pain medication you are on can cause constipation so increase your intake of fluids and fiber while you are on them. The stool softener, Pericolace, that has been prescribed can also be taken to facilitate a bowel movement. You can also take an jtlz-tlm-ocoubyi medication, Miralax if needed to combat constipation. 2. If you need a renewal on your narcotic pain medication, you need to give the Orthopedic clinic enough time to process your request. This can take up to three days, so plan accordingly. 3. Continue acetaminophen (Tylenol) 1,000mg every 8 hours around the clock until 02/23/2017 (for tendays after your surgery). This can be effective in controlling pain along with your other medications. After that you can take Tylenol as needed per package insert. Do not take more than 3,000mg of acetaminophen in a 24 hour period. 4. You have been discharged on a short acting narcotic, oxycodone. You will be on this medication for a limited period of time only. Take only enough pain medication to control your pain. As your pain lessens, taper down and off this medication as tolerated. 5. You are being discharged on gabapentin (Neurontin), a non-narcotic medication that will help with your pain at night and allow you to sleep better. Take this at night for the next 4 weeks. Shower (internal sutures): 1. You can shower but remember your activity limitations and always have a chair available for balance and protection. DO NOT submerge the dressing/incision. 2. (Mepilex) Do not let water run over the operative dressing. If it becomes wet lightly pat the dressing dry. DO NOT submerge the incision. When this operative dressing is removed you can let water gently run over the incision. Wound (Mepilex): 1. You do NOT have any external yamila or sutures in place. Your sutures are internal and will be absorbed over time. 2. You have a Mepilex dressing in place. Do not lift the edge of the Mepilex dressing to inspect the incision, it will not re-adhere. Remove your operative dressing 7 days after your surgery (02/20/2017). When it is removed you can leave the incision open to air or cover it with a light dressing. 3. If you have lots of drainage when you get home (and it is before 02/20/2017), remove the operative dressing and replace it with dry sterile gauze. Continue with daily dressing changes (and as needed) until the drainage stops, then remove the dressing and leave the incision open to air or lightly covered. Misc: Remember that ICE and elevation are very important after surgery to help decrease swelling and control pain. Use ICE for 20-30 minutes at a time and keep your leg elevated as much as possible. Call your doctor ([phone]) if you develop: 1. Fever greater than 100.5 2. Severe nausea or vomiting 3. Increasing pain that is not controlled by pain medications 4. Increasing redness, swelling, or drainage from incisions 5. Change in sensation FOLLOW-UP APPOINTMENTS: 1. You will have follow-up appointments at [facility] as indicated below in Future Appointment and Orders. 2. You will need to have x-rays prior to your follow-up appointment on 03/12/17. Please come to Radiology, desk 3T, 1 hour BEFORE that appointment for these x-rays. Future Appointments Date Time Provider Department Center 03/12/2017 1:10 PM Panchito Michael MD [address] If you have questions or concerns: Thursday through Thursday, 8 AM - 5 PM, please call Panchito Fraser MD's office at . If it is after 5 PM, the weekend, or holidays, please call and ask to speak with theOrthopedic resident on-call. documented in this encounter Medications at Time [...] weeks after surgery. 30 capsule 02/15/2017 08/25/2017 oxyCODONE (ROXICODONE) 5 mg Tablet Take 1-3 tablets by mouth every 4 hours as needed for Pain. Take the smallest dose possible to control your pain. As your pain improves, take smaller doses and increase the time between doses. You may break the tablet to achieve a smaller dose. 80 tablet 02/14/2017 02/18/2017 polyethylene glycol (MIRALAX) 17 gram Powder in Packet Take 17 g by mouth 2 times daily. 02/14/2017 03/12/2017 senna-docusate (PERICOLACE) 8.6-50 mg Tablet Take 2 tablets by mouth 2 times daily. 60 tablet 02/14/2017 03/12/2017 naltrexone (DEPADE) 50 mg Tablet Take 50 mg by mouth daily. 0 06/11/2015 09/12/2020 documented as of this encounter Progress Notes * Jeannine Plata RN - 02/14/2017 1:41 PM EDT Discharge: Patient meets criteria for discharge. PIV and Masimo discontinued per order. Transfer documentationpacket completed. Patient transported on wheelchair, accompanied by . Transfer discharge packet given to the patient. Jeannine Plata RN * Jefe Perry MD - 02/14/2017 6:55 AM EDT ORTHOPAEDIC SURGERY INPATIENT PROGRESS NOTE ID: Nikky Kennedy Kolby Surgery: Right SHANTI 02/13/17 Attending: Dr. Michael 24/S: No issues overnight. Tolerating diet; denies nausea or vomiting. Voiding spontaneously. Was able to ambulate to and from bathroom with use of walker without issue. Pain well controlled. Denies numbness or tingling. O: Temp: [36.3 ??C (97.3 ??F)-37 ??C (98.6 ??F)] Heart Rate: [55-68] Resp: [12-20] BP: (84-112)/(47-67) Intake/Output Summary (Last 24 hours) at 02/14/17 0655 Last data filed at 02/14/17 0600 Gross per 24 hour Intake 4246 ml Output 1550 ml Net 2696 ml Lab Results Component Value Date NA 141 02/14/2017 K 4.4 02/14/2017 CL 106 02/14/2017 CO2 21 (L) 02/14/2017 BUN 11 02/14/2017 CREATININE 0.49 (L) 02/14/2017 GLUCOSE 135 02/14/2017 CALCIUM 8.8 02/14/2017 Lab Results Component Value Date WBC 11.3 (H) 02/14/2017 HGB 11.9 02/14/2017 HCT 36.4 02/14/2017 MCV 93.8 02/14/2017 PLATELET 248 02/14/2017 Lab Results Component Value Date INR 0.9 01/29/2017 Exam: General: Sitting upright in bed in NAD, awake/alert, responds to questions appropriately, pleasant affect. CV: Regular rate. Resp: Breathing comfortably on room air. RLE: Mepilex dressing clean and dry. Sensory intact to light touch in LFC/SP/DP/T distributions. Motor intact to FHL/EHL/TA, knee extension/flexion, hip extension/flexion. Brisk capillary refill distally, foot warm/well-perfused. A/P: Nikky Jarrett is a 62 y.o. female s/p right anterior SHANTI 02/13/17. Pain well controlled. Plan to work with PT/OT today. - DVT ppx: ASA 81 mg bid x30 days - Pain control: On Naltrexone. Oxycodone for pain. - Antibiotics: Periop Ancef. - Activity: Weight bearing as tolerated. - Dressings: Mepilex x7 days. Absorbable sutures. - Diet: Regular diet. - Dispo: Home vs rehab per PT. Jefe Perry MD 02/14/2017 * Wil Adhikari MD - 02/13/2017 2:12 PM EDT Orthopaedic Surgery Post-Op Check Note Patient Name: Nikky Jarrett Age: 62 y.o. Surgery/Issue: Right SHANTI Attending: Fernanda Date of surgery: 02/13/2017 Subjective/Events: Denies CP, SOB, nausea, vomiting. Pain well controlled. Resting comfortably in bed, without any complaints. Pain is very minimal at this point. Objective: Temp: [36.3 ??C (97.3 ??F)-36.8 ??C (98.2 ??F)] Heart Rate: [55-68] Resp: [12-18] BP: (84-112)/(47-67) Intake/Output Summary (Last 24 hours) at 02/13/17 1512 Last data filed at 02/13/17 1047 Gross per 24 hour Intake 1200 ml Output 300 ml Net 900 ml Lab Results Component Value Date NA 143 01/29/2017 K 4.2 01/29/2017 CL 106 01/29/2017 CO2 26 01/29/2017 BUN 11 01/29/2017 CREATININE 0.61 (L) 01/29/2017 GLUCOSE 85 01/29/2017 CALCIUM 9.6 01/29/2017 Lab Results Component Value Date WBC 6.0 01/29/2017 HGB 14.6 01/29/2017 HCT 43.6 01/29/2017 MCV 92.4 01/29/2017 PLATELET 303 01/29/2017 Lab Results Component Value Date INR 0.9 01/29/2017 Exam: General: NAD, awake/alert, responds to questions CV: RRR Resp: Breathing comfortably, lungs CTAB RLE: Mepilex dressing c/d/i. Motor intact to EHL, FHL, TA. Sensation intact in foot/calf. Brisk capillary refill distally. Imaging: AP Pelvis Post op xrays are pending. A/P: 62 y.o. female POD#0 s/p right SHANTI, progressing well with stable vitals. Pain is well controlled post operatively. Able to flex the hip in bed without discomfort. Will work with PT tomorrow and determine discharge needs. WBAT ASA 81mg BID Subcutaneous monocryl PT F/u 4 weeks with xrays Wil Adhikari MD 02/13/2017 #[id number] Associated attestation - Panchito Michael MD - 02/13/2017 4:30 PM EDT Patient seen and examined on rounds. Agree with resident note. Panchito Michael M.D. [place] Department of Orthopaedics * Jennifer Ellington RN - 02/13/2017 1:51 PM EDT Pt arrived to unit from PACU. Patient is alert and oriented. Vital signs stable. No complaints of chest pain or trouble breathing. No nausea or vomiting. Pain is well controlled. Spinal has worn off.Dressing to right lower extremity is clean, dry and intact. Pt oriented to room and call erazo. Callbell within reach. Will continue to monitor. * Fiona Lorenz RN - 02/13/2017 12:20 PM EDT S/p SHANTI on Left Spinal with good level Hypotensively stable 1230 Antibiotic redose bp stable Medicated with Oxycodone and Ketorolac IV 1222 c/o more pain Will give Fentanyl IV Until Oxycodone effective Report to floor Transferred to room documented in this encounter H&P Notes * Panchito Michael MD - 02/13/2017 5:47 AM EDT The patient's history and physical exam have been reviewed and completed. There has been no interval change from that of the pre-operative history and physical exam done within the last 30 days. documented in this encounter Miscellaneous Notes * Plan of Care - Jeannine Plata RN - 02/14/2017 12:01 PM EDT Problem: Hip Arthroplasty (Total, Partial) (Adult) Intervention: Support Psychosocial Response to Surgery 02/13/172036 Coping Strategies Supportive Measures active listening utilized;positive reinforcement provided;self-care encouraged * Plan of Care - Elisa Cintron, PT - 02/14/2017 9:55 AM EDT Problem: Patient Care Overview Goal: Plan of Care Review Outcome: Ongoing (Interventions Implemented as Appropriate) 02/14/17 0951 Coping/Psychosocial Plan Of Care Reviewed With patient Plan of Care Review Progress progress toward functional goals as expected Physical Therapy Treatment Number: 1 Pertinent History of Current Problem: 62 yo F with right hip pain d/t OA, admitted for right SHANTI, ant approach. PMH sign for recent falls, L SHANTI 08/2015, spinal stenosis Precautions/Restrictions: hip (standard: wide ASHLEY with sit <-> stand and WBAT RLE) Pt seen today for PT evaluation and therex. Pt presents with decreased strength and ROM in right hip but able to independently mobilize OOB, transfer and ambulate household distances with FWW and ascend/ descend 3 steps with benny rails and supervision. Pt tolerated rx well and is demonstrating functional readiness for d/c home with f/u outpatient PT. Please see the Rehab Evaluation Summaries report for objective data and specifics of today???s session. Staff Mobility Recommendations: VCs for wide ASHLEY with sit <-> stand Independent ambulation with FWW Anticipated Physical Therapy Frequency: evaluation only Anticipated Discharge Disposition: home with assist, home with outpatient services Demonstrates Need for Referral to Another Service: other (see comments) (outpatient PT) Pager: [phone] ELISA CINTRON, PT Inpatient Physical Therapy 2017 PT Evaluation Code Rationale: ?? Diagnosis & Pertinent Co-Morbidities affecting Plan of Care: Patient Active Problem List Diagnosis Code ??? Spinal stenosis M48.00 ??? Dysuria R30.0 ??? Alcoholism F10.20 ??? Depression F32.9 ??? History of tobacco abuse Z87.891 ??? S/P left SHANTI 08/17/15 Fernanda Z96.649 ??? Osteoarthritis of hip, Right M16.9 ??? s/p R SHANTI Dr. Michael 02/13/17 Z96.641 ?? Clinical presentation: Stable Evolving Unstable x ?? Examination of Body Systems: Addressing 1-2 elements x Addressing 3 + elements Addressing 4 + elements Clinical decision making of low complexity based on pt's functional performance as outlined in thisevaluation. * Plan of Care - Steven Mccoy RN - 02/14/2017 3:05 AM EDT Problem: Patient Care Overview Goal: Plan of Care Review Outcome: Ongoing (Interventions Implemented as Appropriate) 02/14/17 0256 Coping/Psychosocial Plan Of Care Reviewed With patient Plan of Care Review Progress progress toward functional goals as expected OUTCOME EVALUATION NOTE: OUTCOME SUMMARY: Patient sleeping between care overnight; pain well controlled with scheduled medications and oxycodone. Dressing to right hip clean, dry and intact; CSM intact. IV fluids and antibiotics continued, sight benign. Pt up with 1-assist and walker. Will continue to monitor. PLAN MOVING FORWARD: Pain control, ambulate, discharge INDIVIDUALIZED FALL PREVENTION INTERVENTIONS: Patient-specific fall risk factors per assessment: [current deficits]: Pain, medications, IV infusing, recent surgery Assistance [level of assistance required for transfers and ambulation]: 1-assist w/ walker Supervision [direct monitoring required during toileting and ADLs]: Hands on with ADL's Surveillance [continuous indirect monitoring]: Purposeful rounding, masimo Patient-specific fall prevention interventions for sensory deficits provided, if applicable: N/A CPG GOAL OUTCOME EVALUATION: * Brief Op Note - Panchito Michael MD - 02/13/2017 10:33 AM EDT Brief Operative Note Patient Name: Nikky Jarrett : [id number] MR#: [id number] Date of surgery: 02/13/2017 ?? Preoperative diagnosis: Right hip Osteonecrosis ?? Postoperative diagnosis: Right hip Osteonecrosis ?? Procedure: Right total hip arthroplasty ?? Anesthesia: Spinal ?? Surgeon: Panchito Michael MD ?? Swimming Pool Attendant: Jefe Perry MD ?? Estimated blood loss: 300 cc ?? Fluids: 1200 cc ?? Urine output: Due to Void ?? Drains: None ?? Complications: None ?? Implants: 1. 12 Corail coxa vara femoral stem 2. 52 mm [place] [employer] acetabular shell 3. 36 x 52 +4 acetabular polyethylene liner 4. 36+1.5 mm ceramic femoral head ?? Findings: Significant femoral and acetabular osteoarthritic changes. Components were well positioned. No fractures appreciated. Stability testing reveled stable construct without impingement within physiologic range of motion. Disposition: aroused from sedation, and taken to the recovery room in a stable condition Condition: doing well without problems Infection Bundle used? N/A Attestation: Case Date: 02/13/2017 I was present and I participated during the entire procedure (does not need to include opening and closing). (Please see the Surgical Encounter Summary for any Implant and Specimen details pertinent to this patient.) * Op Note - Panchito Michael MD - 02/13/2017 5:48 AM EDT [facility] Operative Note Patient Name: Nikky Jarrett : [id number] MR#: [id number] Date of surgery: 02/13/2017 Preoperative diagnosis: Right hip Osteonecrosis Postoperative diagnosis: Right hip Osteonecrosis Procedure: Right total hip arthroplasty Anesthesia: Spinal Surgeon: Panchito Michael MD Swimming Pool Attendant: Jefe Perry MD Estimated blood loss: 300 cc Fluids: 1200 cc Urine output: Due to Void Drains: None Complications: None Implants: 1. 12 Corail coxa vara femoral stem 2. 52 mm [place] [employer] acetabular shell 3. 36 x 52 +4 acetabular polyethylene liner 4. 36+1.5 mm ceramic femoral head Findings: Significant femoral and acetabular osteoarthritic changes. Components were well positioned. No fractures appreciated. Stability testing reveled stable construct without impingement within physiologic range of motion. Indications for procedure: Patient is a 62-year-old female with right hip avn. After exhausting conservative measures, the patient elected to proceed with total hip arthroplasty. The risks and benefits of this procedure were reviewed in depth and patient received medical clearance prior to procedure. Description of events: The patient was seen in the same day surgery area where informed consent was confirmed and the appropriate right lower extremity was marked with my initials. This was confirmed by the patient as the correct side. The patient was brought back to the operating room and placed on the operating room table in the supine position. A timeout was performed per policy identifying the correct side, patient identity, and procedure. Preoperative antibiotics were given prior to incision. A spinal anesthetic was provided by the anesthesia staff. The patient was then transitioned to the Haydee table. Well-padded peroneal post was placed and the patient was brought down to this post. The hip was prepped and draped in usual sterile fashion using ChloraPrep. Patient received TXA prior to incision. An approximately 10 cm incision was made starting 1-2 cm distal and 2 cm posterior to the ASIS extending approximately 30 degree posteriorly towards the greater trochanter. Dissection was carried down to the TFL fascia with hemostasis obtained using electrocautery. The fascia of the TFL was identified and deep knife was used to incise the fascia protecting the underlying muscle. 2 Allis clamps were then placed on the anterior leaf of this fascia and blunt finger dissection was used to dissect down into the interval between the rectus and TFL. Lateral aspect of the neck was identified and deeplayer of TFL fascia was bluntly dissected through using a finger and a blunt Leander was placed over t he superior lateral aspect of the neck. Inferior calcar area of the neck was identified and blunt Leander was placed. A Kiet retractor was placed on the TFL laterally and vascular leash in the inferior portion of the incision was dissected free and cauterized. A Marks was then used to identify rectusmedially and retractor was placed underneath the rectus and rectus was elevated off the underlying capsule. Pericapsular fat was removed using Marks. An inverted T capsulotomy was then made using electrocautery extending from the medial aspect of the joint to the intertrochanteric line extending both proximally and distally. #2 Ethibond stay stitches were placed in both corners of our capsulotomy and Homans removed to an intra-articular position. Inferior calcar was removed of soft tissue down to the level of the lesser trochanter. Careful attention was to not include the abductors with their lateral retractor. This provided access to the neck of the femur for osteotomy. Preoperative template and was assessed for level of neck cut from above the lesser trochanter osteotomy was performed starting on the calcar side extending towards the base of the neck. At this point2 turns of traction and external rotation to 50 degrees was performed. Power corkscrew was then used to remove the remaining femoral head from the acetabulum. Femoral head was then measured and initial acetabular reamer was identified. Homans were placed both anterior and posterior to the labrum to provide access to the acetabulum. Long handled knife was used to remove the labrum. Any overhanging osteophytes were removed using a rongeur. Bovie was used to define the true floor and the condyloid fossa. Inferior capsule was released slightly. Reaming was undertaken under C-arm fluoroscopy starting 3 mm below templated size. Initially medialization was undertaken and then the acetabulum was reamed in position aiming for 40 degrees of abduction and approximately 15-20 degrees of anteversion. After reaming was found to be acceptable reamer was removed and excellent bony bleeding was encountered. Acetabular shell of 52 millimeters was malleted into the appropriate anteversion and horizontal position. This had excellent scratch fit. Supplemental screws were placed for additional fixation. Polyethylene insert was positioned into place and malleted into the locking mechanism. Our attention then was turned to femoral preparation, traction was removed the femur was externallyrotated to 90 degrees and brought partly into extension. While performing this maneuver the femur was pulled in a lateral direction. A femoral elevator was placed along the posterior inferior aspect of the neck and a Frazier type retractor was placed over the greater trochanter and a posterior position. Remaining soft tissue at the lateral base of the neck was removed to fully expose the lateral aspect of the neck. Additional release was performed with electrocautery extending posterior laterally to the ???nipple ???with careful attention not to release the short external rotators. Then additional external rotation to greater than 100 degrees was performed the leg was extended all the way down to the floor and adduction were provided. This provided excellent access to the proximal femur for broaching. Rongeur was used to remove any lateral neck that was residual. T-handle was used to assure entry into the femoral canal after box osteotome was used to lateralize approach. Starter broach was used toopen the proximal aspect of the femur with careful attention to keep hand towards floor and body ofpatient. Next, size #8 broach was used to start femoral broaching. Sequential broaches were used until a final size 12 broach had excellent rotational stability. Calcar planing was undertaken and trial femoral neck and head was placed using size 36+1.5 head and coxa vara neck. The hip was reduced by bringing the leg to a neutral position followed by traction and internal rotation with pressure placed on the femoral head. The hip reduced without difficulty. C-arm fluoroscopy was used to assess leg lengths, femoral implant position and size. Stability testing was undertaken with external rotation to 90 degrees and extension of the hip. Stability was found to be excellentand leg lengths and femoral size appropriate. No posterior impingement was encountered, the hip wasthen subsequently dislocated with traction and external rotation and brought to an externally rotated, extended, and adductor position. The femoral broach was removed canal was irrigated and final implant was placed. The hip was re-reduced and found to be stable. Final x-rays were performed and saved. The wound was copiously irrigated with pulsed lavage. Closure included multiple layers. TFL fascia was then closed with a #1 Vicryl in a running locked fashion. Subcutaneous tissues re-approximated with a combination of 0 and 2-0 Vicryl sutures in a buried fashion. 3-0 Monocryl suture was used in asubcutaneous buried fashion for skin closure followed by Dermabond application. A Mepilex border AGdressing was applied. Plan: Patient will be admitted and co-managed with the medical staff. Patient will be weightbearingas tolerated on the surgical extremity without precaution. Patient will use ASA for DVT prophylaxisfor 30 days. Dressing will remain in place for 7 days. No suture removal is necessary. Patient willlikely be discharged to home with VNA services or rehabilitation stay. Follow-up will be in 4 weeksfor wound check and xrays at that visit. Infection Bundle used? N/A Attestation: Case Date: 02/13/2017 I was present and I participated during the entire procedure (does not need to include opening and closing). Panchito Michael MD 02/13/2017 documented in this encounter Plan of Treatment Upcoming Encounters Date Type Department Care Team (Late st Contact Info) Description 03/23/2024 9:15 AM EDT Appointment XRay at [address] [place] [address] 03/23/2024 10:00 AM EDT Office [place] [address] Kathie Polk MD [facility] [place] [address] Scheduled Referrals Name Type Priority Associated Diagnoses Orde r Schedule Referral to Physical Therapy Outpatient Referral Routine Primary osteoarthritis of right hip Ordered: 02/14/2017 documented as of this encounter Procedures Procedure Name Priority Date/Time Associated Diagnosis Comments IMPLANTABLE DEVICES SCAN 02/15/2017 12:00 AM EDT HOG STICKER SCAN 02/15/2017 12:00 AM EDT HEMOGRAM Routine 02/14/2017 3:55 AM EDT DIFFERENTIAL, AUTOMATED Routine 02/14/2017 3:55 AM EDT CBC (WITH DIFF) Routine 02/14/2017 3:55 AM EDT BASIC METABOLIC PANEL Routine 02/14/2017 3:55 AM EDT XR FLUORO NO RAD <1HR - OR USE Routine 02/13/2017 10:07 AM EDT MODIFIER PINNACLE GRIPTION ACETABULUM DEPUY 02/13/2017 8:29 AM EDT Primary osteoarthritis of right hip MODIFIER CORAIL FEMORAL STEM DEPUY 02/13/2017 8:29 AM EDT Primary osteoarthritis of right hip HIP INTRAOP RADIOLOGIC EXAMINATION, UNILATERAL, W PELVIS; 4+ VIEWS (WRVU 0.27) 02/13/2017 8:29 AM EDT Primary osteoarthritis of right hip TOTAL HIP ARTHROPLASTY, ANTERIOR APPROACH (WRVU 19.6) 02/13/2017 8:29 AM EDT Primary osteoarthritis of right hip HIP INTRAOP RADIOLOGIC EXAMINATION, UNILATERAL, W PELVIS; 4+ VIEWS Routine 02/13/2017 7:10 AM EDT Primary osteoarthritis of right hip documented in this encounter Results * SCAN DOC: IMPLANTABLE DEVICES (02/15/2017 12:00 AM EDT) Narrative 02/15/2017 12:00 AM EDT Ordered by an unspecified provider. Scanning Provider MEDIA MGR SCAN EXT O RDR/RSLT * SCAN DOC: HOG STICKER (02/15/2017 12:00 AM EDT) Anatomical Region Laterality Modality Other Narrative 02/15/2017 12:00 AM EDT Ordered by an unspecified provider. Scanning Provider MEDIA MGR SCAN EXT O RDR/RSLT * (ABNORMAL) Differential, Automated (02/14/2017 3:55 AM EDT) Neutrophil % 80.4 % [facility] Neutrophil Absolute 9.10(H) 1.70 - 6.10 x10(3)/[facility] Lymph % 11.2 % [facility] Lymphocytes Abs 1.3 0.9 - 3.2 x10(3)/[facility] Monocyte % 7.8 % [facility] Monocyte Abs 0.9 0.3 - 0.9 x10(3)/[facility] Eos % 0.0 % [facility] Eosinophils Abs 0.0 0.0 - 0.4 x10(3)/[facility] Basophil % 0.2 % [facility] Baso Absolute 0.0 0.0 - 0.1 x10(3)/[facility] Immature Gran % 0.40 % [facility] Comment: Immature granulocytes(IG's)percentage and absolute count will include metamyelocytes, myelocytes, and promyelocytes. Blood smears from CBCs yielding IG's will be scanned manually for concordance. If this scan disagrees with the automated IG or if promyelocytes are noted, a manual differential will be performed. Immature Gran Absolute 0.04 0.00 - 0.04 x10(3)/ L [facility] Blood specimen (specimen) 02/14/2017 3:55 AM EDT 02/14/2017 4:31 AM EDT Narrative Resulting Agency Comment Spec In Lab Panchito Michael MD HEMATOLOGY ORDERABLE S Performing Organization Address City/[facility]/ZIP Co de Phone Number [facility] [place] [address] * (ABNORMAL) Hemogram (02/14/2017 3:55 AM EDT) White Blood Cell 11.3(H) 4.0 - 9.5 x10(3)/mc L [facility] Red Blood Cell 3.88(L) 4.00 - 5.21 x10(6)/mc L [facility] Hemoglobin 11.9 11.7 - 15.5 gm/dL [facility] Hematocrit 36.4 35.7 - 45.8 % [facility] Mean Cell Volume 93.8 82.6 - 94.4 fL [facility] Mean Cell Hemoglobin 30.7 27.1 - 32.0 pg [facility] Mean Cell Hemoglobin Concentration 32.7 31.7 - 35.0 gm/dL [facility] Platelet 248 145 - 357 x10(3)/mc L [facility] RDW Standard Deviation 43.3 37.0 - 46.0 fL [facility] RDW coefficient of variation 12.5 11.5 - 14.1 % [facility] Mean Platelet Volume 10.7 7.6 - 12.9 fL [facility] NRBC% auto 0.0 % [facility] NRBC Absolute 0.000 0.000 - 0.000 x10(3)/mc L [facility] Blood specimen (specimen) 02/14/2017 3:55 AM EDT 02/14/2017 4:31 AM EDT Narrative Resulting Agency Comment Spec In Lab aPnchito Michael MD HEMATOLOGY ORDERABLE S [facility] [place] [address] * (ABNORMAL) Basic Metabolic Panel (non-fasting) (02/14/2017 3:55 AM EDT) Glucose 135 65 - 199 mg/dL [facility] Comment:Diabetes: >=200 mg/d L plus symptoms Blood Urea Nitrogen 11 8 - 18 mg/dL [facility] Creatinine 0.49(L) 0.70 - 1.20 mg/dL [facility] Comment: Please note that the pediatric reference intervals supplied above were not validated at [facility]. Results from pediatric patients should be interpreted in conjunction to the patient's age, height and muscle mass. Sodium 141 135 - 145 mmol/L [facility] Potassium 4.4 3.5 - 5.0 mmol/L [facility] Comment: Please note: ??Patients with WBC >100,000 may have falsely elevated Potassium levels. ??For accurate Potassium quantification in these patients send serum separator tube (gold top) for subsequent determinations. ??Contact the Clinical Chemistry Laboratory if there are any questions. Chloride 106 98 - 107 mmol/L [facility] Carbon Dioxide 21(L) 22 - 31 mmol/L [facility] Anion Gap 14 5 - 15 mmol/L [facility] Calcium 8.8 8.5 - 10.5 mg/dL [facility] Est Glomerular Filtration Rate >60 >=60 [...] the following links into your internet browser. [email or web address].Testlio/[email or web address] [email or web address].Testlio/[email or web address] Blood specimen (specimen) 02/14/2017 3:55 AM EDT 02/14/2017 4:31 AM EDT Narrative Resulting Agency Comment Spec In Lab Pacnhito Michael MD CHEMISTRY ORDERABLES Performing Organization Address City/[facility] Co de Phone Number [facility] [place] [address] * XR Fluoro No Rad <1Hr - OR Use (02/13/2017 10:07 AM EDT) Narrative RAD - 02/13/2017 10:09 AM EDT This order does not need a radiologist interpretation. ?? Panchito Michael MD IMG FLUORO ORDERABLE S Performing Organization Address [facility] Co de Phone Number [place], [place] documented in this encounter Visit Diagnoses Diagnosis s/p R SHANTI Dr. Michael 02/13/17- Primary Primary osteoarthritis of right hip Primary localized osteoarthrosis, pelvic region and thigh documented in this encounter Administered Medications Inactive Administered Medications - up to 3 most recent administrations Medication Order MAR Action Action Date Dose Rate Site acetaminophen (TYLENOL) tablet 1,000 mg 1,000 mg, Oral, ONCE, 1 dose, On Thu02/13/17 at 0800, Administer on arrival in Same Day Program, Day of Surgery (Day of Procedure), Routine Given 02/13/2017 7:52 AM EDT 1,000 mg acetaminophen (TYLENOL) tablet 1,000 mg 1,000 mg, Oral, EVERY 8 HOURS SCHEDULED, First dose on Thu02/13/17 at 1415, Until Discontinued, Maximum dose of acetaminophen is 4000 mg from all sources in 24 hours., Routine Given 02/14/2017 8:29 AM EDT 1,000 mg Given 02/14/2017 12:19 AM EDT 1,000 mg Given 02/13/2017 5:49 PM EDT 1,000 mg aspirin EC tablet 81 mg 81 mg, Oral, 2 TIMES DAILY, First dose on Thu02/13/17 at 2100, Until Discontinued, Routine Given 02/14/2017 8:29 AM EDT 81 mg Given 02/13/2017 8:39 PM EDT 81 mg ceFAZolin (ANCEF) 1g in dextrose 5% 50mL 1 g, Intravenous, EVERY 8 HOURS, 3 doses, First dose on Thu02/13/17 at 1145, Last dose on Thu02/14/17 at 0400, Administer over 30 Minutes, Adjust to 4 hours from intraoperative dose. * Beta-lactam based antibiotics (eg. Ampicillin, Cefazolin, Aztreonam) should be administered within 4 hours of the preceding intraoperative dose. * Vancomycin, Flouroquinolones, Clindamycin, Gentamicin, and Metronidazole should be administered within 8 hours of the preceding intraoperative dose., Recovery (Recovery-Hospital Unit), Indication for (Active or Suspected): Prophylaxis New Bag 02/14/2017 4:01 AM EDT 1 g 100 mL/hr New Bag 02/13/2017 8:39 PM EDT 1 g 100 mL/hr New Bag 02/13/2017 2:57 PM EDT 1 g 100 mL/hr celecoxib (CeleBREX) capsule 200 mg 200 mg, Oral, 2 TIMES DAILY, First dose on Thu02/13/17 at 1415, Until Discontinued, Routine Given 02/14/2017 8:29 AM EDT 200 mg Given 02/13/2017 8:37 PM EDT 200 mg celecoxib (CeleBREX) capsule 400 mg 400 mg, Oral, ONCE, 1 dose, On Thu02/13/17 at 0800, Administer on arrival to Same Day Program, Day of Surgery (Day of Procedure), Routine Given 02/13/2017 7:52 AM EDT 400 mg dexamethasone (DECADRON) tablet 4 mg 4 mg, Oral, DAILY, 2 doses, First dose on Thu02/13/17 at 1415, Last dose on Thu02/14/17 at 0900, Routine Given 02/14/2017 8:29 AM EDT 4 mg Given 02/13/2017 2:24 PM EDT 4 mg fentaNYL 50mcg/mL injection 50 mcg, Intravenous, EVERY 5 MIN PRN, Starting on Thu02/13/17 at 1047, Until Thu02/13/17 at 1248, Pain, for 5-10 pain score, for 5-10 pain score Hold for respiratory rate less than 10 per minute. Maximum dose: 250 mcg over one hour., PACU Recovery, Routine Given 02/13/2017 12:33 PM EDT 50 mcg FLUoxetine (PROzac) capsule 20 mg 20 mg, Oral, DAILY, First dose on Thu02/13/17 at 1415, Until Discontinued, Routine Given 02/14/2017 8:30 AM EDT 20 mg Given 02/13/2017 2:24 PM EDT 20 mg gabapentin (NEURONTIN) capsule 300 mg 300 mg, Oral, ONCE, 1 dose, On Thu02/13/17 at 0800, Administer on arrival in Same Day Program, Day of Surgery (Day of Procedure), Routine Given 02/13/2017 7:52 AM EDT 300 mg gabapentin (NEURONTIN) capsule 300 mg 300 mg, Oral, NIGHTLY, First dose on Thu02/15/17 at 2100, Until Discontinued, Routine gabapentin (NEURONTIN) capsule 600 mg 600 mg, Oral, NIGHTLY, 2 doses, First dose on Thu02/13/17 at 2100, Last dose on Thu02/14/17 at 2100, Routine Given 02/13/2017 8:38 PM EDT 600 mg ketorolac (TORADOL) injection 15 mg 15 mg, Intravenous, EVERY 6 HOURS SCHEDULED, 4 doses, First dose on Thu02/13/17 at 1230, Last dose on Thu02/14/17 at 0600, Routine Given 02/14/2017 6:07 AM EDT 15 mg Given 02/14/2017 12:18 AM EDT 15 mg Given 02/13/2017 5:48 PM EDT 15 mg lactated Ringers infusion 1,000 mL 1,000 mL, at 100 mL/hr, Intravenous, CONTINUOUS, Starting on Thu02/13/17 at 0800, Until Thu02/13/17 at 1248, Day of Surgery (Day of Procedure) [facility] 02/13/2017 8:00 AM EDT 1,000 mLs 100 mL/hr multivitamin Sixu-Gi-JX-Min (THERAPEUTIC-M) 27-0.4 mg tablet 1 tablet 1 tablet, Oral, DAILY, First dose on Thu02/13/17 at 1415, Until Discontinued Given 02/14/2017 8:29 AM EDT 1 tablet Given 02/13/2017 2:24 PM EDT 1 tablet oxyCODONE (ROXICODONE) immediate release tablet 5-15 mg 5-15 mg, Oral, EVERY 4 HOURS PRN, Starting on Thu02/13/17 at 1204, Until Thu02/14/17 at 1638, Pain, Give 5 mg for mild pain (1-3), 10 mg for moderate pain (4-6) or 15 mg for severe pain (7-10) May give an additional 5 mg in 30 minutes ONCE if pain not relieved., Routine Given 02/14/2017 1:29 PM EDT 10 mg Given 02/14/2017 8:33 AM EDT 10 mg Given 02/14/2017 4:01 AM EDT 10 mg pantoprazole (PROTONIX) tablet 20 mg 20 mg, Oral, DAILY, First dose on Thu02/13/17 at 1415, Until Discontinued, DO NOT CRUSH OR OPEN Given 02/14/2017 8:29 AM EDT 20 mg Given 02/13/2017 2:25 PM EDT 20 mg polyethylene glycol (MIRALAX) packet 17 g 17 g, Oral, 2 TIMES DAILY, First dose on Thu02/13/17 at 1415, Until Discontinued, Routine Given 02/14/2017 8:29 AM EDT 17 g Given 02/13/2017 8:39 PM EDT 17 g Given 02/13/2017 2:26 PM EDT 17 g senna-docusate (PERICOLACE) 8.6-50 mg per tablet 2 tablet 2 tablet, Oral, 2 TIMES DAILY, First dose on Thu02/13/17 at 1415, Until Discontinued, Routine Given 02/14/2017 8:29 AM EDT 2 tablets Given 02/13/2017 8:39 PM EDT 2 tablets Given 02/13/2017 2:24 PM EDT 2 tablets sodium chloride 0.9 % flush 5 mL 5 mL, Intravenous, 2 TIMES DAILY, First dose on Thu02/13/17 at 1415, Until Discontinued, Recovery (Recovery-Hospital Unit), Routine Given 02/14/2017 8:30 AM EDT 5 mLs Given 02/13/2017 8:40 PM EDT 5 mLs sodium chloride 0.9% infusion 1,000 mL, at 100 mL/hr, Intravenous, CONTINUOUS, Starting on Thu02/13/17 at 1145, Until 02/14/17 at 1638, Recovery (Recovery-Hospital Unit) New Bag 02/14/2017 12:19 AM EDT 1,000 mLs 100 mL/hr Continued Bag 02/13/2017 2:26 PM EDT 1,000 mLs 100 mL/hr documented in this encounter Active and Recently Administered Medications Times are shown in EDT. Scheduled Medication Order 02/12/2017 02/13/2017 02/14/2017 acetaminophen (TYLENOL) tablet 1,000 mg (COMPLETED) 1,000 mg, Oral, ONCE, 1 dose, On Thu02/13/17 at 0800, Administer on arrival in Same Day Program, Day of Surgery (Day of Procedure), Routine 0752 (Given - Provider: Mercedes Palma RN) acetaminophen (TYLENOL) tablet 1,000 mg 1,000 mg, Oral, EVERY 8 HOURS SCHEDULED, First dose on Thu02/13/17 at 1415, Until Discontinued, Maximum dose of acetaminophen is 4000 mg from all sources in 24 hours., Routine 1415 (Not Given - Provider: Jennifer Ellington RN - Reason: See comment - Comment: too soon from pervious dose)174 (Given - Provider: Jeannine Plata RN - Comment: DID not take 1400 dose.Will page pharmacy to re-time) 001 (Given - Provider: Steven Mccoy RN)0829 (Given - Provider: Jeannine Plata RN) aspirin EC tablet 81 mg 81 mg, Oral, 2 TIMES DAILY, First dose on Thu02/13/17 at 2100, Until Discontinued, Routine 2038 (Given - Provider: Steven Mccoy RN) 0829 (Given - Provider: Jeannine Plata RN) ceFAZolin (ANCEF) 1g in dextrose 5% 50mL (COMPLETED) 1 g, Intravenous, EVERY 8 HOURS, 3 doses, First dose on Thu02/13/17 at 1145, Last dose on Thu02/14/17 at 0400, Administer over 30 Minutes, Adjust to 4 hours from intraoperative dose. * Beta-lactam based antibiotics (eg. Ampicillin, Cefazolin, Aztreonam) should be administered within 4 hours of the preceding intraoperative dose. * Vancomycin, Flouroquinolones, Clindamycin, Gentamicin, and Metronidazole should be administered within 8 hours of the preceding intraoperative dose., Recovery (Recovery-Hospital Unit), Indication for (Active or Suspected): Prophylaxis 1457 (New Bag - Provider: Jennifer Ellington RN)1527 (Stopped - Provider: Jeannine Plata RN)2038 (New Bag - Provider: Steven Mccoy RN)210 (Stopped - Provider: Emelyn Barahona, JEFFERSON) 040 (New Bag - Provider: Steven Mccoy, JEFFERSON)0431 (Stopped - Provider: Emelyn Barahona RN) ceFAZolin (ANCEF) 2g in dextrose 5% 100 mL (COMPLETED) 2 g, Intravenous, EVERY 3 HOURS, 1 dose, First dose on Thu02/13/17 at 0800, Administer over 30 Minutes, Redose after 3 hours., Intra-Operative (Intra-Procedure), Indication for (Active or Suspected): Prophylaxis 08 (Given - Provider: Azael Giraldo CRNA) celecoxib (CeleBREX) capsule 200 mg 200 mg, Oral, 2 TIMES DAILY, First dose on Thu02/13/17 at 1415, Until Discontinued, Routine 1415 (Not Given - Provider: Jennifer Ellington RN - Reason: Contraindicated)2036 (Given - Provider: Steven Mccoy RN) 08 (Given - Provider: Jeannine Plata RN) celecoxib (CeleBREX) capsule 400 mg (COMPLETED) 400 mg, Oral, ONCE, 1 dose, On Thu02/13/17 at 0800, Administer on arrival to Same Day Program, Day of Surgery (Day of Procedure), Routine 075 (Given - Provider: Mercedes Palma RN) dexamethasone (DECADRON) tablet 4 mg (COMPLETED) 4 mg, Oral, DAILY, 2 doses, First dose on Thu02/13/17 at 1415, Last dose on Thu02/14/17 at 0900, Routine 1424 (Given - Provider: Jennifer Ellington RN) 0829 (Given - Provider: Jeannine Plata RN) FLUoxetine (PROzac) capsule 20 mg 20 mg, Oral, DAILY, First dose on Thu02/13/17 at 1415, Until Discontinued, Routine 1424 (Given - Provider: Jennifer Ellington RN) 0830 (Given - Provider: Jeannine Plata RN) gabapentin (NEURONTIN) capsule 300 mg (COMPLETED) 300 mg, Oral, ONCE, 1 dose, On Thu02/13/17 at 0800, Administer on arrival in Same Day Program, Day of Surgery (Day of Procedure), Routine 0752 (Given - Provider: Mercedes Palma RN) gabapentin (NEURONTIN) capsule 300 mg(Linked Group 1) 300 mg, Oral, NIGHTLY, First dose on Thu02/15/17 at 2100, Until Discontinued, Routine gabapentin (NEURONTIN) capsule 600 mg(Linked Group 1) 600 mg, Oral, NIGHTLY, 2 doses, First dose on Thu02/13/17 at 2100, Last dose on Thu02/14/17 at 2100, Routine 2037 (Given - Provider: Steven Mccoy, JEFFERSON) ketorolac (TORADOL) injection 15 mg (COMPLETED) 15 mg, Intravenous, EVERY 6 HOURS SCHEDULED, 4 doses, First dose on Thu02/13/17 at 1230, Last dose on Thu02/14/17 at 0600, Routine 1230 (Given - Provider: Fiona Lorenz RN)1748 (Given - Provider: Jeannine Plata RN) 0018 (Given - Provider: Steven Mccoy, JEFFERSON)0607 (Given - Provider: Steven Mccoy RN) multivitamin Hqhr-Xq-UT-Min (THERAPEUTIC-M) 27-0.4 mg tablet 1 tablet 1 tablet, Oral, DAILY, First dose on Thu02/13/17 at 1415, Until Discontinued 142 (Given - Provider: Jennifer Ellington RN) 0829 (Given - Provider: Jeannine Plata RN) pantoprazole (PROTONIX) tablet 20 mg 20 mg, Oral, DAILY, First dose on Thu02/13/17 at 1415, Until Discontinued, DO NOT CRUSH OR OPEN 1425 (Given - Provider: Jennifer Ellington RN) 0829 (Given - Provider: Jeannine Plata RN) polyethylene glycol (MIRALAX) packet 17 g 17 g, Oral, 2 TIMES DAILY, First dose on Thu02/13/17 at 1415, Until Discontinued, Routine 1426 (Given - Provider: Jennifer Ellington RN)2038 (Given - Provider: Steven Mccoy RN) 0829 (Given - Provider: Jeannine Plata RN) senna-docusate (PERICOLACE) 8.6-50 mg per tablet 2 tablet 2 tablet, Oral, 2 TIMES DAILY, First dose on Thu02/13/17 at 1415, Until Discontinued, Routine 1424 (Given - Provider: Jennifer Ellington RN)2038 (Given - Provider: Steven Mccoy, JEFFERSON) 0829 (Given - Provider: Jeannine Plata RN) sodium chloride 0.9 % flush 5 mL 5 mL, Intravenous, 2 TIMES DAILY, First dose on Thu02/13/17 at 1415, Until Discontinued, Recovery (Recovery-Hospital Unit), Routine 1415 (Not Given - Provider: Jennifer Ellington RN - Reason: Contraindicated)2039 (Given - Provider: Steven Mccoy, RN) 0830 (Given - Provider: Jeannine Plata, JEFFERSON) tranexamic acid (CYKLOKAPRON) 1,293 mg in sodium chloride 0.9% 112.93 mL (COMPLETED) 1,293 mg (15 mg/kg/dose ? 86.2 kg), Intravenous, ONCE, 1 dose, On Thu02/13/17 at 0800, Administer over 30 Minutes, Dilute tranexamic acid dose in 100 mL sodium chloride 0.9% prior to administration. For patients less than or equal to 200 kg infuse over 30 minutes. For patients greater than 200 kg infuse over 60 minutes. , Day of Surgery (Day of Procedure) 0828 (New Bag - Provider: Azael Giraldo CRNA) Continuous Medication Order 02/12/2017 02/13/2017 02/14/2017 lactated Ringers infusion 1,000 mL (CANCELED) 1,000 mL, at 100 mL/hr, Intravenous, CONTINUOUS, Starting on Thu02/13/17 at 0800, Until Thu02/13/17 at 1248, Day of Surgery (Day of Procedure) 0800 (New Bag - Provider: Mercedes Palma RN) sodium chloride 0.9% infusion 1,000 mL, at 100 mL/hr, Intravenous, CONTINUOUS, Starting on Thu02/13/17 at 1145, Until 02/14/17 at 1638, Recovery (Recovery-Hospital Unit) 1426 (Continued Bag - Provider: Jennifer Ellington RN) 0019 (New Bag - Provider: Steven Mccoy, JEFFERSON) PRN Medication Order 02/12/2017 02/13/2017 02/14/2017 bisacodyl (DULCOLAX) EC tablet 10 mg 10 mg, Oral, 2 TIMES DAILY PRN, Starting on Thu02/13/17 at 1348, Until 02/14/17 at 1638, Constipation, DO NOT CRUSH OR OPEN Administer if needed per patient's routine or if no bowel movement within 48 hours to achieve: 1) One bowel movement at least every 48 hours, AND 2) Without straining. If multiple bowel medications ordered, consider adding bisacodyl if polyethylene glycol (MIRALAX), docusate/senna, or lactulose not sufficient., Routine bisacodyl (DULCOLAX) suppository 10 mg 10 mg, Rectal, DAILY PRN, Starting on Thu02/13/17 at 1348, Until 02/14/17 at 1638, Constipation, Administer if needed per patient's routine or if no bowel movement within 48 hours to achieve: 1) One bowel movement at least every 48 hours, AND 2) Without straining. If multiple bowel medications ordered, consider adding bisacodyl if polyethylene glycol (MIRALAX), docusate/senna, or lactulose not sufficient. If patient unable to take PO, may give NE if ordered, Routine BUpivacaine (PF) (MARCAINE) 0.25 % (2.5 mg/mL) injection (CANCELED) ONCE PRN, Starting on Thu02/13/17 at 0830, Until 02/14/17 at 1638, Intra-Operative (Intra-Procedure), Routine 0830 (Given - Provider: Panchito Michael MD - Comment: mixed w/ clonidine & toradol, onto sterile field, used prn) cloNIDine injection (CANCELED) ONCE PRN, Starting on Thu02/13/17 at 0830, Until 02/14/17 at 1638, Intra-Operative (Intra-Procedure), Routine 0830 (Given - Provider: Panchito Michael MD - Comment: mixed w/ marcaine) fentaNYL 50mcg/mL injection (CANCELED)(Linked Group 2) 50 mcg, Intravenous, EVERY 5 MIN PRN, Starting on Thu02/13/17 at 1047, Until 02/13/17 at 1248, Pain, for 5-10 pain score, for 5-10 pain score Hold for respiratory rate less than 10 per minute. Maximum dose: 250 mcg over one hour., PACU Recovery, Routine 1233 (Given - Provider: Fiona Lorenz RN) ketorolac (TORADOL) injection (CANCELED) ONCE PRN, Starting on Thu02/13/17 at 0830, Until 02/14/17 at 1638, Intra-Operative (Intra-Procedure), Routine 0830 (Given - Provider: Panchito Michael MD - Comment: mixed w/ marcaine) lactulose (CHRONULAC) 20 gram/30 mL oral solution 20-40 g 20-40 g (30-60 mL), Oral, DAILY PRN, Starting on Thu02/13/17 at 1348, Until 02/14/17 at 1638, Constipation, Administer if needed per patient's routine or if no bowel movement within 48 hours. Start with 30 mL orally to achieve: 1) One bowel movement at least every 48 hours, AND 2) Without straining. If no bowel movement within 24 hours, may increase to 60 mL orally once daily PRN. If multiple bowel medications ordered, consider adding lactulose first or if polyethylene glycol (MIRALAX) or docusate/senna not sufficient., Routine lidocaine (XYLOCAINE) 10 mg/mL (1 %) injection 3 mg 3 mg (0.3 mL), Subcutaneous, ONCE PRN, 1 dose, Starting on Thu02/13/17 at 1348, Until 02/14/17 at 1638, for discomfort with PIV insertion, Recovery (Recovery-Hospital Unit), Routine oxyCODONE (ROXICODONE) immediate release tablet 5-15 mg 5-15 mg, Oral, EVERY 4 HOURS PRN, Starting on Thu02/13/17 at 1204, Until 02/14/17 at 1638, Pain, Give 5 mg for mild pain (1-3), 10 mg for moderate pain (4-6) or 15 mg for severe pain (7-10) May give an additional 5 mg in 30 minutes ONCE if pain not relieved., Routine 1207 (Given - Provider: Fiona Lorenz RN)2038 (Given - Provider: Steven Mccoy, JEFFERSON) 0401 (Given - Provider: Steven Mccoy, JEFFERSON)0833 (Given - Provider: Jeannine Plata, JEFFERSON)1329 (Given - Provider: Jeannine Plata, JEFFERSON) sodium chloride 0.9 % flush 5-20 mL 5-20 mL, Intravenous, EVERY 1 MIN PRN, Starting on Thu02/13/17 at 1348, Until 02/14/17 at 1638, flush, Flush pertains to all indwelling lines. Flush per protocol found in the job aid using the link provided on this medication record., Recovery (Recovery-Hospital Unit), Routine Linked Groups Order Group 1: gabapentin (NEURONTIN) capsule 600 mgJump to med 600 mg, Oral, NIGHTLY, 2 doses, First dose on 02/13/17 at 2100, Last dose on Thu02/14/17 at 2100, Routine Followed by gabapentin (NEURONTIN) capsule 300 mgJump to med 300 mg, Oral, NIGHTLY, First dose on Thu02/15/17 at 2100, Until Discontinued, Routine Group 2: fentaNYL 50mcg/mL injection (CANCELED) 25 mcg, Intravenous, EVERY 5 MIN PRN, Starting on Thu02/13/17 at 1047, Until Thu02/13/17 at 1248, Pain, for 1-4 pain score, for 1-4 pain score Hold for respiratory rate less than 10 per minute. Maximum dose: 250 mcg over one hour., PACU Recovery, Routine Or fentaNYL 50mcg/mL injection (CANCELED)Jump to med 50 mcg, Intravenous, EVERY 5 MIN PRN, Starting on Thu02/13/17 at 1047, Until Thu02/13/17 at 1248, Pain, for 5-10 pain score, for 5-10 pain score Hold for respiratory rate less than 10 per minute. Maximum dose: 250 mcg over one hour., PACU Recovery, Routine documented in this encounter Care Teams Hook Up Driver Relationship Specialty Start Date End Date Austin Rodriguez MD [address] [place] [address] PCP - General Family Medicine 06/12/15 05/18/18 documented as of this encounter
--- OUTSIDE RECORDS SUMMARY | 2024-03-07 08:55 | XMS_ITS | Encounter Summary ---
Author Organization [facility] Address [facility] [place] [address] Care Team Providers Care Coil Machine Supervisor Name Role Phone Austin Rodriguez MD Primary Care Provider [phone] Encounter Details Date Type Department Care Team (Latest Contact Info) Description 01/01/2017 9:09 AM EDT - 01/01/2017 11:59 PM EDT Hospital Encounter XRay at [address] [place] [address] Panchito Michael MD History of total hip arthroplasty, left; Right hip pain Discharge Disposition: Home Social History Tobacco [...] 03/23/2024 9:15 AM EDT Appointment XRay at [address] [place] [address] 03/23/2024 10:00 AM EDT Office [place] [address] Kathie Polk MD [facility] [place] [address] documented as of this encounter Procedures Procedure Name Priority Date/Time Associated Diagnosis Comments XR PELVIS AND HIP 2 VIEWS BILATERAL Routine 01/01/2017 9:37 AM EDT History of total hip arthroplasty, left Right hip pain documented in this encounter Results * XR Pelvis w AP & Lat Hip Bilat (01/01/2017 9:37 AM EDT) Anatomical Region Laterality Modality Pelvis, Hip Bilateral Digital Radiogra phy Narrative 01/01/2017 9:48 AM EDT EXAMINATION: XR PELVIS W AP AND LAT HIP BILAT CLINICAL HISTORY: Right Hip Pain, Left SHANTI 08/17/15 TECHNIQUE: ? COMPARISON: Multiple examinations since 2014. FINDINGS: RIGHT Unchanged osteoarthropathy of the RIGHT hip with eccentric superior lateral joint space narrowing, osteophyte formation and subchondral sclerosis. LEFT A LEFT total hip arthroplasty is present. Alignment: The prosthesis is unchanged in alignment. Complication: There is no loosening or fracture. Soft tissues: Unchanged Impression 1. ??Unchanged and Uncomplicated LEFT Total ??hip arthroplasty 2. ??RIGHT hip osteoarthropathy, unchanged since 2014. Procedure Note Nia Leon MD - 01/01/2017 EXAMINATION: XR PELVIS W AP AND LAT HIP BILAT CLINICAL HISTORY: Right Hip Pain, Left SHANTI 08/17/15 TECHNIQUE: COMPARISON: Multiple examinations since 2014. FINDINGS: RIGHT Unchanged osteoarthropathy of the RIGHT hip with eccentric superiorlateral joint space narrowing, osteophyte formation and subchondral sclerosis. LEFT A LEFT total hip arthroplasty is present. Alignment: The prosthesis is unchanged in alignment. Complication: There is no loosening or fracture. Soft tissues: Unchanged Impression 1. Unchanged and Uncomplicated LEFT Total hip arthroplasty 2. RIGHT hip osteoarthropathy, unchanged since 2014. Panchito Michael MD IMG DX ORDERABLES documented in this encounter Visit Diagnoses Diagnosis History of total hip arthroplasty, left Right hip pain Pain in joint, pelvic region and thigh documented in this encounter Care Teams Coil Machine Supervisor Relationship Specialty Start Date End Date Austin Rodriguez MD [address] [place] [id number] PCP - General Family Medicine 06/12/15 05/18/18 documented as of this encounter
--- OUTSIDE RECORDS SUMMARY | 2024-03-07 08:55 | XMS_ITS | Encounter Summary ---
Author Organization [facility] [place] [address] Care Team Providers Care Music Cataloguer Name Role Phone Austin Rodriguez MD Primary Care Provider [phone] Reason for Referral * Physical Therapy (Routine) - Closed Specialty Diagnoses / Procedures Referred By Thomas hernandes Referred To Contact Physical Therapy Diagnoses Osteoarthritis of left hip, unspecified osteoarthritis type Panchito Michael MD [facility] [address] [place] [address] Referral ID Status Reason Start Date Expiration Date V isits Requested Visits Authorized [id number] Closed Evaluate and Treat 09/13/2015 03/11/2016 12 12 Reason for Visit * Reason Comments Follow Up Surgery Lt SHANTI Ant DOS Encounter Details Date Type Department Care Team (Latest Contact Info) Description 09/13/2015 10:10 AM EDT Office [place] [address] Panchito Michael MD Osteoarthritis of left hip, [...] Sign Reading Time Taken Comments Blood Pressure 121/60 09/13/2015 9:24 AM EDT Pulse 68 09/13/2015 9:24 AM EDT Temperature 36.4 ??C (97.6 ??F) 09/13/2015 9 :24 AM EDT Respiratory Rate - - Oxygen Saturation - - Inhaled Oxygen Concentration - - Weight 90.6 kg (199 lb 12.8 oz) 09/13/2015 9:24 AM EDT fully clothed Height 173.6 cm (5' 8.35) 09/13/2015 9 :24 AM EDT with shoes Body Mass Index 30.07 09/13/2015 9:24 AM EDT documented in this encounter Progress Notes * Panchito Michael MD - 09/13/2015 9:36 AM EDT Arthroplasty/Orthopaedic History: 1. HPI: Nikky Jarrett is a very pleasant 60 y.o. year-old female who presents for a 4 weeks follow-upof the above procedure. The patient has been doing well and her pain is markedly improved over preoperative status. No fevers, chills, nausea, vomiting, or symptoms of infection. Nikky has been ambulating with one crutche and working with PT. She is not taking narcotic pain medicine. Physical Exam: Well-appearing female in no acute distress. Alert and Oriented x 3 and answers all questions appropriately. The incision is well healed, with no signs of infection. Hip Exam: Left Leg Length: Longer leg: equal Limb Length discrepancy: 0cm Motion: Flexion contracture: 0 Total degrees of Flexion: 95 Total degrees of Abduction: 30 Total degrees of Ext Rotation: 35 Total degrees of Internal Rotation: 20 Gait Abnormality: Antalgic Pulses Palpable: Left PT: Yes Left DP: Yes Motor/Sensory: Left Distal Motor: Normal Distal Sensory: Normal Hip Abductors: 4 Trendelenburg test: negative X-RAYS: Multiple radiographic views were obtained at my request and reviewed with the patient. X-rays show a well-placed prosthesis with no evidence of fracture, subsidence, loosening, or periprosthetic complication. Questionnaire Responses: [facility] Surgical Postop Visit 09/13/2015 PROMIS-10 General Health Very Good PROMIS-10 Quality of Life Very Good PROMIS-10 Physical Health Good PROMIS-10 Mental Health Very Good PROMIS-10 Social Activity Very Good PROMIS-10 Everyday Activities A little PROMIS-10 Pain 3 PROMIS-10 Fatigue Moderate PROMIS-10 Social Roles Good PROMIS-10 Anxious or Depressed Sometimes PROMIS PHYSICAL HEALTH SCORE 39.8 PROMIS MENTAL HEALTH SCORE 50.8 Problems with surgical incision/wound after surgery No Gone to ER since knee surgery No Admitted to hospital since recent ortho surgery No Additional surgery on same body part No [facility] Response 09/13/2015 HOOS-PS Scores 33.9 OSWESTRY DISABILITY INDEX - Spine [facility] Response 06/21/2015 Oswestry (ADENIKE) Score 40 ASSESSMENT/PLAN: Ms. aJrrett is a 60 y.o. year old female 4 weeks post-op and doing well. Continue weightbearing as tolerated and working on range of motion, and we will see her back in 8 weeks for repeat examination. No X-rays will be needed at that time. Patient may return to normal activities as her pain and function allow. We discussed the appropriate precautions surrounding dental prophylaxis. I stressed that she shouldcall the office for a prescription prior to any dental work for the lifetime of the joint replacement. We also discussed maintaining good foot care and giving prompt attention to any source of infection throughout the body including foot ulcers and urinary tract infections. All questions were answered. Signed: Panchito Michael MD 09/13/2015 documented in this encounter Plan of Treatment Upcoming Encounters Date Type Department Care Team (Late st Contact Info) Description 03/23/2024 9:15 AM EDT Appointment XRay at [address] [place] [address] 03/23/2024 10:00 AM EDT Office Visit Orthopaedics at [facility] [place] [address] Kathie Polk MD [facility] [place] [address] Scheduled Referrals Name Type Priority Associated Diagnoses Orde r Schedule Referral to Physical Therapy Outpatient Referral Routine Osteoarthritis of left hip, unspecified osteoarthritis type Ordered: 09/13/2015 documented as of this encounter Visit Diagnoses Diagnosis Osteoarthritis of left hip, unspecified osteoarthritis type documented in this encounter Care Teams Music Cataloguer Relationship Specialty Start Date End Date Austin oRdriguez MD [address] [address] PCP - General Family Medicine 06/12/15 05/18/18 documented as of this encounter
--- OUTSIDE RECORDS SUMMARY | 2024-03-07 08:55 | XMS_ITS | Encounter Summary ---
[place] [address] Care Team Providers Care [employer]rix Systems Administrator Name Role Phone Austin Rodriguez MD Primary Care Provider Reason for Visit * Reason Onset Date Comments Bumped Appointment 08/19/2016 Encounter Details Date Type Department Care Team (Late st Contact Info) Description 08/19/2016 [place] [address] Panchito Michael MD Bumped Appointment Social History Tobacco Use Types Packs/Day Years [...] encounter Miscellaneous Notes * Telephone Encounter - Miriam Michael - 08/19/2016 10:10 AM EDT Left message with family member that appt time was changed to 10:30am and appt is with Meg Khan, as Dr. Michael is out of town. If she wants team clinic, schedule as next available. documented in this encounter Plan of Treatment Upcoming Encounters Date Type Department Care Team (Late st Contact Info) Description 03/23/2024 9:15 AM EDT Appointment XRay at [address] [place] [address] 03/23/2024 10:00 AM EDT Office Visit Orthopaedics at [facility] [place] [address] Kathie Polk MD [facility] [place] [address] documented as of this encounter Visit Diagnoses Not on filedocumented in this encounter Care Teams [employer] Systems Administrator Relationship Specialty Start Date End Date Austin Rodriguez MD [address] [place] [id number] PCP - General Family Medicine 06/12/15 05/18/18 documented as of this encounter
--- OUTSIDE RECORDS SUMMARY | 2024-03-07 08:55 | XMS_ITS | Encounter Summary ---
[place] [address] Care Team Providers Care Security Escort Name Role Phone Austin Rodriguez MD Primary Care Provider [phone] Reason for Visit * Reason Onset Date Comments Follow-up 09/14/2015 Encounter Details Date Type Department Care Team (Late st Contact Info) Description 09/14/2015 [place] [phone] Panchito Michael MD Follow-up Social History Tobacco Use Types Packs/Day Years [...] encounter Miscellaneous Notes * Telephone Encounter - Vineet Owusu - 09/17/2015 4:44 PM EDT Patient called us to schedule * Telephone Encounter - Aisha Bella - 09/14/2015 9:51 AM EDT I have called and left a message for patient to call and schedule an appointment. Patient needs follow up form 09/13/15 appt around 11/08/15 NXR 08/17/15 LEFT SHANTI ANTERIOR documented in this encounter Plan of Treatment Upcoming Encounters Date Type Department Care Team (Late st Contact Info) Description 03/23/2024 9:15 AM EDT Appointment XRay at [address] [place] [address] 03/23/2024 10:00 AM EDT Office Visit Orthopaedics at [facility] [place] [address] Kathie Polk MD [facility] [place] [address] documented as of this encounter Visit Diagnoses Not on filedocumented in this encounter Care Teams Security Escort Relationship Specialty Start Date End Date Austin Rodriguez MD [address] [place] [address] PCP - General Family Medicine 06/12/15 05/18/18 documented as of this encounter
--- OUTSIDE RECORDS SUMMARY | 2024-03-07 08:55 | XMS_ITS | Encounter Summary ---
[place] [address] Care Team Providers Care Meter Setter Name Role Phone Austin Rodriguez MD Primary Care Provider Reason for Visit * Auth/Cert Specialty Diagnoses / Procedures Referred By Thomas hernandes Referred To Contact Diagnoses Unilateral primary osteoarthritis, right hip right hip oa Procedures PRO TOTAL HIP ARTHROPLASTY PRG RADEX HIP UNILATERAL WITH PELVIS MINIMUM 4 VIEWS @TOTAL HIP ARTHROPLASTY, ANTERIOR APPROACH (WRVU 20.72) Referral ID Status Reason Start Date Expiration Date Visits Re quested Visits Authorized [id number] 1 1 Encounter Details Date Type Department Care Team (Late st Contact Info) Description 02/13/2017 8:30 AM EDT - 02/13/2017 10:58 AM EDT [place] [phone] Panchito Michael MD TOTAL HIP ARTHROPLASTY, ANTERIOR APPROACH (WRVU 19.6) Social History Tobacco Use Types Packs/Day Years [...] this encounter Discharge Summaries * Vivien Kramer, CULINARY INTERN - 02/13/2017 4:29 PM EDT Discharge Summary Patient Name: Nikky Jarrett Patient Age: 62 y.o. Language: Persian Race: White Ethnicity: Not nor Admit date: 02/13/2017 Discharge date and time: 02/14/2017 Attending Physician: Panchito Michael MD Discharge Physician: Panchito Michael MD Follow-up Recommendations for Providers: See discharge instructions for additional details. Future Appointments Date Time Provider Department Center 03/12/2017 1:10 PM Panchito Michael MD [address] Inpatient Provider Contact Information: Panchito Michael MD Orthopedics: [phone] After hours and weekends, call [facility] Hotel Clerk, , and have the Orthopedic resident paged. [...] of right leg and reinforcementof the standard SHNATI Precautions. The patient was voiding spontaneously without [...] bowel movement. You can also take an slyv-yyz-ptuuocv medication, Miralax if needed to combat constipation. [...] as much as possible. Call your doctor ([phone]) if you develop: 1. Fever greater than 100.5 2. Severe nausea or vomiting 3. Increasing pain that is not controlled by pain medications 4. Increasing redness, swelling, or drainage from incisions 5. Change in sensation FOLLOW-UP APPOINTMENTS: 1. You will have follow-up appointments at [facility] as indicated below in Future Appointment and Orders. 2. You will need to have x-rays prior to your follow-up appointment on 03/12/17. Please come to Radiology, desk , 1 hour BEFORE that appointment for these x-rays. Future Appointments Date Time Provider Department Center 03/12/2017 1:10 PM Panchito Michael MD [address] CLIN If you have questions or concerns: Thursday through Thursday, 8 AM - 5 PM, please call Panchito Fraser MD's office at . If it is after 5 PM, the weekend, or holidays, please call and ask to [facility]. Future Appointments and Orders Future Appointments Provider Department Dept Phone 03/12/2017 1:10 PM Panchito Michael MD Orthopaedics at [place] [phone] Future Orders Complete By Expires Referral to [...] Focus: Primary Care Provider: Austin Rodriguez MD [phone] Discharge References/Attachments None documented in this encounter Discharge Instructions * Discharge Instructions* Vivien Kramer, CULINARY INTERN - 02/14/2017 12:09 PM EDT Activity: 1. [...] bowel movement. You can also take an jowg-umd-dusngpx medication, Miralax if needed to combat constipation. [...] as much as possible. Call your doctor ([phone]) if you develop: 1. Fever greater than 100.5 2. Severe nausea or vomiting 3. Increasing pain that is not controlled by pain medications 4. Increasing redness, swelling, or drainage from incisions 5. Change in sensation FOLLOW-UP APPOINTMENTS: 1. You will have follow-up appointments at [facility] as indicated below in Future Appointment and Orders. 2. You will need to have x-rays prior to your follow-up appointment on 03/12/17. Please come to Radiology, desk 3T, 1 hour BEFORE that appointment for these x-rays. Future Appointments Date Time Provider Department Center 03/12/2017 1:10 PM Panchito Michael MD [address] If you have questions or concerns: Thursday through Thursday, 8 AM - 5 PM, please call Panchito Fraser MD's office at . If it is after 5 PM, the weekend, or holidays, please call and ask to speak with theOropedic resident on-call. documented in this encounter Medications [...] weeks with xrays Wil Adhikari MD 02/13/2017 #[id number] Associated attestation - Panchito Michael MD - 02/13/2017 4:30 PM EDT Patient seen and examined on rounds. Agree with resident note. Panchito Michael M.D. [place] Department of Orthopaedics * Jennifer Ellington, RN - 02/13/2017 1:51 PM EDT Pt [...] encouraged * Plan of Care - Elisa Cintron PT - 02/14/2017 9:55 AM EDT Problem: [...] Service: other (see comments) (outpatient PT) Pager: [phone] ELISA CINTRON, PT Inpatient Physical Therapy 2017 [...] Operative Note Patient Name: Nikky Jarrett : [id number] MR#: [id number] Date of surgery: 02/13/2017 ?? Preoperative diagnosis: Right hip Osteonecrosis ?? Postoperative diagnosis: Right hip Osteonecrosis ?? Procedure: Right total hip arthroplasty ?? Anesthesia: Spinal ?? Surgeon: Panchito Michael MD ?? Chip Drier: Jefe Perry MD ?? Estimated blood loss: 300 cc ?? Fluids: 1200 cc ?? Urine output: Due to Void ?? Drains: None ?? Complications: None ?? Implants: 1. 12 Corail coxa vara femoral stem 2. 52 mm [place] acetabular shell 3. 36 x [...] Michael MD - 02/13/2017 5:48 AM EDT [facility] Operative Note Patient Name: Nikky Jarrett : [id number] MR#: [id number] Date of surgery: 02/13/2017 Preoperative diagnosis: Right hip Osteonecrosis Postoperative diagnosis: Right hip Osteonecrosis Procedure: Right total hip arthroplasty Anesthesia: Spinal Surgeon: Panchito Michael MD Chip Drier: Jefe Perry MD Estimated blood loss: 300 cc Fluids: 1200 cc Urine output: Due to Void Drains: None Complications: None Implants: 1. 12 Corail coxa vara femoral stem 2. 52 mm [place] Cluster acetabular shell 3. 36 x [...] 9:15 AM EDT Appointment XRay at [address] [place] [address] 03/23/2024 10:00 AM EDT [place] [address] Kathie Polk MD [facility] [place] [address] Scheduled Referrals Name Type Priority Associated Diagnoses Orde r Schedule Referral to Physical Therapy Outpatient Referral Routine Primary osteoarthritis of right hip Ordered: 02/14/2017 documented as of this encounter Procedures Procedure Name Priority Date/Time Associated Diagnosis Comments IMPLANTABLE DEVICES SCAN 02/15/2017 12:00 AM EDT EAR NOSE THROAT SURGEON SCAN 02/15/2017 12:00 AM EDT HEMOGRAM Routine [...] SCAN EXT O RDR/RSLT * SCAN DOC: EAR NOSE THROAT SURGEON (02/15/2017 12:00 AM EDT) Anatomical Region Laterality Modality Other Narrative 02/15/2017 12:00 AM EDT Ordered by an unspecified provider. Scanning Provider MEDIA MGR SCAN EXT O RDR/RSLT * (ABNORMAL) Differential, Automated (02/14/2017 3:55 AM EDT) Neutrophil % 80.4 % [facility] Neutrophil Absolute 9.10(H) 1.70 - 6.10 x10(3)/[facility] Lymph % 11.2 % [facility] Lymphocytes Abs 1.3 0.9 - 3.2 x10(3)/ L [facility] Monocyte % 7.8 % [facility] Monocyte Abs 0.9 0.3 - 0.9 x10(3)/[facility] Eos % 0.0 % [facility] Eosinophils Abs 0.0 0.0 - 0.4 x10(3)/[facility] Basophil % 0.2 % [facility] Baso Absolute 0.0 0.0 - 0.1 x10(3)/[facility] Immature Gran % 0.40 % [facility] Comment: Immature granulocytes(IG's)percentage and absolute count will include metamyelocytes, myelocytes, and promyelocytes. Blood smears from CBCs yielding IG's will be scanned manually for concordance. If this scan disagrees with the automated IG or if promyelocytes are noted, a manual differential will be performed. Immature Gran Absolute 0.04 0.00 - 0.04 x10(3)/[facility] Blood specimen (specimen) 02/14/2017 3:55 AM EDT 02/14/2017 4:31 AM EDT Narrative Resulting Agency Comment Spec In Lab Panchito Michael MD HEMATOLOGY ORDERABLE S [facility] [place] [address] * (ABNORMAL) Hemogram (02/14/2017 3:55 AM EDT) [facility] White Blood Cell 11.3(H) 4.0 - 9.5 x10(3)/[facility] Red Blood Cell 3.88(L) 4.00 - 5.21 x10(6)/mc L [facility] Hemoglobin 11.9 11.7 - 15.5 gm/dL [facility] Hematocrit 36.4 35.7 - 45.8 % [facility] Mean Cell Volume 93.8 82.6 - 94.4 fL [facility] Mean Cell Hemoglobin 30.7 27.1 - 32.0 pg [facility] Mean Cell Hemoglobin Concentration 32.7 31.7 - 35.0 gm/dL [facility] Platelet 248 145 - 357 x10(3)/mc L [facility] RDW Standard Deviation 43.3 37.0 - 46.0 fL [facility] RDW coefficient of variation 12.5 11.5 - 14.1 % [facility] Mean Platelet Volume 10.7 7.6 - 12.9 fL [facility] NRBC% auto 0.0 % [facility] NRBC Absolute 0.000 0.000 - 0.000 x10(3)/mc L [facility] Blood specimen (specimen) 02/14/2017 3:55 AM EDT 02/14/2017 4:31 AM EDT Narrative Resulting Agency Comment Spec In Lab Panchito Michael MD HEMATOLOGY ORDERABLE S [facility] [place] [address] * (ABNORMAL) Basic Metabolic Panel (non-fasting) (02/14/2017 3:55 AM EDT) Glucose 135 65 - 199 mg/dL [facility] Comment:Diabetes: >=200 mg/d L plus symptoms Blood Urea Nitrogen 11 8 - 18 mg/dL [facility] Creatinine 0.49(L) 0.70 - 1.20 mg/dL [facility] Comment: Please note that the pediatric reference intervals supplied above were not validated at [facility]. Results from pediatric patients should be interpreted in conjunction to the patient's age, height and muscle mass. Sodium 141 135 - 145 mmol/L [facility] Potassium 4.4 3.5 - 5.0 mmol/L [facility] Comment: Please note: ??Patients with WBC >100,000 may have falsely elevated Potassium levels. ??For accurate Potassium quantification in these patients send serum separator tube (gold top) for subsequent determinations. ??Contact the Clinical Chemistry Laboratory if there are any questions. Chloride 106 98 - 107 mmol/L [facility] Carbon Dioxide 21(L) 22 - 31 mmol/L [facility] Anion Gap 14 5 - 15 mmol/L [facility] Calcium 8.8 8.5 - 10.5 mg/dL [facility] Est Glomerular Filtration Rate >60 >=60 [facility] Comment: This estimated GFR (eGFR) [...] the following links into your internet browser. [email or web address] Blood specimen (specimen) 02/14/2017 3:55 AM EDT 02/14/2017 4:31 AM EDT Narrative Resulting Agency Comment Spec In Lab Panchito Michael MD CHEMISTRY ORDERABLES [facility] [place] [address] * XR Fluoro No Rad <1Hr - OR Use (02/13/2017 10:07 AM EDT) Narrative [facility] - 02/13/2017 10:09 AM EDT This order does not need a radiologist interpretation. ?? Panchito Michael MD IMG FLUORO ORDERABLE S [facility] [place], [place] documented in this encounter Visit Diagnoses Diagnosis s/p R SHANTI Dr. Michael 02/13/17- Primary Primary osteoarthritis of right hip Primary localized osteoarthrosis, pelvic region and thigh Primary osteoarthritis of right hip Primary localized [...] Given 02/13/2017 8:39 PM EDT 81 mg BUpivacaine (PF) (MARCAINE) 0.25 % (2.5 mg/mL) injection ONCE PRN, Starting on Thu02/13/17 at 0830, Until 02/14/17 at 1638, Intra-Operative (Intra-Procedure), Routine Given 02/13/2017 8:30 AM EDT 30 mLs 19- Surgical Site celecoxib (CeleBREX) capsule 200 mg 200 mg, Oral, 2 TIMES DAILY, First dose on Thu02/13/17 at 1415, Until Discontinued, Routine Given 02/14/2017 8:29 AM EDT 200 mg Given 02/13/2017 8:37 PM EDT 200 mg cloNIDine injection ONCE PRN, Starting on Thu02/13/17 at 0830, Until 02/14/17 at 1638, Intra-Operative (Intra-Procedure), Routine Given 02/13/2017 8:30 AM EDT 50 mcg 19- Surgical Site FLUoxetine (PROzac) capsule 20 mg 20 mg, [...] PM EDT 600 mg ketorolac (TORADOL) injection ONCE PRN, Starting on Thu02/13/17 at 0830, Until 02/14/17 at 1638, Intra-Operative (Intra-Procedure), Routine Given 02/13/2017 8:30 AM EDT 30 mg 19- Surgical Site multivitamin Mbvi-Rr-ZX-Min (THERAPEUTIC-M) 27-0.4 mg tablet 1 tablet 1 [...] comment - Comment: too soon from pervious dose)1749 (Given - Provider: Janpreet K Boni, RN - Comment: DID not take 1400 dose.Will page pharmacy to re-time) 001 (Given - Provider: Steven Mccoy RN)08 (Given - Provider: Jeannine Plata RN) aspirin EC tablet 81 mg 81 mg, Oral, 2 TIMES DAILY, First dose on Thu02/13/17 at 2100, Until Discontinued, Routine 2038 (Given - Provider: Steven Mccoy RN) 08 (Given - Provider: Jeannine Plata RN) ceFAZolin [...] Steven Mccoy RN)210 (Stopped - Provider: Emelyn Barahona RN) 0401 (New Bag - Provider: Steven Mccoy RN)0431 (Stopped - Provider: Emelyn Barahona RN) ceFAZolin (ANCEF) 2g in dextrose 5% 100 mL (COMPLETED) 2 g, Intravenous, EVERY 3 HOURS, 1 dose, First dose on Thu02/13/17 at 0800, Administer over 30 Minutes, Redose after 3 hours., Intra-Operative (Intra-Procedure), Indication for (Active or Suspected): Prophylaxis 0836 (Given - Provider: Azael Giraldo CRNA) celecoxib (CeleBREX) capsule 200 mg 200 mg, Oral, 2 TIMES DAILY, First dose on Thu02/13/17 at 1415, Until Discontinued, Routine 1415 (Not Given - Provider: Jennifer Ellington RN - Reason: Contraindicated)2036 (Given - Provider: Steven Mccoy RN) 0829 (Given - Provider: Jeannine Plata, JEFFERSON) celecoxib (CeleBREX) capsule 400 mg (COMPLETED) 400 mg, Oral, ONCE, 1 dose, On Thu02/13/17 at 0800, Administer on arrival to Same Day Program, Day of Surgery (Day of Procedure), Routine 0752 (Given - Provider: Mercedes Palma RN) dexamethasone [...] Last dose on Thu02/14/17 at 2100, Routine 203 (Given - Provider: Steven Mccoy, JEFFERSON) ketorolac (TORADOL) injection 15 mg (COMPLETED) 15 mg, Intravenous, EVERY 6 HOURS SCHEDULED, 4 doses, First dose on Thu02/13/17 at 1230, Last dose on Thu02/14/17 at 0600, Routine 1230 (Given - Provider: Fiona Lorenz RN)1748 (Given - Provider: Jeannine Plata RN) 0018 (Given - Provider: Steven Mccoy RN)0607 (Given - Provider: Steven Mccoy RN) multivitamin Umpv-Pa-PI-Min (THERAPEUTIC-M) 27-0.4 mg tablet 1 tablet 1 tablet, Oral, DAILY, First dose on Thu02/13/17 at 1415, Until Discontinued 1424 (Given - Provider: Jennifer Ellington RN) 0829 (Given - Provider: Jeannine Plata, JEFFERSON) pantoprazole (PROTONIX) tablet 20 mg 20 mg, [...] Mccoy RN) 0829 (Given - Provider: Jeannine Palta RN) sodium chloride 0.9 % flush 5 mL 5 mL, Intravenous, 2 TIMES DAILY, First dose on Thu02/13/17 at 1415, Until Discontinued, Recovery (Recovery-Hospital Unit), Routine 1415 (Not Given - Provider: Jennifer Ellington RN - Reason: Contraindicated)2039 (Given - Provider: Steven Mccoy RN) 0830 (Given - Provider: Jeannine Plata RN) tranexamic acid (CYKLOKAPRON) 1,293 mg in sodium [...] Unit) 1426 (Continued Bag - Provider: Jennifer Ellington, JEFFERSON) 0019 (New Bag - Provider: Steven Mccoy, [...] patient unable to take PO, may give DC if ordered, Routine BUpivacaine (PF) (MARCAINE) 0.25 [...] (Intra-Procedure), Routine 0830 (Given - Provider: Panchito Mcihael MD - Comment: mixed w/ marcaine) lactulose [...] on Thu02/13/17 at 2100, Last dose on 02/14/17 at 2100, Routine Followed by gabapentin (NEURONTIN) [...] Routine documented in this encounter Care Teams Meter Setter Relationship Specialty Start Date End Date Austin Rodriguez MD [address] [place] [address] PCP - General Family Medicine 06/12/15 05/18/18 documented as of this encounter
--- OUTSIDE RECORDS SUMMARY | 2024-03-07 08:55 | XMS_ITS | Encounter Summary ---
[place] [address] Care Team Providers Care Sewer Connector Name Role Phone Blair Rodriguez MD Primary Care Provider [phone] Reason for Visit * Auth/Cert - Closed Specialty Diagnoses / Procedures Referred By Thomas t Referred To Contact Diagnoses Unilateral primary osteoarthritis, left hip left hip OA Procedures PRO TOTAL HIP ARTHROPLASTY PRG RADEX HIP UNILATERAL WITH PELVIS MINIMUM 4 VIEWS @TOTAL HIP ARTHROPLASTY, ANTERIOR APPROACH HIP INTRAOP RADIOLOGIC EXAMINATION, UNILATERAL, W PELVIS; 4+ VIEWS MODIFIER CORAIL FEMORAL STEM DEPUY MODIFIER PINNACLE ACETABULUM DEPUY Referral ID Status Reason Start Date Expiration Date Visits Re quested Visits Authorized [id number] Closed 1 1 Encounter Details Date Type Department Care Team (Late st Contact Info) Description 08/17/2015 8:30 AM EST - 08/17/2015 11:28 AM EST Surgery [place] [address] Panchito Michael MD TOTAL HIP ARTHROPLASTY, ANTERIOR [...] Sign Reading Time Taken Comments Blood Pressure 104/55 08/18/2015 8:41 AM EST Pulse 79 08/18/2015 8:41 AM EST Temperature 36.4 ??C (97.5 ??F) 08/18/2015 8:41 AM ES T Respiratory Rate 18 08/18/2015 8:41 AM EST Oxygen Saturation 95% 08/18/2015 8:41 AM EST Inhaled Oxygen Concentration - - Weight 90.7 kg (200 lb) 08/17/2015 7:16 AM EST Height 175.3 cm (5' 9) 08/17/2015 7:16 AM EST Body Mass Index 29.53 08/17/2015 7:16 AM EST documented in this encounter Discharge Summaries * Charlene Pearce PA - 08/18/2015 10:28 AM EST Discharge Summary Patient Name: Nikky Jarrett Patient Age: 60 y.o. Language: Citizen Of [place] Race: White Ethnicity: Not nor Admit date: 08/17/2015 Discharge date and time: 08/18/2015 Attending Physician: Panchito Michael MD Discharge Physician: Panchito Michael MD Follow-up Recommendations for Providers: See discharge instructions for additional details. Future Appointments Date Time Provider Department Center 09/13/2015 9:10 AM [facility] DX ROOM 1 [facility] 09/13/2015 10:10 AM Panchito Michael MD [facility] [address] [place] [address] Inpatient Provider Contact Information: Panchito Michael MD Orthopedics: [phone] After hours and weekends, [place] [facility] [place], , and have the Orthopedic resident paged. Discharge Diagnoses (Hospital Problems) and Secondary Diagnoses (Chronic Problems): Active Hospital Problems Diagnosis ??? s/p left anterior SHANTI 08/17/2015 Dr. Michael ??? S/P total hip arthroplasty Resolved Hospital Problems Diagnosis Date Resolved No resolved problems to display. Active Non-Hospital Problems Diagnosis ??? Dysuria ??? Alcoholism ??? Depression ??? History of tobacco abuse ??? Spinal stenosis Operations/Major Procedures: 08/17/2015 Surgeon(s) and Role: * Panchito Michael MD - Primary * Ziyad Moya MD Procedure(s): @TOTAL HIP ARTHROPLASTY, ANTERIOR APPROACH HIP INTRAOP RADIOLOGIC EXAMINATION, UNILATERAL, W PELVIS; 4+ VIEWS MODIFIER CORAIL FEMORAL STEM DEPUY MODIFIER PINNACLE ACETABULUM DEPUY History of Presentation: Nikky Jarrett is a 60 y.o. female with left hip osteoarthritis.?? After exhausting conservative measures, the patient elected to proceed with total hip arthroplasty.?? The risks and benefits of thisprocedure were reviewed in depth and patient received medical clearance prior to procedure. Hospital Course: The patient was admitted via Same Day Surgery for the above operation. DVT prophylaxis is: Aspirin 325 mg BID x 6 weeks. Patient began rehab on POD#1 with weight bearing as tolerated of left leg and reinforcement of the SHANTI Precautions. On POD#1 the operative dressing was dry and intact and was benign. Patient did not have a bowel movement prior to discharge but was passing flatus and was taking a diet without difficulty. Patient was voiding spontaneously without issue. By POD#1 the patient wasmedically stable and was cleared for safe discharge to home per PT. Vital Signs at Discharge: Weight: Wt Readings from Last 1 Encounters: 08/16/ 90.719 kg (200 lb) Height: Ht Readings from Last 1 Encounters: 08/16/16 175.3 cm (5' 9) HC: HC Readings from Last 1 Encounters: No data found for HC BMI: Body mass index is 29.52 kg/(m^2). Last value Range last 24 hrs Temperature Temp: 36.4 ??C (97.5 ??F) Temp: [36.4 ??C (97.5 ??F)-37.1 ??C (98.8 ??F)] Heart Rate Heart Rate: 79 Heart Rate: [56-79] Blood Pressure BP: 104/55 mmHg BP: (95-134)/(50-95) Respiratory Rate Resp: 18 Resp: [11-26] SpO2 SpO2: 95 % SpO2: [95 %-100 %] Art BP BP (Arterial Line): -- Functional and Cognitive Status: Patient mobilizing with assistive device, cognitively intact at baseline mental status at time of discharge. Important Studies and Lab Data: Labs: Last 3 wbc, hgb, hct plt Recent Labs 08/18/15 0445 08/09/15 1103 WBC 12.2* 7.2 HGB 11.3 13.9 HCT 34.2 41.8 PLATELET 308 318 Last 3 Lytes Recent Labs 08/18/15 0445 08/09/15 1103 NA 142 144 K 4.5 4.5 CL 105 105 CO2 26 27 BUN 8 8 CREATININE 0.61* 0.58* Studies: No results found. Transfusions: No Discharge Conditions/Prognosis: Stable, awake, and alert. Mobilizing as noted above, pain controlled on oral medications. Discharge to: Home With VNA. Updated Allergies/ADRs: No Known Allergies Immunizations Given this Hospitalization: There is no immunization history for the selected administration types on file for this patient. Discharge Medications: Your Medications New Medications Dose Details aspirin 325 mg Tbec Take 1 tablet by mouth 2 times daily for 41 days. Take with food. 325 mg Quantity: 82 tablet Refills: 0 bisacodyl 10 mg Supp Commonly known as: DULCOLAX Place 1 suppository rectally daily as needed (constipation). 10 mg Refills: 0 gabapentin 300 mg Cap Commonly known as: NEURONTIN Take 1 capsule by mouth nightly for 27 days. 300 mg Quantity: 27 capsule Refills: 0 oxyCODONE 5 mg Tab Commonly known as: ROXICODONE Take 1-3 tablets by mouth every 4 hours as needed for Pain. Take the smallest dose possible to control your pain. As your pain improves, take smaller doses and increase the time between doses. You may break the tablet to achieve a smaller dose. 5-15 mg Quantity: 90 tablet Refills: 0 polyethylene glycol 17 gram Pwpk Commonly known as: MIRALAX Take 17 g by mouth 2 times daily as needed (bowel regimen). 17 g Refills: 0 senna-docusate 8.6-50 mg Tab Commonly known as: PERICOLACE Take 2 tablets by mouth 2 times daily. Bowel regimen while on narcotics. 2 tablet Quantity: 60 tablet Refills: 2 Continued medications with new dosing Dose Details acetaminophen 500 mg Tab Commonly known as: TYLENOL Take 2 tablets by mouth every 8 hours. Around the clock until 08/26, and then as needed. DO NOT EXCEED 3000 mg tylenol in a 24 hour period. What changed: - when to take this - reasons to take this - additional instructions 1000 mg Refills: 0 Continued medications, unchanged Dose Details FLUoxetine 20 mg Cap Commonly known as: PROzac Take 20 mg by mouth daily. 20 mg Refills: 0 naltrexone 50 mg Tab Commonly known as: DEPADE Take 50 mg by mouth daily. 50 mg Refills: 0 STOPPED Medications fish oil-omega-3 fatty acids 1,000 mg Cap Smoking Status at Discharge: History Smoking status ??? Former Smoker ??? Quit date: 07/12/1979 Smokeless tobacco ??? Never Used Instructions Given to Patient at Discharge: There are no Patient Instructions on file for this visit. General Instructions Activity: 1. Your weight-bearing status is - weight bearing as tolerated of left leg. 2. Remember to use a walker or crutches at all times for balance and protection. 3. Remember your hip precautions: Standard: You should transition from sit to stand and stand to sit utilizing a broad based stance with feet and knees wider than hips. 4. Wear the TRUE hose bilaterally to your lower legs until you are seen in follow-up. You should remove these at least once per day to inspect your skin. Anticoagulation: Aspirin - You are being discharged on enteric-coated Aspirin 325mg by mouth twice a day. Continue this for 6 weeks. After your dose on 09/27 stop the Aspirin, unless you are told otherwise by your Orthopedic surgeon. Take this medication with food or large amounts (240 mL) of water or milk to minimize GI irritation. Diet: Resume your usual diet but increase your intake of fluids and fiber while you are on narcoticpain meds to prevent constipation. Driving: None until [...] bowel movement. You can also take an rnsl-vzx-rutbuae medication, Miralax if needed to combat constipation. 2. If you need a renewal on your narcotic pain medication, you need to give the Orthopedic clinic enough time to process your request. This can take up to three days, so plan accordingly. 3. Continue acetaminophen (Tylenol) 1,000mg every 8 hours around the clock until 08/27/15. This can be effective in controlling pain along with your other medications. After that you can take Tylenol as needed per package insert. Do not take more than 3,000mg of acetaminophen in a 24 hour period. 4. You have been discharged on a short acting narcotic, oxycodone. You will be on this medication for a limited period of time only. Taper off this medication as your pain improves. 5. You are being discharged on gabapentin (Neurontin), a non-narcotic medication that will help with your pain at night and allow you to sleep better. You will take this at night for the next 4 [...] operative dressing 7 days after your surgery (08/24/15). When it is removed you can leave the incision open to air or cover it with a light dressing. 3. If you have lots of drainage when you get home (and it is before 08/13), remove the operative dressing and replace it [...] your leg elevated as much as possible. FOLLOW-UP APPOINTMENTS: 1. You will have follow[place]up appointments [place] [facility] as indicated below in Future Appointment and Orders. 2. You will need to have x-rays prior to your follow-up appointment on 09/12. Please come to Radiology, desk 3T, 1 hour BEFORE that appointment for those x-rays. Future Appointments Date Time Provider Department Center 09/13/2015 9:10 AM [facility] DX ROOM 1 [facility] [place] [facility] 09/13/2015 10:10 AM Panchito Michael MD [facility] [place] [facility] If you have questions or concerns: Thursday through Thursday, 8 AM - 5 PM, please call Panchito Fraser MD's office at . If it is after 5 PM, the weekend, or holidays, please call and ask to speak with theOrthopedic resident on-call. Future Appointments and Orders Future Appointments Provider Department Dept Phone 09/13/2015 10:10 AM Panchito Michael MD Orthopaedics [phone] Future Orders Complete By Expires Referral to Home Health - at DISCHARGE [[id number] CPT(R)] As directed Process Instructions: Scheduling Instructions: Comments: DOCUMENTATION FOR VNA SERVICES (INCLUDING THOSE PATIENTS WITH MEDICARE COVERAGE REQUIRING HOME VNA SERVICES AND/OR HOSPICE SERVICES) iNkky Jarrett Discharge to own home: [address] [facility] [phone] (home) Telephone Information: Supervisor Plastics's Name: self In discussion with the attending physician, it is certified that this patient is under their care and that they, or a nurse practitioner, clinical nurse specialist or physician's assistant counsel who is working directly with them, had a face to face encounter that meets the physician face to face encounter requirements with this patient on 08/18/2015 The encounter with the patient was in whole, or in part, for the following medical condition, whichis the primary reason for home health care services: left ant SHANTI. In discussion with the provider, it is certified that, based on their findings, the following services are medically necessary for home health services. To provide the following care/treatments with the clinical findings supporting the need for services as follows: Home Health Agency: [facility] ([facility] [place] [facility]-is in [place], [place]) PHONE: [phone] FAX: [phone] Home care orders for Total Hip Replacements: Anterior approach (RN, if necessary PT) Pt will be on ASA; therefore there are no blood draws. SQ sutures; therefore there is NO REMOVAL of sutures to be done Do not lift the edge of the mepilex dressing to observe the incision; this dressing needs to stay in place until 7 days after surgery. (08/23) RN: Assess wound/incision, pain management, medication effectiveness and management, elimination, nutrition PT: Continue PT rehab for balance, endurance, joint mobility, ROM, Strength, Total Hip Arthroplastyexercise and restriction protocol If PT services only then please refer for Intermediate(SN) eval if indicated on admission visit All VNA agencies which cover the area of patient's residence have been reviewed, either verbally jose writing, and patient/family have chosen the home health care agency as noted for home services. Questions: Agency name and contact information: [facility] Patient location post discharge: own home What services are requested: Physical Therapy Start date: 08/19/2015 Responsible MD post discharge contact info: PCP Primary Care Provider: BLAIR RODRIGUEZ MD [phone] Discharge References/Attachments None Associated attestation - Panchito Michael MD - 08/18/2015 1:40 PM EST Panchito Michael MD, MS documented in this encounter Discharge Instructions * Discharge Instructions* Charlene Pearce PA - 08/18/2015 10:27 AM EST Activity: 1. Your weight-bearing status is - weight bearing as tolerated of left leg. 2. Remember to use a walker or crutches at all times for balance and protection. 3. Remember your hip precautions: Standard: You should transition from sit to stand and stand to sit utilizing a broad based stance with feet and knees wider than hips. 4. Wear the TRUE hose bilaterally to your lower legs until you are seen in follow-up. You should remove these at least once per day to inspect your skin. Anticoagulation: Aspirin - You are being discharged on enteric-coated Aspirin 325mg by mouth twice a day. Continue this for 6 weeks. After your dose on 09/27 stop the Aspirin, unless you are told otherwise by your Orthopedic surgeon. Take this medication with food or large amounts (240 mL) of water or milk to minimize GI irritation. Diet: Resume your usual diet but increase your intake of fluids and fiber while you are on narcoticpain meds to prevent constipation. Driving: None until [...] bowel movement. You can also take an cgto-bfm-inwdrdv medication, Miralax if needed to combat constipation. 2. If you need a renewal on your narcotic pain medication, you need to give the Orthopedic clinic enough time to process your request. This can take up to three days, so plan accordingly. 3. Continue acetaminophen (Tylenol) 1,000mg every 8 hours around the clock until 08/27/15. This can be effective in controlling pain along with your other medications. After that you can take Tylenol as needed per package insert. Do not take more than 3,000mg of acetaminophen in a 24 hour period. 4. You have been discharged on a short acting narcotic, oxycodone. You will be on this medication for a limited period of time only. Taper off this medication as your pain improves. 5. You are being discharged on gabapentin (Neurontin), a non-narcotic medication that will help with your pain at night and allow you to sleep better. You will take this at night for the next 4 [...] operative dressing 7 days after your surgery (08/24/15). When it is removed you can leave the incision open to air or cover it with a light dressing. 3. If you have lots of drainage when you get home (and it is before 08/13), remove the operative dressing and replace it [...] your leg elevated as much as possible. FOLLOW-UP APPOINTMENTS: 1. You will have follow[place]up appointments [place] [facility] as indicated below in Future Appointment and Orders. 2. You will need to have x-rays prior to your follow-up appointment on 09/12. Please come to Radiology, desk 3T, 1 hour BEFORE that appointment for those x-rays. Future Appointments Date Time Provider Department Center 09/13/2015 9:10 AM [facility] DX ROOM 1 [facility] [place] [facility] 09/13/2015 10:10 AM Panchito Michael MD [facility] [place] [facility] If you have questions or concerns: Thursday through Thursday, 8 AM - 5 PM, please call Panchito Fraser MD's office at . If it is after 5 PM, the weekend, or holidays, please call and ask to speak with theOrthopedic resident on-call. documented in this encounter Medications at Time of Discharge Medication Sig Dispensed Refills Start Date End Date FLUoxetine (PROZAC) 20 mg Capsule Take 20 mg by mouth daily. 0 04/02/2015 aspirin 325 mg Tablet, Delayed Release (E.C.) Take 1 tablet by mouth 2 times daily for 41 days. Take with food. 82 tablet 0 08/18/2015 09/28/2015 gabapentin (NEURONTIN) 300 mg Capsule Take 1 capsule by mouth nightly for 27 days. 27 capsule 0 08/18/2015 09/14/2015 acetaminophen (TYLENOL) 500 mg Tablet Take 2 tablets by mouth every 8 hours. Around the clock until 08/26, and then as needed. DO NOT EXCEED 3000 mg tylenol in a 24 hour period. 08/18/2015 08/21/2016 bisacodyl (DULCOLAX) [address] 1 suppository rectally daily as needed (constipation). 08/18/2015 09/13/2015 polyethylene glycol (MIRALAX) 17 gram Powder in Packet Take 17 g by mouth 2 times daily as needed (bowel regimen). 08/18/2015 09/13/2015 senna-docusate (PERICOLACE) 8.6-50 mg Tablet Take 2 tablets by mouth 2 times daily. Bowel regimen while on narcotics. 60 tablet 2 08/18/2015 09/13/2015 oxyCODONE (ROXICODONE) 5 mg Tablet Take 1-3 tablets by mouth every 4 hours as needed for Pain. Take the smallest dose possible to control your pain. As your pain improves, take smaller doses and increase the time between doses. You may break the tablet to achieve a smaller dose. 90 tablet 0 08/18/2015 08/23/2015 naltrexone (DEPADE) 50 mg Tablet Take 50 mg by mouth daily. 0 06/11/2015 09/12/2020 documented as of this encounter Progress Notes * Sayra Harris RN - 08/18/2015 12:46 PM EST Patient discharged to home with VNA services. IV removed, site benign. My assessment remains unchanged from my previous assessment. Patient denies chest pain and shortness of breath. Discussed pain management with patient, pain tolerable. Patient medicated prior to discharge. Patient has all belongings. Patient received discharge summary and prescriptions. These were reviewed. All questions answered. Patient encouraged to call with questions or concerns. Patient discharged to home with family. Discharge Summary was faxed, RN called report to VNA. * Kendra Peralta RN - 08/18/2015 10:43 AM EST Nurse Ornamental Plasterer Helper Initial Assessment Kendra Peralta RN, pager [phone] Office of Care Management 08/18/2015 Nikky Jarrett [id number] Date of : 1955 Admission Diagnosis: S/P total hip arthroplasty [Z96.649] Past Medical History Diagnosis Date ??? Spinal stenosis 06/21/2015 L4-5 Patient Active Problem List Diagnosis Code ??? Spinal stenosis M48.00 ??? Dysuria R30.0 ??? Alcoholism F10.20 ??? Depression F32.9 ??? History of tobacco abuse Z87.891 ??? s/p left anterior SHANTI 08/17/2015 Dr. Michael M16.9 ??? S/P total hip arthroplasty Z96.649 Social History Narrative None on file Lives w/ spouse in own home in [place], [place]. Code Status: Full Advance Directives: none in Epic. Admission Status: written and signed by attending as IPI. Insurance: BC/BS. Pharmacy: [facility] [place], [place] - [address] [place] BLAIR RODRIGUEZ MD, PCP. Baseline Functional Status: self reports no functional deficits. Current Home Equipment/Services: none. Current Functional Status/Mobility: PT/OT eval's performed this morning and found pt safe to returnhome w/ home vna services. [facility] CM will communicate this referral to RS. Anticipated Barriers to Discharge: none. Anticipated Discharge Date: 08/18/[address]: home. Anticipated Discharge Needs: home vna. Transportation Needs: . Family Involved in Discharge Planning: yes, spouse. CM will continue to monitor progress and assist with changing needs. Kendra Peralta RN, MSN Ornamental Plasterer HelperMulti Media Specialist of Care Management Pager [phone] Phone: [phone] * Dionte Velasco MD - 08/18/2015 5:51 AM EST ORTHOPAEDIC PROGRESS NOTE SURGERY/ISSUE: L anterior SHANTI Patient Active Problem List Diagnosis Code ??? Spinal stenosis M48.00 ??? Dysuria R30.0 ??? Alcoholism F10.20 ??? Depression F32.9 ??? History of tobacco abuse Z87.891 ??? s/p left anterior SHANTI 08/17/2015 Dr. Michael M16.9 ??? S/P total hip arthroplasty Z96.649 Past Medical History Diagnosis Date ??? Spinal stenosis 06/21/2015 L4-5 Interval History: Mrs. Jarrett is doing quite well this morning. Urinating on own, up ambulating with CRUDE OIL TREATER/ambulatory assists. Pain controlled with 15mg oxycodone. Denies CP/SOB/N/V Temp: [36.2 ??C (97.2 ??F)-37.1 ??C (98.8 ??F)] Heart Rate: [53-74] Resp: [11-26] BP: (95-134)/(50-95) SpO2: [97 %-100 %] I/O last 3 completed shifts: In: 1534 [I.V.:1534] Out: 1200 [Urine:650; Blood:550] I/O this shift: In: - Out: 1150 [Urine:1150] Physical Exam: General: AOx3, pleasant, motivated LLE Dressing C/D/I, Incision w/out E/I/D SITLT in DP/SP/T Firing EHL/TA/GC Foot WWP Lab Results Component Value Date WBC 12.2* 08/18/2015 RBC 3.53* 08/18/2015 HGB 11.3 08/18/2015 HCT 34.2 08/18/2015 PLATELET 308 08/18/2015 NA 142 08/18/2015 K 4.5 08/18/2015 CO2 26 08/18/2015 BUN 8 08/18/2015 CREATININE 0.61* 08/18/2015 INR 1.0 08/09/2015 Assesment/Plan: 60F POD #1 s/p L anterior SHANTI. Progressing along quite well. Stable medically for discharge today if cleared for home by PT. If pain increasing, may need to d/c naltrexone so better control can be gained. Takes naltrexone at baseline for maintenance of sobriety. ?? Active Issues: None ?? Activity: WBAT LLE ?? Pain Control: Oxycodone ?? Antibiotics: Periop Ancef ?? Anticoagulation: ASA BID x 4 weeks ?? Drains: none ?? Dressing/Spints: MEpilex to remain for 7 days ?? Vargas: none ?? Dispo: Home pending PT clearance Future Appointments Date Time Provider Department Center 09/13/2015 9:10 AM [facility] DX ROOM 1 [facility] [place] [facility] 09/13/2015 10:10 AM Panchito Michael MD [facility] [facility] Associated attestation - Panchito Michael MD - 08/18/2015 1:36 PM EST Patient seen and examined on rounds. Agree with resident note. In brief, doing well without issues.WBAT, ASA x 6 weeks, F/U 4 weeks. Panchito Michael M.D. [place] Department of Orthopaedics * Moon Olivares RN - 08/17/2015 3:40 PM EST Patient arrived to floor via bed from PACU. Patient A&O x 4, lungs clear, heart rate regular. Patient has hypoactive bowel sounds and states their last BM was on 08/16/15. Patient has a dressing to left hip, noted to be clean dry and intact. Patient has an IV of LR infusing at 100 ml/hr in to their left arm. Patient states their pain level is 5/10. Patient denies chest pain, shortness of breath, nausea, vomiting, numbness or tingling. Patient oriented to room, call kacey IS. RN will monitor patient. * Dionte Velasco MD - 08/17/2015 1:27 PM EST Orthopaedic Surgery Post-Op Check Note Surgery: Left Anterior SHANTI Patient Active Problem List Diagnosis Code ??? Spinal stenosis M48.00 ??? Dysuria R30.0 ??? Alcoholism F10.20 ??? Depression F32.9 ??? History of tobacco abuse Z87.891 ??? s/p left anterior SHANTI 08/17/2015 Dr. Michael M16.9 ??? S/P total hip arthroplasty Z96.649 S/Events: Mrs. Jarrett is doing fairly well following surgery. She is having a bit of pain currently at 6. She hasn't been able to urinate yet but last bladder scan was 296cc. Is a little anxious about amubulating. 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 Denies CP, SOB, nausea, vomiting, abd pain. Denies paresthesia in lateral left thigh. O: Vitals: Temp: [36.2 ??C (97.2 ??F)-37.1 ??C (98.8 ??F)] Heart Rate: [53-70] Resp: [11-26] BP: (104-127)/(61-95) SpO2: [98 %-100 %] I/O this shift: In: 1421 [I.V.:1421] Out: 550 [Blood:550] Exam: General: NAD, awake/alert CV: RRR Resp: Breathing comfortably Abd: S/NT/ND LLE: Dressing c/d/i. No hematoma appreciated. Motor intact to EHL, FHL, TA. Sensation intact in foot/calf. Brisk capillary refill distally. Imaging: Date: 08/16 - Intra-op fluoro The left hip is reduced. There is no evidence of intra-op fracture. A/P: 60 y.o. year old female POD#0 s/p left anterior SHANTI - Currently progressing well with stable vitals. Will follow for resolution of acute urinary retention. Straight cath for volumes >500cc on bladder scan. - In regards to naltrexone, discussed that it may inhibit the narcotic pain medication efficacy. She is aware and we will re-evaluate use acutely following surgery if pain becomes uncontrolled. - Official AP pelvis not ordered. Ordered and will f/u for location of hip and any intra-op fracture. - WBAT LLE Monocryl Mepilex Silver(do not remove for 7 days) ASA 325mg BID x 6 weeks PT/OT to see * Jennifer Lemus, RN - 08/17/2015 12:06 PM EST Pt to PACU via bed from OR; monitors applied, alarms set and audible. No xray needed per Dr. Moya. 1200: Medicating for discomfort left hip with PO and IV analgesics. Ice pack to left hip. 1230: Spinal resolved. documented in this encounter H&P Notes * Ziyad Moya MD - 08/17/2015 7:39 AM EST The patient's history and physical exam have been reviewed and completed. There has been no interval change from that of the pre-operative history and physical exam done within the last 30 days. documented in this encounter Miscellaneous Notes * Initial Assessments - Brendon Silva, OT - 08/18/2015 12:28 PM EST Occupational Therapy Evaluation Patient profile: Nikky Jarrett is a 60 y.o. female patient of Panchito Fraser MD, admitted on 08/17/2015 s/p L anterior SHANTI. Past Medical History Diagnosis Date ??? Spinal stenosis 06/21/2015 L4-5 No past surgical history on file. Social History: Patient lives with her Brendon. Both have recently retired. Brendon will be home with the pt. Home Setup: 5 steps with railing on L to enter 2 level home; bed is on the first floor where the ptwill be initially staying. Has full bathroom with tub/shower with shower doors. DME: FWW Baseline ADL/Mobility: Independent with ADL???s and IADL???s; did pool therapy pre-operatively Code Status: Full Code Precautions: anterior hip precautions: no formal precautions. L WBAT; risk to fall Subjective: I think Brendon will build a step so I can get into the shower. Objective: Seen today for OT evaluation and adl instruction using adaptive equipment. Cognition/Behavior: alert, oriented to person, place, and time Communication: WFL Vision & Perception: WFL Range of motion, strength, coordination: Hand dominance: right Bilateral UEs are within functional limitations for basic ADL Sensation: intact to touch extremities Activities of Daily Living: Self-feeding ?? Independent Grooming / Bathing ?? Independent grooming standing at the sink ?? Instructed in shower transfer and equipment (use of seat) ?? Instructed in LB bathing using LH sponge UB / LB dressing ?? Set-up upper body dressing ?? Instructed in use of adl equipment to don/doff socks, underpants and pants. Pt able to dress lower body after instruction with set-up while seated EOB. reports he will don/doff compressionstockings and assist with shoes Toileting ?? Toilet Transfer: independent ?? Toilet Hygiene: independent IADLs: ?? to assist Functional Mobility: ?? Supine to sit: independent ?? Sit to stand: independent to FWW ?? Ambulation: independent with FWW ?? Stand to sit: independent ?? Sit to supine: NT; pt returned to recliner chair Balance: ?? Sitting: good ?? Standing: good with FWW Endurance: Information taken from last recorded vitals in flowsheet. Last value Range last 8 hrs Heart Rate Heart Rate: 79 Heart Rate: [74-79] Blood Pressure BP: 104/55 mmHg BP: (98-104)/(51-55) SpO2 SpO2: 95 % SpO2: [95 %-98 %] RA; vitals stable Pain: 5/10; using ice packs at end of session. Skin: dressing lateral L hip dry and intact Informed Consent: The family and patient agrees to and understands the OT treatment plan and goals. Education: family and patient educated on Role of occupational therapy/rehabilitation, Transfers, Assistive device/technique, ADL, Safety, Precautions/Protocol, Functional Mobility, Recommendations and Discharge planning and verbalize understanding. Patient status, treatment, and mobility recommendations discussed with nursing. Assessment: Pt is 60 y/o female s/p anterior L SHANTI. Pt has been seen by OT for evaluation and adl instruction using adaptive equipment and pt is able to perform ADL's with assist for her compression stockings and shoes; otherwise pt is able to complete her adl's using adaptive equipment. Pt's is going to set-up the shower at home so pt can get in/out with her 's assistance. Pt is fairly independent with her mobility using the FWW. Pt to be d/c home today. She will not need OT follow up at this time. Pt tolerated session with no report of increased pain. Discharge Recommendations: Based on the current findings noted during this evaluation, patient could benefit from Home without further Skilled Therapy when medically ready for hospital discharge. This recommendation is based on the patient's Current physical impairments and Reported home support and may change based on patient progress during this hospitalization. Equipment needs at discharge: possibly a seat for the shower Daily Schedule / Staff Recommendations: Encourage OOB activity and participation in self-care activities. ?? Goals: n/a Plan: D/C OT. Eval Date: 08/18/2015 Total time spent with patient: 40 minutes Total timed interventions: 15 minutes [facility] Pager: [phone] BRENDON SILVA OT 08/18/2015 Occupational Therapy Rehabilitation Department * Initial Assessments - Maria D Garcia, PT - 08/18/2015 9:49 AM EST Physical Therapy Evaluation Total Hip Arthroplasty Patient Profile: Nikky Jarrett is a 60 y.o. female admitted on 08/17/2015 by Panchito Fraser, MDs/p Left anterior SHANTI on day of admission. PMH: Past Medical History Diagnosis Date ??? Spinal stenosis 06/21/2015 L4-5 PSH: No past surgical history on file. Social History: Patient lives with her , Brendon. She has 5 steps to enter, railing on her left. She has a walker at home. 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 She has a tub shower on thefirst floor and her bed has been brought down to the first floor. Brendon will be home with her (he also is a retired teacher). Pt did pool therapy pre-operatively. Precautions/Special Considerations: L WBAT, fall risk, anterior hip precautions: Anterior hip, no formal precautions Post-operative course: Uneventful, has been walking with nursing staff. Reports feeling well and pain well controlled. Subjective: Patient states ???I don't have that hip pain I had before! per pt. Pt happy to be feeling better. Objective: Vitals: SpO2: 95% on RA, HR 79 Most recent Hgb value: 11.3 Pain: 5/10 Functional Mobility: Supine->sit: CGA (mook got caught underneath her). reports he feels comfortable assisting as needed Sit->supine indep Sit->stand supervision. Initial cues for hand placement. Able to demo this indep later in the session. Stand->sit supervision Gait: Ambulated using FWW 200ft with supervision Gait pattern: Steady, reciprocal gait pattern. WBAT L LE. Pt. to utilize FWW and supervision to ambulate with nursing staff. Stair Climbing: up/down 6 steps with 1 railing and 1 crutch with close supervision. Reviewed technique and form. Pt able to verbalize and demo safely. Brendon, , able to guard her appropriately. Exercises: Total hip in-patient exercise program: Ankle pumps Gluteal sets Adductor sets heel slides long arc quads Today???s Treatment: 1. Exercises 2. Functional mobility 3. Anterior hip - no formal precautions Informed Consent: The patient agrees to and understands the PT treatment plan and goals. Education: patient and significant other educated on Bed mobility, Transfers, Assistive device/technique, Stairs, Exercise, Safety , Precautions/protocol, Gait , Activity pacing/Energy conservation, Role of therapy and Discharge planning and verbalize and demonstrate understanding. Patient status, treatment, and mobility recommendations discussed with nursing staff. Assessment: Pt is POD#1 s/p anterior SHANTI. Pt. tolerated today???s session very well. She demo safe mobility andperformed exercises well. will be home with her. She has a FWW. Provided 1 crutch to assistwith stair climbing. Would benefit from home VNA upon discharge. Ambulation distance: 200 feet Goals: (to be achieved by today) Goal met? Yes No Pt will be knowledgeable of prescribed exercises. x Pt will be knowledgeable and compliant with any above noted precautions. x Pt will move supine<>sit min assist to supervision. x Pt will move sit<>stand supervision. x Pt will ambulate 200 feet using FWW with supervision x Pt will negotiate 5 steps 1 rail and crutch with close supervision provided by . x Discharge Recommendations: Discharge Recommendations: Based on the current findings noted during this evaluation, patient could benefit from Home with further Skilled Therapy when medically ready for hospital discharge. This recommendation is based on the patient's Prior functional status, Potential to return to priorlevel of function, Patient motivation, Reported home support, Potential for functional gains, Reported home environment and Anticipated trajectory of progress and may change based on patient progressduring this hospitalization. Consult Recommendations: No other consults recommended at this time Equipment needs: Patient has all necessary equipment Plan: home with when medically ready. HOME VNA PT services Activity plan w/nursing assist (discussed with nursing staff): Yes (Audrey) Total treatment time: 40 minutes eval and LEONARDO Total timed treatment: 10 minutes LEONARDO MARIA D GARCIA PT Pager: [phone] * Plan of Care - Radha Santiago RN - 08/18/2015 4:46 AM EST Problem: Hip Replacement, Total (Adult) Goal: Signs and symptoms of listed potential problems will be absent or manageable (reference (Hip Replacement, Total (Adult)) CPG) Outcome: Ongoing (Interventions Implemented as Appropriate) 08/17/15 1809 Hip Replacement, Total Problems Assessed (Total Hip Replacement) all Problems Present (Total Hip Replacement) acute pain OUTCOME EVALUATION NOTE: OUTCOME SUMMARY: Pt alert and oriented x4 throughout shift. HRR, lungs clear. Bowel sounds present in all quadrants.Left hip dressing is clean and dry, no drainage. Positive pulses in all extremities. Pt stated painranged from 5-7 throughout the night, oxycodone 15mg given q4 prn. Pt voids adequate amounts of clear yellow urine and ambulates with walker and 1 assist to and from bathroom. Last bm on 08/15. Pt rested comfortably throughout shift. Will continue to monitor. PLAN MOVING FORWARD: -[X]Pain Control -[X]Mobilize INDIVIDUALIZED FALL PREVENTION: Patient has history of: Past Medical History Diagnosis Date ??? Spinal stenosis 06/21/2015 L4-5 Patient has following SCHEDULED medications: ??? FLUoxetine 20 mg Oral Daily ??? naltrexone 50 mg Oral Daily ??? sodium chloride 0.9 % 5 mL Intravenous BID ??? polyethylene glycol 17 g Oral BID ??? senna-docusate 2 tablet Oral BID ??? acetaminophen 1,000 mg Oral Q8H BORIS ??? gabapentin 600 mg Oral Nightly Followed by ??? [START ON 08/19/2015] gabapentin 300 mg Oral Nightly ??? ketorolac 15 mg Intravenous Q6H BORIS ??? celecoxib 200 mg Oral BID ??? dexamethasone 4 mg Oral Daily ??? multivitamin Kocx-Bp-BA-Min 1 tablet Oral Daily ??? pantoprazole 20 mg Oral Daily ??? aspirin 325 mg Oral BID Patient has following PRN medications: sodium chloride 0.9 %, lidocaine, lactulose, bisacodyl, bisacodyl, oxyCODONE, HYDROmorphone Assistance: -1-assist with walker Supervision: -[X]Hands-on for all transfers and ambulation Surveillance: -[X]Purposeful Rounding -[X]Team Care -[X]Bedside Nurse Knowledge Exchange CPG OUTCOME EVALUATION: Problem: General Plan of Care Goal: Plan of Care Review Outcome: Ongoing (Interventions Implemented as Appropriate) 08/17/15180808/17/152214 Plan of Care Review Plan of Care Outcome Status ongoing (interventions implemented as appropriate) -- Progress progress toward functional goals as expected -- Coping/Psychosocial Response Interventions Plan of Care Reviewed with -- patient Goal: Individualization and Mutuality Outcome: Ongoing (Interventions Implemented as Appropriate) 08/17/151808 Individualization Individualize the Plan of Care: Pain control, mobilization Patient Specific Preferences pain control Goal: Fall Prevention-Safe Patient Handling Outcome: Ongoing (Interventions Implemented as Appropriate) 08/17/152214 Safety Interventions Safety Precautions/Fall Reduction assistive device;bed alarm;chair alarm;environmental modification;fall reduction program maintained;lighting adjusted for task/safety;low bed;muscle strengthening facilitated;nonskid shoes/slippers when out of bed;room near unit station Staley Fall Risk History of Falling 0 Secondary Diagnosis 15 Ambulatory Aids 15 Intravenous Therapy/Heparin/Saline Lock 20 Gait/Transferring 10 Mental Status 0 Score 60 Activity and Safety Assistive Device Front wheel walker OTHER Staley Fall Risk High Musculoskeletal Interventions Activity/Level of Assistance up in room;ambulated;with walker;with 1-person assist Positioning HOB up 15 degrees Goal: Infection Control Outcome: Ongoing (Interventions Implemented as Appropriate) 08/17/15 1600 08/17/15 8878 Safety Interventions Isolation Precautions -- standard precautions maintained Infection Prevention bronchial hygiene promoted;hydration promoted;nutrition promoted -- Coping/Psychosocial Response Interventions Counseling -- reassurance provided Goal: Discharge Needs Assessment Outcome: Ongoing (Interventions Implemented as Appropriate) 08/17/151808 Discharge Needs Assessment Concerns to be Addressed no discharge needs identified Readmission Within the Last 30 Days no previous admission in last 30 days Living Environment Transportation Available family or friend will provide * Plan of Care - Moon Olivares RN - 08/17/2015 6:15 PM EST Problem: Hip Replacement, Total (Adult) Goal: Signs and symptoms of listed potential problems will be absent or manageable (reference (Hip Replacement, Total (Adult)) CPG) Outcome: Ongoing (Interventions Implemented as Appropriate) 08/17/151808 Hip Replacement, Total Problems Assessed (Total Hip Replacement) all Problems Present (Total Hip Replacement) acute pain Problem: General Plan of Care Goal: Plan of Care Review Outcome: Ongoing (Interventions Implemented as Appropriate) 08/17/151808 Plan of Care Review Plan of Care Outcome Status ongoing (interventions implemented as appropriate) Progress progress toward functional goals as expected Coping/Psychosocial Response Interventions Plan of Care Reviewed with patient OUTCOME EVALUATION NOTE: OUTCOME SUMMARY: Patient doing well postoperatively. Pain controlled on prescribed medications, and patient ambulating with mobility this afternoon. Patient able to spontaneously void without difficulty. PLAN MOVING FORWARD: Pain control Mobility Discharge planning INDIVIDUALIZED FALL PREVENTION: Assistance: Patient is 1 assist Supervision: patient is hands on for all transfers Surveillance: Neurovascular Assessment, Masimo, Purposeful Rounding, Nurse Knowledge Exchange. CPG GOAL OUTCOME EVALUATION: Goal: Individualization and Mutuality Outcome: Ongoing (Interventions Implemented as Appropriate) 08/17/151808 Individualization Individualize the Plan of Care: Pain control, mobilization Patient Specific Preferences pain control Mutuality/Individual Preferences What anxieties, fears or concerns do you have about your health or care? None expressed What questions do you have about your health or care? none What information would help us give you more personalized care? none Goal: Fall Prevention-Safe Patient Handling Outcome: Ongoing (Interventions Implemented as Appropriate) 08/17/15 1600 08/17/15 1700 Safety Interventions Safety Precautions/Fall Reduction assistive device;bed alarm;chair alarm;commode/urinal/bedpan at bedside;environmental modification;nonskid shoes/slippers when out of bed;supervised activity;fall reduction program maintained;lighting adjusted for task/safety -- Staley Fall Risk History of Falling 0 -- Secondary Diagnosis 15 -- Ambulatory Aids 15 -- Intravenous Therapy/Heparin/Saline Lock 20 -- Gait/Transferring 10 -- Mental Status 0 -- Score 60 -- Activity and Safety Assistive Device -- Front wheel walker OTHER Staley Fall Risk High -- Musculoskeletal Interventions Activity/Level of Assistance -- dangled at bedside;up in bates;with walker;with gait belt;with standby assist Positioning -- up in chair Goal: Infection Control Outcome: Ongoing (Interventions Implemented as Appropriate) 08/17/15 1600 08/17/15 180 Safety Interventions Isolation Precautions -- standard precautions maintained Infection Prevention bronchial hygiene promoted;hydration promoted;nutrition promoted -- Coping/Psychosocial Response Interventions Counseling understanding of situation facilitated -- Goal: Discharge Needs Assessment Outcome: Ongoing (Interventions Implemented as Appropriate) 08/17/151808 Discharge Needs Assessment Concerns to be Addressed no discharge needs identified Readmission Within the Last 30 Days no previous admission in last 30 days Living Environment Transportation Available family or friend will provide * Brief Op Note - Panchito Michael MD - 08/17/2015 11:28 AM EST Brief Operative Note Patient Name: Nikky Jarrett : [id number] MR#: [id number] Date of surgery: August 17, 2015 Preoperative diagnosis: Left hip osteoarthritis Postoperative diagnosis: Left hip osteoarthritis Procedure: Left total hip arthroplasty Anesthesia: Spinal Surgeon: Panchito Michael MD Thoracic Medicine Physician: Ziyad Moya MD Estimated blood loss: 550 cc Fluids: 1300 cc Urine output: Due to Void Drains: None Complications: None Implants: 1. 11 Corail Coxa Vara femoral stem 2. 52 mm [place] [employer] acetabular shell 3. 36 x 52 + 4 acetabular polyethylene liner 4. 36 mm Ceramic femoral head Findings: Significant femoral and acetabular osteoarthritic changes. Components were well positioned. No fractures appreciated. Stability testing reveled stable construct without impingement within physiologic range of motion. Infection Bundle used? N/A Attestation: Case Date: 08/17/2015 I was present and I participated during the entire procedure (does not need to include opening and closing). (Please see the Surgical Encounter Summary for any Implant and Specimen details pertinent to this patient.) * Op Note - Panchito Michael MD - 08/17/2015 11:28 AM EST [facility] [place] Patient Name: Nikky Jarrett : [id number] MR#: [id number] Date of surgery: August 17, 2015 Preoperative diagnosis: Left hip osteoarthritis Postoperative diagnosis: Left hip osteoarthritis Procedure: Left total hip arthroplasty Anesthesia: Spinal Surgeon: Panchito Michael MD Thoracic Medicine Physician: Ziyad Moya MD Estimated blood loss: 550 cc Fluids: 1300 cc Urine output: Due to Void Drains: None Complications: None Implants: 1. 11 Corail Coxa Vara femoral stem 2. 52 mm [place] [employer] acetabular shell 3. 36 x 52 + 4 acetabular polyethylene liner 4. 36 mm Ceramic femoral head Findings: Significant femoral and acetabular osteoarthritic changes. Components were well positioned. No fractures appreciated. Stability testing reveled stable construct without impingement within physiologic range of motion. Indications for procedure: Patient is a 60 -year-old female with left hip osteoarthritis. After exhausting conservative measures, the patient elected to proceed with total hip arthroplasty. The risksand benefits of this procedure were reviewed in depth and patient received medical clearance prior to procedure. Description of events: The patient was seen in the same day surgery area where informed consent was confirmed and the appropriate left lower extremity was marked with my initials. [...] and draped in usual sterile fashion using ChloraPrep An approximately 10 cm incision was made [...] the base of the neck. At this 6 cm of traction and external rotation to 50 [...] horizontal position. This had excellent scratch fit. Polyethylene insert 36 x 52 + [address] and malleted into [...] broaches were used until a final size 11 broach had excellent rotational stability. Calcar planing was undertaken and trial femoral neck and head was placed using size 36 standard head and coxa vara neck. The hip [...] extremity without precaution. Patient will use ASA 325 mg BID for DVT prophylaxis for 6 weeks. Dressing will remain in place for 7 days. No suture removal is necessary. Patient will likely be discharged to home with VNA services or rehabilitation stay. Follow-up will bein 4 weeks for wound check and xrays at that visit. Infection Bundle used? N/A Attestation: Case Date: 08/17/2015 I was present and I participated during the entire procedure (does not need to include opening and closing). Panchito Michael MD 08/17/2015 documented in this encounter Plan of Treatment Upcoming Encounters Date Type Department Care Team (Late st Contact Info) Description 03/23/2024 9:15 AM EDT Appointment XRay at [address] [place] [address] 03/23/2024 10:00 AM EDT Office [place] [address] Kathie Polk MD [facility] [place] [address] Pending Results Name Type Priority Associated Diagnoses Date /Time FILM LIBRARY-FLUORO OR [id number] ONL Imaging Routine 08/17/2015 10: 59 AM EST Scheduled Orders Name Type Priority Associated Diagnoses Orde r Schedule FILM LIBRARY-FLUORO OR [id number] ONL Imaging Routine Once PRN (f or Radiant use) for 1 Occurrences starting 08/17/2015 until 08/17/2015 documented as of this encounter Procedures Procedure Name Priority Date/Time Associated Diagnosis Comments IMPLANTABLE DEVICES SCAN 08/19/2015 12:00 AM EST ECG SCAN 08/19/2015 12:00 AM EST HEMOGRAM Routine 08/18/2015 4:45 AM EST DIFFERENTIAL, AUTOMATED Routine 08/18/2015 4:45 AM EST CBC (WITH DIFF) Routine 08/18/2015 4:45 AM EST BASIC METABOLIC PANEL Routine 08/18/2015 4:45 AM EST MODIFIER PINNACLE GRIPTION ACETABULUM DEPUY 08/17/2015 8:24 AM EST Primary osteoarthritis of left hip MODIFIER CORAIL FEMORAL STEM DEPUY 08/17/2015 8:24 AM EST Primary osteoarthritis of left hip HIP INTRAOP RADIOLOGIC EXAMINATION, UNILATERAL, W PELVIS; 4+ VIEWS (WRVU 0.27) 08/17/2015 8:24 AM EST Primary osteoarthritis of left hip TOTAL HIP ARTHROPLASTY, ANTERIOR APPROACH (WRVU 19.6) 08/17/2015 8:24 AM EST Primary osteoarthritis of left hip HIP INTRAOP RADIOLOGIC EXAMINATION, UNILATERAL, W PELVIS; 4+ VIEWS Routine 08/17/2015 6:56 AM EST Primary osteoarthritis of left hip documented in this encounter Results * SCAN DOC: IMPLANTABLE DEVICES (08/19/2015 12:00 AM EST) Scanning Provider MEDIA MGR SCAN EXT O RDR/RSLT * SCAN DOC: ECG (08/19/2015 12:00 AM EST) Scanning Provider MEDIA MGR SCAN EXT O RDR/RSLT * (ABNORMAL) Differential, Automated (08/18/2015 4:45 AM EST) Neutrophil % 84.8 % [facility] Neutrophil Absolute 10.31(H) 1.50 - 6.30 x10(3)/mc L [facility] Lymph % 6.3 % [facility] Lymphocytes Abs 0.8(L) 1.0 - 3.6 x10(3)/ L [facility] Monocyte % 8.5 % [facility] Monocyte Abs 1.0 0.2 - 1.0 x10(3)/ L [facility] Eos % 0.0 % [facility] Eosinophils Abs 0.0 0.0 - 0.5 x10(3)/[facility] Basophil % 0.1 % [facility] Baso Absolute 0.0 0.0 - 0.2 x10(3)/[facility] Immature Gran % 0.30 % [facility] Comment: Immature granulocytes(IG's)percentage and absolute count will include metamyelocytes, myelocytes, and promyelocytes. Blood smears from CBCs yielding IG's will be scanned manually for concordance. If this scan disagrees with the automated IG or if promyelocytes are noted, a manual differential will be performed. Immature Gran Absolute 0.04 0.00 - 0.05 x10(3)/[facility] LABORATORY Blood specimen (specimen) 08/18/2015 4:45 AM EST 08/18/2015 5:06 AM EST Narrative Resulting Agency Comment Spec In Lab Panchtio Michael MD HEMATOLOGY ORDERABLE S Performing Organization Address City/State/[facility] Co de Phone Number [facility] [place] [address] * (ABNORMAL) Hemogram (08/18/2015 4:45 AM EST) White Blood Cell 12.2(H) 4.0 - 10.0 x10(3)/[facility] LABORATORY Red Blood Cell 3.53(L) 3.93 - 5.22 x10(6)/ L [facility]OR[facility]ORY Hemoglobin 11.3 11.2 - 15.7 gm/dL [facility] Hematocrit 34.2 34.0 - 45.0 % [facility] Mean Cell Volume 96.9(H) 79.0 - 94.0 fL [facility] Mean Cell Hemoglobin 32.0 26.6 - 32.2 pg [facility] Mean Cell Hemoglobin Concentration 33.0 32.0 - 36.5 gm/dL [facility] Platelet 308 145 - 370 x10(3)/mc L [facility] RDW Standard Deviation 46.5(H) 35.0 - 46.0 fL [facility] RDW coefficient of variation 13.3 10.9 - 14.4 % [facility] Mean Platelet Volume 10.8 9.0 - 12.0 fL [facility] Blood specimen (specimen) 08/18/2015 4:45 AM EST 08/18/2015 5:06 AM EST Narrative Resulting Agency Comment Spec In Lab Panchito Michael MD HEMATOLOGY ORDERABLE S [facility] [place] [phone] * (ABNORMAL) Basic Metabolic Panel (non-fasting) (08/18/2015 4:45 AM EST) Glucose 153 65 - 199 mg/dL [facility] Comment:Diabetes: >=200 mg/d L plus symptoms Blood Urea Nitrogen 8 8 - 18 mg/dL [facility] Creatinine 0.61(L) 0.70 - 1.20 mg/dL [facility] Comment: Please note that the pediatric reference intervals supplied above were [place] [facility] [place] Results from pediatric patients should be interpreted in conjunction to the patient's age, height and muscle mass. Sodium 142 135 - 145 mmol/L [facility] Potassium 4.5 3.5 - 5.0 mmol/L [facility] Comment: Please note: ??Patients with WBC >100,000 may have falsely elevated Potassium levels. ??For accurate Potassium quantification in these patients send serum separator tube (gold top) for subsequent determinations. ??Contact the Clinical Chemistry Laboratory if there are any questions. Chloride 105 98 - 107 mmol/L [facility] Carbon Dioxide 26 22 - 31 mmol/L [facility] Anion Gap 11 5 - 15 mmol/L [facility] Calcium 9.0 8.5 - 10.5 mg/dL [facility] Est Glomerular Filtration Rate >60 >=60 [facility] Comment: This estimated GFR (eGFR) [...] the following links into your internet browser. [email or web address] [email or web address] Blood specimen (specimen) 08/18/2015 4:45 AM EST 08/18/2015 5:06 AM EST Narrative Resulting Agency Comment Spec In Lab Panchito Michael MD CHEMISTRY ORDERABLES [facility] [address] documented in this encounter Visit Diagnoses Diagnosis s/p left anterior SHANTI 08/17/2015 Dr. Michael- Primary Osteoarthrosis, unspecified whether generalized or localized, pelvic region and thigh Primary osteoarthritis of left hip Primary localized osteoarthrosis, pelvic region and thigh S/P total hip arthroplasty Hip joint replacement by other means Primary osteoarthritis of left hip Primary localized osteoarthrosis, pelvic region and thigh documented in this encounter Admitting Diagnoses Diagnosis S/P total hip arthroplasty Hip joint replacement by other means documented in this encounter Administered Medications Inactive Administered Medications - up to 3 most recent administrations Medication Order MAR Action Action Date Dose Rate Site BUpivacaine-EPINEPHrine 0.25 %-1:200,000 injection ONCE PRN, Starting on Thu08/17/15 at 0858, Until Thu08/17/15 at 1412, Intra-Operative (Intra-Procedure), Routine Given 08/17/2015 8:58 AM EST 50 mg 19- Surgical Site cloNIDine injection ONCE PRN, Starting on Thu08/17/15 at 0858, Until Thu08/17/15 at 1412, Intra-Operative (Intra-Procedure), Routine Given 08/17/2015 8:58 AM EST 50 mcg 19- Surgical Site ketorolac (TORADOL) injection ONCE PRN, Starting on Thu08/17/15 at 0858, Until Thu08/17/15 at 1412, Intra-Operative (Intra-Procedure), Routine Given 08/17/2015 8:58 AM EST 30 mg 19- Surgical Site documented in this encounter Active and Recently Administered Medications Times are shown in EST. Scheduled Medication Order 08/16/2015 08/17/2015 08/18/2015 acetaminophen (TYLENOL) tablet 1,000 mg (COMPLETED) 1,000 mg, Oral, ONCE, 1 dose, On Thu08/17/15 at 0745, Administer on arrival in Same Day Program, Day of Surgery (Day of Procedure), Routine 0727 (Given - Provider: Yumi Cm RN) acetaminophen (TYLENOL) tablet 1,000 mg 1,000 mg, Oral, EVERY 8 HOURS SCHEDULED, First dose on Thu08/17/15 at 1400, Until Discontinued, Maximum dose of acetaminophen is 4000 mg from all sources in 24 hours., Routine 1551 (Given - Provider: Moon Olivares RN)2200 (Not Given - Provider: Radha Santiago RN - Reason: See comment - Comment: pt sleeping) 0603 (Given - Provider: Radha Santiago RN) aspirin EC tablet 325 mg 325 mg, Oral, 2 TIMES DAILY, First dose on Thu08/18/15 at 0900, Until Discontinued, Routine 0815 (Given - Provid er: Sayra Harris RN) ceFAZolin (ANCEF) 1g in dextrose 5% 50mL (COMPLETED) 1,000 mg (1 g), Intravenous, EVERY 8 HOURS, 3 doses, First dose on Thu08/17/15 at 1215, Last dose on Thu08/18/15 at 0415, Administer over 30 Minutes, Adjust to 4 hours from intraoperative dose. * Beta-lactam based antibiotics (eg. Ampicillin, Cefazolin, Aztreonam) should be administered within 4 hours of the preceding intraoperative dose. * Vancomycin, Flouroquinolones, Clindamycin, Gentamicin, and Metronidazole should be administered within 8 hours of the preceding intraoperative dose., Recovery (Recovery-Hospital Unit), Indication for (Active or Suspected): Prophylaxis 1305 (Given - Provider: Jennifer Lemus RN)2010 (Given - Provider: Radha Santiago, JEFFERSON) 339 (Given - Provider: Radha Santiago, JEFFERSON) ceFAZolin (ANCEF) 2g in dextrose 5% 50 mL (COMPLETED) 2 g, Intravenous, EVERY 3 HOURS, 1 dose, First dose on Thu08/17/15 at 0745, Administer over 30 Minutes, Redose after 3 hours., Intra-Operative (Intra-Procedure), Indication for (Active or Suspected): Prophylaxis 829 (Given - Provider: Maude Marie) celecoxib (CeleBREX) capsule 200 mg (CANCELED) 200 mg, Oral, 2 TIMES DAILY, First dose on Thu08/17/15 at 2100, Until Discontinued, Routine 2010 (Given - Provider: Radha Santiago RN) 814 (Given - Provider: Sayra Harris RN) celecoxib (CeleBREX) capsule 400 mg (COMPLETED) 400 mg, Oral, ONCE, 1 dose, On Thu08/17/15 at 0745, Administer on arrival to Same Day Program, Day of Surgery (Day of Procedure), Routine 07 (Given - Provider: Yumi Cm, JEFFERSON) dexamethasone (DECADRON) tablet 4 mg (COMPLETED) 4 mg, Oral, DAILY, 2 doses, First dose on Thu08/17/15 at 1700, Last dose on Thu08/18/15 at 0900, Routine 1736 (Given - Provider: Moon Olivares RN) 08 (Given - Provider: Sayra Harris, JEFFERSON) FLUoxetine (PROzac) capsule 20 mg (CANCELED) 20 mg, Oral, DAILY, First dose on Thu08/18/15 at 0900, Until Discontinued, Routine 08 (Given - Provid er: Sayra Harris RN) gabapentin (NEURONTIN) capsule 300 mg (COMPLETED) 300 mg, Oral, ONCE, 1 dose, On Thu08/17/15 at 0745, Administer on arrival in Same Day Program, Day of Surgery (Day of Procedure), Routine 726 (Given - Provider: Yumi Cm, JEFFERSON) gabapentin (NEURONTIN) capsule 300 mg(Linked Group 1) 300 mg, Oral, NIGHTLY, First dose on Thu08/19/15 at 2100, Until Discontinued, Routine gabapentin (NEURONTIN) capsule 600 mg (CANCELED)(Linked Group 1) 600 mg, Oral, NIGHTLY, 2 doses, First dose on Thu08/17/15 at 2100, Last dose on Thu08/18/15 at 2100, Routine 2011 (Given - Provider: Radha Santiago, JEFFERSON) ketorolac (TORADOL) injection 15 mg (COMPLETED) 15 mg, Intravenous, EVERY 6 HOURS SCHEDULED, 4 doses, First dose on Thu08/17/15 at 1600, Last dose on Thu08/18/15 at 1200, Routine 1735 (Given - Provider: Moon Olivares RN) 0014 (Given - Provider: Radha Santiago, JEFFERSON)0602 (Given - Provider: Radha Santiago, JEFFERSON)1221 (Given - Provider: Sayra Harris, JEFFERSON) multivitamin Ycag-Zg-QG-Min (THERAPEUTIC-M) 27-0.4 mg tablet 1 tablet (CANCELED) 1 tablet, Oral, DAILY, First dose on Thu08/17/15 at 1700, Until Discontinued 173 (Given - Provider: Moon Olivares RN) 0815 (Given - Provider: Sayra Harris, JEFFERSON) naltrexone (DEPADE) tablet 50 mg (CANCELED) 50 mg, Oral, DAILY, First dose on Thu08/17/15 at 1700, Until Discontinued, Routine 173 (Given - Provider: Moon Olivares RN) 0816 (Given - Provider: Sayra Harris, JEFFERSON) pantoprazole (PROTONIX) tablet 20 mg (CANCELED) 20 mg, Oral, DAILY, First dose on Thu08/17/15 at 1700, Until Discontinued, DO NOT CRUSH OR OPEN 1736 (Given - Provider: Moon Olivares RN) 0814 (Given - Provider: Sayra Harris RN) polyethylene glycol (MIRALAX) packet 17 g 17 g, Oral, 2 TIMES DAILY, First dose on Thu08/17/15 at 2100, Until Discontinued, Routine 2010 (Given - Provider: Radha Santiago, JEFFERSON) 0813 (Given - Provider: Sayra Harris, JEFFERSON) senna-docusate (PERICOLACE) 8.6-50 mg per tablet 2 tablet 2 tablet, Oral, 2 TIMES DAILY, First dose on Thu08/17/15 at 2100, Until Discontinued, Routine 2010 (Given - Provider: Radha Santiago RN) 0816 (Given - Provider: Sayra Harris RN) sodium chloride 0.9 % flush 5 mL (CANCELED) 5 mL, Intravenous, 2 TIMES DAILY, First dose on Thu08/17/15 at 2100, Until Discontinued, Recovery (Recovery-Hospital Unit), Routine 2011 (Given - Provider: Radha Santiago RN) 0817 (Given - Provider: Sayra Harris RN) Continuous Medication Order 08/16/2015 08/17/2015 08/18/2015 lactated ringers infusion 1,000 mL (CANCELED) 1,000 mL, at 100 mL/hr, Intravenous, CONTINUOUS, Starting on Thu08/17/15 at 0745, Until Thu08/17/15 at 1412, Day of Surgery (Day of Procedure) 0745 (Canceled Entry - Provider: Moon Olivares RN - Reason: See comment - Comment: different phase of care)0824 (New Bag - Provider: Maude Marie)1052 (Anesthesia Volume Adjustment - Provider: Maude Marie) lactated ringers infusion 1,000 mL (CANCELED) 1,000 mL, at 100 mL/hr, Intravenous, CONTINUOUS, Starting on Thu08/17/15 at 1215, Until 08/18/15 at 0545, Recovery (Recovery-Hospital Unit) 1157 (New Bag - Provider: Jennifer Lemus RN) 0022 (New Bag - Provider: Radha Santiago RN) PRN Medication Order 08/16/2015 08/17/2015 08/18/2015 bisacodyl (DULCOLAX) suppository 10 mg 10 mg, Rectal, DAILY PRN, Starting on Thu08/17/15 at 1534, Until 08/18/15 at 1452, Constipation, Administer if needed per patient's routine or if no bowel movement within 48 hours to achieve: 1) One bowel movement at least every 48 hours, AND 2) Without straining. If multiple bowel medications ordered, consider adding bisacodyl if polyethylene glycol (MIRALAX), docusate/senna, or lactulose not sufficient. If patient unable to take PO, may give AR if ordered, Routine BUpivacaine-EPINEPHrine 0.25 %-1:200,000 injection (CANCELED) ONCE PRN, Starting on Thu08/17/15 at 0858, Until Thu08/17/15 at 1412, Intra-Operative (Intra-Procedure), Routine 0858 (Given - Provider: Panchito Michael MD - Comment: Mixture contains 50ml (1mg/ml) 0.25% sensorcaine with epinephrine 1:200,000, 1ml (30mg/ml) ketorolac, and 0.5ml (100mcg/ml) clonidine. Total mixture used.) cloNIDine injection (CANCELED) ONCE PRN, Starting on Thu08/17/15 at 0858, Until Thu08/17/15 at 1412, Intra-Operative (Intra-Procedure), Routine 0858 (Given - Provider: Panchito Michael MD - Comment: NOT EPIDURAL. Mixture contains 50ml (1mg/ml) 0.25% sensorcaine with epinephrine 1:200,000, 1ml (30mg/ml) ketorolac, and 0.5ml (100mcg/ml) clonidine. Total mixture used.) HYDROmorphone (DILAUDID) syringe 0.2-0.4 mg (CANCELED) 0.2-0.4 mg, Intravenous, EVERY 5 MIN PRN, Pain, Starting on Thu08/17/15 at 1105, Until Thu08/17/15 at 1412, For moderate pain (4-6) give: 0.2 mg every 5 minute prn For severe pain (7-10) give: 0.4 mg every 5 minutes prn Maximum dose: 4 mg per hour Hold for respiratory rate less than 10 per minute., PACU Recovery 1144 (Given - Provider: Jennifer Lemus RN)1156 (Given - Provider: Jennifer Lemus RN)1206 (Given - Provider: Jennifer Lemus RN)1215 (Given - Provider: Jennifer Lemus RN)1224 (Given - Provider: Jennifer Lemus RN)1238 (Given - Provider: Jennifer Lemus RN)1251 (Given - Provider: Jennifer Lemus RN)1311 (Given - Provider: Jennifer Lemus RN)1344 (Given - Provider: Latisha Pena RN) ketorolac (TORADOL) injection 30 mg (CANCELED) 30 mg, Intravenous, EVERY 6 HOURS PRN, Starting on Thu08/17/15 at 1137, Until Thu08/17/15 at 1534, Pain, Routine 1142 (Given - Provider: Jennifer Lemus RN) ketorolac (TORADOL) injection (CANCELED) ONCE PRN, Starting on Thu08/17/15 at 0858, Until Thu08/17/15 at 1412, Intra-Operative (Intra-Procedure), Routine 0858 (Given - Provider: Panchito Michael MD - Comment: Mixture contains 50ml (1mg/ml) 0.25% sensorcaine with epinephrine 1:200,000, 1ml (30mg/ml) ketorolac, and 0.5ml (100mcg/ml) clonidine. Total mixture used.) oxyCODONE (ROXICODONE) immediate release tablet 5-15 mg 5-15 mg, Oral, EVERY 4 HOURS PRN, Starting on 08/17/15 at 1147, Until 08/18/15 at 1452, Pain, Give 5 mg for mild pain (1-3), 10 mg for moderate pain (4-6) or 15 mg for severe pain (7-10) May give an additional 5 mg in 30 minutes ONCE if pain not relieved., Routine 1154 (Given - Provider: Jennifer Lemus RN)1550 (Given - Provider: Moon Olivares RN - Comment: increasing with movement)2011 (Given - Provider: Radha Santiago RN) 0022 (Given - Provider: Radha Santiago, JEFFERSON)0603 (Given - Provider: Radha Santiago RN)1220 (Given - Provider: Sayra Harris RN) Linked Groups Order Group 1: gabapentin (NEURONTIN) capsule 600 mg (CANCELED)Jump to med 600 mg, Oral, NIGHTLY, 2 doses, First dose on Thu08/17/15 at 2100, Last dose on Thu08/18/15 at 2100, Routine Followed by gabapentin (NEURONTIN) capsule 300 mgJump to med 300 mg, Oral, NIGHTLY, First dose on 08/19/15 at 2100, Until Discontinued, Routine documented in this encounter Care Teams Sewer Connector Relationship Specialty Start Date End Date Blair Rodriguez MD [address] [place] [address] PCP - General Family Medicine 06/12/15 05/18/18 documented as of this encounter
--- OUTSIDE RECORDS SUMMARY | 2024-03-07 08:55 | XMS_ITS | Encounter Summary ---
[place] [address] Care Team Providers Care Qa Analyst Name Role Phone Austin Rodriguez MD Primary Care Provider [phone] Encounter Details Date Type Department Care Team (Late st Contact Info) Description 01/29/2017 11:00 AM EDT Notes [place] [address] Social History Tobacco Use Types Packs/Day Years Used Date Smoking Tobacco: Former Cigarettes Q uit: 07/12/1979 Smokeless Tobacco: Never Alcohol Use Standard Drinks/Week Comments No 0 (1 standard drink = 0.6 oz pur e alcohol) Sex and Gender Information Value Date Recorded Sex Assigned at Not on file Gender Identity Not on file Sexual Orientation Not on file documented as of this encounter Progress Notes * Cheryl Trujillo - 01/29/2017 11:00 AM EDT Office of Care Management Initial Assessment Cheryl Trujillo reviewed record and discussed patient with Care Team in the outpatient orthopaedic clinic. Source of Information: Nikky Jarrett Introduced self/reviewed role; services accepted. Informed patient that an inpatient vehicle care specialist will be working to expedite the discharge process and to direct questions to the assigned vehicle care specialist. Reason for Hospitalization: Primary osteoarthritis of right hip. Right total hip arthroplasty on February 13, 2017. Past Medical History: Diagnosis Date ??? Spinal stenosis 06/21/2015 L4-5 Hospitalizations Within the Past 30 Days: Anticipated Length Of Stay (If known): Current Decision-Making Capacity: She is capable of making her own medical decisions. Advance Care Planning: We discussed what an advanced directive is and its purpose thereof. It is ather marine animal trainer and will have it faxed to be scanned into her medical record. Current Coping/Education/Information Needs: She appears to understand the hospital course and discharge plans. Current Functional Ability: Functional Status Prior to Admission: She ambulates independently without an assistive device. Her thinks she should be using a cane because she trips. She is able to do her ADL without assistance. She still drives. She is retired. Home Environment: She lives in a 3 level log cabin/home. There are 5 stairs into the house with a railing on both sides. Her bedroom is on the second floor. There is a bedroom on the main level. There is a full bath on the main level with a tub shower. She has a shower chair and a grab bar in the shower. She has a standard height toilet. Social & Family Supports/Community Resources: Name/relationship of caregiver(s): Damian, her . Caregiver(s) contact information: [phone] (M) Caregiver availability: He is retired and always available Other family/friends: Her sister and [id number] are coming up after surgery to stay with her for a week. Does caregiver(s) understand role and responsibilities: Yes Able to cope with physical/emotional stress: Yes Understanding of [facility]: Yes Does caregiver(s) own a vehicle and able to drive: Yes Behavioral Health History: None Substance Use/Abuse: None Other Pertinent/Service Specific Information: I discussed with the patient the potential avenues ofdischarge postoperatively. We discussed qualifications to go to a long-term facility. We discussed potential out of pocket costs associated with non-emergent wheelchair van and ambulance transportation.We discussed the purpose and services provided by [facility]. I communicated that we will not knowuntil after surgery what will be the best course of discharge for the patient based on medical necessity and that this is why we plan for different courses of discharge. I informed the patient that they will be working with a vehicle care specialist after surgery to facilitate the discharge plan. I encouragedthe patient to call me with any questions or concerns prior to the surgery as well as when they discharge home. Health/Prescription Coverage: Primary Insurance: [facility] Secondary Insurance: None Prescription Coverage: [facility] Rx Preferred Pharmacy: [facility] [address] [facility] [id number] Other: None Primary Care Provider: Austin Rodriguez MD [phone] Patient/Caregiver Goals of Treatment: Potential Needs for Transition of Care: Rehab/SNF: No selection Home Health: No selection OP PT: [facility] DME: She has a 2 FWW, grabbers, sock assist. Dialysis: No Community Resources: None Transportation: We discussed that since we cannot determine the exact day or time of discharge, transportation must be readily available at time of discharge. Transportation will be provided by Damian. Other: None Anticipated Barriers to Discharge/Special Considerations: None Plan: She prefers to go home with OP PT. A member of the Care Management team will continue to monitor progress, follow for continuity of care and assist with transition of care planning. Cheryl Trujillo Pager: [phone] documented in this encounter Plan of Treatment Upcoming Encounters Date Type Department Care Team (Late st Contact Info) Description 03/23/2024 9:15 AM EDT Appointment XRay at [address] [place] [address] 03/23/2024 10:00 AM EDT Office [place] [address] Kathie Polk MD [facility] [place] [address] documented as of this encounter Visit Diagnoses Not on filedocumented in this encounter Care Teams Qa Analyst Relationship Specialty Start Date End Date Austin Rodriguez MD [address] [place] [address] PCP - General Family Medicine 06/12/15 05/18/18 documented as of this encounter
--- OUTSIDE RECORDS SUMMARY | 2024-03-07 08:55 | XMS_ITS | Encounter Summary ---
[place] [address] Care Team Providers Care Project Management Intern Name Role Phone Austin Rodriguez MD Primary Care Provider [phone] Reason for Visit * Reason Onset Date Comments Post Hospital Discharge 08/21/2015 Encounter Details Date Type Department Care Team (Late st Contact Info) Description 08/21/2015 [place] [phone] Panchito Michael MD Post Hospital Discharge Social History Tobacco Use Types Packs/Day [...] encounter Miscellaneous Notes * Telephone Encounter - Radha Madison RN - 08/21/2015 3:16 PM EDT Date of surgery 08/17/15 Type of surgery left total hip replacement - anterior Surgeon: Fernanda Call made within 2 weeks of discharge? Yes Is pain under control?yes Having bowel movements?yes Concerns with incision?no Has the [facility] been in contact?yes Anticoagulation plan? Aspirin 325 mg BID for six weeks Rehab facility? Concerns? documented in this encounter Plan of Treatment Upcoming Encounters Date Type Department Care Team (Late st Contact Info) Description 03/23/2024 9:15 AM EDT Appointment XRay at [address] [place] [address] 03/23/2024 10:00 AM EDT Office Visit Orthopaedics at [facility] [place] [address] Kathie Polk MD [facility] [place]AED[place] [address] documented as of this encounter Visit Diagnoses Not on filedocumented in this encounter Care Teams Project Management Intern Relationship Specialty Start Date End Date Austin Rodriguez MD [address] [place] [address] PCP - General Family Medicine 06/12/15 05/18/18 documented as of this encounter
--- OUTSIDE RECORDS SUMMARY | 2024-03-07 08:55 | XMS_ITS | Encounter Summary ---
Author Organization [facility] Address [facility] [place] [address] Care Team Providers Care Television Technician Name Role Phone Austin Rodriguez MD Primary Care Provider Encounter Details Date Type Department Care Team (Latest Contact Info) Description 09/13/2015 8:16 AM EDT - 09/13/2015 11:59 PM EDT Hospital Encounter XRay at [address] [place] [address] Panchito Michael MD Primary osteoarthritis of left hip Discharge Disposition: Home Social [...] every 8 hours. Around the clock until 3/21, and then as needed. DO NOT EXCEED 3000 mg tylenol in a 24 hour period. 08/18/2015 08/21/2016 naltrexone (DEPADE) 50 mg Tablet Take 50 mg by mouth daily. 0 06/11/2015 09/12/2020 documented as of this encounter Plan of Treatment Upcoming Encounters Date Type Department Care Team (Late st Contact Info) Description 03/23/2024 9:15 AM EDT Appointment XRay at [address] [place] [address] 03/23/2024 10:00 AM EDT Office Visit Orthopaedics at [facility], [place] [address] Kathie Polk MD [facility] [place] [address] documented as of this encounter Procedures Procedure Name Priority Date/Time Associated Diagnosis Comments XR PELVIS AND LAT HIP LEFT Routine 09/13/2015 8:25 AM EDT Primary osteoarthritis of left hip documented in this encounter Results * XR Pelvis And Lateral Hip Left (09/13/2015 8:25 AM EDT) Anatomical Region Laterality Modality Pelvis, Hip Left Digital Radiogra phy Impressions 09/13/2015 9:50 AM EDT IMPRESSION: Status post left total hip arthroplasty. Alignment is anatomic. No radiographic evidence of complication. Moderate osteoporosis right hip. Narrative 09/13/2015 9:50 AM EDT EXAMINATION: XR PELVIS AND LATERAL HIP LEFT CLINICAL HISTORY: History of hip replacement TECHNIQUE: AP pelvis, lateral left hip COMPARISON: 08/17/2015, MRI hips 07/06/2015, 04/06/2015 FINDINGS: Examination demonstrates left total hip arthroplasty. The alignment is anatomic. No radiographic evidence of complication. Moderate degenerative changes of the right hip are again seen characterized by joint space narrowing, subchondral sclerosis and marginal osteophytes. Procedure Note Angela Steven MD - 09/13/2015 EXAMINATION: XR PELVIS AND LATERAL HIP LEFT CLINICAL HISTORY: History of hip replacement TECHNIQUE: AP pelvis, lateral left hip COMPARISON: 08/17/2015, MRI hips 07/06/2015, 04/06/2015 FINDINGS: Examination demonstrates left total hip arthroplasty. The alignment isanatomic. No radiographic evidence of complication. Moderate degenerative changes ofthe right hip are again seen characterized by joint space narrowing,subchondral sclerosis and marginal osteophytes. IMPRESSION IMPRESSION: Status post left total hip arthroplasty. Alignment is anatomic. Noradiographic evidence of complication. Moderate osteoporosis right hip. Panchito Michael MD IMG DX ORDERABLES documented in this encounter Visit Diagnoses Diagnosis Primary osteoarthritis of left hip Primary localized osteoarthrosis, pelvic region and thigh documented in this encounter Care Teams Television Technician Relationship Specialty Start Date End Date Austin Rodriguez MD [address] [place] [address] PCP - General Family Medicine 06/12/15 05/18/18 documented as of this encounter
--- OUTSIDE RECORDS SUMMARY | 2024-03-07 08:55 | XMS_ITS | Encounter Summary ---
[place] [address] Care Team Providers Care Custom Applicator Name Role Phone Austin Rodriguez MD Primary Care Provider Reason for Visit * Reason Comments Bilateral Hip Pain left SHANTI 08/17/15 Encounter Details Date Type Department Care Team (Latest Contact Info) Description 01/01/2017 10:40 AM EDT Office [place] [address] Maddie Michael MD Primary osteoarthritis of right hip [...] Sign Reading Time Taken Comments Blood Pressure 117/67 01/01/2017 10:05 AM EDT Pulse 61 01/01/2017 10:05 AM EDT Temperature - - Respiratory Rate - - Oxygen Saturation - - Inhaled Oxygen Concentration - - Weight 86.2 kg (190 lb) 01/01/2017 10:05 AM EDT Height 175.3 cm (5' 9) 01/01/2017 10:05 AM EDT Body Mass Index 28.06 01/01/2017 10:05 AM EDT documented in this encounter Progress Notes * Maddie Michael MD - 01/01/2017 10:40 AM EDT I have seen the patient and reviewed Benigno Fried M.D. history/physical and I agree with the details as written. The assessment and plan were formulated in discussion with me and I agree with them as documented. In brief, patient is a 61-year-old female presents today with complaints of recent falls which she thinks is related possibly to her right hip pain. She notes pain in the right hip and groin. While walking she develops instability of the right hip and falls. She has had a left total hip performed greater than a year ago with excellent results. Since falling she does have some lateral hip pain. Nogroin pain related to this. X-rays today show well aligned uncemented left total hip arthroplastieswithout signs of lucency or fracture. Her right hip has certainly become more arthritic when looking at her old history. She has pain with flexion internal rotation of the right hip. She seems to be distally neurovascularly intact. She does have a history of back problems in the past but no currentsymptoms such as spinal stenosis symptoms. I think at this point, with review of her old MRI which showed some areas of femoral head insufficiency versus AVN would consider either injection into the right hip joint versus right total hip orthoplastic. She'll consider her options and contact us in the future. Maddie Michael MD, MS 01/01/2017 * Benigno Fried - 01/01/2017 10:40 AM EDT Images from the original note were not included. Department of Orthopaedics Division of Adult Joint Reconstructive Surgery ARTHROPLASTY HISTORY/PREVIOUS HIP SURGERY: 1. Left SHANTI - 08/17/15 (Dr. Michael) Subjective: Nikky Jarrett is a 61 y.o. female who presents with Right hip pain and s/p left SHANTI on 08/17/15. Onset of the symptoms was several months ago. There was not an inciting event. She has had prior hip problems. Nikky's previous visits for this problem: yes, last seen [address] Michael. Evaluation to date: plain films, which were abnormal showing joint space narrowing and osteophyte formation.. Nikky reports the hip pain is groin. She does report groin pain, does endorse thigh pain and does feel as if she walks with a limp. There is no radiation of the pain. Aggravating symptoms include: any weight bearing and going up and down stairs. She feels that her hip pain is keeping her from walking. Nikky has pain at night.. She can weight bear on the right leg and does not use assistive devices. She climb stairs and does use the railing. She does not have difficulty putting on her shoes and socks. She can sit comfortably in a chair. Nikky has not tried physical therapy. She has not had injections into the joint. Use of NSAIDs/Painmeds: medication not used She does reports problems with the contralateral hip, does not report problems with the ipsilateralknee and does have a history of spine or back issues REVIEW OF SYSTEMS: Nikky denies fevers, chills, night sweats, nausea, or vomiting. She does not endorse a history of DVT/PE or clotting disorder. QUESTIONNAIRE RESPONSES: General Health, Prior Treatments, PreExisting Condition, Health Habits, About You 01/01/2017 PROMIS-10 General Health Good PROMIS-10 Quality of Life Good PROMIS-10 Physical Health Fair PROMIS-10 Mental Health Good PROMIS-10 Social Activity Good PROMIS-10 Everyday Activities Moderately PROMIS-10 Pain 5 PROMIS-10 Fatigue Moderate PROMIS-10 Social Roles Good PROMIS-10 Anxious or Depressed Sometimes PROMIS PHYSICAL SCORE (range 16-68) 37.4 PROMIS MENTAL SCORE (range 21-68) 43.5 Treatments Tried - HOOS JR Scores 55.99 SHANTI Grade 6 Orthopeadics [facility] Response 01/01/2017 HOOS JR Scores 55.99 OSWESTRY DISABILITY INDEX - Spine [facility] Response 01/01/2017 Oswestry (ADENIKE) Score - HOOS JR Scores 55.99 ALLERGIES No Known Allergies Allergies to metals: none SOCIAL HISTORY: reports that she quit smoking about 37 years ago. She has never used smokeless tobacco. She reports that she does not drink alcohol or use illicit drugs. Occupation: Retired SIGNIFICANT MEDICAL COMORBIDITIES: Patient Active Problem List Diagnosis Code ??? Spinal stenosis M48.00 ??? Dysuria R30.0 ??? Alcoholism F10.20 ??? Depression F32.9 ??? History of tobacco abuse Z87.891 ??? S/P left SHANTI 08/17/15 Fernanda Z96.649 ??? Osteoarthritis of hip, Right M16.9 Objective: BP 117/67 (BP Location (NBP): Right arm, Patient Position: Sitting, BP Cuff Sizes: Large Adult (32-43 cm)) Pulse 61 Ht 175.3 cm (5' 9) Wt 86.2 kg (190 lb) BMI 28.06 kg/m2 General : alert, appears stated age and cooperative Gait: Normal. The patient can bear weight on the injured extremity. I have made the following determinations: Hip Exam: Right Prior surgery on this joint:No Leg Length: Longer leg: equal Limb Length discrepancy: 0cm Motion: Flexion contracture: 0 Total degrees of Flexion: 115 Total degrees of Abduction: 40 Total degrees of Ext Rotation: 30 Total degrees of Internal Rotation: 20 Gait Abnormality: Antalgic Radiographic evidence of joint damage: [0= normal; 1=minimal ; 2= some osteophytes , some narrowing ; 3= moderate osteophytes, significantnarrowing, mild deformity; 4= large osteophytes, marked narrowing, obvious deformity]: 3= moderate osteophytes, significant narrowing, mild deformity Skin Integrity: Normal Pulses Palpable: Right PT: Yes Right DP: Yes Motor/Sensory: Right Distal Motor: Normal Distal Sensory: Normal Hip Abductors: 5 Trendelenburg test: negative Imaging: X-ray right: shows DJD changes, likely chronic Assessment: Ms. Jarrett is a 61 y.o. year old female with moderate osteoarthritis of her right hip and s/p left SHANTI on 08/17/15. Plan: Natural history and expected course discussed. Questions answered. We reviewed the multiple treatment options available to her for this condition and the hurtful but non-harmful nature of arthritis. Both operative and nonoperative options were discussed as well as the pure elective nature of each. I reviewed the concept of the arthritis ladder with its step-higgins approach, rising in invasiveness based on either previous response or symptom severity/impact on lifestyle. She has evidence of a lesion in the right femoral head seen on MRI from 18 months ago, representing insufficiency fracture or AVN. She has had progression of osteoarthritis in the right hip since that time. We discussed the options of steroid injection versus arthroplasty. The patient will consider treatment options and call the clinic back with her decision. Benigno Fried MD documented in this encounter Miscellaneous Notes * Addendum Note - Maddie Michael MD - 01/01/2017 5:07 PM EDTAddended by: MADDIE MICHAEL on: 01/01/2017 05:07 PM Modules accepted: Orders, SmartSet documented in this encounter Plan of Treatment Upcoming Encounters Date Type Department Care Team (Late st Contact Info) Description 03/23/2024 9:15 AM EDT Appointment XRay at [address] [place] [address] 03/23/2024 10:00 AM EDT Office [place] [address] Kathie Polk MD [facility] [place] [address] documented as of this encounter Procedures Procedure Name Priority Date/Time Associated Diagnosis Comments TOTAL HIP ARTHROPLASTY, ANTERIOR APPROACH Routine 01/01/2017 5:06 PM EDT Primary osteoarthritis of right hip documented in this encounter Results * APTT (01/29/2017 9:45 AM EDT) [facility] Signature Partial Thromboplastin Time 26 25 - 35 sec [facility] Comment: The recommended therapeutic range for full dose, unfractionated heparin at [facility] is 80 ? 114 seconds. The use of the anti-Xa (heparin) level rather than the PTT is recommended for monitoring anticoagulation intensity in critically ill patients receiving unfractionated heparin by continuous IV infusion. Blood specimen (specimen) 01/29/2017 9:45 AM EDT 01/29/2017 9:46 AM EDT Narrative Resulting Agency Comment Spec In Lab Maddie Michael MD HEMATOLOGY ORDERABLE S [facility] [place] [address] * Prothrombin Time (01/29/2017 9:45 AM EDT) Pathologist [facility] Prothrombin Time 12.4 12.0 - 15.0 sec [facility] Comment: An INR <2.0 indicates [...] International Normalization Ratio 0.9 0.9 - 1.1 [facility] Blood specimen (specimen) 01/29/2017 9:45 AM EDT 01/29/2017 9:46 AM EDT Narrative Resulting Agency Comment Spec In Lab Maddie Michael MD HEMATOLOGY ORDERABLE S [facility] [place] [address] * (ABNORMAL) Basic Metabolic Panel (non-fasting) (01/29/2017 9:45 AM EDT) [facility] Glucose 85 65 - 199 mg/dL [facility] Comment:Diabetes: >=200 mg/d L plus symptoms Blood Urea Nitrogen 11 8 - 18 mg/dL [facility] Creatinine 0.61(L) 0.70 - 1.20 mg/dL [facility] Comment: Please note that the pediatric reference intervals supplied above were not validated at [facility]. Results from pediatric patients should be interpreted in conjunction to the patient's age, height and muscle mass. Sodium 143 135 - 145 mmol/L [facility] Potassium 4.2 3.5 - 5.0 mmol/L [facility] Comment: Please note: ??Patients with WBC >100,000 may have falsely elevated Potassium levels. ??For accurate Potassium quantification in these patients send serum separator tube (gold top) for subsequent determinations. ??Contact the Clinical Chemistry Laboratory if there are any questions. Chloride 106 98 - 107 mmol/L [facility] Carbon Dioxide 26 22 - 31 mmol/L [facility] Anion Gap 11 5 - 15 mmol/L [facility] Calcium 9.6 8.5 - 10.5 mg/dL [facility] Est Glomerular Filtration Rate >60 >=60 [facility] Comment: This estimated GFR (eGFR) value [...] the following links into your internet browser. [email or web address] Blood specimen (specimen) 01/29/2017 9:45 AM EDT 01/29/2017 9:46 AM EDT Narrative Resulting Agency Comment Spec In Lab Maddie Michael MD CHEMISTRY ORDERABLES [facility] [place] [address] * EKG 12 Lead (01/29/2017 9:34 AM EDT) Ventricular rate 66 BPM MUSE SYSTEM Atrial Rate 66 BPM MUSE SYSTEM P-R Interval 176 ms MUSE SYSTEM QRS Duration 98 ms MUSE SYSTEM Q-T Interval 430 ms MUSE SYSTEM QTC Calculated (Bezet) 450 ms MUSE SYSTEM Calculated P [place] 43 degrees MUSE SYSTEM Calculated R [place] -6 degrees MUSE SYSTEM Calculated T [place] 23 degrees MUSE SYSTEM INTERPRETATION Normal sinus rhythm Incomplete right bundle branch block Nonspecific ST and T wave abnormality Abnormal ECG When compared with ECG of 09-AUG-2015 11:16, No significant change was found I personally reviewed the tracing and edited the fellows interpretation Confirmed by fellow MD Ramirez Danette ([id number]) on 01/29/2017 10:04:52 AM Confirmed by MD Janna, Ashok ([id number]) on 01/29/2017 1:24:18 PM MUSE SYSTEM 01/29/2017 9:34 AM EDT 01/29/2017 1:24 PM EDT Maddie Michael MD ECG ORDERABLES MUSE SYSTEM documented in this encounter Visit Diagnoses Diagnosis Primary osteoarthritis of right hip Primary localized osteoarthrosis, pelvic region and thigh documented in this encounter Care Teams Custom Applicator Relationship Specialty Start Date End Date Austin Rodriguez MD [address] [place] [address] PCP - General Family Medicine 06/12/15 05/18/18 documented as of this encounter
--- OUTSIDE RECORDS SUMMARY | 2024-03-07 08:55 | XMS_ITS | Encounter Summary ---
Author Organization [facility] [place] [address] Care Team Providers Care Manufacturer Representative Name Role Phone Austin Rodriguez MD Primary Care Provider [phone] Reason for Visit * Reason Comments Right Hip Pain Encounter Details Date Type Department Care Team (Latest Contact Info) Description 01/29/2017 10:00 AM EDT Office [place] [address] Brandyn Ayers MD [facility] [place] [address] Preop examination; Primary osteoarthritis of right hip Social History [...] Time Taken Comments Blood Pressure 118/60 01/29/2017 10:06 AM EDT Pulse 62 01/29/2017 10:06 AM EDT Temperature - - Respiratory Rate - - Oxygen Saturation 97% 01/29/2017 10: 06 AM EDT Inhaled Oxygen Concentration - - Weight 85.1 kg (187 lb 11.2 oz) 017 10:06 AM EDT measured Height 173 cm (5' 8.11) 01/29/2017 10: 06 AM EDT measured Body Mass Index 28.45 01/29/2017 10:06 AM EDT documented in this encounter H&P Notes * Brandyn Ayers MD - 01/29/2017 10:00 AM EDT Images from the original note were not included. CC: Nikky Jarrett is a 61 y.o. female with the following problems and medications that is being seen in the clinic for consultation at the request of her surgeon Dr. Panchito Michael for preoperative risk stratification and management recommendations in anticipation of right total hip arthroplasty for symptomatic OA. HPI - Pain - Location - Right hip and groin and thigh, Quality - aching, Onset - gradual, Duration - several months, Intensity - moderate to severe, Aggravating factors - standing, walking, stepping,bending, Alleviating factors - NSAID, APAP, rest, topical, Associated - Did have a fall (slipped inbathroom) about a month ago and she has discomfort still in left flank and hip area. She had no pain after her SHANTI there. She has been abstinent of Etoh and has been on naltrexone. She also attends meetings. Patient Active Problem List Diagnosis Code ??? Spinal stenosis M48.00 ??? Dysuria R30.0 ??? Alcoholism F10.20 ??? Depression F32.9 ??? History of tobacco abuse Z87.891 ??? S/P left SHANTI 08/17/15 Fernanda Z96.649 ??? Osteoarthritis of hip, Right M16.9 Current Outpatient Prescriptions Medication Sig Dispense Refill ??? triamcinolone (KENALOG) 0.1 % Cream 2 times daily. 0 ??? FLUoxetine (PROZAC) 20 mg Capsule Take 20 mg by mouth daily. 0 ??? naltrexone (DEPADE) 50 mg Tablet Take 50 mg by mouth daily. 0 ??? amoxicillin (AMOXIL) 500 mg Capsule as needed. Prior to dental procedures 0 Current Facility-Administered Medications Medication Dose Route Frequency Provider Last Rate Last Dose ??? mupirocin (BACTROBAN) 2 % ointment Topical (Top) BID Panchito Micheal MD Social History Occupational History ??? Not on file. Social History Main Topics ??? Smoking status: Former Smoker Quit date: 07/12/1979 ??? Smokeless tobacco: Never Used ??? Alcohol use No ??? Drug use: No ??? Sexual activity: Not on file Family History Problem Relation Age of Onset ??? Cancer Neg Hx ??? Diabetes Neg Hx Review of Systems: Review of Systems Constitutional: Negative for chills, diaphoresis and fever. HENT: Negative for mouth sores, nosebleeds and sore throat. Eyes: Negative for photophobia and visual disturbance. Respiratory: Negative for cough, shortness of breath and wheezing. Cardiovascular: Negative for chest pain, palpitations and leg swelling. Gastrointestinal: Negative for abdominal pain, anal bleeding, blood in stool, constipation and nausea. Endocrine: Negative for polydipsia and polyphagia. Genitourinary: Negative for dysuria, frequency and hematuria. Musculoskeletal: Positive for gait problem. Negative for joint swelling and myalgias. Skin: Negative for pallor. Has eczema on hands and uses topical steroid. Allergic/Immunologic: Negative for environmental allergies and immunocompromised state. Neurological: Negative for syncope, speech difficulty and light-headedness. Has tingling in her feet. Hematological: Negative for adenopathy. Does not bruise/bleed easily. Psychiatric/Behavioral: Negative for confusion, decreased concentration and dysphoric mood. Allergies: No Known Allergies Physical Exam: Last Set of Vitals and Range over past 24 hours: Last value Range last 24 hrs Temperature Temp: -- Heart Rate Heart Rate: 62 Heart Rate: [62-85] Blood Pressure BP: 118/60 BP: (118)/(60) Respiratory Rate Resp: -- SpO2 SpO2: 97 % SpO2: [97 %] Body mass index is 28.45 kg/(m^2). Height: 173 cm (5' 8.11) (measured) Physical Exam Constitutional: She is oriented to person, place, and time. She appears well- developed. No distress. HENT: Head: Normocephalic and atraumatic. Mouth/Throat: Oropharynx is clear and moist. No oropharyngeal exudate. Eyes: Conjunctivae are normal. Right eye exhibits no discharge. Left eye exhibits no discharge. No scleral icterus. Neck: Neck supple. No JVD present. No tracheal deviation present. Cardiovascular: Normal rate, regular rhythm, normal heart sounds and intact distal pulses. Exam reveals no gallop and no friction rub. No murmur heard. Pulmonary/Chest: Effort normal and breath sounds normal. No stridor. No respiratory distress. She has no wheezes. She has no rales. Abdominal: Soft. Bowel sounds are normal. There is no tenderness. There is no rebound and no guarding. Musculoskeletal: She exhibits no edema. Severe restriction in right hip internal rotation, moderate in flexion and external rotation. No drift of RLE. Lymphadenopathy: She has no cervical adenopathy. Neurological: She is alert and oriented to person, place, and time. She displays normal reflexes. No cranial nerve deficit. She exhibits normal muscle tone. Coordination normal. Skin: Skin is warm and dry. She is not diaphoretic. No pallor. Psychiatric: She has a normal mood and affect. Her behavior is normal. Judgment and thought contentnormal. Lab Results Component Value Date WBC 6.0 01/29/2017 RBC 4.72 01/29/2017 HGB 14.6 01/29/2017 HCT 43.6 01/29/2017 MCV 92.4 01/29/2017 MCH 30.9 01/29/2017 MCHC 33.5 01/29/2017 PLATELET 303 01/29/2017 RDWCV 12.2 01/29/2017 Lab Results Component Value Date NA 143 01/29/2017 K 4.2 01/29/2017 CL 106 01/29/2017 CO2 26 01/29/2017 BUN 11 01/29/2017 CREATININE 0.61 (L) 01/29/2017 GLUCOSE 85 01/29/2017 CALCIUM 9.6 01/29/2017 Lab Results Component Value Date PT 12.4 01/29/2017 INR 0.9 01/29/2017 PTT 26 01/29/2017 Estimated Creatinine Clearance: 108.2 mL/min (based on Cr of 0.61). EKG (image reviewed):Normal sinus rhythm Incomplete right bundle branch block Nonspecific ST and T wave abnormality Abnormal ECG When compared with ECG of 09-AUG-2015 11:16, No significant change was found Xray pelvis and bilateral hips images and report reviewed - Left SHANTI and right hip OA. A/P 1. Preop examination 2. Primary osteoarthritis of right hip She elects to proceed with Right SHANTI. She will continue her naltrexone and did not have issues withpostoperative pain control while doing so after her prior SHANTI, Major Risk Factor per the Revised Cardiac Risk Index (Bold if present) - There is no history of CAD, CHF, CVA or TIA, DM2 on insulin, or a Creatinine >2 Risk diagnosis for MACE (major adverse cardiovascular event = Myocardial infarction, pulmonary edema, ventricular fibrillation, primary cardiac arrest, or complete heart block.) : Low <1% . The patient describes a functional status of 4METs and more (walking and biking, goes up stairs) and basedon the ACC/AHA 2014 guideline no further cardiovascular testing is indicated. ARISCAT/CANET Score - estimates the risk of postoperative pulmonary complications as being low ~3.5%. STOP BANG Score - low risk for MONICA. Per the ACS NSQIP calculator I estimated the following. She has optimized her risk with continued abstinence from Etoh. RECCO: Continue naltrexone and fluoxetine documented in this encounter Plan of Treatment Upcoming Encounters Date Type Department Care Team (Late st Contact Info) Description 03/23/2024 9:15 AM EDT Appointment XRay at [address] [place] [address] 03/23/2024 10:00 AM EDT Office [place] [address] Kathie Polk MD [facility] [place] [address] documented as of this encounter Visit Diagnoses Diagnosis Preop examination Preoperative examination, unspecified Primary osteoarthritis of right hip Primary localized osteoarthrosis, pelvic region and thigh documented in this encounter Care Teams Manufacturer Representative Relationship Specialty Start Date End Date Austin Rodriguez MD [address] [place] [address] PCP - General Family Medicine 06/12/15 05/18/18 documented as of this encounter
--- OUTSIDE RECORDS SUMMARY | 2024-03-07 08:55 | XMS_ITS | Encounter Summary ---
Author Organization [facility] Address [facility] [place] [address] Care Team Providers Care Hosiery Mater Name Role Phone Austin Rodriguez MD Primary Care Provider [phone] Encounter Details Date Type Department Care Team (Latest Contact Info) Description 08/21/2016 9:08 AM EDT - 08/21/2016 11:59 PM EDT Hospital Encounter XRay at [address] [place] [address] Panchito Michael MD Osteoarthritis of left hip, unspecified osteoarthritis type Discharge Disposition: Home Social History Tobacco Use [...] 03/23/2024 9:15 AM EDT Appointment XRay at [address] [place] [address] 03/23/2024 10:00 AM EDT Office Visit Orthopaedics at [facility] [place] [address] Kathie Polk MD [facility] [place] [address] documented as of this encounter Procedures Procedure Name Priority Date/Time Associated Diagnosis Comments XR PELVIS AND HIP 2 VIEWS LEFT Routine 08/21/2016 9:24 AM EDT Osteoarthritis of left hip, unspecified osteoarthritis type documented in this encounter Results * XR Pelvis AP [...] type documented in this encounter Care Teams Hosiery Mater Relationship Specialty Start Date End Date Austin Rodriguez MD [address] [place] [address] PCP - General Family Medicine 06/12/15 05/18/18 documented as of this encounter
--- OUTSIDE RECORDS SUMMARY | 2024-03-07 08:55 | XMS_ITS | Encounter Summary ---
Author Organization [facility] Address [facility] [place] [address] Care Team Providers Care Supervisor Wood Crew Name Role Phone Austin Rodriguez MD Primary Care Provider [phone] Reason for Visit * Auth/Cert - Closed [...] Expiration Date Visits Re quested Visits Authorized [id number] Closed 1 1 Encounter Details Date Type Department Care Team (Latest Contact Info) Description 08/17/2015 - 08/17/2015 6:45 AM [facility] Hospital Encounter Radiology Library at [facility] [place] [phone] Panchito Michael MD Discharge Disposition: Home Social History Tobacco Use [...] smaller dose. 90 tablet 0 08/18/2015 08/23/2015 acetaminophen (TYLENOL) 500 mg Tablet Take 1,000 mg by mouth as needed for Pain. 08/18/2015 fish oil-omega-3 fatty acids 1,000 mg Capsule Take 2 g by mouth daily. 08/18/2015 naltrexone (DEPADE) 50 mg Tablet Take 50 mg by mouth daily. 0 06/11/2015 09/12/2020 documented as of this encounter Plan of Treatment Upcoming Encounters Date Type Department Care Team (Late st Contact Info) Description 03/23/2024 9:15 AM EDT Appointment XRay at [address] [place] [address] 03/23/2024 10:00 AM EDT Office Visit Orthopaedics at [facility] [place] [phone] Kathie Polk MD [facility] [place] [address] Pending Results Name Type Priority Associated Diagnoses Date /Time FILM LIBRARY-FLUORO OR C-[id number] ONL Imaging Routine 08/17/2015 10: 59 AM EST documented as of this encounter Visit Diagnoses Not on filedocumented in this encounter Care Teams Supervisor Wood Crew Relationship Specialty Start Date End Date Austin Rodriguez MD [address] [place] [address] PCP - General Family Medicine 06/12/15 05/18/18 documented as of this encounter
--- OUTSIDE RECORDS SUMMARY | 2024-03-07 08:55 | XMS_ITS | Encounter Summary ---
[facility] Organization [facility] [place] [address] Care Team Providers Care Senior Business Architect Name Role Phone Blair Rodriguez MD Primary Care Provider [phone] Reason for Visit * Auth/Cert - Closed [...] Expiration Date Visits Re quested Visits Authorized [id number] Closed 1 1 Encounter Details Date Type Department Care Team (Latest Contact Info) Description 08/17/2015 6:46 AM EST - 08/18/2015 12:51 PM [facility] Hospital Encounter [address] [place] [address] Panchito Michael MD Primary osteoarthritis of left hip Discharge Disposition: Home with VNA Social History Tobacco Use Types Packs/Day Years [...] Nikky Jarrett Patient Age: 60 y.o. Language: Tristanian Race: White Ethnicity: Not nor Admit date: 08/17/2015 Discharge date and time: 08/18/2015 Attending Physician: Panchito Michael MD Discharge Physician: Panchito Michael MD Follow-up Recommendations for Providers: See discharge instructions for additional details. Future Appointments Date Time Provider Department Center 09/13/2015 9:[address] [facility] DX ROOM 1 [facility] 09/13/2015 10:10 AM Panchito Michael MD [address] Inpatient Provider Contact Information: Panchito Michael MD Orthopedics: [phone] After hours and weekends, call [facility] Tap Out Operator, , and have the Orthopedic resident paged. [...] Height: Ht Readings from Last 1 Encounters: 08/16/ 175.3 cm (5' 9) HC: HC Readings [...] bowel movement. You can also take an cpbj-tvh-ixhjlzr medication, Miralax if needed to combat constipation. [...] 1. You will have follow-up appointments at [facility] as indicated below in Future Appointment and Orders. 2. You will need to have x-rays prior to your follow-up appointment on 09/12. Please come to Radiology, desk 3T, 1 hour BEFORE that appointment for those x-rays. Future Appointments Date Time Provider Department Center 09/13/2015 9:[address] [facility] DX ROOM 1 Xray [facility] 09/13/2015 [...] 09/13/2015 10:10 AM Panchito Michael MD Orthopaedics [phone] Future Orders Complete By Expires Referral to Home Health - at DISCHARGE [[id number] CPT(R)] As directed Process Instructions: Scheduling Instructions: Comments: DOCUMENTATION FOR VNA SERVICES (INCLUDING THOSE PATIENTS WITH MEDICARE COVERAGE REQUIRING HOME VNA SERVICES AND/OR HOSPICE SERVICES) Nikky Jarrett Discharge to own home: [address] [facility] [phone] (home) Telephone Information: Roof Foreman's Name: self In discussion with the attending physician, it is certified that this patient is under their care and that they, or a nurse practitioner, clinical nurse specialist or physician's bricklayer's assistant who is working directly with them, had [...] Health Agency: [facility] ([facility] [place] [facility]-is in [place], [place]) PHONE: [phone] FAX: [phone] Home care orders for Total Hip Replacements: [...] PT services only then please refer for Fpc(SN) eval if indicated on admission visit All VNA agencies which cover the area of patient's residence have been reviewed, either verbally jose writing, and patient/family have chosen the home health care agency as noted for home services. Questions: Agency name and contact information: [facility] Patient location post discharge: own home What services are requested: Physical Therapy Start date: 08/19/2015 Responsible MD post discharge contact info: PCP Primary Care Provider: BLAIR RODRIGUEZ MD [phone] Discharge References/Attachments None Associated attestation - Panchito [...] bowel movement. You can also take an ppwh-oay-hlfqpbo medication, Miralax if needed to combat constipation. [...] 1. You will have follow-up appointments at [facility] as indicated below in Future Appointment and Orders. 2. You will need to have x-rays prior to your follow-up appointment on 09/12. Please come to Radiology, desk 3T, 1 hour BEFORE that appointment for those x-rays. Future Appointments Date Time Provider Department Center 09/13/2015 9:[address] [facility] DX ROOM 1 Xray [facility] 09/13/2015 [...] RN - 08/18/2015 10:43 AM EST Nurse Ip Attorney Initial Assessment Kendra Peralta RN, pager [phone] Office of Care Management 08/18/2015 Nikky Jarrett [id number] Date of : 1955 Admission Diagnosis: S/P [...] Lives w/ spouse in own home in [place], [place]. Code Status: Full Advance Directives: none in Epic. Admission Status: written and signed by attending as IPI. Insurance: /BS. Pharmacy: [facility] [place], [place] - [address] BLAIR RODRIGUEZ MD, PCP. Baseline Functional Status: self reports no functional deficits. Current Home Equipment/Services: none. Current Functional Status/Mobility: PT/OT eval's performed this morning and found pt safe to returnhome w/ home vna services. [facility] CM will communicate this referral to RS. Anticipated Barriers to Discharge: none. Anticipated Discharge Date: 08/18/[address]: home. Anticipated Discharge Needs: home vna. Transportation Needs: . Family Involved in Discharge Planning: yes, spouse. CM will continue to monitor progress and assist with changing needs. Kendra Peralta RN, MSN Ip AttorneyWatch Inspector Final Movement of Care Management Pager [phone] Phone: [phone] * Dionte Velasco MD - 08/18/2015 5:51 [...] morning. Urinating on own, up ambulating with STRAW BOSS/ambulatory assists. Pain controlled with 15mg oxycodone. Denies [...] Time Provider Department Center 09/13/2015 9:[address] [facility] DX ROOM 1 Xray [facility] 09/13/2015 10:10 AM Panchito Michael MD [facility] Associated attestation - Panchito Michael MD - 08/18/2015 1:36 PM EST Patient seen and examined on rounds. Agree with resident note. In brief, doing well without issues.WBAT, ASA x 6 weeks, F/U 4 weeks. Panchito Michael M.D. MS Department of Orthopaedics * Moon Olivares RN [...] having a bit of pain currently at 11/15. She hasn't been able to urinate yet but last bladder scan was 296cc. Is a little anxious about amubulating. 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 Denies CP, SOB, nausea, vomiting, abd pain. Denies paresthesia in lateral left thigh. O: Vitals: Temp: [36.2 ??C (97.2 ??F)-37.1 ??C (98.8 ??F)] Heart Rate: [53-70] Resp: [11-] BP: (104-127)/(61-95) SpO2: [98 %-100 %] I/O [...] 40 minutes Total timed interventions: 15 minutes [facility] Pager: [phone] BRENDON SILVA OT 08/18/2015 Occupational Therapy Rehabilitation Department * Initial Assessments - Stephanie Garcia, PT - 08/18/2015 9:49 AM EST [...] at home. 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 She has a tub shower on [...] LEONARDO Total timed treatment: 10 minutes LEONARDO GARCIA PT Pager: [phone] * Plan of Care - Radha Santiago [...] dexamethasone 4 mg Oral Daily ??? multivitamin Zdsb-Ue-BI-Min 1 tablet Oral Daily ??? pantoprazole 20 [...] (Interventions Implemented as Appropriate) 08/17/15 1600 08/17/15 2212 Safety Interventions Isolation Precautions -- standard precautions [...] Operative Note Patient Name: Nikky Jarrett : [id number] MR#: [id number] Date of surgery: August 17, 2015 Preoperative diagnosis: Left hip osteoarthritis Postoperative diagnosis: Left hip osteoarthritis Procedure: Left total hip arthroplasty Anesthesia: Spinal Surgeon: Panchito Michael MD Rubber Roller Grinder Operator: Ziyad Moya MD Estimated blood loss: 550 cc Fluids: 1300 cc Urine output: Due to Void Drains: None Complications: None Implants: 1. 11 Corail Coxa Vara femoral stem 2. 52 mm [place] Sector Cluster acetabular shell 3. 36 x [...] Michael MD - 08/17/2015 11:28 AM EST [facility] Operative Note Patient Name: Nikky Jarrett : [id number] MR#: [id number] Date of surgery: August 17, 2015 Preoperative diagnosis: Left hip osteoarthritis Postoperative diagnosis: Left hip osteoarthritis Procedure: Left total hip arthroplasty Anesthesia: Spinal Surgeon: Panchito Michael MD Rubber Roller Grinder Operator: Ziyad Moya MD Estimated blood loss: 550 cc Fluids: 1300 cc Urine output: Due to Void Drains: None Complications: None Implants: 1. 11 Corail Coxa Vara femoral stem 2. 52 mm [place] Sector Cluster acetabular shell 3. 36 x [...] 03/23/2024 9:15 AM EDT Appointment XRay at [address] [place] [address] 03/23/2024 10:00 AM EDT Office [place] [address] [facility] [place] [address] Pending Results Name Type Priority Associated Diagnoses Date /Time FILM LIBRARY-FLUORO OR [id number] ONL Imaging Routine 08/17/2015 10: 59 AM EST Scheduled Orders Name Type Priority Associated Diagnoses Orde r Schedule FILM LIBRARY-FLUORO OR [id number] ONL Imaging Routine Once PRN (f or [...] 4:45 AM EST) Neutrophil % 84.8 % [facility] Neutrophil Absolute 10.31(H) 1.50 - 6.30 x10(3)/mc L [facility] Lymph % 6.3 % [facility] Lymphocytes Abs 0.8(L) 1.0 - 3.6 x10(3)/ L [facility] Monocyte % 8.5 % [facility] Monocyte Abs 1.0 0.2 - 1.0 x10(3)/mc L [facility] Eos % 0.0 % [facility] Eosinophils Abs 0.0 0.0 - 0.5 x10(3)/ L [facility] Basophil % 0.1 % [facility] Baso Absolute 0.0 0.0 - 0.2 x10(3)/ L [facility] Immature Gran % 0.30 % [facility] Comment: Immature granulocytes(IG's)percentage and absolute count will include metamyelocytes, myelocytes, and promyelocytes. Blood smears from CBCs yielding IG's will be scanned manually for concordance. If this scan disagrees with the automated IG or if promyelocytes are noted, a manual differential will be performed. Immature Gran Absolute 0.04 0.00 - 0.05 x10(3)/ L [facility] Blood specimen (specimen) 08/18/2015 4:45 AM EST 08/18/2015 5:06 AM EST Narrative Resulting Agency Comment Spec In Lab Panchito Michael MD HEMATOLOGY ORDERABLE S Performing Organization Address City/State/[facility] Co de Phone Number [facility] [place] [address] * (ABNORMAL) Hemogram (08/18/2015 4:45 AM EST) White Blood Cell 12.2(H) 4.0 - 10.0 x10(3)/ L [facility] Red Blood Cell 3.53(L) 3.93 - 5.22 x10(6)/mc L [facility] Hemoglobin 11.3 11.2 - 15.7 gm/dL [facility] Hematocrit 34.2 34.0 - 45.0 % [facility] Mean Cell Volume 96.9(H) 79.0 - 94.0 fL [facility] Mean Cell Hemoglobin 32.0 26.6 - 32.2 pg [facility] Mean Cell Hemoglobin Concentration 33.0 32.0 - 36.5 gm/dL [facility] Platelet 308 145 - 370 x10(3)/mc L [facility] RDW Standard Deviation 46.5(H) 35.0 - 46.0 fL [facility] RDW coefficient of variation 13.3 10.9 - 14.4 % [facility] Mean Platelet Volume 10.8 9.0 - 12.0 fL [facility] Blood specimen (specimen) 08/18/2015 4:45 AM EST 08/18/2015 5:06 AM EST Narrative Resulting Agency Comment Spec In Lab Panchito Michael MD HEMATOLOGY ORDERABLE S Performing Organization Address City/State/[facility] Co de Phone Number [facility] [place] [address] * (ABNORMAL) Basic Metabolic Panel (non-fasting) (08/18/2015 4:45 AM EST) Glucose 153 65 - 199 mg/dL [facility] Comment:Diabetes: >=200 mg/d L plus symptoms Blood Urea Nitrogen 8 8 - 18 mg/dL [facility] Creatinine 0.61(L) 0.70 - 1.20 mg/dL [facility] Comment: Please note that the pediatric reference intervals supplied above were not validated at [facility]. Results from pediatric patients should be interpreted in conjunction to the patient's age, height and muscle mass. Sodium 142 135 - 145 mmol/L [facility] Potassium 4.5 3.5 - 5.0 mmol/L [facility] Comment: Please note: ??Patients with WBC >100,000 may have falsely elevated Potassium levels. ??For accurate Potassium quantification in these patients send serum separator tube (gold top) for subsequent determinations. ??Contact the Clinical Chemistry Laboratory if there are any questions. Chloride 105 98 - 107 mmol/L [facility] Carbon Dioxide 26 22 - 31 mmol/L [facility] Anion Gap 11 5 - 15 mmol/L [facility] Calcium 9.0 8.5 - 10.5 mg/dL [facility] Est Glomerular Filtration Rate >60 >=60 [facility] Comment: This estimated GFR [...] the following links into your internet browser. [email or web address] Blood specimen (specimen) 08/18/2015 4:45 AM EST 08/18/2015 5:06 AM EST Narrative Resulting Agency Comment Spec In Lab Panchito Michael MD CHEMISTRY ORDERABLES Performing Organization Address City/State/[facility] Co de Phone Number [facility] [place] [address] documented in this encounter Visit Diagnoses Diagnosis s/p left anterior SHANTI 08/17/2015 Dr. Michael- Primary Osteoarthrosis, unspecified whether generalized or localized, pelvic region and thigh Primary osteoarthritis of left hip Primary localized osteoarthrosis, pelvic region and thigh S/P total hip arthroplasty Hip joint replacement by other means documented in this encounter Admitting Diagnoses Diagnosis [...] of Surgery (Day of Procedure), Routine Given 08/17/2015 7:27 AM EST 1,000 mg acetaminophen (TYLENOL) tablet 1,000 mg 1,000 mg, Oral, EVERY 8 HOURS SCHEDULED, First dose on Thu08/17/15 at 1400, Until Discontinued, Maximum dose of acetaminophen is 4000 mg from all sources in 24 hours., Routine Given 08/18/2015 6:03 AM EST 1,000 mg Given 08/17/2015 3:51 PM EST 1,000 mg aspirin EC tablet 325 mg 325 mg, Oral, 2 TIMES DAILY, First dose on Thu08/18/15 at 0900, Until Discontinued, Routine Given 08/18/2015 8:15 AM EST 325 mg ceFAZolin (ANCEF) 1g in dextrose 5% 50mL 1,000 mg (1 g), Intravenous, EVERY 8 [...] Unit), Indication for (Active or Suspected): Prophylaxis Given 08/18/2015 3:40 AM EST 1,000 mg 100 mL/ hr Given 08/17/2015 8:11 PM EST 1,000 mg 100 mL/hr Given 08/17/2015 1:05 PM EST 1,000 mg 100 mL/hr celecoxib (CeleBREX) capsule 200 mg 200 mg, Oral, 2 TIMES DAILY, First dose on Thu08/17/15 at 2100, Until Discontinued, Routine Given 08/18/2015 8:15 AM EST 200 mg Given 08/17/2015 8:11 PM EST 200 mg celecoxib (CeleBREX) capsule 400 mg 400 mg, Oral, ONCE, 1 dose, On Thu08/17/15 at 0745, Administer on arrival to Same Day Program, Day of Surgery (Day of Procedure), Routine Given 08/17/2015 7:27 AM EST 400 mg dexamethasone (DECADRON) tablet 4 mg 4 mg, Oral, DAILY, 2 doses, First dose on Thu08/17/15 at 1700, Last dose on Thu08/18/15 at 0900, Routine Given 08/18/2015 8:15 AM EST 4 mg Given 08/17/2015 5:36 PM EST 4 mg FLUoxetine (PROzac) capsule 20 mg 20 mg, Oral, DAILY, First dose on Thu08/18/15 at 0900, Until Discontinued, Routine Given 08/18/2015 8:15 AM EST 20 mg gabapentin (NEURONTIN) capsule 300 mg 300 mg, Oral, ONCE, 1 dose, On Thu08/17/15 at 0745, Administer on arrival in Same Day Program, Day of Surgery (Day of Procedure), Routine Given 08/17/2015 7:27 AM EST 300 mg gabapentin (NEURONTIN) capsule 600 mg 600 mg, Oral, NIGHTLY, 2 doses, First dose on Thu08/17/15 at 2100, Last dose on Thu08/18/15 at 2100, Routine Given 08/17/2015 8:12 PM EST 600 mg HYDROmorphone (DILAUDID) syringe 0.2-0.4 mg 0.2-0.4 mg, Intravenous, EVERY 5 MIN PRN, Pain, Starting on Thu08/17/15 at 1105, Until Thu08/17/15 at 1412, For moderate pain (4-6) give: 0.2 mg every 5 minute prn For severe pain (7-10) give: 0.4 mg every 5 minutes prn Maximum dose: 4 mg per hour Hold for respiratory rate less than 10 per minute., PACU Recovery Given 08/17/2015 1:44 PM EST 0.4 mg Given 08/17/2015 1:11 PM EST 0.4 mg Given 08/17/2015 12:51 PM EST 0.4 mg ketorolac (TORADOL) injection 15 mg 15 mg, Intravenous, EVERY 6 HOURS SCHEDULED, 4 doses, First dose on Thu08/17/15 at 1600, Last dose on Thu08/18/15 at 1200, Routine Given 08/18/2015 12:21 PM EST 1 5 mg Given 08/18/2015 6:02 AM EST 15 mg Given 08/18/2015 12:14 AM EST 15 mg ketorolac (TORADOL) injection 30 mg 30 mg, Intravenous, EVERY 6 HOURS PRN, Starting on Thu08/17/15 at 1137, Until Thu08/17/15 at 1534, Pain, Routine Given 08/17/2015 11:42 AM EST 30 mg lactated ringers infusion 1,000 mL 1,000 mL, at 100 mL/hr, Intravenous, CONTINUOUS, Starting on Thu08/17/15 at 1215, Until 08/18/15 at 0545, Recovery (Recovery-Hospital Unit) New Bag 08/18/2015 12:22 AM EST 1,000 mLs 100 m L/hr New Bag 08/17/2015 11:57 AM EST 1,000 mLs 100 mL/hr multivitamin Fqpy-Qn-QI-Min (THERAPEUTIC-M) 27-0.4 mg tablet 1 tablet 1 tablet, Oral, DAILY, First dose on Thu08/17/15 at 1700, Until Discontinued Given 08/18/2015 8:15 AM EST 1 tablet Given 08/17/2015 5:37 PM EST 1 tablet naltrexone (DEPADE) tablet 50 mg 50 mg, Oral, DAILY, First dose on Thu08/17/15 at 1700, Until Discontinued, Routine Given 08/18/2015 8:16 AM EST 50 mg Given 08/17/2015 5:37 PM EST 50 mg oxyCODONE (ROXICODONE) immediate release tablet 5-15 mg 5-15 mg, Oral, EVERY 4 HOURS PRN, Starting on Thu08/17/15 at 1147, Until 08/18/15 at 1452, Pain, Give 5 mg for mild pain (1-3), 10 mg for moderate pain (4-6) or 15 mg for severe pain (7-10) May give an additional 5 mg in 30 minutes ONCE if pain not relieved., Routine Given 08/18/2015 12:20 PM EST 15 mg Given 08/18/2015 6:03 AM EST 15 mg Given 08/18/2015 12:22 AM EST 15 mg pantoprazole (PROTONIX) tablet 20 mg 20 mg, Oral, DAILY, First dose on Thu08/17/15 at 1700, Until Discontinued, DO NOT CRUSH OR OPEN Given 08/18/2015 8:14 AM EST 20 mg Given 08/17/2015 5:37 PM EST 20 mg polyethylene glycol (MIRALAX) packet 17 g 17 g, Oral, 2 TIMES DAILY, First dose on Thu08/17/15 at 2100, Until Discontinued, Routine Given 08/18/2015 8:13 AM EST 17 g Given 08/17/2015 8:11 PM EST 17 g senna-docusate (PERICOLACE) 8.6-50 mg per tablet 2 tablet 2 tablet, Oral, 2 TIMES DAILY, First dose on Thu08/17/15 at 2100, Until Discontinued, Routine Given 08/18/2015 8:16 AM EST 2 tablets Given 08/17/2015 8:11 PM EST 2 tablets sodium chloride 0.9 % flush 5 mL 5 mL, Intravenous, 2 TIMES DAILY, First dose on Thu08/17/15 at 2100, Until Discontinued, Recovery (Recovery-Hospital Unit), Routine Given 08/18/2015 8:17 AM EST 5 mLs Given 08/17/2015 8:12 PM EST 5 mLs documented in this encounter Active and Recently [...] Santiago, JEFFERSON) 339 (Given - Provider: Radha Santiago RN) ceFAZolin (ANCEF) 2g in dextrose 5% 50 [...] Olivares RN) 08 (Given - Provider: Sayra Harris RN) FLUoxetine (PROzac) capsule 20 mg (CANCELED) 20 mg, Oral, DAILY, First dose on Thu08/18/15 at 0900, Until Discontinued, Routine 08 (Given - Provid er: Sayra Harris RN) gabapentin (NEURONTIN) capsule 300 mg (COMPLETED) 300 mg, Oral, ONCE, 1 dose, On Thu08/17/15 at 0745, Administer on arrival in Same Day Program, Day of Surgery (Day of Procedure), Routine 07 (Given - Provider: Yumi Cm RN) gabapentin (NEURONTIN) capsule 300 mg(Linked Group 1) 300 mg, Oral, NIGHTLY, First dose on Thu08/19/15 at 2100, Until Discontinued, Routine gabapentin (NEURONTIN) capsule 600 mg (CANCELED)(Linked Group 1) 600 mg, Oral, NIGHTLY, 2 doses, First dose on Thu08/17/15 at 2100, Last dose on Thu08/18/15 at 2100, Routine 2011 (Given - Provider: Radha Santiago RN) ketorolac (TORADOL) injection 15 mg (COMPLETED) 15 mg, Intravenous, EVERY 6 HOURS SCHEDULED, 4 doses, First dose on Thu08/17/15 at 1600, Last dose on Thu08/18/15 at 1200, Routine 173 (Given - Provider: Moon Olivares RN) 0014 (Given - Provider: Radha Santiago RN)0602 (Given - Provider: Radha Santiago RN)1221 (Given - Provider: Sayra Harris RN) multivitamin Xrgl-Hc-JM-Min (THERAPEUTIC-M) 27-0.4 mg tablet 1 tablet (CANCELED) 1 tablet, Oral, DAILY, First dose on Thu08/17/15 at 1700, Until Discontinued 173 (Given - Provider: Moon Olivares RN) 0815 (Given - Provider: Sayra Harris, JEFFERSON) naltrexone (DEPADE) tablet 50 mg (CANCELED) 50 mg, Oral, DAILY, First dose on Thu08/17/15 at 1700, Until Discontinued, Routine 1737 (Given - Provider: Moon Olivares RN) 0816 (Given - Provider: Sayra Harris RN) pantoprazole (PROTONIX) tablet 20 mg (CANCELED) 20 mg, Oral, DAILY, First dose on Thu08/17/15 at 1700, Until Discontinued, DO NOT CRUSH OR OPEN 173 (Given - Provider: Moon Olivares RN) 0814 (Given - Provider: Sayra Harris RN) polyethylene glycol (MIRALAX) packet 17 g 17 g, Oral, 2 TIMES DAILY, First dose on Thu08/17/15 at 2100, Until Discontinued, Routine 2010 (Given - Provider: Radha Santiago, JEFFERSON) 08 (Given - Provider: Sayra Harris, JEFFERSON) senna-docusate (PERICOLACE) 8.6-50 mg per tablet 2 tablet 2 tablet, Oral, 2 TIMES DAILY, First dose on Thu08/17/15 at 2100, Until Discontinued, Routine 2010 (Given - Provider: Radha Santiago RN) 08 (Given - Provider: Sayra Harris RN) sodium chloride 0.9 % flush 5 mL (CANCELED) 5 mL, Intravenous, 2 TIMES DAILY, First dose on Thu08/17/15 at 2100, Until Discontinued, Recovery (Recovery-Hospital Unit), Routine 2011 (Given - Provider: Radha Santiago RN) 08 (Given - Provider: Sayra Harris RN) Continuous [...] PRN, Starting on Thu08/17/15 at 1534, Until Sat 12/16 at 1452, Constipation, Administer if needed per patient's routine or if no bowel movement within 48 hours to achieve: 1) One bowel movement at least every 48 hours, AND 2) Without straining. If multiple bowel medications ordered, consider adding bisacodyl if polyethylene glycol (MIRALAX), docusate/senna, or lactulose not sufficient. If patient unable to take PO, may give DC if ordered, Routine BUpivacaine-EPINEPHrine 0.25 %-1:200,000 injection [...] Radha Santiago RN)1220 (Given - Provider: Sayra A Harris, RN) Linked Groups Order Group 1: gabapentin (NEURONTIN) capsule 600 mg (CANCELED)Jump to med 600 mg, Oral, NIGHTLY, 2 doses, First dose on Thu08/17/15 at 2100, Last dose on Thu08/18/15 at 2100, Routine Followed by gabapentin (NEURONTIN) capsule 300 mgJump to med 300 mg, Oral, NIGHTLY, First dose on 08/19/15 at 2100, Until Discontinued, Routine documented in this encounter Care Teams Senior Business Architect Relationship Specialty Start Date End Date Blair Rodriguez MD [address] [place] [address] PCP - General Family Medicine 06/12/15 05/18/18 documented as of this encounter
--- OUTSIDE RECORDS SUMMARY | 2024-03-07 08:55 | XMS_ITS | Encounter Summary ---
Author Organization [facility] [place] [address] Care Team Providers Care Mass Spectrometry Manager Name Role Phone Austin Rodriguez MD Primary [...] Expiration Date Visits Re quested Visits Authorized [id number] 1 1 Encounter Details Date Type Department Care Team (Late st Contact Info) Description 02/13/2017 8:28 AM EDT Anesthesia Event [place] [address] Aidan Negrete MD [facility] [place] [address] Azael Giraldo CRNA [facility] [place] [address] Anesthesia Record Procedure Summary Procedure Name Responsible Anesthesiologist Anesthesia Start Time Anesthesia Stop Time TOTAL HIP ARTHROPLASTY, ANTERIOR APPROACH (WRVU 19.6) (Right: Hip) Aidan Negrete MD 02/13/17 0828 02/13/17 1057 Events Date Time Event Comment 02/13/2017 0809 0828 AN Verify 0828 Start 0829 An Start Data 0838 Spinal 0842 Anesthesia Ready 0858 Procedure Start 0948 Break/Relief In RUBIO Ruiz Break/Relief Out 1047 an stop data 1052 Recovery or ICU Handoff Ruby ent care was transferred to the destination unit staff after review of the patient's medical history, current anesthetic/surgical status and plan, according to the Provider Handoff Checklist. 1057 Stop Meds Name Total Midazolam 2 mg Propofol 40 mg Propofol INF 737.76 mg BUpivacaine 0.75% spinal 15 mg ceFAZolin (ANCEF) 2g in dextrose 5% 100 mL 2 g tranexamic acid (CYKLOKAPRON) 1,293 mg i n sodium chloride 0.9% 112.93 mL 1,293 mg PHENYLephrine INF 3,200 mcg ePHEDrine 10 mg Lactated Ringers 1,200 mL * Agents Name O2 Air N2O O2 Auxiliary Flowmeter 1 * Blood No blood administrations on file. Lines, Drains, and Airways Type Details Placement Removal Incision 08/17/15; hip; vertical; 02/03/22 (LDA cleanup utility RA#[id number]); 1715 (LDA cleanup utility RA#[id number]) 08/17/15 0000 by Neda Sorto RN 02/03/22 1715 by Anne-Marie Catalan (RETIRED) Peripheral IV Line - Single Lumen 02/13/17; 0807; metacarpal vein (top of hand), left; [id number] catheter system; 18 gauge; RM; intradermal injection, tolerated well; removed per physician; 02/14/17; 1204 02/13/17 0807 by Mercedes Palma RN 02/14/17 1204 by Jeannine Plata RN Incision 02/13/17; 0900; hip; 02/03/22 (Counsyl cleanup utility RA#[id number]); 1715 (LDA cleanup utility RA#[id number]) 02/13/17 0900 by Evy Eldridge RN 02/03/22 1715 by Ann-eMarie Catalan documented in this encounter Social History Tobacco Use Types Packs/Day Years Used Date Smoking Tobacco: Former Cigarettes Q uit: 07/12/1979 Smokeless Tobacco: Never Alcohol Use Standard Drinks/Week Comments No 0 (1 standard drink = 0.6 oz pur e alcohol) Sex and Gender Information Value Date Recorded Sex Assigned at Not on file Gender Identity Not on file Sexual Orientation Not on file documented as of this encounter OR Notes * Anesthesia Postprocedure Evaluation - Aidan Negrete MD - 02/13/2017 12:42 PM EDT [facility] Department of Anesthesiology Post-procedure Note Patient: Nikky Jarrett Procedure Summary Date Anesthesia Start Anesthesia Stop Room / Location 02/13/17 0828 1057 [facility] OR [facility] MAIN OR Procedure Diagnosis Surgeon Responsible Provider @TOTAL HIP ARTHROPLASTY, ANTERIOR APPROACH (WRVU 20.72) (Right Hip); HIP INTRAOP RADIOLOGIC EXAMINATION, UNILATERAL, W PELVIS; 4+ VIEWS (WRVU 0.27) (Right Hip); MODIFIER CORAIL FEMORAL STEM DEPUY (N/A Hip); MODIFIER PINNACLE ACETABULUM DEPUY (N/A Hip) Primary osteoarthritis of right hip (right hip oa) Panchito Michael MD Chinn, Christopher D, MD All Anesthesia Providers: Anesthesiologist: Aidan Negrete MD BONE TENDER: Azael Giraldo CRNA Last (1hr) Vitals: BP 94/58 (02/13/17 1145) Temp Pulse 57 (02/13/17 1145) Resp 12 (02/13/17 1145) SpO2 98 % (02/13/17 1145) Patient Location: PACU/[facility] Level of Consciousness: Awake and Alert Pain Management: Satisfactory Analgesia PONV: None Cardiovascular Status: At Baseline and Hemodynamically Stable Respiratory Status: At Baseline and Room Air Postoperative Fluid Status: Intravascular EUvolemia Possible Anesthetic Complications: NONE apparent at time of evaluation Final Primary Anesthesia Type: General (The anesthetic type performed was the same as planned.) Comments: AIDAN NEGRETE MD * Anesthesia Preprocedure Evaluation - Aidan Negrete MD - 02/13/2017 9:17 AM EDT Pre-Anesthesia Evaluation for: Nikky Jarrett a 62 y.o. female. Procedure(s): @TOTAL HIP ARTHROPLASTY, ANTERIOR APPROACH HIP INTRAOP RADIOLOGIC EXAMINATION, UNILATERAL, W PELVIS; 4+ VIEWS MODIFIER CORAIL FEMORAL STEM DEPUY MODIFIER PINNACLE ACETABULUM DEPUY Patient Active Problem List Diagnosis ??? Osteoarthritis of hip, Right ??? S/P left SHANTI 08/17/15 Fernanda ??? Dysuria ??? Alcoholism On naltrexone. ??? Depression ??? History of tobacco abuse ??? Spinal stenosis L4-5 Past Medical History: Diagnosis Date ??? Spinal stenosis 06/21/2015 L4-5 Past Surgical History: Procedure Laterality Date ??? PRG RADEX HIP UNILATERAL WITH PELVIS MINIMUM 4 VIEWS Left 08/17/2015 HIP INTRAOP RADIOLOGIC EXAMINATION, UNILATERAL, W PELVIS; 4+ VIEWS performed by Panchito Michael MD at [facility] MAIN OR ??? PRO TOTAL HIP ARTHROPLASTY Left 08/17/2015 @TOTAL HIP ARTHROPLASTY, ANTERIOR APPROACH performed by Panchito Michael MD at [facility] MAIN OR Social History Substance Use Topics ??? Smoking status: Former Smoker Quit date: 07/12/1979 ??? Smokeless tobacco: Never Used ??? Alcohol use No History Drug Use No No Known Allergies Medications: MAR and/or home medications have been reviewed. Physical Exam: Vitals: 02/13/17 0719 BP: 112/67 Pulse: 61 Resp: 18 Temp: 36.5 ??C (97.7 ??F) Body mass index is 28.33 kg/(m^2). Height: 173 cm (5' 8.11) Weight - Scale: 84.8 kg (186 lb 15.2 oz) Airway Assessment: Mallampati: I TM distance: >3 FB Neck ROM: full Cardiovascular Assessment: cardiovascular exam normal Pulmonary Assessment: pulmonary exam normal Dental Assessment: - normal exam Misc Assessment: IV access: Peripheral line Anesthesia Plan: ASA 2 Spinal, with a(n) intravenous induction 60 y/o woman to undergo R SHANTI. PMH significant depression, obesity. NKDA 84kg Plan spinal with propofol infusion; good IV access; standard ASA monitoring Region - Other Informed Consent: Anesthetic plan and risks discussed with patient. Use of blood products discussed with patient who consented to blood products. Plan discussed with attending and BONE TENDER. PAT Staff Note * Anesthesia Procedure Notes - Azael Giraldo CRNA - 02/13/2017 9:06 AM EDT Associated Order(s): ANE NEURAXIAL UPDATED Procedure: Neuraxial Block Primary Anesthetic Type: Spinal The patient was greeted. The sedation plan, its benefits, risks and alternatives were discussed with the patient. The patient has consented to the procedure. The medical history and chart were reviewed. The timeout was performed. Start time: 02/13/2017 8:30 AM End time: 02/13/2017 8:38 AM Patient Location: Operating Room Patient Prep Position: Sitting Prep: Hand Hygiene, Hat, Mask, Sterile Gloves, Chlorhexidine and Patient Draped Injection technique: single-shot Skin Anesthetic Lidocaine 1% 2 ml Procedure Technique Level of needle insertion: L4-5 Needle approach: midline Needle Type: [facility] Gauge: 25 Needle length: 3.5 in Number of attempts: 1 Intrathecal Injection The patient received the following medication/s as an intrathecal injection: Bupivacaine 0.75% w dextrose 2 ml Epinephrine Epi Wash Events/Notes Events: None Additional Notes: Lot [id number] Resident/BONE TENDER: AZAEL GIRALDO Second Resident/BONE TENDER: Fellow: Attending Physician: ~~~~~~~~~~~~~~~~~~~~~~~~~~~~~~~~~~~~~~~~~~~~~~~~~~~~~~~~~~~~ documented in this encounter Plan of Treatment Upcoming Encounters Date Type Department Care Team (Late st Contact Info) Description 03/23/2024 9:15 AM EDT Appointment XRay at [address] [place] [address] 03/23/2024 10:00 AM EDT Office Visit [facility] [place] [address] Kathie Polk MD [facility] [place]THOPAEDIC [place] [address] documented as of this encounter Procedures Procedure Name Priority Date/Time Associated Diagnosis Comments ANE NEURAXIAL UPDATED Routine 02/13/2017 9:08 AM EDT Procedure Note - Azael Giraldo CRNA - 02/13/2017 9:06 AM EDTThis note is in progress. Procedure: Neuraxial Block Primary Anesthetic Type: Spinal The patient was greeted. The sedation plan, its benefits, risks andalternatives were discussed with the patient. The patient has consentedto the procedure. The medical history and chart were reviewed. Thetimeout was performed. Start time: 02/13/2017 8:30 AM End time: 02/13/2017 8:38 AM Patient Location: Operating Room Patient Prep Position: Sitting Prep: Hand Hygiene, Hat, Mask, Sterile Gloves, Chlorhexidine and PatientDraped Injection technique: single-shot Skin Anesthetic Lidocaine 1% 2 ml Procedure Technique Level of needle insertion: L4-5 Needle approach: midline Needle Type: [facility] Gauge: 25 Needle length: 3.5 in Number of attempts: 1 Intrathecal Injection The patient received the following medication/s as an intrathecalinjection: Bupivacaine 0.75% w dextrose 2 ml Epinephrine Epi Wash Events/Notes Events: None Additional Notes: Lot [id number] Resident/BONE TENDER: AZAEL GIRALDO Second Resident/BONE TENDER: Fellow: Attending Physician: ~~~~~~~~~~~~~~~~~~~~~~~~~~~~~~~~~~~~~~~~~~~~~~~~~~~~~~~~~~~~ documented in this encounter Visit Diagnoses Not on filedocumented in this encounter Administered Medications Inactive Administered Medications - up to 3 most recent administrations Medication Order MAR Action Action Date Dose Rate Site BUpivacaine 0.75% in dextrose 8.25% (intrathecal) (SENSORCAINE) 0.75 % (7.5 mg/mL) injection Intrathecal, PRN, Starting on Thu02/13/17 at 0838, Until Thu02/13/17 at 1058, Anesthesia Intra-op, Routine Given 02/13/2017 8:38 AM EDT 15 mg ceFAZolin (ANCEF) 2g in dextrose 5% 100 mL 2 g, Intravenous, EVERY 3 HOURS, 1 dose, First dose on Thu02/13/17 at 0800, Administer over 30 Minutes, Redose after 3 hours., Intra-Operative (Intra-Procedure), Indication for (Active or Suspected): Prophylaxis Given 02/13/2017 8:36 AM EDT 2 g ePHEDrine 5 mg/mL multi-dose injection PRN, Starting on Thu02/13/17 at 1012, Until Thu02/13/17 at 1058, Anesthesia Intra-op, Routine Given 02/13/2017 10:41 AM EDT 5 mg Given 02/13/2017 10:12 AM EDT 5 mg lactated Ringers infusion CONTINUOUS PRN, Starting on Thu02/13/17 at 0828, Until Thu02/13/17 at 1058, Anesthesia Intra-op New Bag 02/13/2017 10:10 AM E DT New Bag 02/13/2017 8:28 AM EDT midazolam (PF) (VERSED) 1 mg/mL multi-dose injection Intravenous, PRN, Starting on Thu02/13/17 at 0828, Until Thu02/13/17 at 1058, Sleep, Anesthesia Intra-op, Routine Given 02/13/2017 8:32 AM EDT 1 mg Given 02/13/2017 8:28 AM EDT 1 mg PHENYLephrine (HAILEY-SYNEPHRINE) 20 mg in sodium chloride 250 mL (standard ADULT & Jesus Manuel greater than 20kg) infusion CONTINUOUS PRN, Starting on Thu02/13/17 at 0841, Until Thu02/13/17 at 1058, Anesthesia Intra-op, Routine Rate/Dose Change 02/13/2017 10:17 AM EDT 10 mcg/min 7.5 mL/hr Rate/Dose Change 02/13/2017 9:41 AM EDT 20 mcg/min 15 mL/h r Rate/Dose Change 02/13/2017 9:22 AM EDT 30 mcg/min 22.5 mL /hr propofol (DIPRIVAN) 10 mg/mL bolus injection (Anesthesia) Intravenous, PRN, Starting on Thu02/13/17 at 0841, Until Thu02/13/17 at 1058, Anesthesia Intra-op Given 02/13/2017 8:41 AM EDT 40 mg propofol (DIPRIVAN) infusion Intravenous, CONTINUOUS PRN, Starting on Thu02/13/17 at 0841, Until Thu02/13/17 at 1058, Anesthesia Intra-op, Routine New Bag 02/13/2017 8:41 AM EDT 75 mcg/kg/min 38.2 mL/hr tranexamic acid (CYKLOKAPRON) 1,293 mg in sodium chloride 0.9% 112.93 mL 1,293 mg (15 mg/kg/dose ? 86.2 kg), Intravenous, ONCE, 1 dose, On Thu02/13/17 at 0800, Administer over 30 Minutes, Dilute tranexamic acid dose in 100 mL sodium chloride 0.9% prior to administration. For patients less than or equal to 200 kg infuse over 30 minutes. For patients greater than 200 kg infuse over 60 minutes. , Day of Surgery (Day of Procedure) New Bag 02/13/2017 8:28 AM EDT 1,293 mg documented in this encounter Care Teams Mass Spectrometry Manager Relationship Specialty Start Date End Date Austin Rodriguez MD [address] [place] [address] PCP - General Family Medicine 06/12/15 05/18/18 documented as of this encounter
--- OUTSIDE RECORDS SUMMARY | 2024-03-07 08:56 | XMS_ITS | Encounter Summary ---
[place] [address] Care Team Providers Care Bilingual Sales Consultant Name Role Phone Austin Rodriguez MD Primary Care Provider [phone] Reason for Referral * Diagnostic Test (Routine) - Closed Specialty Diagnoses / Procedures Referred By Contac t Referred To Contact Radiology Diagnoses Pain in left hip Procedures MRI Lumbar Spine Without Contrast (GENERIC) Miguel Wong MD [facility] [place] [address] [place] [address] Referral ID Status Reason Start Date Expiration Date V isits Requested Visits Authorized [id number] Closed Specialty Service Requested 06/26/2015 08/24/2015 1 1 Reason for Visit * Diagnostic Test (Routine) - Closed Specialty Diagnoses / Procedures Referred By Contac t Referred To Contact Radiology Diagnoses Pain in left hip Procedures MRI Lumbar Spine Without Contrast (GENERIC) Miguel Wong MD [facility] DR [place] [address] [place] [address] Referral ID Status Reason Start Date Expiration Date V isits Requested Visits Authorized [id number] Closed Specialty Service Requested 06/26/2015 08/24/2015 1 1 Encounter Details Date Type Department Care Team (Latest Contact Info) Description 07/03/2015 2:25 PM EST - 07/03/2015 11:59 PM EST Hospital [place] [address] Albert Peter MD [facility] [place] [address] Pain in left hip Discharge Disposition: Home Social History Tobacco Use Types Packs/Day Years Used Date Smoking Tobacco: Former Sex and Gender Information Value Date Recorded [...] mg by mouth daily. 0 06/11/2015 09/12/2020 predniSONE (DELTASONE) 20 mg Tablet 0 06/18/2015 07/04/2015 naproxen sodium (ALEVE) 220 mg Capsule Take 440 mg by mouth daily. 08/09/2015 acetaminophen (TYLENOL) 500 mg Tablet Take 1,000 mg by mouth every 6 hours as needed for Pain. 07/12/2015 documented as of this encounter Plan of Treatment Upcoming Encounters Date Type Department Care Team (Late st Contact Info) Description 03/23/2024 9:15 AM EDT Appointment XRay at [address] [place] [phone] 03/23/2024 10:00 AM EDT Office [place] [address] Kathie Polk MD [facility] DR [place] [address] documented as of this encounter Procedures Procedure Name Priority Date/Time Associated Diagnosis Comments MRI LUMBAR SPINE WITHOUT CONTRAST Routine 07/03/2015 5:38 PM EST Pain in left hip documented in this encounter Results * MRI Lumbar Spine Without Contrast (GENERIC) (07/03/2015 5:38 PM EST) Anatomical Region Laterality Modality L-spine Magnetic Resonan ce Impressions 07/11/2015 8:35 AM EST IMPRESSION: No significant change in appearance of degenerative changes L5-S1 and L4-5 scrub in detail in the body the report. L4-5 degenerative changes are asymmetric greater on the right hand side with resulting asymmetric foraminal narrowing greater on the right. Stable exam compared to outside study from [facility] Comment: The following findings are so common in people without low back pain that while we report there presence, they must be interpreted with caution and in context of the clinical situation (Reference- Mattyk et al, Spine 2001). Findings: (Prevalence in patients without low back pain), disc degeneration (decreased T2 signal, height loss, bulge) (91%), disc T2-signal loss (83%), disc height loss (56%), disc bulge (64%), disc protrusion (32%), annular fissure (38%). Narrative 07/11/2015 8:35 AM EST EXAMINATION: MRI LUMBAR SPINE WITHOUT CONTRAST CLINICAL HISTORY: patient with left buttock and low back pain, no obvious area of anatomic correlation from March 2015 MRI, repeat MRI of Lspine with intent to reassess for possible diagnosis TECHNIQUE: Lumbar spine noncontrast COMPARISON: 04/06/2015 FINDINGS: There is disc degenerative change primarily at L4-5 and L5-S1 levels with extensive endplate reactive and proliferative changes and disc space narrowing and decreased signal intensity on T2 sequence L5-S1 greater than L4-5. Milder endplate changes are seen at the L3-4 level with preservation of disc height and signal. No aggressive marrow lesions. No pars defects. Conus demonstrates normal size shape and signal intensity and terminates appropriately at the T12-L1 level. No abdominal aortic aneurysm. Motion limits examination. T12-L1: No disc protrusion central stenosis or foraminal narrowing. L1-2: No disc protrusion central stenosis or foraminal narrowing. L2-3: Left-sided facet arthropathy with mild effacement of the posterior thecal sac. There is a mild left foraminal and far lateral disc protrusion with mild caudal foraminal narrowing on the left. Findings unchanged from prior. L3-4: Mild circumferential annular bulge and mild facet arthropathy with mild overall canal stenosis. Mild to moderate left foraminal narrowing due to asymmetric facet arthropathy and a mild left foraminal and far lateral protrusion. Findings unchanged from prior L4-5: Moderate canal stenosis secondary to combination of broad-based disc protrusion and facet arthropathy with buckling of the ligamentum flavum, unchanged from prior exam. There is mild to moderate left and moderate to severe right foraminal narrowing due to asymmetric endplate proliferative changes, disc material and facet arthropathy, unchanged from prior exam. L5-S1: Mild central disc protrusion without effacement of the ventral thecal sac. Moderate bilateral foraminal narrowing unchanged from prior exam. Procedure Note Rajendra Cabral MD - 07/11/2015 EXAMINATION: MRI LUMBAR SPINE WITHOUT CONTRAST CLINICAL HISTORY: patient with left buttock and low back pain, no obviousarea of anatomic correlation from March 2015 MRI, repeat MRI of Lspine withintent to reassess for possible diagnosis TECHNIQUE: Lumbar spine noncontrast COMPARISON: 04/06/2015 FINDINGS: There is disc degenerative change primarily at L4-5 and L5-[id number] with extensive endplate reactive and proliferative changes and discspace narrowing and decreased signal intensity on T2 sequence L5-S1 greater thanL4-5. Milder endplate changes are seen at the L3-4 level with preservation ofdisc height and signal. No aggressive marrow lesions. No pars defects. Conus demonstrates normal size shape and signal intensity and terminatesappropriately at the T12-L1 level. No abdominal aortic aneurysm. Motion limitsexamination. T12-L1: No disc protrusion central stenosis or foraminal narrowing. L1-2: No disc protrusion central stenosis or foraminal narrowing. L2-3: Left-sided facet arthropathy with mild effacement of the posteriorthecal sac. There is a mild left foraminal and far lateral disc protrusion withmild caudal foraminal narrowing on the left. Findings unchanged from prior. L3-4: Mild circumferential annular bulge and mild facet arthropathy withmild overall canal stenosis. Mild to moderate left foraminal narrowing due to asymmetric facet arthropathy and a mild left foraminal and far lateral protrusion. Findings unchanged from prior L4-5: Moderate canal stenosis secondary to combination of broad-baseddisc protrusion and facet arthropathy with buckling of the ligamentum flavum, unchanged from prior exam. There is mild to moderate left and moderate tosevere right foraminal narrowing due to asymmetric endplate proliferativechanges, disc material and facet arthropathy, unchanged from prior exam. L5-S1: Mild central disc protrusion without effacement of the ventralthecal sac. Moderate bilateral foraminal narrowing unchanged from prior exam. IMPRESSION IMPRESSION: No significant change in appearance of degenerative changesL5-S1 and L4-5 scrub in detail in the body the report. L4-5 degenerative changesare asymmetric greater on the right hand side with resulting asymmetricforaminal narrowing greater on the right. Stable exam compared to outside study from [facility] Comment: The following findings are so common in people without low backpain that while we report there presence, they must be interpreted with cautionand in context of the clinical situation (Reference- Jarvik et al, [id number]). Findings: (Prevalence in patients without low back pain), discdegeneration (decreased T2 signal, height loss, bulge) (91%), disc T2-signal loss(83%), disc height loss (56%), disc bulge (64%), disc protrusion (32%), annularfissure (38%). Authorizing Provider Result Rachel Peter MD IMG MRI ORDERABLES documented in this encounter Visit Diagnoses Diagnosis Pain in left hip Pain in joint, pelvic region and thigh documented in this encounter Care Teams Bilingual Sales Consultant Relationship Specialty Start Date End Date Austin Rodriguez MD [address] [place] [address] PCP - General Family Medicine 06/12/15 05/18/18 documented as of this encounter
--- OUTSIDE RECORDS SUMMARY | 2024-03-07 08:56 | XMS_ITS | Encounter Summary ---
Author Organization [facility] [place] [address] Care Team Providers Care Studio Control Operator Name Role Phone Jitendra Kirkland Primary Care Provider [phone] Encounter Details Date Type Department Care Team (Late st Contact Info) Description 04/06/2015 12:05 AM EDT - 04/06/2015 12:09 AM EDT Hospital Encounter Radiology Library [place] [address] [facility] Disposition: Home Social History Tobacco Use [...] 20 mg by mouth daily. 0 04/02/2015 documented as of this encounter Plan of Treatment Upcoming Encounters Date Type Department Care Team (Late st Contact Info) Description 03/23/2024 9:15 AM EDT Appointment XRay at [address] [place] [phone] 03/23/2024 10:00 AM EDT Office Visit Orthopaedics at [place] [place] [phone] Kathie Polk MD [facility] [place] [address] documented as of this encounter Procedures Procedure Name Priority Date/Time Associated Diagnosis Comments FILM LIBRARY STORAGE ONLY NUCLEAR MEDICINE Routine 04/06/2015 12:05 AM EDT Pain documented in this encounter Results * Film Library- Storage only nuclear medicine (04/06/2015 12:05 AM EDT) Narrative [facility] - 06/12/2015 3:19 PM EST See PACS for result report. Dr Nance [facility] FILM LIBRARY ORD ERABLES [place], [place] documented in this encounter Visit Diagnoses Diagnosis Pain Generalized pain documented in this encounter Care Teams Studio Control Operator Relationship Specialty Start Date End Date Jitendra Kirkland PA EMERGENCY DEPT [address] [place] [address] PCP - General 04/30/10 06/11/15 documented as of this encounter
--- OUTSIDE RECORDS SUMMARY | 2024-03-07 08:56 | XMS_ITS | Encounter Summary ---
Author Organization [facility] [place] [address] Care Team Providers Care Transmitter Chief Name Role Phone Austin Rodriguez MD Primary Care Provider [phone] Reason for Visit * Reason Comments Low Back Pain With Radicular Pain to benny at hips * Consultation (Routine) - Closed Specialty Diagnoses / Procedures Referred By Contac t Referred To Contact Orthopaedics Diagnoses DJD, Lumbosacral spine, severe Austin Rodriguez MD [address] [place] [address] [facility] [address] [place] [address] Referral ID Status Reason Start Date Expiration Date V isits Requested Visits Authorized [id number] Closed Consult, Test & Treat Connection Center 06/12/2015 06/11/2016 1 1 Encounter Details Date Type Department Care Team (Late st Contact Info) Description 06/21/2015 10:40 AM EST Office [place] [address] Albert Peter MD [facility] [place] [address] Spinal stenosis of lumbar region Social History Tobacco Use Types Packs/Day [...] - - Weight 81.6 kg (180 lb) 06/21/2015 9:58 AM EST Height 174 cm (5' 8.5) 06/21/2015 9:58 AM EST Body Mass Index 26.97 06/21/2015 9:58 AM EST documented in this encounter Progress Notes * Miguel Wong - 06/21/2015 2:22 PM EST Addendum: Patient's images (MRI of L-spine, Bone scan of skeleton including pelvis and hips, CT scans of pelvis and hips) were reviewed with the Neuroradiologists immediately following patient's clinic visit. Noted in that review were some change in bone quality in the left femoral head (possible AVN or osteochondral lesions near the fovea) As a result, MRI of the Lumbar spine, pelvis, and left hip were ordered to be performed at first available schedule opportunity with follow-up appointment to occur with Dr. Peter to review the new images. These appointments were discussed with the schedulers. * Albert Peter MD - 06/21/2015 11:17 AM EST Images from the original note were not included. Ms. Jarrett is a 60-year-old woman seen today in the spine center consultation from Dr. Rodriguez. This patient is seen primarily for left lower extremity pain beginning in the buttock, radiating in the posterolateral thigh, posterolateral leg to the mid leg region, generally not going below the mid leg region into the foot or toes and generally without numbness. She has weakness related to the pain. Right leg is less involved, more in the buttock and the groin. Left groin is also involved and the whole flank really on the left side is the major problem front, back and down the thigh to the mid leg level. She had a similar episode in 1999. The current episode began in October. It has been progressive. She has had an intraarticular injection of her left hip, which provided no relief. She had a lumbar epidural steroid injection, which provided no relief. She recently started oral steroids, which she says provided her 2% improvement. She denies any fevers or chills. Review of systems is negative for GI, or constitutional symptoms. Specifically, no weight loss or anorexia. Night pain is problematic. She is really worse with any activities, particularly motion about the left hip. 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 She does not smoke or drink. SHE REPORTS NO ALLERGIES. She is accompanied by her . Height is 5 feet 9 inches. Weight 180 pounds. Body mass index 27. This is a very pleasant obviously uncomfortable woman. Her gait is slow and antalgic on the left. She has difficulty with toe walking and heel walking due to pain, so I really cannot say that she can do it. In fact, she cannot do it, but this maybe more of a pain issue than a strength issue. She is able to tandem walk. She has a normally aligned spine and leveled pelvis with tenderness over the trochanteric region on the left, which is very focally tender and is a component of her pain, but it is not her only pain. She really has no back pain. Her spinal alignment is otherwise normal as is color and temperature. She has pain-related weakness to left hip flexion, but otherwise her motor examination is normal. Her sensory function is intact to light touch. Her reflexes are 2 at the knees and ankles. Her straight leg raise test on the left does produce some pain down to the mid calf level, but not to the foot or toes and not associated with numbness or tingling. Femoral tension test is negative. Babinski's and clonus are absent. Distal pulses are normal. In the prone position, range of motion of the left hip is limited in end range motion of which it does reproduce some components of her hip and groin pain as well. Her lumbar MRI is reviewed from 04/07/2015. This demonstrates disk degeneration L4-5, L5-S1. She has moderate stenosis at L4-5, mild degrees of foraminal narrowing. No significant nerve root compression and certainly none to the degree that I would expect that would be associated with the severity of the pain and disability that this patient is experiencing. The specific etiology of this woman's left greater than right groin, buttock, thigh and proximal to mid leg pain is unclear. The absence of distal symptoms of pain, numbness, tingling or weakness makes me wonder whether it actually is a nerve-related problem versus a hip-related problem. Her predominant symptoms are proximal anteriorly, posteriorly and laterally and thus certainly there maybe a component of that as well related to her hips. She has had a bone scan in March, which was read as some degenerative changes on the hip, but I do not see any substantial changes nor do I see them on the plain x-ray and certainly this was several months ago and things may have changed and she reports that her symptoms have progressed since that time. In any event, I do not think her stenosis as currently seen on her 04/06/2015 MRI is enough to explain her pain. It is certainly possible that things may have changed with further facet arthropathy, synovial cyst formation that then allow her to present more as a radiculitis rather than a stenosis patient with neurogenic claudication. At this point, we will review her imaging studies with our radiologist to determine if there is any other studies to help further evaluate around the pelvis and hip, specifically would she benefit from a MRI on this area as well as a repeat MRI of the low back looking for additional canal and facet changes. We will then get back to the patient. I suspect we will order a lumbar MRI at a minimum, the question is do we add pelvic and hip examination as well. Spine Center Response Trends Patient-reported scores: myD-H Spine Questionnaire responses 06/21/2015 Oswestry Disability Index (Range: 0-100) 40 Addendum 07/09/2015: MRI of hips reviewed with patient and she is agreeable to arthroplasty team appointment for evaluation. Albert Peter MD MS documented in this encounter Plan of Treatment Upcoming Encounters Date Type Department Care Team (Late st Contact Info) Description 03/23/2024 9:15 AM EDT Appointment XRay at [address] [place] [phone] 03/23/2024 10:00 AM EDT Office [place] [address] Kathie Polk MD [facility] [place] [address] documented as of this encounter Visit Diagnoses Diagnosis Spinal stenosis of lumbar region Spinal stenosis, lumbar region, without neurogenic claudication documented in this encounter Care Teams Transmitter Chief Relationship Specialty Start Date End Date Austin Rodriguez MD [facility] [address] [place] [address] PCP - General Family Medicine 06/12/15 05/18/18 documented as of this encounter
--- OUTSIDE RECORDS SUMMARY | 2024-03-07 08:56 | XMS_ITS | Encounter Summary ---
Author Organization [facility] [address] Care Team Providers Care Swift Tender Name Role Phone Austin Rodriguez MD Primary Care Provider [phone]- [phone] Encounter Details Date Type Department Care Team (Latest Contact Info) Description 08/09/2015 11:00 AM EST [place] [phone] Primary osteoarthritis of left hip Social History Tobacco Use [...] 03/23/2024 9:15 AM EDT Appointment XRay at [address] [place] [phone] 03/23/2024 10:00 AM EDT Office [place] [address] Kathie Polk MD [facility] [place] [address] documented as of this encounter Procedures Procedure Name Priority Date/Time Associated Diagnosis Comments URINALYSIS WITH REFLEX CULTURE Routine 08/09/2015 11:24 AM EST Primary osteoarthritis of left hip HEMOGRAM Routine 08/09/2015 11:03 AM EST Primary osteoarthritis of left hip DIFFERENTIAL, AUTOMATED Routine 08/09/2015 11:03 AM EST Primary osteoarthritis of left hip TYPE AND SCREEN, SDP (FUTURE SURGERY, [facility] SAME DAY PROGRAM ONLY) Routine 08/09/2015 11:03 AM EST Primary osteoarthritis of left hip ABO/RH TYPING Routine 08/09/2015 11:03 AM EST Primary osteoarthritis of left hip PROTHROMBIN TIME Routine 08/09/2015 11:0 3 AM EST Primary osteoarthritis of left hip CBC (WITH DIFF) Routine 08/09/2015 11:03 AM EST Primary osteoarthritis of left hip ANTIBODY SCREEN Routine 08/09/2015 11:03 AM EST Primary osteoarthritis of left hip BASIC METABOLIC PANEL Routine 08/09/2015 11:03 AM EST Primary osteoarthritis of left hip documented in this encounter Results * (ABNORMAL) Urinalysis with reflex Culture (08/09/2015 11:24 AM EST) Glucose, Urine Dipstick Negative Negative mg/dL [facility] Protein, Urine Dipstick Negative Negative mg/dL [facility] Bilirubin, Urine Dipstick Negative Negative mg/dL [facility] Comment: Clinical correlation required for positive Urine Bilirubin results as false positive may occur with some drugs and drug related products. If a false positive is suspected a serum total bilirubin should be considered if clinically indicated. Urobilinogen, Urine Dipstick Normal Normal mg/dL [facility] pH, Urn (dipstick) 7.0 5.0 - 8.0 [facility] Blood, Urine Dipstick Negative Negative mg/dL [facility] Ketone, Urine Dipstick 5(A) Negative mg/dL [facility] Nitrite, Urine Dipstick Negative Negative [facility] Leukocytes, Urine Dipstick Negative Negative [facility] Appearance, Urine Dipstick Clear Clear [facility] Specific [place] Urine Automated 1.012 1.002 - 1.030 [facility] Color, Urine Dipstick Yellow Yellow [facility] RBC, Urine 1 0 - 4 /HPF [facility] WBC, Urine 1 0 - 5 /HPF [facility] Squamous Epithelial Cells, Urine <1 <=4 /HPF [facility] Reflex to Culture No [facility] Urine specimen obtained by clean catch procedure (specimen) 08/09/2015 11:24 AM EST 08/09/2015 11:30 AM EST Narrative Resulting Agency Comment Spec In Lab Panchito Michael MD URINE ORDERABLES Performing Organization Address [facility]/ZIP Co de Phone Number [facility] [place] [address] * Antibody screen (08/09/2015 11:03 AM EST) Ab Screen Interp Negative [facility] Expires at 2359 on: 08/20/2015 [facility] Blood specimen (specimen) 08/09/2015 11:03 AM EST 08/09/2015 11:17 AM EST Narrative Resulting Agency Comment Spec In Lab Panchito Michael MD BLOOD BANK LAB ORDER DAVID [facility] [place] [address] * ABO/Rh Typing (08/09/2015 11:03 AM EST) ABORH Type B Pos [facility] Blood specimen (specimen) 08/09/2015 11:03 AM EST 08/09/2015 11:17 AM EST Narrative Resulting Agency Comment Spec In Lab Panchito Michael MD BLOOD BANK LAB ORDER DAVID Performing Organization Address City/[facility]/ZIP Co de Phone Number [facility] [place] [address] * Differential, Automated (08/09/2015 11:03 AM EST) Neutrophil % 58.2 % [facility] Neutrophil Absolute 4.16 1.50 - 6.30 x10(3)/[facility] Lymph % 29.1 % [facility] Lymphocytes Abs 2.1 1.0 - 3.6 x10(3)/[facility] Monocyte % 8.4 % [facility] Monocyte Abs 0.6 0.2 - 1.0 x10(3)/[facility] Eos % 3.1 % [facility] Eosinophils Abs 0.2 0.0 - 0.5 x10(3)/[facility] Basophil % 1.1 % [facility] Baso Absolute 0.1 0.0 - 0.2 x10(3)/[facility] Immature Gran % 0.10 % [facility] Comment: Immature granulocytes(IG's)percentage and absolute count will include metamyelocytes, myelocytes, and promyelocytes. Blood smears from CBCs yielding IG's will be scanned manually for concordance. If this scan disagrees with the automated IG or if promyelocytes are noted, a manual differential will be performed. Immature Gran Absolute 0.01 0.00 - 0.05 x10(3)/[facility] Blood specimen (specimen) 08/09/2015 11:03 AM EST 08/09/2015 11:29 AM EST Narrative Resulting Agency Comment Spec In Lab Panchito Michael MD HEMATOLOGY ORDERABLE S Performing Organization Address City/[facility]/ZIP Co de Phone Number [facility] [place] [address] * (ABNORMAL) Hemogram (08/09/2015 11:03 AM EST) White Blood Cell 7.2 4.0 - 10.0 x10(3)/ L [facility] Red Blood Cell 4.35 3.93 - 5.22 x10(6)/ L [facility] Hemoglobin 13.9 11.2 - 15.7 gm/dL [facility] Hematocrit 41.8 34.0 - 45.0 % [facility] Mean Cell Volume 96.1(H) 79.0 - 94.0 fL [facility] Mean Cell Hemoglobin 32.0 26.6 - 32.2 pg [facility] Mean Cell Hemoglobin Concentration 33.3 32.0 - 36.5 gm/dL [facility] Platelet 318 145 - 370 x10(3)/[facility] LABORATORY RDW Standard Deviation 48.8(H) 35.0 - 46.0 fL [facility] RDW coefficient of variation 13.9 10.9 - 14.4 % [facility] Mean Platelet Volume 11.0 9.0 - 12.0 fL [facility] Blood specimen (specimen) 08/09/2015 11:03 AM EST 08/09/2015 11:29 AM EST Narrative Resulting Agency Comment Spec In Lab Panchito Michael MD HEMATOLOGY ORDERABLE S Performing Organization Address City/State/[facility] Co de Phone Number [facility] [address] * Prothrombin Time (08/09/2015 11:03 AM EST) Prothrombin Time 13.0 12.0 - 15.0 sec [facility] Comment: An INR <2.0 indicates [...] depending on clinical circumstances. International Normalization Ratio 1.0 0.9 - 1.1 [facility] Blood specimen (specimen) 08/09/2015 11:03 AM EST 08/09/2015 11:29 AM EST Narrative Resulting Agency Comment Spec In Lab Panchito Michael MD HEMATOLOGY ORDERABLE S [facility] [address] * (ABNORMAL) Basic Metabolic Panel (non-fasting) (08/09/2015 11:03 AM EST) Glucose 93 65 - 199 mg/dL [facility] Comment:Diabetes: >=200 mg/d L plus symptoms Blood Urea Nitrogen 8 8 - 18 mg/dL [facility] Creatinine 0.58(L) 0.70 - 1.20 mg/dL [facility] Comment: Please note that the pediatric reference intervals supplied above were not validated at [facility]. Results from pediatric patients should be interpreted in conjunction to the patient's age, height and muscle mass. Sodium 144 135 - 145 mmol/L [facility] Potassium 4.5 3.5 - 5.0 mmol/L [facility] Comment: Please note: ??Patients with WBC >100,000 may have falsely elevated Potassium levels. ??For accurate Potassium quantification in these patients send serum separator tube (gold top) for subsequent determinations. ??Contact the Clinical Chemistry Laboratory if there are any questions. Chloride 105 98 - 107 mmol/L [facility] Carbon Dioxide 27 22 - 31 mmol/L [facility] Anion Gap 12 5 - 15 mmol/L [facility] Calcium 9.4 8.5 - 10.5 mg/dL [facility] Est Glomerular Filtration Rate >60 >=60 [facility] Comment: This estimated GFR [...] the following links into your internet browser. [email or web address] Blood specimen (specimen) 08/09/2015 11:03 AM EST 08/09/2015 11:29 AM EST Narrative Resulting Agency Comment Spec In Lab Panchito Michael MD CHEMISTRY ORDERABLES [facility] [place] [address] documented in this encounter Visit Diagnoses Diagnosis Primary osteoarthritis of left hip Primary localized osteoarthrosis, pelvic region and thigh documented in this encounter Care Teams Swift Tender Relationship Specialty Start Date End Date Austin Rodriguez MD [address] [place] [address] PCP - General Family Medicine 06/12/15 05/18/18 documented as of this encounter
--- OUTSIDE RECORDS SUMMARY | 2024-03-07 08:56 | XMS_ITS | Encounter Summary ---
[place] [address] Care Team Providers Care Farm Equipment Engineer Name Role Phone Austin Rodriguez MD Primary Care Provider [phone]- [phone] Reason for Visit * Reason Comments Left Hip Pain Encounter Details Date Type Department Care Team (Latest Contact Info) Description 08/09/2015 1:00 PM EST Office [place] [address] Panchito Michael MD Primary osteoarthritis of left hip Social History [...] Sign Reading Time Taken Comments Blood Pressure 140/66 08/09/2015 12:17 PM EST Pulse 64 08/09/2015 12:17 PM EST Temperature - - Respiratory Rate - - Oxygen Saturation 98% 08/09/2015 12:17 PM EST Inhaled Oxygen Concentration - - Weight 90.9 kg (200 lb 6.4 oz) 08/09/2015 12:17 PM EST verbal Height 175.3 cm (5' 9) 08/09/2015 12:17 PM EST verbal Body Mass Index 29.59 08/09/2015 12:17 PM EST documented in this encounter Progress Notes * Radha Madison RN - 08/09/2015 11:22 AM EST Arthroplasty History/Previous Hip Surgery: 1. none This note is recorded by Radha Madison RN acting as a scribe for Panchito Michael MD. PREOPERATIVE VISIT Interval History: Nikky Jarrett is a pleasant 60 y.o. year old female with severe osteoarthritis of the left hip being seen today to discuss a left total hip arthroplasty. Her history and physical exam were reviewed in detail. Her history in regards to her hip was once again discussed and is outlined in my previous note. Shestates the hip pain and disability is unchanged since our previous visit. They have watched the shared decision video and at this point are expressing a desire to proceed with hip replacement. She does not endorse a history of DVT/PE or clotting She does not bleeding, anesthesia issues, metal sensitivity, or diabetes Physical Exam: Exam is previously documented in my note and is essentially unchanged. Clinical Leg Length Discrepancy - .7 cm Inspection of her skin in the intertriginous groin fold on the operative side demonstrates No skin breakdown. Significant Medical Comorbidities Patient Active Problem List Diagnosis Code ??? Spinal stenosis M48.00 ??? Dysuria R30.0 ??? Alcoholism F10.20 ??? Depression F32.9 ??? History of tobacco abuse Z87.891 VITALS: BP Readings from Last 1 Encounters: 08/09/15 140/66 Pulse Readings from Last 1 Encounters: 08/09/15 64 Height: 175.3 cm (5' 9) (verbal) Weight - Scale: 90.901 kg (200 lb 6.4 oz) (verbal) Body mass index is 29.58 kg/(m^2). Relevant Lab Studies Lab Results Component Value Date WBC 7.2 08/09/2015 HGB 13.9 08/09/2015 HCT 41.8 08/09/2015 PLATELET 318 08/09/2015 CREATININE 0.58* 08/09/2015 BUN 8 08/09/2015 NA 144 08/09/2015 K 4.5 08/09/2015 INR 1.0 08/09/2015 No results for input(s): HA1C in the last 7068 hours. No results for input(s): ALBUMIN in the last 168 hours. Estimated Creatinine Clearance: 120.8 mL/min (based on Cr of 0.58). B Pos Component Value Date/Time SPGRAVITYUA 1.012 08/09/2015 1124 PHUADIP 7.0 08/09/2015 1124 PROTEINUADIP Negative 08/09/2015 1124 GLUCOSEU Negative 08/09/2015 1124 KETONESUA 5* 08/09/2015 1124 UROBILIUADIP Normal 08/09/2015 1124 BLOODUADIP Negative 08/09/2015 1124 NITRATEUA Negative 08/09/2015 1124 LEUKOESTERUA Negative 08/09/2015 1124 WBCUA 1 08/09/2015 1124 BILIRUBINUA Negative 08/09/2015 1124 EKG: Abnormal EKG, normal sinus rhythm, incomplete right bundle branch block. Questionnaire Response [facility] Surgical Preop Visit 08/09/2015 PROMIS-10 General Health Very Good PROMIS-10 Quality of Life Good PROMIS-10 Physical Health Good PROMIS-10 Mental Health Good PROMIS-10 Social Activity Excellent PROMIS-10 Everyday Activities A little PROMIS-10 Pain 9 PROMIS-10 Fatigue Moderate PROMIS-10 Social Roles Good PROMIS-10 Anxious or Depressed Sometimes PROMIS PHYSICAL SCORE (range 16-68) 34.9 PROMIS MENTAL SCORE (range 21-68) 48.3 Consent to review records Yes, I give my permission for researchers to review my medical records. Consent to send data to [facility] No, I do not want my data to become part of the national AJ[employer]. Orthopeadics [facility] Response 08/09/2015 HOOS-PS Scores 67.9 OSWESTRY DISABILITY INDEX - Spine [facility] Response 06/21/2015 Oswestry (ADENIKE) Score 40 Radiographic Analysis Together, we reviewed the preop radiographs obtained previously. Radiographic evidence of joint damage: 3= moderate osteophytes, significant narrowing, mild deformity [0= normal; 1=minimal ; 2= some osteophytes , some narrowing ; 3= moderate osteophytes, significantnarrowing, mild deformity; 4= large osteophytes, marked narrowing, obvious deformity]: Assessment and Plan: This is a pleasant 60 y.o. year-old female who presents for a preoperative appointment today for left hip OA. I had a long discussion with her regarding the risks and benefits of left total hip arthroplasty. I indicated that in my opinion, this is the treatment option most likely to restore a more normal, pain-free level of function and that we have exhausted reasonable non-operative alternatives. I used total hip implants to demonstrate how I perform the procedure and all of their questions were answered. Ms. Jarrett expressed a desire to pursue this option. We then discussed in great detail the risks associated with the proposed surgery. These included but were not limited to: bleeding (which may or may not require transfusion), infection, damage to nerves (specifically the LFCN) or blood vessels, deep venous thrombosis, pulmonary embolus, prosthetic failure, loosening, prosthetic fracture, femur or pelvic fracture, dislocation, leg- length inequality, persistent pain, need for future surgery, medical complications (including cardiac, respiratory and neurologic complications), anaesthetic complications, and . The patient seemed to understandthe nature of this procedure's risks. We also discussed the likely benefit of improved stride length, improved range of motion, decreased pain, decreased need for pain medications and decrease functional limitations. The patient is aware that it would take on average 2 days in the hospital, followed by approximately 12-18 months to full rehabilitation. I did review the [...] We discussed the pros and cons of ASA vs. Coumadin in terms of effectiveness and clot / embolus preventions vs. risks of bleeding and wound complications. My review of the patient's risk factors leads me to believe that they are at low risk for a clot and low risk for a bleed. We will thus plan to use Enteric Coated Aspirin 325mg/bid for 6 weeks postoperatively for DVT prophylaxis. We also reviewed their preferences regarding use of blood products and confirmed that while we would endeavor to minimize the risks of needing any transfusions, if circumstances were such that one ormore were indeed required, she would NOT refuse a blood transfusion. We discussed with them the possible discharge scenarios including going home versus needing to go to a rehab facility depending on how well their mobility progresses post-operatively. Their desire isto be discharged to Home. Any remaining questions were solicited from the patient and answered. Ms. Jarrett wishes to proceed accordingly and informed consent was subsequently obtained for a left total hip arthroplasty. We discussed using Celebrex while in house. I ensured that the patient has the needed samples of hibiclens wash to use both the night before and the morning of the anticipated surgery. I have personally evaluated the patient and agree with the above note as recorded by Radha Madison RN. Panchito Michael MD, MS 08/09/2015 documented in this encounter Plan of Treatment Upcoming Encounters Date Type Department Care Team (Late st Contact Info) Description 03/23/2024 9:15 AM EDT Appointment XRay at [address] [place] [address] 03/23/2024 10:00 AM EDT Office [place] [address] Kathie Polk MD [facility] [place] [address] documented as of this encounter Visit Diagnoses Diagnosis Primary osteoarthritis of left hip Primary localized osteoarthrosis, pelvic region and thigh documented in this encounter Care Teams Farm Equipment Engineer Relationship Specialty Start Date End Date Austin Rodriguez MD [address] [place] [address] PCP - General Family Medicine 06/12/15 05/18/18 documented as of this encounter
--- OUTSIDE RECORDS SUMMARY | 2024-03-07 08:56 | XMS_ITS | Encounter Summary ---
[place] [address] Care Team Providers Care Business Writer Name Role Phone Blair Sharpe MD Primary Care Provider [phone]- [phone] Reason for Referral * Diagnostic Test (Routine) - Closed Specialty Diagnoses / Procedures Referred By Contac t Referred To Contact Radiology Diagnoses Pain in left hip Procedures MRI Hip Left WO Contrast Miguel Wong MD [facility] [place] [address] [place] [address] Referral ID Status Reason Start Date Expiration Date V isits Requested Visits Authorized [id number] Closed Specialty Service Requested 06/26/2015 08/24/2015 1 1 Reason for Visit * Diagnostic Test (Routine) - Closed Specialty Diagnoses / Procedures Referred By Contac t Referred To Contact Radiology Diagnoses Pain in left hip Procedures MRI Hip Left WO Contrast Miguel Wong MD [facility] [place] [address] [place] [address] Referral ID Status Reason Start Date Expiration Date V isits Requested Visits Authorized [id number] Closed Specialty Service Requested 06/26/2015 08/24/2015 1 1 Encounter Details Date Type Department Care Team (Latest Contact Info) Description 07/03/2015 2:24 PM EST Hospital [place] [address] Albert Peter MD [facility] [place] [address] Pain in left hip Discharge Disposition: Home [...] Pain. 07/12/2015 documented as of this encounter Progress Notes * Belen Mcgee RN - 06/26/2015 11:02 AM EST VIR MRI PRE-SEDATION ASSESSMENT NOTE NAME: Nikky Jarrett AGE: 60 y.o. : 1955 [facility] [address] Female [phone] (home) Telephone Information: BLAIR SHARPE MD No primary care provider on file. No Known Allergies Date/Time of call: June 26, 2015/11:03 AM/ PREVIOUS MRI SCAN? yes HEIGHT: WEIGHT: SCHEDULED SCAN: MRI left hip w/o, pelvis w,w/o, lumbar spine) SUBJECTIVE: I am claustrophobic CAN YOU LAY FLAT? no AIRWAY ISSUES? DO YOU HAVE ANY PAIN ISSUES? no ASSESSMENT: Appropriate for PO Sedate PLAN: 5-10 valium PO per protocol Guidelines for MRI Pre-Procedures Laboratory Studies: Pt isn't diabetic GFR Date of lab draw 1. Creatinine studies (GFR level needed) within 90 days of scan ??? 70 yo or older if they are getting contrast ??? 50 years and older if they are diabetic and getting contrast ( XXX ) You must have a frontload driver present when you check in. This patient has been informed that they require a frontload driver to drive them home after this procedure. In the absence of a frontload driver, IR will not be able to sedate for your scan. Pt verbalized understanding of these instructions during the pre-procedure education via phone. Yes Name of frontload driver: Damian, Phone number PRIOR SCAN DATE/S SEDATION TYPE SUCCESSFUL 04/06/15 MRI l-spine, OSH ? 07/03/15 MRI left hip, pelvis, lumbar spine Valium 5mg PO x2 PT STATED TO WATERWORKS PUMP STATION OPERATOR THAT THE SEDATION WAS EFFECTIVE FOR SCAN: Y N COMMENTS: Revised 06/22/15 documented in this encounter Plan of Treatment Upcoming Encounters Date Type Department Care Team (Late st Contact Info) Description 03/23/2024 9:15 AM EDT Appointment XRay at [address] [place] [address] 03/23/2024 10:00 AM EDT Office [place] [address] Kathie Polk MD [facility] [place] [address] documented as of this encounter Procedures Procedure Name Priority Date/Time Associated Diagnosis Comments MRI HIP LEFT WO CONTRAST Routine 07/06/2015 12:31 PM EST Pain in left hip documented in this encounter Results * MRI Hip Left WO Contrast (07/06/2015 12:31 PM EST) Anatomical Region Laterality Modality Hip Left Magnetic Resonan ce Impressions 07/06/2015 3:56 PM EST IMPRESSION: 1. ?? 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 The large nfynl-zu-kral images suggest that there is similar though less pronounced arthropathy at the contralateral hip. 2. ??At the left hip in addition to a joint effusion there is a large amount of synovial proliferation. The significance of this finding is uncertain. It is possible that this large amount of inflammation may reflect the presence of an underlying inflammatory arthritis. 3. ??Focal abnormal bone marrow signal intensity in the left femoral head is likely represents a small subchondral fracture. It is possible this could represent a focus of osteonecrosis but the appearance is not typical. 4. ??Additional abnormal bone marrow signal intensity seen at the superior aspect of the right femoral head. I also believe this likely represents an insufficiency injury of bone. I do not however see discrete fracture line on the large yhfgi-gg-rich images. I have personally reviewed the image(s) and the residents interpretation and agree with the findings, Franklin Dietz at 07/06/2015 3:56 PM Narrative 07/06/2015 3:56 PM EST EXAMINATION: MRI HIP LEFT WO CONTRAST CLINICAL HISTORY: left hip and low back pain without clear source, ? of avn or osteochondral lesion of left femoral head/neck TECHNIQUE: ??MRI of the hip without contrast ?? COMPARISON: Pelvis and hip radiographs from 04/06/2015 FINDINGS: The study includes both large furuv-xu-tjjs images of the pelvis and small hffrv-iy-dovo focused imaging of the left hip. On the large ybvpz-pd-wvgh pelvis images no pelvic fracture is identified. No soft tissue mass is seen. Effusions are present at the hips bilaterally. At the right hip, there is osteoarthritis. Findings include osteophyte formation and labral tearing and degeneration and loss of articular cartilage. In addition, there is abnormal bone marrow edema signal intensity in the superior aspect of the right femoral head most consistent with bone injury. I do not however see discrete fracture line. In addition to joint fluid there are small filling defects consistent with synovial proliferation. At the left hip there is osteoarthritis. Findings include severe loss of articular cartilage, large osteophytes and extensive degenerative tearing and displacement of the labrum. In addition to a large joint effusion there is a large amount of synovial proliferation. Bone marrow signal intensity at the proximal femur is abnormal. A focal area of abnormal signal intensity is seen at the anterior aspect of the femoral head. In this location and the abnormality could represent a focus of osteonecrosis but it does not have a characteristic appearance and I believe it more likely represents a small insufficiency fracture. In addition, there is ill-defined edema-like signal intensity extending from the femoral head into the femoral neck and the trochanteric ridge. No additional fracture line is identified. The appearance suggests this is likely reactive edema related to pronounced synovial inflammation. Procedure Note Franklin Dietz MD - 07/06/2015 EXAMINATION: MRI HIP LEFT WO CONTRAST CLINICAL HISTORY: left hip and low back pain without clear source, ? ofavn or osteochondral lesion of left femoral head/neck TECHNIQUE: MRI of the hip without contrast COMPARISON: Pelvis and hip radiographs from 04/06/2015 FINDINGS: The study includes both large uznai-zx-xzfd images of the pelvis andsmall rmeae-by-qsvp focused imaging of the left hip. On the large gjiaq-zm-yrio pelvis images no pelvic fracture is identified.No soft tissue mass is seen. Effusions are present at the hips bilaterally. At the right hip, there is osteoarthritis. Findings include osteophyteformation and labral tearing and degeneration and loss of articular cartilage. In addition, there is abnormal bone marrow edema signal intensity in thesuperior aspect of the right femoral head most consistent with bone injury. I donot however see discrete fracture line. In addition to joint fluid there aresmall filling defects consistent with synovial proliferation. At the left hip there is osteoarthritis. Findings include severe loss of articular cartilage, large osteophytes and extensive degenerative tearingand displacement of the labrum. In addition to a large joint effusion there mera large amount of synovial proliferation. Bone marrow signal intensity at the proximal femur is abnormal. A focal area of abnormal signal intensity is seen at the anterior aspectof the femoral head. In this location and the abnormality could represent a focusof osteonecrosis but it does not have a characteristic appearance and Ibelieve it more likely represents a small insufficiency fracture. In addition, there is ill-defined edema-like signal intensity extendingfrom the femoral head into the femoral neck and the trochanteric ridge. Noadditional fracture line is identified. The appearance suggests this is likelyreactive edema related to pronounced synovial inflammation. IMPRESSION IMPRESSION: 1. 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 The rmkqpqxyba-gl-kwgy images suggest that there is similar though less pronounced arthropathy atthe contralateral hip. 2. At the left hip in addition to a joint effusion there is a largeamount of synovial proliferation. The significance of this finding is uncertain. Itis possible that this large amount of inflammation may reflect the presenceof an underlying inflammatory arthritis. 3. Focal abnormal bone marrow signal intensity in the left femoral headis likely represents a small subchondral fracture. It is possible thiscould represent a focus of osteonecrosis but the appearance is not typical. 4. Additional abnormal bone marrow signal intensity seen at the superioraspect of the right femoral head. I also believe this likely represents an insufficiency injury of bone. I do not however see discrete fracture lineon the large detux-rv-ihms images. I have personally reviewed the image(s) and the residents interpretationand agree with the findings, Franklin Dietz at 07/06/2015 3:56 PM Albert Peter MD [facility] MRI ORDERABLES documented in this encounter Visit Diagnoses Diagnosis Pain in left hip Pain in joint, pelvic region and thigh documented in this encounter Administered Medications Inactive Administered Medications - up to 3 most recent administrations Medication Order MAR Action Action Date Dose Rate Site diaZEPam (VALIUM) tablet 5 mg 5 mg, Oral, EVERY 30 MIN PRN, 2 doses, Starting on Thu07/03/15 at 0708, Until Thu07/03/15 at 1547, Anxiety, Angio/IR (Day of Procedure), Routine Given 07/03/2015 3:47 PM EST 5 mg Given 07/03/2015 3:12 PM EST 5 mg documented in this encounter Care Teams Business Writer Relationship Specialty Start Date End Date Blair Sharpe MD [address] [place] [address] PCP - General Family Medicine 06/12/15 05/18/18 documented as of this encounter
--- OUTSIDE RECORDS SUMMARY | 2024-03-07 08:56 | XMS_ITS | Encounter Summary ---
Author Organization [facility] [place] [address] Care Team Providers Care Bulk Sausage Casing Tier Off Name Role Phone Jitendra Kirkland Primary Care Provider [phone] Encounter Details Date Type Department Care Team (Late st Contact Info) Description 04/06/2015 12:15 AM EDT - 04/06/2015 12:29 AM EDT Hospital Encounter Radiology Library at [facility] [place] [address] [facility] Disposition: Home Social History [...] 9:15 AM EDT Appointment XRay at [address] [place] [phone] 03/23/2024 10:00 AM EDT Office Visit Orthopaedics at [facility] [place] [address] Kathie Polk MD [facility] [place] [address] documented as of this encounter Procedures Procedure Name Priority Date/Time Associated Diagnosis Comments FILM LIBRARY STORAGE ONLY DX SPINE Routine 04/06/2015 12:15 AM EDT Pain documented in this encounter Results * Film Library- Storage only DX Spine (04/06/2015 12:15 AM EDT) Narrative [facility] - 06/12/2015 3:23 PM EST See PACS for result report. Dr [facility] FILM LIBRARY ORD ERABLES [place], [place] documented in this encounter Visit Diagnoses Diagnosis Pain Generalized pain documented in this encounter Care Teams Bulk Sausage Casing Tier Off Relationship Specialty Start Date End Date Jitendra Kirkland PA EMERGENCY DEPT [address] [place] [address] PCP - General 04/30/10 06/11/15 documented as of this encounter
--- OUTSIDE RECORDS SUMMARY | 2024-03-07 08:56 | XMS_ITS | Encounter Summary ---
Author Organization [facility] [place] [address] Care Team Providers Care Clin Nurse Spec Name Role Phone Jitendra Kirkland Primary Care Provider [phone] Encounter Details Date Type Department Care Team (Late st Contact Info) Description 04/06/2015 12:10 AM EDT - 04/06/2015 12:14 AM EDT Hospital Encounter Radiology Library at [facility] [place] [address] [facility] Dis[facility] Disposition: Home Social [...] 9:15 AM EDT Appointment XRay at [address] [place] [phone] 03/23/2024 10:00 AM EDT Office Visit Orthopaedics at [facility] [place] [address] Kathie Polk MD [facility] ORTHOPAEDIC [place] [address] documented as of this encounter Procedures Procedure Name Priority Date/Time Associated Diagnosis Comments FILM LIBRARY STORAGE ONLY MR SPINE Routine 04/06/2015 12:10 AM EDT Pain documented in this encounter Results * Film Library- Storage only MR Spine (04/06/2015 12:10 AM EDT) Narrative [facility] - 06/12/2015 3:26 PM EST See PACS for result report. Dr [facility] FILM LIBRARY ORD ERABLES [place], [place] documented in this encounter Visit Diagnoses Diagnosis Pain Generalized pain documented in this encounter Care Teams Clin Nurse Spec Relationship Specialty Start Date End Date Jitendra Kirkland PA EMERGENCY DEPT [address] [place] [address] PCP - General 04/30/10 06/11/15 documented as of this encounter
--- OUTSIDE RECORDS SUMMARY | 2024-03-07 08:56 | XMS_ITS | Encounter Summary ---
[place] [address] Care Team Providers Care Car Oiler Name Role Phone Austin Rodriguez MD Primary Care Provider [phone]- [phone] Reason for Referral * Diagnostic Test (Routine) - Closed Specialty Diagnoses / Procedures Referred By Contac t Referred To Contact Radiology Diagnoses Pain in left hip Procedures MRI Hip Left WO Contrast Miguel Wong MD [facility] [place] [address] [place] [address] Referral ID Status Reason Start Date Expiration Date V isits Requested Visits Authorized [id number] Closed Specialty Service Requested 06/26/2015 08/24/2015 1 1 * Diagnostic Test (Routine) - Closed Specialty Diagnoses / Procedures Referred By Contac t Referred To Contact Radiology Diagnoses Pain in left hip Procedures MRI Lumbar Spine Without Contrast (GENERIC) Miguel Wong MD [facility] [place] [address] [place] [address] Referral ID Status Reason Start Date Expiration Date V isits Requested Visits Authorized [id number] Closed Specialty Service Requested 06/26/2015 08/24/2015 1 1 Encounter Details Date Type Department Care Team (Late st Contact Info) Description 06/21/2015 Orders [place] [address] [facility] [place] [address] Pain in left hip Social History Tobacco Use Types [...] 03/23/2024 9:15 AM EDT Appointment XRay at [address] [place] [address] 03/23/2024 10:00 AM EDT Office [place] [address] [facility] [place] [address] documented as of this encounter Results * MRI Hip Left WO Contrast (07/06/2015 12:31 PM EST) Anatomical Region Laterality Modality Hip Left Magnetic Resonan ce Impressions 07/06/2015 3:56 PM EST IMPRESSION: 1. ?? 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 The large qqtcy-sy-wokn images suggest that there is similar though [...] see discrete fracture line on the large bpvig-jx-gddk images. I have personally reviewed the image(s) [...] 04/06/2015 FINDINGS: The study includes both large rordw-zh-pjer images of the pelvis and small npdsi-qk-rjjf focused imaging of the left hip. On the large ulytf-mf-kgfp pelvis images no pelvic fracture is identified. [...] 04/06/2015 FINDINGS: The study includes both large jmpao-cs-pmyo images of the pelvis andsmall wmotp-od-elxn focused imaging of the left hip. On the large yxdwj-kw-juph pelvis images no pelvic fracture is identified.No [...] destructive arthropathy of the left hip. The zvggvqurlv-rl-yyha images suggest that there is similar though [...] however see discrete fracture lineon the large uozkg-ri-llqs images. I have personally reviewed the image(s) and the residents interpretationand agree with the findings, Franklin Dietz at 07/06/2015 3:56 PM Albert Peter MD G MRI ORDERABLES * MRI Lumbar Spine Without Contrast (GENERIC) [...] Stable exam compared to outside study from [facility] Comment: The following findings are so common in people without low back pain that while we report there presence, they must be interpreted with caution and in context of the clinical situation (Reference- Rosalbavik et al, Spine 2001). Findings: (Prevalence in [...] narrowing unchanged from prior exam. Procedure Note Rajednra Cabral MD - 07/11/2015 EXAMINATION: MRI LUMBAR SPINE WITHOUT CONTRAST CLINICAL HISTORY: patient with left buttock and low back pain, no obviousarea of anatomic correlation from March 2015 MRI, repeat MRI of Lspine withintent to reassess for possible diagnosis TECHNIQUE: Lumbar spine noncontrast COMPARISON: 04/06/2015 FINDINGS: There is disc degenerative change primarily at L4-5 and L5-Y2ellksl with extensive endplate reactive and proliferative changes [...] Stable exam compared to outside study from [facility] Comment: The following findings are so common in people without low backpain that while we report there presence, they must be interpreted with cautionand in context of the clinical situation (Reference- Rosalbavik et al, [id number]). Findings: (Prevalence in patients without low back pain), discdegeneration (decreased T2 signal, height loss, bulge) (91%), disc T2-signal loss(83%), disc height loss (56%), disc bulge (64%), disc protrusion (32%), annularfissure (38%). Authorizing Provider Result Rachel Peter MD IMG MRI ORDERABLES documented in this encounter Visit Diagnoses Diagnosis Pain in left hip Pain in joint, pelvic region and thigh Pain in left hip Pain in joint, pelvic region and thigh documented in this encounter Care Teams Car Oiler Relationship Specialty Start Date End Date Austin Rodriguez MD [address] [place] [address] PCP - General Family Medicine 06/12/15 05/18/18 documented as of this encounter
--- OUTSIDE RECORDS SUMMARY | 2024-03-07 08:56 | XMS_ITS | Encounter Summary ---
Author Organization [facility] Address [facility] [place] [address] Care Team Providers Care Concrete Truck Driver Name Role Phone Jitendra Kirkland Primary Care Provider [phone] Encounter Details Date Type Department Care Team (Late st Contact Info) Description 06/07/2015 - 06/07/2015 11:59 PM EST Hospital Encounter Radiology Library at [facility] [place] [address] [facility] Discharge Disposition: Home Social [...] 03/23/2024 9:15 AM EDT Appointment XRay at [address] [place] [phone] 03/23/2024 10:00 AM EDT Office Visit Orthopaedics at [facility] [place] [phone] Kathie Polk MD [facility] [place] [address] documented as of this encounter Procedures Procedure Name Priority Date/Time Associated Diagnosis Comments FILM LIBRARY STORAGE ONLY DX SPINE Routine 06/07/2015 12:00 AM EST Pain documented in this encounter Results * Film Library- Storage only DX Spine (06/07/2015 12:00 AM EST) Narrative [facility] - 06/12/2015 3:37 PM EST See PACS for result report. Dr Nance [facility] FILM LIBRARY ORD ERABLES [place], [place] documented in this encounter Visit Diagnoses Diagnosis Pain Generalized pain documented in this encounter Care Teams Concrete Truck Driver Relationship Specialty Start Date End Date Jitendra Kirkland PA EMERGENCY DEPT [address] [place] [address] PCP - General 04/30/10 06/11/15 documented as of this encounter
--- OUTSIDE RECORDS SUMMARY | 2024-03-07 08:56 | XMS_ITS | Encounter Summary ---
Author Organization [facility] Address [facility] [place] [address] Care Team Providers Care Shoddy Mill Worker Name Role Phone Jitendra Kirkland Primary Care Provider [phone] [phone] Encounter Details Date Type Department Care Team (Late st Contact Info) Description 05/01/2015 - 05/01/2015 11:59 PM EST Hospital Encounter Radiology Library [place] [facility] [place] [address] [facility] Pain Discharge Disposition: Home Social History [...] 03/23/2024 9:15 AM EDT Appointment XRay at [address] [place] [phone] 03/23/2024 10:00 AM EDT Office Visit Orthopaedics at [facility] [place] [address] Kathie Polk MD [facility] [place] [address] documented as of this encounter Procedures Procedure Name Priority Date/Time Associated Diagnosis Comments FILM LIBRARY STORAGE ONLY DX HIP Routine 05/01/2015 12:00 AM EST Pain documented in this encounter Results * Film Library- Storage only DX Hip (05/01/2015 12:00 AM EST) Narrative [facility] - 06/12/2015 3:33 PM EST See PACS for result report. Dr Nance [facility] FILM LIBRARY ORD ERABLES [place], [place] documented in this encounter Visit Diagnoses Diagnosis Pain Generalized pain documented in this encounter Care Teams Shoddy Mill Worker Relationship Specialty Start Date End Date Jitendra Kirkland PA EMERGENCY DEPT [address] [place] [address] PCP - General 04/30/10 06/11/15 documented as of this encounter
--- OUTSIDE RECORDS SUMMARY | 2024-03-07 08:56 | XMS_ITS | Encounter Summary ---
[place] [address] Care Team Providers Care Neon Sign Installer Name Role Phone Austin Rodriguez MD Primary Care Provider [phone]- [phone] Encounter Details Date Type Department Care Team (Latest Contact Info) Description 08/09/2015 11:00 AM EST Clinical [place] [phone] Primary osteoarthritis of left hip Social History [...] Taken Comments Blood Pressure - - Pulse 74 08/09/2015 10:26 AM EST Temperature - - Respiratory Rate - - Oxygen Saturation 98% 08/09/2015 10:26 AM EST Inhaled Oxygen Concentration - - Weight 90.9 kg (200 lb 6.4 oz) 08/09/2015 10:26 AM EST Height 175.3 cm (5' 9.02) 08/09/2015 10:[address] Body Mass Index 29.58 08/09/2015 10:26 AM EST documented in this encounter Progress Notes * Luba Priest RN - 08/09/2015 10:47 AM EST PAT questionnaire reviewed with patient while in Pre Admission testing. Pre- operative instruction booklet reviewed. Patient verbalizes a good understanding of all information reviewed. PLAN: Testing: T&S, urine, lab EKG. Special medication instructions: Stopped fish oil and aleve Procedure date: 08-16 documented in this encounter Plan of Treatment Upcoming Encounters Date Type Department Care Team (Late st Contact Info) Description 03/23/2024 9:15 AM EDT Appointment XRay at [address] [place] [address] 03/23/2024 10:00 AM EDT Office [place] [address] Kathie Polk MD [facility] [place] [address] documented as of this encounter Procedures Procedure Name Priority Date/Time Associated Diagnosis Comments EKG 12-LEAD Routine 08/09/2015 11:16 AM EST Primary osteoarthritis of left hip documented in this encounter Results * EKG 12 Lead (08/09/2015 11:16 AM EST) Ventricular rate 62 BPM MUSE SYSTEM Atrial Rate 62 BPM MUSE SYSTEM P-R Interval 192 ms MUSE SYSTEM QRS Duration 108 ms MUSE SYSTEM Q-T Interval 460 ms MUSE SYSTEM QTC Calculated (Bezet) 466 ms MUSE SYSTEM Calculated P [place] 60 degrees MUSE SYSTEM Calculated R [place] 18 degrees MUSE SYSTEM Calculated T [place] 19 degrees MUSE SYSTEM INTERPRETATION Normal sinus rhythm Possible Left atrial enlargement Incomplete right bundle branch block Borderline ECG No previous ECGs available Confirmed by MD HU ALAN ([id number]) on 08/09/2015 4:09:51 PM MUSE SYSTEM 08/09/2015 11:1 6 AM EST 08/09/2015 4:09 PM EST Panchito Michael MD ECG ORDERABLES MUSE SYSTEM documented in this encounter Visit Diagnoses Diagnosis Primary osteoarthritis of left hip Primary localized osteoarthrosis, pelvic region and thigh documented in this encounter Care Teams Neon Sign Installer Relationship Specialty Start Date End Date Austin Rodriguez MD [facility] [address] [place] [address] PCP - General Family Medicine 06/12/15 05/18/18 documented as of this encounter
--- OUTSIDE RECORDS SUMMARY | 2024-03-07 08:56 | XMS_ITS | Encounter Summary ---
Author Organization [facility] [place] [address] Care Team Providers Care Reforestation Worker Name Role Phone Austin Rodriguez MD Primary Care Provider Encounter Details Date Type Department Care Team (Late st Contact Info) Description 08/09/2015 8:30 AM EST Office [place] [phone] Social History Tobacco Use Types Packs/Day Years [...] 9:15 AM EDT Appointment XRay at [address] [place] [phone] 03/23/2024 10:00 AM EDT Office [place] [address] Kathie Polk MD [facility] [place] [address] documented as of this encounter Visit Diagnoses Not on filedocumented in this encounter Care Teams Reforestation Worker Relationship Specialty Start Date End Date Austin Rodriguez MD [address] [place] [address] PCP - General Family Medicine 06/12/15 05/18/18 documented as of this encounter
--- OUTSIDE RECORDS SUMMARY | 2024-03-07 08:56 | XMS_ITS | Encounter Summary ---
Author Organization [place] [address] Care Team Providers Care Linux Unix Engineer Name Role Phone Blair Sharpe MD Primary Care Provider [phone] Reason for Visit * Diagnostic Test (Routine) - Closed Specialty Diagnoses / Procedures Referred By Thomas hernandes Referred To Contact Radiology Diagnoses Pain in left hip Procedures MRI Hip Left WO Contrast Miguel Wong MD [facility] [place] [address] [place] [address] Referral ID Status Reason Start Date Expiration Date V isits Requested Visits Authorized [id number] Closed Specialty Service Requested 06/26/2015 08/24/2015 1 1 Encounter Details Date Type Department Care Team (Latest Contact Info) Description 07/06/2015 9:00 AM EST - 07/06/2015 9:01 AM [facility] Hospital [place] [address] Albert Peter MD [facility] [place] [address] Discharge Disposition: Home Social History Tobacco Use [...] mg by mouth daily. 0 06/11/2015 09/12/2020 naproxen sodium (ALEVE) 220 mg Capsule Take 440 mg by mouth daily. 08/09/2015 acetaminophen (TYLENOL) 500 mg Tablet Take 1,000 mg by mouth every 6 hours as needed for Pain. 07/12/2015 documented as of this encounter Progress Notes * Ashley Blair RN - 07/04/2015 1:48 PM EST VIR MRI PRE-SEDATION ASSESSMENT NOTE NAME: Nikky Jarrett AGE: 60 y.o. : 1955 [address] [facility] [address] Female [phone] (home) Telephone Information: BLAIR SHARPE MD No primary care provider on file. No Known Allergies Date/Time of call: July 04, 2015/1:49 PM/ PREVIOUS MRI SCAN? Yes, see below HEIGHT: 5' 8.5 WEIGHT: 180 lb SCHEDULED SCAN: MRI Left hip without (feet first, 40 min) SUBJECTIVE: I am claustrophobic. CAN YOU LAY FLAT? Yes AIRWAY ISSUES? No DO YOU HAVE ANY PAIN ISSUES? Yesterday I could not go finish the MRI because of my hip pain. Pt did not take any pain medication for MRI of 07/03/15. Will talk to her physician to obtain a prescription to address pain. Pt also felt Valium did not work well. Will try Ativan instead. ASSESSMENT: Appropriate to try PO sedation again in addition to pain medication. PLAN: Ativan 1-2 mg PO. Pt will bring own pain medication. Guidelines for MRI Pre-Procedures Laboratory Studies: GFR n/a Date of lab draw n/a 1. Creatinine studies (GFR level needed) within 90 days of scan ??? 70 yo or older if they are getting contrast ??? 50 years and older if they are diabetic and getting contrast ( XXX ) You must have a cdl company driver present when you check in. This patient has been informed that they require a cdl company driver to drive them home after this procedure. In the absence of a cdl company driver, IR will not be able to sedate for your scan. Pt verbalized understanding of these instructions during the pre-procedure education via phone. Yes Name of cdl company driver: Damian () Phone number PRIOR SCAN DATE/S SEDATION TYPE SUCCESSFUL 04/06/15 MRI l-spine, OSH? 07/03/15 MRI left hip and lumbar spine?? Valium 5mg PO x2?No, due to hip pain ??07/06/2015 MRI Left Hip ??Ativan 1 mg PO x 2/ took her own pain med. ??Yes ? PT STATED TO DISEASE INTERVENTION SPECIALIST THAT THE SEDATION WAS EFFECTIVE FOR SCAN: Y___x__N COMMENTS: Revised 06/22/15 documented in this encounter Plan of Treatment Upcoming Encounters Date Type Department Care Team (Late st Contact Info) Description 03/23/2024 9:15 AM EDT Appointment XRay at [address] [place] [address] 03/23/2024 10:00 AM EDT Office Visit Orthopaedics at [facility] [place] [address] Kathie Polk MD [facility] [place] [address] documented as of this encounter Procedures Procedure Name Priority Date/Time Associated Diagnosis Comments MRI HIP LEFT WO CONTRAST Routine 07/06/2015 12:31 PM EST Pain in left hip documented in this encounter Visit Diagnoses Not on filedocumented in this encounter Administered Medications Inactive Administered Medications - up to 3 most recent administrations Medication Order MAR Action Action Date Dose Rate Site LORazepam (ATIVAN) tablet 1-2 mg 1-2 mg, Oral, ONCE PRN, 2 doses, Starting on Thu07/06/15 at 0738, Until Thu07/06/15 at 0940, Anxiety, Angio/IR (Day of Procedure), Routine Given 07/06/2015 9:40 AM EST 1 mg Given 07/06/2015 9:10 AM EST 1 mg documented in this encounter Care Teams Linux Unix Engineer Relationship Specialty Start Date End Date Blair Sharpe MD [address] [place] [address] PCP - General Family Medicine 06/12/15 05/18/18 documented as of this encounter
--- OUTSIDE RECORDS SUMMARY | 2024-03-07 08:56 | XMS_ITS | Encounter Summary ---
[facility] [place] [address] Care Team Providers Care Admitted Attorneys Name Role Phone Austin Rodriguez MD Primary Care Provider Reason for Visit * Auth/Cert - Closed [...] Expiration Date Visits Re quested Visits Authorized [id number] Closed 1 1 Encounter Details Date Type Department Care Team (Late st Contact Info) Description 08/17/2015 8:24 AM EST Anesthesia [place] [id number] Min Wright MD [facility] [place] [address] Patel Man MD [facility] [place] [address] Anesthesia Record Procedure Summary Procedure Name Responsible Anesthesiologist Anesthesia Start Time Anesthesia Stop Time TOTAL HIP ARTHROPLASTY, ANTERIOR APPROACH (WRVU 19.6) (Left: Hip) Min Wright MD 08/17/15 0824 08/17/15 1137 Events Date Time Event Comment 08/17/2015 0759 0824 AN Verify 0824 Start 0824 An Start Data 0829 Spinal 0831 Anesthesia Ready 0938 Break/Relief In MIN GARCIA MD 1129 an stop data 1137 Recovery or ICU Handoff Ruby ent care was transferred to the destination unit staff after review of the patient's medical history, current anesthetic/surgical status and plan, according to the Provider Handoff Checklist. 1137 Stop Meds Name Total Midazolam 2 mg Propofol INF 1,156.43 mg BUpivacaine 0.75% spinal 15 mg ceFAZolin (ANCEF) 2g in dextrose 5% 50 m L 2 g lactated ringers infusion 1,000 mL 1,300 mL * Agents No agents on file. * Blood No blood administrations on file. Lines, Drains, and Airways Type Details Placement Removal Incision 08/17/15; hip; vertical; 02/03/22 (LDA cleanup utility RA#[id number]); 1715 (LDA cleanup utility RA#[id number]) 08/17/15 0000 by Neda Sorto RN 02/03/22 1715 by Anne-Marie Catalan (RETIRED) Peripheral IV Line - Single Lumen 08/17/15; 0804; (right hand); 18 gauge; intradermal injection, tolerated well; 08/18/15; 1246 08/17/15 0804 by Bret Danielle RN 08/18/15 1246 by Sayra Harris RN (RETIRED) Peripheral IV Line - Single Lumen 08/17/15; 0824; metacarpal vein left (top of hand); ddaq-zsa-avhujo catheter system; 18 gauge; marie; 08/18/15; 1246 08/17/15 0824 by Maude Marie MD 08/18/15 1246 by Sayra Harris RN documented in this encounter Social History Tobacco [...] OR Notes * Anesthesia Postprocedure Evaluation - Maude Marie - 08/17/2015 12:48 PM EST [facility] [place] Department of Anesthesiology Post-procedure Note Patient: Nikky Jarrett Procedure Summary Date Anesthesia Start Anesthesia Stop Room / Location 08/17/[address] [facility] MAIN OR Procedure Diagnosis Surgeon Responsible Provider @TOTAL HIP ARTHROPLASTY, ANTERIOR APPROACH (Left Hip); HIP INTRAOP RADIOLOGIC EXAMINATION, UNILATERAL, W PELVIS; 4+ VIEWS (Left Hip); MODIFIER CORAIL FEMORAL STEM DEPUY (Left Hip); MODIFIER PINNACLE ACETABULUM DEPUY (Left Hip) Primary osteoarthritis of left hip (left hip OA) Panchito Michael MD Havidich, Jeana E, MD All Anesthesia Providers: Anesthesiologist: Min Wright MD Transcripter: Maude Marie MD Last (1hr) Vitals: BP 104/84 mmHg (08/17/15 1230) Temp Pulse 57 (08/17/15 1230) Resp 11 (08/17/15 1230) SpO2 100 % (08/17/15 1230) Patient Location: PACU/[facility] Level of Consciousness: Awake and Alert Pain Management: Satisfactory Analgesia PONV: None Cardiovascular Status: At Baseline Respiratory Status: At Baseline Postoperative Fluid Status: Intravascular EUvolemia Possible Anesthetic Complications: NONE apparent at time of evaluation Final Primary Anesthesia Type: Spinal (The anesthetic type performed was the same as planned.) Comments: * Anesthesia Procedure Notes - Maude Marie - 08/17/2015 9:00 AM ESTAssociated Order(s): ANE NEURAXIAL UPDATED Procedure: Neuraxial Block Primary Anesthetic Type: Spinal The patient was greeted. The sedation plan, its benefits, risks and alternatives were discussed with the patient. The patient has consented to the procedure. The medical history and chart were reviewed. The timeout was performed. Start time: 08/17/2015 8:20 AM End time: 08/17/2015 8:25 AM Patient Location: Operating Room Patient Prep Position: Sitting Prep: Sterile Gloves, Mask, Hat, Hand Hygiene, Chlorhexidine and Patient Draped Skin Anesthetic Lidocaine 1% 3 ml Procedure Technique Level of needle insertion: L4-5 Needle approach: midline Needle Type: [facility] Gauge: 25 Needle length: 3.5 in Number of attempts: 1 Intrathecal Injection The patient received the following medication/s as an intrathecal injection: Bupivacaine 0.75% w dextrose 2 ml Events/Notes Events: None Resident/TRUSS MAKER: Frank Fellow: Attending Physician: Adriana ~~~~~~~~~~~~~~~~~~~~~~~~~~~~~~~~~~~~~~~~~~~~~~~~~~~~~~~~~~~~ * Anesthesia Preprocedure Evaluation - Maude Marie - 08/16/2015 2:45 PM EST Pre-Anesthesia Evaluation for: Nikky Jarrett a 60 y.o. female. Procedure(s): @TOTAL HIP ARTHROPLASTY, ANTERIOR APPROACH HIP INTRAOP RADIOLOGIC EXAMINATION, UNILATERAL, W PELVIS; 4+ VIEWS MODIFIER CORAIL FEMORAL STEM DEPUY MODIFIER PINNACLE ACETABULUM DEPUY Patient Active Problem List Diagnosis ??? Dysuria ??? Alcoholism ??? Depression ??? History of tobacco abuse ??? Spinal stenosis L4-5 Past Medical History Diagnosis Date ??? Spinal stenosis 06/21/2015 L4-5 No past surgical history on file. History Substance Use Topics ??? Smoking status: Former Smoker Quit date: 07/12/1979 ??? Smokeless tobacco: Never Used ??? Alcohol Use: No History Drug Use No No Known Allergies Medications: MAR and/or home medications have been reviewed. Physical Exam: There were no vitals filed for this visit. There is no weight on file to calculate BMI. Airway Assessment: Mallampati: I TM distance: >3 FB Neck ROM: full Cardiovascular Assessment: cardiovascular exam normal Pulmonary Assessment: pulmonary exam normal Dental Assessment: - normal exam Misc Assessment: IV access: Peripheral line Anesthesia Plan: ASA 2 Spinal, with a(n) intravenous induction 60 y/o woman to undergo L SHANTI. PMH significant for alcohol dependence (takes naltrexone), depression, obesity. NKDA 90kg Plan spinal with propofol infusion; good IV access; standard ASA monitoring Region - Other Informed Consent: Anesthetic plan and risks discussed with patient. Use of blood products discussed with patient whom consented to blood products. Plan discussed with attending. PAT Staff Note documented in this encounter Plan of Treatment Upcoming Encounters Date Type Department Care Team (Late st Contact Info) Description 03/23/2024 9:15 AM EDT Appointment XRay at [address] [place] [address] 03/23/2024 10:00 AM EDT Office [place] [address] Kathie Polk MD [facility] [place] [address] documented as of this encounter Procedures Procedure Name Priority Date/Time Associated Diagnosis Comments ANE NEURAXIAL UPDATED Routine 08/17/2015 9:01 AM EST documented in this encounter Results * ANE NEURAXIAL UPDATED (08/17/2015 9:01 AM EST) Narrative Maude Marie - 08/17/2015 9:01 AM EST Maude Marie MD ? 08/17/2015 ??9:01 AM Procedure: ?? Neuraxial Block Primary Anesthetic Type: Spinal The patient was greeted. The sedation plan, its benefits, risks and alternatives were discussed with the patient. ??The patient has consented to the procedure. ??The medical history and chart were reviewed. ??The timeout was performed. Start time: 08/17/2015 8:20 AM End time: 08/17/2015 8:25 AM Patient Location: Operating Room Patient Prep Position: Sitting Prep: Sterile Gloves, Mask, Hat, Hand Hygiene, Chlorhexidine and Patient Draped Skin Anesthetic Lidocaine 1% ??3 ml Procedure Technique Level of needle insertion: L4-5 Needle approach: midline Needle Type: [facility] Gauge: 25 Needle length: 3.5 in Number of attempts: 1 Intrathecal Injection The patient received the following medication/s as an intrathecal injection: Bupivacaine 0.75% w dextrose 2 ml Events/Notes Events: ??None Resident/TRUSS MAKER: Frank Fellow: Attending Physician: ??Havidich ~~~~~~~~~~~~~~~~~~~~~~~~~~~~~~~~~~~~~~~~~~~~~~~~~~~~~~~~~~~~ Panchito Michael MD [facility] documented in this encounter Visit Diagnoses Not on filedocumented in this encounter Administered Medications Inactive Administered Medications - up to 3 most recent administrations Medication Order MAR Action Action Date Dose Rate Site BUpivacaine 0.75% in dextrose 8.25% (intrathecal) (SENSORCAINE) 0.75 % (7.5 mg/mL) injection Intrathecal, PRN, Starting on Thu08/17/15 at 0829, Until Thu08/17/15 at 1137, Anesthesia Intra-op, Routine Given 08/17/2015 8:29 AM EST 15 mg ceFAZolin (ANCEF) 2g in dextrose 5% 50 mL 2 g, Intravenous, EVERY 3 HOURS, 1 dose, First dose on Thu08/17/15 at 0745, Administer over 30 Minutes, Redose after 3 hours., Intra-Operative (Intra-Procedure), Indication for (Active or Suspected): Prophylaxis Given 08/17/2015 8:30 AM EST 2 g lactated ringers infusion 1,000 mL 1,000 mL, at 100 mL/hr, Intravenous, CONTINUOUS, Starting on Thu08/17/15 at 0745, Until Thu08/17/15 at 1412, Day of Surgery (Day of Procedure) New Bag 08/17/2015 8:24 AM EST midazolam (PF) (VERSED) 1 mg/mL multi-dose injection Intravenous, PRN, Starting on Thu08/17/15 at 0824, Until Thu08/17/15 at 1137, Sleep, Anesthesia Intra-op, Routine Given 08/17/2015 8:29 AM EST 1 mg Given 08/17/2015 8:24 AM EST 1 mg propofol (DIPRIVAN) infusion Intravenous, CONTINUOUS PRN, Starting on Thu08/17/15 at 0831, Until Thu08/17/15 at 1137, Anesthesia Intra-op, Routine New Bag 08/17/2015 8:31 AM EST 75 mcg/kg/min 40.8 mL/hr documented in this encounter Care Teams Admitted Attorneys Relationship Specialty Start Date End Date Austin Rodriguez MD [address] [place] [address] PCP - General Family Medicine 06/12/15 05/18/18 documented as of this encounter
--- OUTSIDE RECORDS SUMMARY | 2024-03-07 08:56 | XMS_ITS | Encounter Summary ---
Author Organization [facility] [address] Care Team Providers Care Dormitory Maid Name Role Phone Austin Rodriguez MD Primary Care Provider [phone] Reason for Visit * Diagnostic Test (Routine) - Closed Specialty Diagnoses / Procedures Referred By Thomas hernandes Referred To Contact Radiology Diagnoses Pain in left hip Procedures MRI Hip Left WO Contrast Miguel Wong MD [facility] [place] [address] [place] [address] Referral ID Status Reason Start Date Expiration Date V isits Requested Visits Authorized [id number] Closed Specialty Service Requested 06/26/2015 08/24/2015 1 1 Encounter Details Date Type Department Care Team (Latest Contact Info) Description 07/06/2015 9:02 AM EST - 07/06/2015 11:[address] [facility] Hospital [place] [address] Albert Peter MD [facility] [place] [address] Discharge Disposition: Home Social History Tobacco Use [...] 03/23/2024 9:15 AM EDT Appointment XRay at [address] [place] [address] 03/23/2024 10:00 AM EDT Office Visit Orthopaedics at [facility] [place] [address] Kathie Polk MD [facility] [place] [address] documented as of this encounter Procedures Procedure [...] arthropathy of the left hip. The large mmmgq-zn-bfje images suggest that there is similar though [...] see discrete fracture line on the large bqkgw-ss-iuhs images. I have personally reviewed the image(s) [...] 04/06/2015 FINDINGS: The study includes both large jleqj-hq-tlxj images of the pelvis and small lkrud-kq-bonh focused imaging of the left hip. On the large urnsr-jv-fdtc pelvis images no pelvic fracture is identified. [...] 04/06/2015 FINDINGS: The study includes both large nebjg-cl-yeyw images of the pelvis andsmall baxtz-ko-afii focused imaging of the left hip. On the large pezah-zf-zayf pelvis images no pelvic fracture is identified.No [...] destructive arthropathy of the left hip. The gqqgtyaflx-om-iaum images suggest that there is similar though [...] however see discrete fracture lineon the large nkmfp-va-trit images. I have personally reviewed the image(s) and the residents interpretationand agree with the findings, Franklin Dietz at 07/06/2015 3:56 PM Albert Peter MD IMG MRI ORDERABLES documented in this encounter Visit Diagnoses Not on filedocumented in this encounter Care Teams Dormitory Maid Relationship Specialty Start Date End Date Austin Rodriguez MD [address] [place] [address] PCP - General Family Medicine 06/12/15 05/18/18 documented as of this encounter
--- OUTSIDE RECORDS SUMMARY | 2024-03-07 08:56 | XMS_ITS | Encounter Summary ---
[place] [address] Care Team Providers Care Government Relations Director Name Role Phone Austin Rodriguez MD Primary Care Provider Reason for Visit * Reason Comments Bilateral Hip Pain Lt>Rt Encounter Details Date Type Department Care Team (Latest Contact Info) Description 07/12/2015 9:20 AM EST Office [place] [address] Panchito Michael MD Primary osteoarthritis of left [...] Sign Reading Time Taken Comments Blood Pressure 142/70 07/12/2015 9:16 AM EST Pulse 63 07/12/2015 9:16 AM EST Temperature - - Respiratory Rate - - Oxygen Saturation - - Inhaled Oxygen Concentration - - Weight 89.8 kg (197 lb 14.4 oz) 07/12/2015 9:16 AM EST fully clothed Height 174 cm (5' 8.5) 07/12/2015 9:16 AM EST verbal Body Mass Index 29.65 07/12/2015 9:16 AM EST documented in this encounter Progress Notes * Panchito Michael MD - 07/16/2015 8:47 AM EST I have seen the patient and reviewed Ed Bone PA-C history/physical and I agree with the details as written. The assessment and plan were formulated in discussion with me and I agree with them as documented. Patient is a 60-year-old female with multiple month history of left anterior groin and thigh pain. She also has a history of low back pain and left leg radicular symptoms. At this point, her symptomswould become so severe that his significantly limited the quality of her life and ambulation. She has an MRI and x-rays that show osteoarthritic change of the left hip joint. Patient has felt like she is failed conservative management. Had long discussion with patient and patient's today regarding treatment options including left hip replacement. I reviewed the risks and benefits of surgical procedure with her. These included but were not limited to infection, bleeding, dislocation, leg length inequality, fracture, damage to blood vessels and nerves, stiffness, pain, loosening, failure of implants, wearing out of implants. Discussed the medical and anesthetic risks such as pneumonia, stroke, allergic rash to medicines, heart attacks, blood clots, . Discussed the role of antico agulation for blood clot prevention postoperatively. At this point, patient would like to proceed with left total hip arthroplasty which I think is reasonable. Patient was seen for preoperative visit. Panchito Michael MD, MS 07/16/2015 * Ed Bone PA - 07/12/2015 9:58 AM EST DATE OF VISIT: 07/12/2015. CHIEF COMPLAINT: Left greater than right hip symptoms. HISTORY OF PRESENT ILLNESS: A 60-year-old female presents today for evaluation of her left hip. She describes four to five months currently of symptoms. She has had intermittent difficulty in the past. She has historically started problems related to lumbar spine pathology. She does have a remote history of a herniated disk that responded well to epidural steroid injection. The current symptoms have been more persistent and more severe than anything she has had previously. There is a groin and anterior thigh pain as well as pain down her leg to her mid calf. She has had injections in the spine as well as her hip joint since the onset of the symptoms, which really did not help her very much. She had a course of prednisone, which helped her some. The only time she feels comfortable and active is in the pool. Aside from discomfort, her health has been stable. She denies systemic signs of illness aside from frustration. IMAGING: X-rays of her hip show relatively well-maintained joint spaces with some peripheral osteophytes, but no obvious articular cartilage loss. MRI scan shows pronounced marrow edema through the femoral head and neck junction extending into the femoral neck. There is full thickness cartilage deficits on the femoral head of both hips, more diffuse on the left side with probable bahh-ga-ggto articulation. 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 PLAN: We discussed her hips and her pain. I think it is likely that she has at least two contributing areas of pathology. The changes in her lumbar spine are contributing some of her pain, but probably exacerbated by the compromised function at her hips. We discussed the use of crutches for symptomatic relief. We did discuss hip replacement and indications for that procedure as well as limitations and restrictions. She will discuss this further with Dr. Michael. documented in this encounter Plan of Treatment Upcoming Encounters Date Type Department Care Team (Late st Contact Info) Description 03/23/2024 9:15 AM EDT Appointment XRay at [address] [place] [address] 03/23/2024 10:00 AM EDT Office Visit Orthopaedics at [facility] [place] [address] Kathie Polk MD [facility] [place]THOPAEDIC [place] [address] documented as of this encounter Procedures Procedure Name Priority Date/Time Associated Diagnosis Comments TOTAL HIP ARTHROPLASTY, ANTERIOR APPROACH Routine 07/12/2015 10:15 AM EST Primary osteoarthritis of left hip [...] hip. Panchito Michael MD IMG DX ORDERABLES * (ABNORMAL) Urinalysis with reflex Culture (08/09/2015 11:24 AM EST) Glucose, Urine Dipstick Negative Negative mg/dL [facility] Protein, Urine Dipstick Negative Negative mg/dL [facility] Bilirubin, Urine Dipstick Negative Negative mg/dL [facility] Comment: Clinical correlation required for positive Urine Bilirubin results as false positive may occur with some drugs and drug related products. If a false positive is suspected a serum total bilirubin should be considered if clinically indicated. Urobilinogen, Urine Dipstick Normal Normal mg/dL [facility] pH, Urn (dipstick) 7.0 5.0 - 8.0 [facility] Blood, Urine Dipstick Negative Negative mg/dL [facility] Ketone, Urine Dipstick 5(A) Negative mg/dL [facility] Nitrite, Urine Dipstick Negative Negative [facility] Leukocytes, Urine Dipstick Negative Negative [facility] Appearance, Urine Dipstick Clear Clear [facility] Specific [place] Urine Automated 1.012 1.002 - 1.030 [facility] Color, Urine Dipstick Yellow Yellow [facility] RBC, Urine 1 0 - 4 /HPF [facility] WBC, Urine 1 0 - 5 /HPF [facility] Squamous Epithelial Cells, Urine <1 <=4 /HPF [facility] Reflex to Culture No [facility] Urine specimen obtained by clean catch procedure (specimen) 08/09/2015 11:24 AM EST 08/09/2015 11:30 AM EST Narrative Resulting Agency Comment Spec In Lab Panchito Michael MD URINE ORDERABLES Performing Organization Address [facility] Co de Phone Number [facility] [place] [place] [address] * EKG 12 Lead (08/09/2015 11:16 AM EST) Ventricular rate 62 BPM MUSE SYSTEM Atrial Rate 62 BPM MUSE SYSTEM P-R Interval 192 ms MUSE SYSTEM QRS Duration 108 ms MUSE SYSTEM Q-T Interval 460 ms MUSE SYSTEM QTC Calculated (Bezet) 466 ms MUSE SYSTEM Calculated P [place] 60 degrees MUSE SYSTEM Calculated R [place] 18 degrees MUSE SYSTEM Calculated T [place] 19 degrees MUSE SYSTEM INTERPRETATION Normal sinus rhythm Possible Left atrial enlargement Incomplete right bundle branch block Borderline ECG No previous ECGs available Confirmed by MD HU ALAN ([id number]) on 08/09/2015 4:09:51 PM MUSE SYSTEM 08/09/2015 11:1 6 AM EST 08/09/2015 4:09 PM EST Panchito Michael MD ECG ORDERABLES Performing Organization Address City/[facility] Co de Phone Number MUSE SYSTEM * Prothrombin Time (08/09/2015 11:03 AM EST) Prothrombin Time 13.0 12.0 - 15.0 sec [facility] Comment: An INR <2.0 indicates [...] International Normalization Ratio 1.0 0.9 - 1.1 [facility] Blood specimen (specimen) 08/09/2015 11:03 AM EST 08/09/2015 11:29 AM EST Narrative Resulting Agency Comment Spec In Lab Panchito Michael MD HEMATOLOGY ORDERABLE S [facility] [place] [address] * (ABNORMAL) Basic Metabolic Panel (non-fasting) (08/09/2015 11:03 AM EST) Pathologist [facility] Glucose 93 65 - 199 mg/dL [facility] Comment:Diabetes: >=200 mg/d L plus symptoms Blood Urea Nitrogen 8 8 - 18 mg/dL [facility] Creatinine 0.58(L) 0.70 - 1.20 mg/dL [facility] Comment: Please note that the pediatric reference intervals supplied above were not validated at [facility]. Results from pediatric patients should be interpreted in conjunction to the patient's age, height and muscle mass. Sodium 144 135 - 145 mmol/L [facility] Potassium 4.5 3.5 - 5.0 mmol/L [facility] Comment: Please note: ??Patients with WBC >100,000 may have falsely elevated Potassium levels. ??For accurate Potassium quantification in these patients send serum separator tube (gold top) for subsequent determinations. ??Contact the Clinical Chemistry Laboratory if there are any questions. Chloride 105 98 - 107 mmol/L [facility] Carbon Dioxide 27 22 - 31 mmol/L [facility] Anion Gap 12 5 - 15 mmol/L [facility] Calcium 9.4 8.5 - 10.5 mg/dL [facility] Est Glomerular Filtration Rate >60 [...] the following links into your internet browser. [email or web address] Blood specimen (specimen) 08/09/2015 11:03 AM EST 08/09/2015 11:29 AM EST Narrative Resulting Agency Comment Spec In Lab Panchito Michael MD CHEMISTRY ORDERABLES [facility] [place] [address] documented in this encounter Visit Diagnoses Diagnosis Primary osteoarthritis of left hip Primary localized osteoarthrosis, pelvic region and thigh Primary osteoarthritis of left hip Primary localized osteoarthrosis, pelvic region and thigh documented in this encounter Care Teams Government Relations Director Relationship Specialty Start Date End Date Austin Rodriguez MD [address] [place] [address] PCP - General Family Medicine 06/12/15 05/18/18 documented as of this encounter
--- OUTSIDE RECORDS SUMMARY | 2024-03-07 08:56 | XMS_ITS | Encounter Summary ---
Author Organization [facility] [place] [address] Care Team Providers Care Apns Name Role Phone Jitendra Kirkland Primary Care Provider [phone] Encounter Details Date Type Department Care Team (Late st Contact Info) Description 04/06/2015 - 04/06/2015 12:04 AM EDT Hospital Encounter Radiology Library at [facility] [place] [address] [facility] Discharge Disposition: Home Social History [...] 9:15 AM EDT Appointment XRay at [address] [place] [phone] 03/23/2024 10:00 AM EDT Office Visit Orthopaedics at [facility] [place] [address] Kathie Polk MD [facility] [place] [address] documented as of this encounter Procedures Procedure Name Priority Date/Time Associated Diagnosis Comments FILM LIBRARY STORAGE ONLY DX PELVIS Routine 04/06/2015 12:00 AM EDT Pain documented in this encounter Results * Film Library- Storage only DX Pelvis (04/06/2015 12:00 AM EDT) Narrative [facility] - 06/12/2015 3:12 PM EST See PACS for result report. Dr Nance [facility] FILM LIBRARY ORD ERABLES [place], [place] documented in this encounter Visit Diagnoses Diagnosis Pain Generalized pain documented in this encounter Care Teams Apns Relationship Specialty Start Date End Date Jitendra Kirkland PA EMERGENCY DEPT [address] [place] [address] PCP - General 04/30/10 06/11/15 documented as of this encounter
[2024-03-07 15:10] LABS: Hemoglobin A1C 5.6 % (<5.7)
[2024-03-07 15:26] LABS: Calculated LDL 153 mg/dL (<100); Cholesterol 226 mg/dL (<200); Glucose 99 mg/dL (74-106); HDL Cholesterol 51 mg/dL (40-60); Triglyceride 112 mg/dL (<150)
== END 2024-03-07 08:53 | disposition home or self-care (01) ==
LOC: NCHCN 08:52
PROVIDERS: PCP Internal Medicine; Visit Provider Internal Medicine
DX: R73.03 Prediabetes (principal)
CPT/HCPCS: 80061; 82947; 83036

== ENCOUNTER 2025-01-16 16:22 | Outpatient (REF) | payer MEDICARE, SELFPAY ==
[2025-01-16 21:09] LABS: HCT 41.1 % (36.0-46.0); HGB 13.2 g/dL (11.2-15.7); MCH 30.8 pg (27.0-33.0); MCHC 32.1 % (32.0-36.0); MCV 96 fL (80-95); MPV 11.5 fL (8.0-11.0); Platelet Count 264 10^3/uL (130-400); RBC 4.29 10^6/uL (3.93-5.22); RDW 12.8 % (11.7-14.6); RDW-SD 45.1 fL; WBC 8.33 10^3/uL (4.4-10.8)
[2025-01-16 21:47] LABS: ALT 37 U/L (14-59); AST 33 U/L (15-37); Albumin 3.9 g/dL (3.4-5.0); Alkaline Phosphatase 81 U/L (46-116); Anion Gap 7.3 mmol/L (3-11); BUN 16 mg/dL (7-18); Bilirubin, Total 0.4 mg/dL (0.2-1.0); CO2 29.7 mmol/L (21.0-32.0); Calcium 9.5 mg/dL (8.5-10.1); Calculated LDL 74 mg/dL (<100); Chloride 105 mmol/L (98-107); Cholesterol 159 mg/dL (<200); Estimated GFR 95.90 (mL/min/1.73m2); Glucose 81 mg/dL (74-106); HDL Cholesterol 55 mg/dL (>or=50); Potassium 4.1 mmol/L (3.5-5.1); Sodium 142 mmol/L (136-145); TSH 4.14 uIU/mL (0.36-3.74); Total Protein 7.4 g/dL (6.4-8.2); Triglyceride 153 mg/dL (<150); Vitamin B12 478 pg/mL (193-986)
[2025-01-16 22:42] LABS: Hemoglobin A1C 5.6 % (<5.7)
== END 2025-01-16 16:23 | disposition home or self-care (01) ==
LOC: NCHCN 16:22
PROVIDERS: PCP Internal Medicine; Visit Provider Nurse Practitioner Family
DX: E78.5 Hyperlipidemia, unspecified (principal); R73.03 Prediabetes
CPT/HCPCS: 80053; 80061; 85027; 87077; 82607; 83036; 84443; 87086; 87186

== ENCOUNTER 2025-03-09 08:17 | Outpatient (REF) | payer MEDICARE, SELFPAY ==
[2025-03-09 14:46] LABS: HCT 42.5 % (36.0-46.0); HGB 14.0 g/dL (11.2-15.7); MCH 31.3 pg (27.0-33.0); MCHC 32.9 % (32.0-36.0); MCV 95 fL (80-95); MPV 10.8 fL (8.0-11.0); Platelet Count 321 10^3/uL (130-400); RBC 4.47 10^6/uL (3.93-5.22); RDW 12.6 % (11.7-14.6); RDW-SD 43.8 fL; WBC 6.02 10^3/uL (4.4-10.8)
[2025-03-09 15:14] LABS: Hemoglobin A1C 5.6 % (<5.7)
[2025-03-09 15:22] LABS: ALT 29 U/L (14-59); AST 21 U/L (15-37); Albumin 3.8 g/dL (3.4-5.0); Alkaline Phosphatase 92 U/L (46-116); Anion Gap 7.8 mmol/L (3-11); BUN 11 mg/dL (7-18); Bilirubin, Total 0.6 mg/dL (0.2-1.0); CO2 29.2 mmol/L (21.0-32.0); Calcium 9.2 mg/dL (8.5-10.1); Calculated LDL 103 mg/dL (<100); Chloride 106 mmol/L (98-107); Cholesterol 180 mg/dL (<200); Estimated GFR 91.83 (mL/min/1.73m2); Glucose 113 mg/dL (74-106); HDL Cholesterol 61 mg/dL (>or=50); Potassium 4.1 mmol/L (3.5-5.1); Sodium 143 mmol/L (136-145); Total Protein 7.1 g/dL (6.4-8.2); Triglyceride 80 mg/dL (<150)
== END 2025-03-09 08:18 | disposition home or self-care (01) ==
LOC: NCHCN 08:17
PROVIDERS: PCP Internal Medicine; Visit Provider Internal Medicine
DX: E78.5 Hyperlipidemia, unspecified (principal); R73.03 Prediabetes
CPT/HCPCS: 80053; 80061; 85027; 83036

== ENCOUNTER 2025-03-13 16:20 | Outpatient (REF) | payer MEDICARE, SELFPAY ==
[2025-03-13 19:09] LABS: Glucose Negative (Negative)
[2025-03-13 19:24] LABS: WBC 20-50 HPF (0-5)
== END 2025-03-13 16:21 | disposition home or self-care (01) ==
LOC: NCHCN 16:20
PROVIDERS: PCP Internal Medicine; Visit Provider Internal Medicine
DX: R35.0 Frequency of micturition (principal)
CPT/HCPCS: 87077; 81003; 81015; 87086; 87186